=== PATIENT | female | born 1945 | race Caucasian/White ===

== ENCOUNTER 2016-10-13 15:04 | Outpatient (CLI) | payer MEDICARE ==
[~2016-10-13] VITALS: Ht 157.5 cm; Wt 36.0 kg
[~2016-10-13 15:04] MED LIST: ACETAMINOPHEN TAB 650MG DOSE (2X325MG) PO SCH; diphenhydrAMINE 25 MG CAP PO SCH
[2016-10-13 15:45] VITALS: BP 98/65
== END 2016-10-13 21:20 | disposition home or self-care (01) ==
LOC: M OPCLI4PV 15:04 → M INFU 15:04 → M MSPAV 15:07 → M INFU 15:07 → M OPCLI4PV 21:20
PROVIDERS: ATTEND Internal Medicine Medical Oncology
DX: D61.818 Other pancytopenia (principal)
CPT/HCPCS: 36430; 86850; 86900; 86901; 86920; P9016

== ENCOUNTER 2016-11-13 11:15 | Outpatient (CLI) | payer MEDICARE ==
[~2016-11-13 11:15] MED LIST changes: +ACETAMINOPHEN TAB 650MG DOSE (2X325MG) PO ONE; -ACETAMINOPHEN TAB 650MG DOSE (2X325MG) PO SCH; +diphenhydrAMINE 25 MG CAP PO ONE; -diphenhydrAMINE 25 MG CAP PO SCH
== END 2016-11-13 16:15 | disposition home or self-care (01) ==
LOC: M INFU 11:15
PROVIDERS: ATTEND Internal Medicine Medical Oncology
DX: D61.818 Other pancytopenia (principal); Z79.899 Other long term (current) drug therapy; Z88.5 Allergy status to narcotic agent
CPT/HCPCS: 36430; 86850; 86900; 86901; 86920; P9016

== ENCOUNTER 2016-12-07 13:22 | Outpatient (CLI) | payer MEDICARE ==
[~2016-12-07] VITALS: Ht 160 cm; Wt 39.0 kg
[~2016-12-07 13:22] MED LIST changes: -ACETAMINOPHEN TAB 650MG DOSE (2X325MG) PO ONE; +ACETAMINOPHEN TAB 650MG DOSE (2X325MG) PO SCH; -diphenhydrAMINE 25 MG CAP PO ONE; +diphenhydrAMINE 25 MG CAP PO SCH
[2016-12-07 13:30] VITALS: BP 101/58
[2016-12-15] MEDS ORDERED: REVL10CA2 (12:53)
== END 2016-12-07 19:05 | disposition home or self-care (01) ==
LOC: M OPCLI4PV 13:22 → M MSPAV 13:25 → M OPCLI4PV 19:05
PROVIDERS: ATTEND Internal Medicine Medical Oncology
DX: D64.9 Anemia, unspecified (principal)
CPT/HCPCS: 36430; 86850; 86900; 86901; 86920; P9016

== ENCOUNTER → 2016-12-07 | Outpatient (REF) | payer MEDICARE | LOC: M LAB REF 12:51 | PROVIDERS: ATTEND Internal Medicine Medical Oncology | DX: D64.9 Anemia, unspecified (principal) ==

== ENCOUNTER 2016-12-15 12:31 | Emergency (ER) | payer MEDICARE ==
[~2016-12-15] VITALS: Ht 160 cm; Wt 35.4 kg
[2016-12-15] MEDS ORDERED: REVL10CA2 PO (12:53)
[2016-12-15] MEDS ORDERED: ASPI1TAB24 PO (12:55)
[2016-12-15] MEDS ORDERED: NS 500 ML IV ONE ×2 (13:45→16:15)
[2016-12-15 14:03] LABS: MEAN CORPUSCULAR HEMOGLOBIN 31.6 pg (27.0-33.0); MEAN CORPUSCULAR HGB CONC 33.6 g/dl (32.0-36.5); MEAN CORPUSCULAR VOLUME 94.1 fl (80.0-96.0); PLATELET COUNT, AUTOMATED 148 k/mm3 (150-450); RED CELL DISTRIBUTION WIDTH 17.4 % (11.5-14.5); WHITE BLOOD COUNT 5.6 K/mm3 (4.0-10.0)
[2016-12-15 14:05] LABS: ALBUMIN 2.8 GM/DL (3.2-5.2); ALBUMIN/GLOBULIN RATIO 0.68 (1.00-1.93); ALKALINE PHOSPHATASE 74 U/L (45-117); ALT/SGPT 12 U/L (12-78); ANION GAP 10 MEQ/L (8-16); AST/SGOT 9 U/L (15-37); BILIRUBIN,DIRECT 0.4 MG/DL (0.0-0.2); BILIRUBIN,TOTAL 1.2 MG/DL (0.2-1.0); BLOOD UREA NITROGEN 13 MG/DL (7-18); CALCIUM LEVEL 8.5 MG/DL (8.8-10.2); CARBON DIOXIDE LEVEL 29 MEQ/L (21-32); CHLORIDE LEVEL 98 MEQ/L (98-107); CREATININE FOR GFR 0.61 MG/DL (0.55-1.02); GLOMERULAR FILTRATION RATE > 60.0 (>39); GLUCOSE, FASTING 113 MG/DL (83-110); POTASSIUM SERUM 3.1 MEQ/L (3.5-5.1); SODIUM LEVEL 137 MEQ/L (136-145); TOTAL PROTEIN 6.9 GM/DL (6.4-8.2)
[2016-12-15 14:17] LABS: BANDS 3 % (< 11)
[2016-12-15 14:18] LABS: ANISOCYTOSIS 2+; POIKILOCYTOSIS 1+
[2016-12-15 14:19] LABS: TOXIC GRANULATION 1+
--- NOTE | 2016-12-15 15:05 | REP ---
AP VIEW OF THE PELVIS: SINGLE VIEW. HISTORY: Pain after fall. FINDINGS: Bony pelvic ring is intact. Femoral heads are smooth and rounded, and hip joint spaces are preserved. No hip or pelvic fracture is seen. Bowel gas pattern is unremarkable. IMPRESSION: No fracture seen. Signed by Marco Antonio Velarde MD 12/15/2016 03:23 P
[2016-12-15] MEDS ORDERED: ACETAMINOPHEN TAB 650MG DOSE (2X325MG) PO ONE (16:15)
[2016-12-15] MEDS ORDERED: LevoFLOXacin IV 500 MG in APPROPRIATE DILUENT 1 EA IV ONE (16:15)
[2016-12-15 19:01] VITALS: BP 93/51
--- NOTE | 2016-12-16 11:03 | ECGEPIP ---
Stationary ECG Study [facility] - ED Test Date: 2016-12-15 Pat Name: GEORGE ACEVES Department: Room: - Gender: F Licensed Embalmer: SHIRA : 1945 Requested By: BRADEN Henderson Order Number: [id number] Reading MD: Lo Crouch Measurements Intervals [place] Rate: 114 P: 73 HI: 136 QRS: 60 QRSD: 84 T: 76 QT: 310 QTc: 429 Interpretive Statements SINUS TACHYCARDIA NONSPECIFIC ST & T-WAVE ABNORMALITY ABNORMAL RHYTHM ECG NO PRIOR FOR COMPARISON Electronically Signed On 12-16-2016 11:03:36 EST by Lo Crouch
== END 2016-12-15 20:09 | disposition home or self-care (01) ==
LOC: M ED 14:16
DX: J18.9 Pneumonia, unspecified organism (principal)
CPT/HCPCS: 72190; 80048; 80076; 83605; 84443; 85025; 93005; 96374; 99284; J1956

== ENCOUNTER 2016-12-19 22:12 | Inpatient (IN) | payer MEDICARE ==
[~2016-12-19] VITALS: Ht 157.5 cm; Wt 35.7 kg
[~2016-12-19 22:12] MED LIST changes: -ACETAMINOPHEN TAB 650MG DOSE (2X325MG) PO SCH; +ASPI1TAB24 PO; +REVL10CA2 PO; -diphenhydrAMINE 25 MG CAP PO SCH
[2016-12-19] MEDS ORDERED: LEVO500T32 PO (22:34)
[2016-12-19 23:35] LABS: VENOUS O2 SATURATION 90.6 % (60.0-80.0); VENOUS PARTIAL PRESSURE CO2 38.5 mmHg (38.0-50.0); VENOUS PARTIAL PRESSURE O2 63.8 mmHg (30.0-50.0); VENOUS STANDARD HCO3 26.2 MEQ/L; VENOUS TOTAL CO2 27.3 MEQ/L (24.0-28.0)
[2016-12-19 23:47] LABS: DIFF SLIDE NUMBER 189; MEAN CORPUSCULAR HEMOGLOBIN 30.8 pg (27.0-33.0); MEAN CORPUSCULAR HGB CONC 33.4 g/dl (32.0-36.5); MEAN CORPUSCULAR VOLUME 92.3 fl (80.0-96.0); PLATELET COUNT, AUTOMATED 214 k/mm3 (150-450); RED CELL DISTRIBUTION WIDTH 17.5 % (11.5-14.5); WHITE BLOOD COUNT 4.2 K/mm3 (4.0-10.0)
[2016-12-20] VITALS (8 sets, daily range): BP systolic 102–125; BP diastolic 56–64
[2016-12-20 00:08] LABS: BLOOD UREA NITROGEN 11 MG/DL (7-18); GLUCOSE, FASTING 103 MG/DL (83-110)
[2016-12-20 00:15] LABS: BANDS 1 % (< 11)
[2016-12-20 00:17] LABS: ANISOCYTOSIS 2+
--- NOTE | 2016-12-20 00:20 | REPUSA ---
CLINICAL HISTORY: Syncope. TECHNIQUE: Multiple axial brain CT scan sections were obtained from base to vertex without contrast a dministration. COMMENTS: The study shows normal configuration of sella turcica. There are no intra or extra-axial collections. There is no mass effect or midline shift. There is no evidence of hematoma formation. No hydrocephal us is present. No abnormal calcifications are noted. Changes of diffuse cerebellar and cerebral atrophy are noted with symmetrically dilated ventricles an d cortical sulci. There are mild bilateral periventricular hypolucencies compatible with white matter ischemic disease. No significant other abnormalities are seen either in the posterior fossa or supra tentorial compartment. There is mucosal thickening and partial opacification involving left sphenoid as well as bilateral et hmoid air cells and maxillary sinuses consistent with chronic sinusitis. IMPRESSION: 1. Diffuse age-appropriate cerebellar and cerebral atrophy. 2. Bilateral periventricular hypolucencies compatible with chronic white matter ischemic disease. 3. Sinusitis as above. 4. No evidence of acute intracranial pathology. Thank you for your kind referral of this patient.
--- NOTE | 2016-12-20 00:30 | REPUSA ---
CLINICAL HISTORY: Pneumonia. TECHNIQUE: Multiple axial CT images were obtained through chest without IV contrast material. COMMENTS: Multiple areas of consolidation in the RLL and LLL most compatible with multifocal pneumonia. Small r ight pleural effusion is noted. There is no evidence of hilar or mediastinal lymphadenopathy. The heart and great vessels are within normal limits. The visualized portions of the liver are of uniform attenuation without mass or defect. There is no i ntra or extrahepatic biliary ductal dilatation. The spleen is unremarkable. The visualized pancreas i s of normal contour and attenuation characteristics. There is no evidence of adrenal mass. The visual ized portions of the kidneys present no abnormalities. The bony structures are free of lytic or blastic lesions. Multilevel degenerative changes are seen in volving the thoracic spine. Scattered calcifications are seen involving the aorta and visualized alexandra r branches compatible with atherosclerosis. IMPRESSION: Multiple areas of consolidation in the RLL and LLL most compatible with multifocal pneumonia. Small r ight pleural effusion. Consider short term follow up study. Thank you for your kind referral of this patient.
[2016-12-20 00:40] LABS: ANION GAP 9 MEQ/L (8-16); CARBON DIOXIDE LEVEL 27 MEQ/L (21-32); CHLORIDE LEVEL 102 MEQ/L (98-107); SODIUM LEVEL 138 MEQ/L (136-145)
[2016-12-20] MEDS ORDERED: BISACODYL 5 MG TAB PO PRN (02:00)
[2016-12-20] MEDS ORDERED: PERCOCET 5MG/325MG TAB PO PRN (02:00)
[2016-12-20] MEDS ORDERED: ACETAMINOPHEN TAB 650MG DOSE (2X325MG) PO ONE (03:30)
[2016-12-20] MEDS: ACETAMINOPHEN TAB 650MG DOSE (2X325MG) PO PRN ×2 (03:53→20:36)
--- NOTE | 2016-12-20 04:50 | HPE ---
DATE OF ADMISSION: 12/20/2016 PRIMARY CARE PROVIDER: Dr. Moreno. INSURANCE OFFICE MANAGER: Dr. Leon. CHIEF COMPLAINT: Collapse. HISTORY OF PRESENT ILLNESS: The patient is a 71-year-old female with myelodysplastic disorder which she follows with Dr. Leon. She normally gets two units of blood every 3-4 weeks. The last transfusion was 2-1/2 weeks ago. On 12/15, she had presented to her primary care provider's (PCP's) office. While there, she had nasal swab done, which she tells me was positive for influenza and she completed a course of Tamiflu. On the same day, she was also told that she had pneumonia and she was started on levofloxacin and she has completed 4 days of this thus far, although she continued to have dyspnea on exertion, fatigue, and lightheadedness while standing. As per the patient's son who accompanies her in the room and whom she lives with, the patient stood up after using the bathroom this morning and collapsed. It happened one other time today as well in the same orthostatic setting without any other prodromal symptoms. The patient completed 5 days of prednisone as well along with her Tamiflu. At the present time, the patient reports she feels tired, but otherwise has no complaints. She denies shortness of breath at rest, fevers, chills, nausea, vomiting or diarrhea. She tells me that she still has a cough, but it is resolving. PAST MEDICAL HISTORY: Myelodysplastic disorder, transfusion dependent. HOME MEDICATIONS: - levofloxacin 500 mg by mouth daily - aspirin 81 mg daily - Revlimid, she is intermittently on it, she has not been taking it recently ALLERGIES: CODEINE, rash. PAST SURGICAL HISTORY: 1. Tubal ligation. 2. Colonoscopy. SOCIAL HISTORY: The patient is a never smoker. Denies alcohol. Lives with her son, who accompanies her in the emergency room. FAMILY HISTORY: Noncontributory. REVIEW OF SYSTEMS: Negative other than history of present illness (HPI). PHYSICAL EXAMINATION: VITAL SIGNS: Temperature 99.8, pulse 114, blood pressure 100/56, oxygen saturation 98% on room air. GENERAL: She is a pale, cachectic female lying in a stretcher. She appears comfortable, but tired and she is in no distress. HEENT: Conjunctival pallor. Bitemporal wasting. Sunken eyes. She has moist mucous membranes. No elevation of central venous pressure (CVP). CARDIOVASCULAR EXAMINATION: S1, S2, mildly tachycardic, but regular. RESPIRATORY EXAMINATION: Clear. She is kyphotic. ABDOMINAL EXAMINATION: Benign. EXTREMITIES: She appears wasted. LABORATORY STUDIES: WBC 4.2, hemoglobin 7 down from 9.4 four days ago, hematocrit 21, platelet count 214. Chemistry panel: Sodium 138, potassium 4.0, chloride 102, bicarbonate 27, BUN 11, creatinine 0.6. TSH within normal limits. One set of troponin is within normal limits. Blood culture pending. IMAGING: The patient did have a CT scan of the chest that reveals multiple areas of consolidation in the right lower lobe and left lower lobe most compatible with multifocal pneumonia, small right pleural effusion. The patient also had a CT scan of her head that did not reveal any acute intracranial pathology. ASSESSMENT AND PLAN: This is a 71-year-old female with myelodysplastic disorder who has recently completed treatment for influenza and currently completing treatment for community-acquired pneumonia, presenting now with acute on chronic symptomatic anemia. 1. Symptomatic anemia. This is likely the reason for her collapse given her orthostatic symptoms and the setting of her acute drop in her hemoglobin. This is dropping quicker than normal for her. I suspect it is likely related to either influenza or levofloxacin. She has been adequately treated for influenza and completed Tamiflu. At this time, I will discontinue levofloxacin and switch her to azithromycin and cefdinir for three additional days to complete her course. In regards to her anemia, she has been consented, typed and crossed and ordered for a transfusion in the emergency room. I feel this will be the most beneficial for her. Given her chronic anemia, I do not see a utility in checking iron studies. The patient has guaiac in the emergency room (ER), which was negative. 2. Fall. Likely orthostasis secondary to her acute on chronic anemia. Does have pain in her coccyx. Will check an x-ray of her coccyx to ensure no fracture, although I do not think this is likely. 3. Influenza. She has completed Tamiflu. She also completed 5 days of prednisone along with it. Her symptoms do seem to be abating. She has some mild cough. I will provide her with Mucinex. She has myelodysplastic disorder and she may be having bone marrow suppression secondary to possibly influenza or levofloxacin on top of her chronic suppression. 4. Deep venous thrombosis (DVT) prophylaxis. The patient will be on heparin. DISPOSITION: The patient will be admitted to PCU . Will trend her cardiac enzymes. She will be admitted to Dr. Nava's service who will continue following the patient at 7 a.m. [facility]
[2016-12-20] MEDS: ASPIRIN 81 MG ENTERIC TAB PO SCH (08:16)
[2016-12-20] MEDS: guaiFENesin ER 600 MG TAB PO SCH ×2 (08:17→20:36)
[2016-12-20] MEDS: CEFDINIR 300 MG CAP (OMNICEF) PO SCH ×2 (08:18→20:36)
[2016-12-20] MEDS: AZITHROMYCIN 250 MG TAB PO SCH (08:18)
[2016-12-20] MEDS: HEPARIN SOD (PORCINE) 5000 UNITS/ML VIAL SC SCH ×2 (08:18→20:37)
[2016-12-20 08:34] LABS: MEAN CORPUSCULAR HGB CONC 33.4 g/dl (32.0-36.5); MEAN CORPUSCULAR VOLUME 92.6 fl (80.0-96.0); RED CELL DISTRIBUTION WIDTH 16.1 % (11.5-14.5); WHITE BLOOD COUNT 3.8 K/mm3 (4.0-10.0)
[2016-12-20 08:55] LABS: ANION GAP 8 MEQ/L (8-16); BLOOD UREA NITROGEN 10 MG/DL (7-18); CALCIUM LEVEL 8.4 MG/DL (8.8-10.2); CARBON DIOXIDE LEVEL 26 MEQ/L (21-32); CHLORIDE LEVEL 105 MEQ/L (98-107); GLOMERULAR FILTRATION RATE > 60.0 (>39); GLUCOSE, FASTING 123 MG/DL (83-110); POTASSIUM SERUM 3.8 MEQ/L (3.5-5.1); SODIUM LEVEL 139 MEQ/L (136-145)
--- NOTE | 2016-12-20 10:52 | REP ---
REASON: Pain after trauma. COMPARISON: None. The sacrum is near completely obscured by bowel content on both AP views. The lateral view shows no evidence of an acute fracture. IMPRESSION: Negative but limited exam. Signed by Abel Ingram DO 12/20/2016 11:25 A
[2016-12-20 19:10] LABS: MEAN CORPUSCULAR HEMOGLOBIN 31.2 pg (27.0-33.0); MEAN CORPUSCULAR HGB CONC 34.6 g/dl (32.0-36.5); MEAN CORPUSCULAR VOLUME 90.2 fl (80.0-96.0); RED CELL DISTRIBUTION WIDTH 15.9 % (11.5-14.5); WHITE BLOOD COUNT 4.7 K/mm3 (4.0-10.0)
--- NOTE | 2016-12-20 19:47 | ECGEPIP ---
Stationary ECG Study [facility] - ED Test Date: 2016-12-19 Pat Name: GEORGE ACEVES Department: Room: [place] [address] Gender: F Agile Tester: noe : 1945 Requested By: BUSHRA Freedman Order Number: [id number] Reading MD: Arnel Zapata Measurements Intervals [place] Rate: 107 P: 76 VA: 161 QRS: 65 QRSD: 79 T: 79 QT: 309 QTc: 413 Interpretive Statements SINUS TACHYCARDIA ABNORMAL RHYTHM ECG LOW QRS VOLTAGE LIMB LEADS 12/15/16 - RATE DECREASED Electronically Signed On 12-20-2016 19:46:36 EDT by Arnel Zapata
[2016-12-21 03:45] VITALS: BP 112/55
[2016-12-21 05:20] LABS: MEAN CORPUSCULAR HEMOGLOBIN 30.2 pg (27.0-33.0); MEAN CORPUSCULAR HGB CONC 33.5 g/dl (32.0-36.5); MEAN CORPUSCULAR VOLUME 90.1 fl (80.0-96.0); RED CELL DISTRIBUTION WIDTH 15.8 % (11.5-14.5); WHITE BLOOD COUNT 3.6 K/mm3 (4.0-10.0)
[2016-12-21 05:24] LABS: ANION GAP 6 MEQ/L (8-16); BLOOD UREA NITROGEN 11 MG/DL (7-18); CALCIUM LEVEL 7.8 MG/DL (8.8-10.2); CARBON DIOXIDE LEVEL 28 MEQ/L (21-32); CHLORIDE LEVEL 105 MEQ/L (98-107); CREATININE FOR GFR 0.49 MG/DL (0.55-1.02); GLOMERULAR FILTRATION RATE > 60.0 (>39); GLUCOSE, FASTING 89 MG/DL (83-110); POTASSIUM SERUM 3.8 MEQ/L (3.5-5.1); SODIUM LEVEL 139 MEQ/L (136-145)
[2016-12-21 08:00] VITALS: BP 114/56
[2016-12-21] MEDS: CEFDINIR 300 MG CAP (OMNICEF) PO SCH ×2 (08:51→21:58)
[2016-12-21] MEDS: guaiFENesin ER 600 MG TAB PO SCH ×2 (08:51→21:58)
[2016-12-21] MEDS: ASPIRIN 81 MG ENTERIC TAB PO SCH (08:51)
[2016-12-21] MEDS: AZITHROMYCIN 250 MG TAB PO SCH (08:51)
[2016-12-21] MEDS: HEPARIN SOD (PORCINE) 5000 UNITS/ML VIAL SC SCH ×2 (08:56→21:58)
--- NOTE | 2016-12-21 09:01 | IPNPDOC ---
Subjective Date Seen The patient was seen on 12/21/16. Subjective Chief Complaint/HPI The patient is a 71-year-old female admitted with a reason for visit of Symptomatic Anemia. Events since last encounter felling well this morning expect for some persistent nasal congestion , no dizziness or light headedness, no chest pain or shortness of breath , no abdominal pain nausea or vomiting. Objective Physical Examination General Exam: Positive: Alert, No Acute Distress Eye Exam: Positive: Conjunctiva & lids normal, EOMI, PERRLA, Negative: Sclera icteric ENT Exam: Positive: Atraumatic, Mucous membr. moist/pink, Pharynx Normal Neck Exam: Positive: Supple, Negative: JVD, thyromegaly Chest Exam: Positive: Clear to auscultation, Normal air movement Heart Exam: Positive: Normal S1, Normal S2, Rate Normal, Regular Rhythm, Negative: Murmurs, Rubs Telemetry: Positive: No significant arrhythmia Abdomen Exam: Positive: Normal bowel sounds, Soft, Negative: Hepatospenomegaly, Tenderness Extremity Exam: Positive: Normal pulses, Negative: Clubbing, Cyanosis, Edema Skin Exam: Positive: Other skin issue (multiple bruises on the arm , shoulder, hips from falls. ) Assessment /Plan Problems (1) Syncope Status: Acute Problem Text: due to orthostatic hypotension from severe anemia telemetry did not show any cardiac arrhythmia. CT head negative. (2) Bacteremia Status: Acute Problem Text: blood culture 1/2 positive for gram positive cocci in clusters, could be contaminant as patient not febrile no elevation of white coun . however will repeat cultures today and start patient on vancomycin. (3) Symptomatic anemia Status: Acute Problem Text: due to Myelodysplastic syndrome and possibly recent use of levofloxacin and tamiflu may have worsened it. received 2 units of prbc (4) Orthostatic hypotension Status: Acute Problem Text: Syncope due to orthostatic hypotension due to severe anemia resolved. (5) Severe protein-calorie malnutrition Status: Chronic (6) Myelodysplastic disease Status: Chronic (7) Fall Status: Acute Problem Text: fell 3 times in the past week . recently sick from flu and pneumonia was on tamiflu and levofloxacin became very anemic with orthostatic hypotension causing the falls. Plan/VTE VTE Prophylaxis Ordered?: Yes VS, I&O, 24H, Fishbone Vital Signs/I&O Vital Signs Date Time Temp Pulse Resp B/P Pulse Ox O2 Delivery O2 Flow Rate FiO2 12/21/16 04:00 Room Air 12/21/16 03:45 96.8 96 14 112/55 95 I&O- Last 24 Hours up to 6 AM 12/21/16 06:00 Intake Total 780 ml Output Total 575 ml Balance 205 ml Laboratory Data 24H LABS Laboratory Tests 2 12/21/16 04:30: Anion Gap 6L, Blood Urea Nitrogen 11, Creatinine 0.49L, Sodium Level 139, Potassium Level 3.8, Chloride Level 105, Carbon Dioxide Level 28, Calcium Level 7.8L, Glomerular Filtration Rate > 60.0 CBC/BMP Laboratory Tests 12/20/16 18:58 Red Blood Count 3.00 L, Mean Corpuscular Volume 90.2, Mean Corpuscular Hemoglobin 31.2, Mean Corpuscular Hemoglobin Concent 34.6, Red Cell Distribution Width 15.9 H 12/21/16 04:30 Red Blood Count 3.11 L, Mean Corpuscular Volume 90.1, Mean Corpuscular Hemoglobin 30.2, Mean Corpuscular Hemoglobin Concent 33.5, Red Cell Distribution Width 15.8 H, Calcium Level 7.8 L Microbiology Microbiology 12/20/16 Blood Culture - Preliminary, Resulted 12/19/16 Blood Culture - Preliminary, Resulted No growth after 24 hours . All specim... SARAH MITCHELL MD Dec 21, 2016 09:01
--- NOTE | 2016-12-21 10:01 | PHACANCOPD ---
PHARMACY VANCOMYCIN DOSING Pt Demographics Demographics Patient Age:71 , Weight:35.600 , Gender: female Adjusted Body Weight Date: 12/21/16, Adjusted Body Weight: [35.6] Kg Events Past 24 Hours Events Past 24 Hours: NO: Change in CrCl, Dialysis, Diuretic Therapy, Elevation in WBC, Fever, Other, Pending Diagnostics, Pending Procedures Vancomycin Vancomycin indication: BACTERIMIA Vancomycin Target Ranges: 15-20 mcg/ml Vancomycin Load Y/N: Yes Load Dose Date Time Vancomycin Load Dose: 750NG Date: 12/21/16 Time: 11 Vancomycin Dose Date: 12/21/16. Current Vancomycin Dose: [500MG q12H] Intermittent Dosing?: No Labs Labs Item Value Date Time White Blood Count 4.7 K/mm3 12/20/16 1858 White Blood Count 3.6 K/mm3 L 12/21/16 0430 Creatinine 0.60 MG/DL 12/20/16 0821 Creatinine 0.49 MG/DL L 12/21/16 0430 Vital Signs Label Value Date Time Patient Temperature 96.7 degrees F 12/21/16 0800 Temperature Source Tympanic 12/21/16 0800 Patient Temperature 98.1 degrees F 12/20/16 1935 Temperature Source Tympanic 12/20/16 1935 Micro Microbiology 12/21/16 Blood Culture, Received Pending 12/20/16 Blood Culture - Preliminary, Resulted 12/19/16 Blood Culture - Preliminary, Resulted No growth after 24 hours . All specim... Creatinine Clearance Date:12/21/16. Creatinine Clearance: [87.33ML/MIN]. Assessment and Plan Maintaining Current Dose?: Yes Reason for dose change: No Dose Change Pharmacist Note Pharmacist Note Date: 12/21/16. Pharmacist note: PT is a 71 y/o female being treated for bacteremia goal trough 15-20mcg/ml. Pt does not have a history of vancomycin therapy her at [facility]. To achieve goal a loading dose of 750mg was gave at 11. Maintenance will consist of 500mg q12h starting at23:00 with a trough scheduled for 2200 12/22. We will continue to monitor and adjust dose as needed. FREDIS DAWKINS PHARMACY Dec 21, 2016 10:00
[2016-12-21] MEDS ORDERED: VANCOMYCIN HCL 750 MG, VIAL MATE ADAPTER 1 EACH in D5W 250 ML IV ONE (11:00)
[2016-12-21 12:00] VITALS: BP 114/59
[2016-12-21 16:00] VITALS: BP 105/52
[2016-12-21 16:40] VITALS: BP 112/53
[2016-12-21 22:00] VITALS: BP 112/58
[2016-12-21] MEDS: VANCOMYCIN HCL 500 MG in D5W MINI-BAG PLUS 100 ML IV SCH (22:01)
[2016-12-22 06:00] VITALS: BP 119/65
[2016-12-22 07:16] LABS: MEAN CORPUSCULAR HEMOGLOBIN 30.8 pg (27.0-33.0); MEAN CORPUSCULAR HGB CONC 33.8 g/dl (32.0-36.5); MEAN CORPUSCULAR VOLUME 91.1 fl (80.0-96.0); RED CELL DISTRIBUTION WIDTH 15.8 % (11.5-14.5)
[2016-12-22 07:29] LABS: ANION GAP 8 MEQ/L (8-16); BLOOD UREA NITROGEN 9 MG/DL (7-18); CALCIUM LEVEL 8.3 MG/DL (8.8-10.2); CARBON DIOXIDE LEVEL 26 MEQ/L (21-32); CHLORIDE LEVEL 105 MEQ/L (98-107); CREATININE FOR GFR 0.44 MG/DL (0.55-1.02); GLOMERULAR FILTRATION RATE > 60.0 (>39); GLUCOSE, FASTING 79 MG/DL (83-110); POTASSIUM SERUM 3.6 MEQ/L (3.5-5.1); SODIUM LEVEL 139 MEQ/L (136-145)
[2016-12-22] MEDS: HEPARIN SOD (PORCINE) 5000 UNITS/ML VIAL SC SCH ×2 (09:00→21:42)
[2016-12-22] MEDS: guaiFENesin ER 600 MG TAB PO SCH ×2 (10:39→21:42)
[2016-12-22] MEDS: ASPIRIN 81 MG ENTERIC TAB PO SCH (10:39)
[2016-12-22] MEDS: AZITHROMYCIN 250 MG TAB PO SCH (10:39)
[2016-12-22] MEDS: CEFDINIR 300 MG CAP (OMNICEF) PO SCH ×2 (10:39→21:42)
[2016-12-22] MEDS: VANCOMYCIN HCL 500 MG in D5W MINI-BAG PLUS 100 ML IV SCH (10:40)
[2016-12-22 14:00] VITALS: BP 114/56
--- NOTE | 2016-12-22 15:41 | IPN ---
DATE: 12/22/2016 The patient seen and examined. Reported comfortable with mild cough productive of yellow phlegm. Denies any fevers or chills, chest pain, pressure or discomfort. VITAL SIGNS: Temperature 100.2, pulse 103, respiration 18, blood pressure 114/56, pulse oximetry 97% on room air. LABORATORY: WBC 3, hemoglobin and hematocrit 8.9/26.3, platelets 141. Chemistry: Sodium 139, potassium 3.6, chloride 105, bicarbonate 26, BUN 9, creatinine 0.44. Blood culture 102 gram positive cocci in clusters. CT chest shows multiple alveolar consolidation right lower lobe, left lower lobe most compatible with multifocal pneumonia. PHYSICAL EXAMINATION: GENERAL: The patient alert, frail. In no acute distress. PULMONARY: Mild bibasilar rhonchi. CARDIAC: Regular rate and rhythm. Normal S1, S2. ABDOMEN: Soft, nontender, nondistended. EXTREMITIES: No edema bilateral lower extremities. ASSESSMENT AND PLAN: This is a 71-year-old female patient with underlying medical history of myelodysplastic disorder. Follows with Dr. Leon. Requires transfusion every 3 to 4 weeks. Last transfusion was 2-1/2 weeks ago and presented to her primary care's office initially, was recently diagnosed with influenza, placed on Tamiflu presented with symptomatic anemia found to have one out of two gram positive bacteremia. PROBLEM LIST: 1. Syncope. Due to orthostatic hypotension due to severe anemia. The patient was transfused. Telemetry initially was appreciated. CT is negative. The patient was transfused packed red blood cells two units. Continue to follow hemoglobin and hematocrit. 2. Symptomatic anemia due to myelodysplastic syndrome, probably worsened by recent flu. Was given Levaquin and Tamiflu. Transfused 2 units packed red blood cells. Continue to monitor. Transfuse as needed. 3. Bacteremia. One out of two gram positive cocci in clusters. Followup speciation. Followup fevers. Followup repeat cultures. The patient on vancomycin and Omnicef. Adjust as needed. 4. Severe protein calorie malnutrition. Chronic. Supportive care. Encourage oral intake. 5. Myelodysplastic disease. Outpatient followup with oncology. Transfuse as needed. 6. Fall with orthostatic hypotension. Physical therapy. 7. Deep venous thrombosis (DVT) prophylaxis. Heparin subcutaneous. DISPOSITION PLANNING: Pending clinical improvement.
[2016-12-22] MEDS: ACETAMINOPHEN TAB 650MG DOSE (2X325MG) PO PRN (18:29)
[2016-12-22 22:00] VITALS: BP 113/56
[2016-12-22 22:20] VITALS: BP 116/61
[2016-12-23] MEDS ORDERED: VANCOMYCIN HCL 1,000 MG, VIAL MATE ADAPTER 1 EACH in D5W 250 ML IV ONE ×3
[2016-12-23] MEDS ORDERED: VANCOMYCIN HCL 500 MG in D5W MINI-BAG PLUS 100 ML IV SCH (06:00)
[2016-12-23 07:44] LABS: MEAN CORPUSCULAR HEMOGLOBIN 30.5 pg (27.0-33.0); MEAN CORPUSCULAR HGB CONC 33.8 g/dl (32.0-36.5); MEAN CORPUSCULAR VOLUME 90.3 fl (80.0-96.0); RED CELL DISTRIBUTION WIDTH 15.9 % (11.5-14.5); WHITE BLOOD COUNT 3.2 K/mm3 (4.0-10.0)
[2016-12-23 07:59] LABS: ANION GAP 9 MEQ/L (8-16); BLOOD UREA NITROGEN 9 MG/DL (7-18); CALCIUM LEVEL 7.8 MG/DL (8.8-10.2); CARBON DIOXIDE LEVEL 27 MEQ/L (21-32); CHLORIDE LEVEL 104 MEQ/L (98-107); CREATININE FOR GFR 0.46 MG/DL (0.55-1.02); GLOMERULAR FILTRATION RATE > 60.0 (>39); GLUCOSE, FASTING 93 MG/DL (83-110); POTASSIUM SERUM 3.6 MEQ/L (3.5-5.1); SODIUM LEVEL 140 MEQ/L (136-145)
[2016-12-23 08:00] VITALS: BP 111/52
[2016-12-23] MEDS ORDERED: MUCI600T34 PO (08:28)
[2016-12-23] MEDS ORDERED: CEFD1CAP8 PO (08:28)
[2016-12-23] MEDS ORDERED: CEFDINIR 300 MG CAP (OMNICEF) PO SCH (09:00)
[2016-12-23] MEDS ORDERED: POTASSIUM CHLORIDE 10 MEQ SR TABLET PO ONE (09:00)
[2016-12-23] MEDS: HEPARIN SOD (PORCINE) 5000 UNITS/ML VIAL SC SCH (09:07)
[2016-12-23] MEDS: ACETAMINOPHEN TAB 650MG DOSE (2X325MG) PO PRN (09:13)
[2016-12-23] MEDS: ASPIRIN 81 MG ENTERIC TAB PO SCH (11:30)
[2016-12-23] MEDS: guaiFENesin ER 600 MG TAB PO SCH (11:30)
--- NOTE | 2016-12-23 20:03 | DSES ---
DATE OF ADMISSION: 12/20/2016 DATE OF DISCHARGE: 12/23/2016 ONCOLOGIST: Dr. Leon PRIMARY CARE PROVIDER: Dr. Nahid Moreno FINAL DIAGNOSES: Syncope due to orthostatic hypotension due to severe symptomatic anemia, bacteremia, protein calorie malnutrition, myelodysplastic disease, orthostatic hypotension, questionable pneumonia. HISTORY OF PRESENT ILLNESS: This is a 71-year-old female patient with underlying medical history of myelodysplastic disorder requiring intermittent transfusion, follows with Dr. Leon. Normally gets 2 units of packed red blood cells every 3 to 4 weeks. The patient's last transfused about 2-1/2 weeks ago. On December 15, 2016, the patient presented to primary care provider's office, was diagnosed with influenza, completed course of Tamiflu. Subsequently, she was found to have pneumonia and was also on Levaquin. Completed four days of antibiotics. Continued to have worsening dyspnea on exertion, fatigue, lightheadedness while standing, as per patient's family who the patient lives with, the patient stood up after using the bathroom in the morning of admission, subsequently collapsed and has happened twice in a single day. The patient also reported feeling tired. The patient was found to be orthostatic positive with anemia. Hemoglobin down to 7. HOSPITAL COURSE: The patient is admitted to the hospital. Orthostatic vital signs were followed. The patient was transfused 2 units packed red blood cells and later 1 more unit was given as well. CT scan of the chest shows questionable pneumonia, subsequently the patient was started on antibiotics. Cultures were sent. The patient was initially started on vancomycin and Omnicef. Blood culture grew staphylococcus Warneri. Repeat blood culture has been negative. Subsequently, the patient's antibiotic was switched to Omnicef only. Vancomycin was discontinued. The patient given a third unit of packed red blood cells during hospital stay. Potassium was supplemented. Physical therapy evaluation was done. Subsequently, the patient continued tolerating oral. Reported back to baseline, ready for discharge for further care as outpatient. VITAL SIGNS: Temperature 97.2, pulse 99, respiratory rate 18, blood pressure 111/52, pulse oximetry 96% on room air. LABORATORY: WBC 3.2, hemoglobin and hematocrit 8.5/25.1, platelets 116. Chemistry: Sodium 140, potassium 3.6, chloride 104, bicarbonate 27, BUN 9, creatinine 0.46. DISCHARGE MEDICATIONS: - Cefdinir 300 mg by mouth twice a day - Mucinex 600 mg by mouth twice a day - Cefdinir for 7 more days - aspirin 81 mg by mouth daily - Revlimid 10 mg by mouth at bedtime DISCHARGE INSTRUCTIONS: The patient is instructed to followup with primary care provider in 7 days and followup with oncologist, Dr. Leon in 7 to 10 days. Return to the hospital if symptoms worsen. MTDD
== END 2016-12-23 15:15 | disposition home or self-care (01) | DRG 811 ==
LOC: M ED 23:17 → M ED INP 12-20 01:53 → M ICU 12-20 08:31 → M MSPAV 12-21 16:37 → M PED 12-22 22:35
PROVIDERS: ADMIT Internal Medicine; ATTEND Hospitalist
PROC: 30233N1 Transfusion of Nonautologous Red Blood Cells into Peripheral Vein, Percutaneous Approach (ICD-10-PCS; principal; 2016-12-20)
DX: D64.9 Anemia, unspecified (principal); E43 Unspecified severe protein-calorie malnutrition; J18.9 Pneumonia, unspecified organism; Z68.1 Body mass index [BMI] 19.9 or less, adult; R78.81 Bacteremia; D46.9 Myelodysplastic syndrome, unspecified; I95.1 Orthostatic hypotension; Z79.82 Long term (current) use of aspirin; Z79.899 Other long term (current) drug therapy; Z88.5 Allergy status to narcotic agent; Z98.51 Tubal ligation status; Z91.81 History of falling

== ENCOUNTER 2016-12-31 09:59 | Outpatient (CLI) | payer MEDICARE ==
[~2016-12-31] VITALS: Ht 160 cm; Wt 40.1 kg
[~2016-12-31 09:59] MED LIST changes: +ACETAMINOPHEN TAB 650MG DOSE (2X325MG) PO SCH; +CEFD1CAP8 PO; +LEVO500T32 PO; +MUCI600T34 PO; +diphenhydrAMINE 25 MG CAP PO SCH
== END 2016-12-31 16:00 | disposition home or self-care (01) ==
LOC: M INFU 09:59
PROVIDERS: ATTEND Internal Medicine Medical Oncology
DX: D46.9 Myelodysplastic syndrome, unspecified (principal); D61.818 Other pancytopenia; Z88.5 Allergy status to narcotic agent; Z79.82 Long term (current) use of aspirin; Z79.899 Other long term (current) drug therapy
CPT/HCPCS: 36430; 86850; 86900; 86901; 86920; P9016

== ENCOUNTER 2017-01-11 14:46 | Outpatient (CLI) | payer MEDICARE ==
[~2017-01-11] VITALS: Ht 158.8 cm; Wt 36.4 kg
[2017-01-11] VITALS (7 sets, daily range): BP systolic 101–129; BP diastolic 50–67
== END 2017-01-11 23:40 | disposition home or self-care (01) ==
LOC: M OPCLI4PV 14:46 → M MSPAV 14:51 → M OPCLI4PV 23:40
PROVIDERS: ATTEND Internal Medicine Medical Oncology
DX: D61.818 Other pancytopenia (principal)
CPT/HCPCS: 36430; 86850; 86900; 86901; 86920; P9016

== ENCOUNTER → 2017-01-25 | Outpatient (REF) | payer MEDICARE ==
[~2017-01-25] MED LIST changes: -ACETAMINOPHEN TAB 650MG DOSE (2X325MG) PO SCH; -diphenhydrAMINE 25 MG CAP PO SCH
== END ==
LOC: M LAB REF 12:25
PROVIDERS: ATTEND Internal Medicine Medical Oncology
DX: D64.9 Anemia, unspecified (principal)

== ENCOUNTER 2017-01-26 11:43 | Outpatient (CLI) | payer MEDICARE ==
[~2017-01-26] VITALS: Ht 160 cm; Wt 40.1 kg
[~2017-01-26 11:43] MED LIST changes: +ACETAMINOPHEN TAB 650MG DOSE (2X325MG) PO SCH; +diphenhydrAMINE 25 MG CAP PO SCH
== END 2017-01-26 16:20 | disposition home or self-care (01) ==
LOC: M INFU 11:43
PROVIDERS: ATTEND Internal Medicine Medical Oncology
DX: D64.9 Anemia, unspecified (principal)
CPT/HCPCS: 36430; P9016

== ENCOUNTER 2017-02-08 12:05 | Outpatient (CLI) | payer MEDICARE ==
[2017-02-08 12:45] VITALS: BP 114/60
[2017-02-08] MEDS ORDERED: IRON18TA PO (13:52)
[2017-02-08] MEDS ORDERED: VITMTA PO (13:52)
== END 2017-02-08 13:08 | disposition other institution (70) ==
LOC: M OPCLI4PV 12:05 → M MSPAV 12:40 → M OPCLI4PV 13:08
PROVIDERS: ATTEND Internal Medicine Medical Oncology
DX: D64.9 Anemia, unspecified (principal); D46.9 Myelodysplastic syndrome, unspecified; Z53.9 Procedure and treatment not carried out, unspecified reason

== ENCOUNTER 2017-02-08 13:16 | Observation (INO) | payer MEDICARE ==
[~2017-02-08] VITALS: Ht 158.8 cm; Wt 40.8 kg
[~2017-02-08 13:16] MED LIST changes: -ACETAMINOPHEN TAB 650MG DOSE (2X325MG) PO SCH; -diphenhydrAMINE 25 MG CAP PO SCH
[2017-02-08] MEDS ORDERED: NS 1,000 ML IV ONE (13:30)
[2017-02-08] MEDS ORDERED: IRON18TA PO (13:52)
[2017-02-08] MEDS ORDERED: VITMTA PO (13:52)
[2017-02-08 14:10] LABS: MEAN CORPUSCULAR HEMOGLOBIN 32.6 pg (27.0-33.0); MEAN CORPUSCULAR HGB CONC 31.3 g/dl (32.0-36.5); MEAN CORPUSCULAR VOLUME 104.1 fl (80.0-96.0); RED CELL DISTRIBUTION WIDTH 23.7 % (11.5-14.5); WHITE BLOOD COUNT 2.1 K/mm3 (4.0-10.0)
[2017-02-08 14:18] LABS: ANION GAP 6 MEQ/L (8-16); BLOOD UREA NITROGEN 10 MG/DL (7-18); CALCIUM LEVEL 8.2 MG/DL (8.8-10.2); CARBON DIOXIDE LEVEL 27 MEQ/L (21-32); CHLORIDE LEVEL 107 MEQ/L (98-107); CREATININE FOR GFR 0.52 MG/DL (0.55-1.02); GLOMERULAR FILTRATION RATE > 60.0 (>39); GLUCOSE, FASTING 93 MG/DL (83-110); POTASSIUM SERUM 3.4 MEQ/L (3.5-5.1); SODIUM LEVEL 140 MEQ/L (136-145)
[2017-02-08] MEDS ORDERED: ACETAMINOPHEN 325 MG TAB PO PRN (15:30)
[2017-02-08 16:14] LABS: RETIC HEMOGLOBIN CONTENT CHr 39.6 PG (24-36); RETICULOCYTE % ADVIA2120 6.2 % (0.5-1.5); TOTAL IRON BINDING CAPACITY 223 UG/DL (250-450)
--- NOTE | 2017-02-08 16:14 | HPEPDOC ---
General Date of Admission February 08, 2017 at 15:14 Primary Care Physician: FRANKLYN MARTINES MD Attending Physician: ERVIN COLIN MD Chief Complaint The patient is a 71-year-old female admitted with a reason for visit of Anemia, Vasovagal Episode. Source: Patient, Family, RN notes reviewed, Old records Exam Limitations: No limitations Timing/Duration: This morning Associated Symptoms: Diaphoresis, Chills, Weakness History of Present Illness Ms. Walls is a 71-year-old female who presents to [facility]'s emergency Department with weakness and diaphoresis. Patient is accompanied in the emergency department by her son who also provides some of the history. Patient's past medical history significant for myelodysplastic syndrome ( transfusion dependent), anemia, history of sinus headache, history of asymptomatic cerebrovascular accident noted on imaging. Patient states that she was about to receive a blood transfusion at the infusion center when she began feeling weak and sweaty. These feelings occurred while peripheral intravenous access was being obtained. Per patient, it is difficult for the infusion center to obtain peripheral access. Peripheral access was finally obtained in the emergency department. The symptoms occurred when she was reclining in a chair. Per patient report she was informed that she was unresponsive for 3-4 minutes. At this time the patient was transferred to the emergency department for further workup. Patient follows with Dr. Martines for her underlying MDS. She was recently in his office where he informed that she would need to present to the infusion center to receive 3 units of blood. Patient does report that she felt "off" on Wednesday and that she feels quite tired. States that yesterday she was feeling excessively tired as well as lightheaded. She went to lay down and stated that that relieved her lightheadedness. Patient also reports a headache, neck pain, and chills. Patient reports to me that she's previously been informed that her neck pain is secondary to her MDS. Patient's prior transfusion was on 01/27/2017. Patient reports multiple episodes of loss of consciousness, but has previously declined further workup. Patient admits to intermittent episodes of nonbloody diarrhea, dry skin for which she uses lotion without relief, cardiac palpitations that she only notes when she needs to be transfused, unintentional weight loss of 30 pounds over 4 years secondary to 's diagnosis of cancer, persistent leg and arm pain. Patient previously received injections in her arms for her MDS which she attributes to the arm pain. Review of systems otherwise negative besides that what is listed above. Hospitalist service was consulted and patient was subsequently admitted for further medical management. Home Medications Scheduled (Revlimid) 10 Mg Cap, 10 MG PO QHS, (Reported) (Aspirin Adult Low Dose) 81 Mg Tab, 81 MG PO QHS, (Reported) (Iron) 90 Mg Tab, 90 MG PO DAILY, (Reported) Multivitamins *[facility] STOCKED* (Thera M Plus *[facility] STOCKED*) 1 Tab Tab, 1 TAB PO DAILY, (Reported) Allergies Coded Allergies: Codeine (Unverified Allergy, Unknown, RASH, 12/19/16) Past Medical History Medical History 1. Myelodysplastic syndrome, transfusion dependent 2. Anemia 3. History of sinus headache 4. History of asymptomatic cerebrovascular accident noted on imaging Surgical History 1. Colonoscopy 2. 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[employer]) Remote travel to [place] Denies pets in the home Review of Symptoms Constitutional: Reports: Chills, Weakness, Fatigue, Weight Loss (unintentional , 30 pounds over 4 years), Denies: Fever Eyes: Denies: Pain, Vision change ENT: Reports: Head Aches, Denies: Dysphagia, Sore Throat Skin: Reports: Dry, Denies: Rash, Lesions, Jaundice, Bruising Pulmonary: Denies: Dyspnea, Cough, Pleuritic Chest Pain Cardiovascular: Reports: Palpitations (only one blood transfusion needed), Lt Headedness, Denies: Chest Pain, Edema Gastrointestinal: Reports: Diarrhea (nonbloody), Denies: Nausea, Vomiting, Abdominal Pain, Constipation, Melena, Hematochezia Genitourinary: Denies: Dysuria, Frequency, Hematuria Hematologic: Denies: Bruising Musculoskeletal: Reports: Neck Pain, Leg Pain Neurological: Reports: Weakness Physical Examination General Exam: Positive: Alert, Cooperative, No Acute Distress Eye Exam: Positive: PERRLA, Conjunctiva & lids normal, EOMI, Negative: Ptosis ENT Exam: Positive: Atraumatic, Mucous membr. moist/pink, Pharynx Normal, Tongue Midline, Nares Patent, Negative: Pharyngeal Edema Neck Exam: Positive: Supple, Negative: JVD, thyromegaly, Lymphadenopathy Chest Exam: Positive: Clear to auscultation, Normal air movement Heart Exam: Positive: Rate Normal, Regular Rhythm, Normal S1, Normal S2, Negative: Gallops, Murmurs, Rubs Telemetry: Positive: Sinus Abdomen Exam: Positive: Normal bowel sounds, Soft, Negative: Tenderness, Hepatospenomegaly Extremity Exam: Positive: Normal pulses, Negative: Clubbing, Cyanosis, Edema, Tenderness, Swelling Skin Exam: Positive: Other skin issue (dry skin) Neuro Exam: Positive: Normal Speech, Strength at 5/5 X4 ext, Cranial Nerves 3- 12 NL Vital Signs Vital Signs Date Time Temp Pulse Resp B/P (MAP) Pulse Ox O2 Delivery O2 Flow Rate FiO2 02/08/17 14:46 93 100 02/08/17 14:45 97.3 18 95/54 (68) 02/08/17 13:22 Room Air Height (in): 62 Weight (kg): 37.648 BMI (kg): 15.2 Laboratory Data Labs 24H Laboratory Tests 2 02/08/17 13:44: Anion Gap 6L, Glomerular Filtration Rate > 60.0, Blood Urea Nitrogen 10, Creatinine 0.52L, Sodium Level 140, Potassium Level 3.4L, Chloride Level 107, Carbon Dioxide Level 27, Calcium Level 8.2L, Total Creatine Kinase 19L, Creatine Kinase MB 1.0, Creatine Kinase MB Relative Index 5.26H CBC/BMP Laboratory Tests 02/08/17 13:44 Red Blood Count 1.63 L, Mean Corpuscular Volume 104.1 H, Mean Corpuscular Hemoglobin 32.6, Mean Corpuscular Hemoglobin Concent 31.3 L, Red Cell Distribution Width 23.7 H, Calcium Level 8.2 L, Total Creatine Kinase 19 L Assessment/Plan Ms. Walls is a 71-year-old female with past medical history significant for myelodysplastic syndrome (transfusion dependent), anemia, history of sinus headache, history of asymptomatic cerebrovascular accident noted on imaging who presents with weakness and diaphoresis secondary to anemia syncopal event. He has syncope likely secondary to vasovagal response. Other differentials to include are orthostasis and hypotension. Problems (1) Near syncope Status: Acute Problem Text: Differentials include: Vasovagal response (most likely), orthostasis, hypotension Admit to the progressive care unit Obtain orthostatic blood pressures Transfuse 3 units packed red blood cells (2) Symptomatic anemia Status: Acute Problem Text: Hemoglobin 5.3 Type and screen Transfuse 3 units packed red blood cells Obtain H&H 2 hours status-post transfusion Obtain iron studies and reticulocyte count Patient may continue to take home medication of iron 90 mg daily Obtain stool for occult blood (3) Neck pain Status: Acute Problem Text: Likely secondary to underlying MDS Tylenol 325 every 6 hours when necessary for pain (4) Hypokalemia Status: Acute Problem Text: Potassium 3.4 Obtain magnesium level Order 2 units of 10 mEq intravenous potassium chloride Give 1 dose 40 mEq potassium chloride by mouth (5) Myelodysplastic disease Status: Chronic Problem Text: Patient may continue to take home medication (6) Severe protein-calorie malnutrition Status: Chronic Problem Text: BMI is 15.2 Add ensure to diet Maintain regular diet Plan / VTE VTE Prophylaxis Ordered?: Yes (TEDs and sequentials) Plan Plan Near syncope Patient likely experienced a vasovagal episode secondary to symptoms occurring while peripheral access was being obtained. Other differentials to include are orthostasis and hypotension. Will admit patient to the progressive care unit for telemetry monitoring. EKG performed in the emergency department showed normal sinus rhythm. Blood pressure is 100/49. We'll transfuse 3 units of packed red blood cells as a means to relieve any hypotension as well as symptomatic anemia. Also to obtain orthostatic blood pressures after every unit of transfused blood. Anemia Hemoglobin was 5.3. Patient has been typed and screened and 3 units of packed red blood cells have been ordered. Obtain an H&H 2 hours status post transfusion. Patient also complains of intermittent nonbloody diarrhea. Has remote history of colonic hemorrhage without identifiable cause. Obtain stool for occult blood. Patient also reports iron deficiency anemia, likely secondary to myelodysplastic syndrome. Maintain patient on home medication of iron 90 mg daily and will obtain iron studies (iron, total iron-binding capacity, ferritin , transferrin) and reticulocyte count. Hypokalemia Patient's potassium at time of presentation was 3.4. We'll obtain a magnesium level. Have ordered 2 units of intravenous 10 mEq potassium chloride in the meantime as well as a one-time dose 40 mEq of potassium chloride by mouth. Continue to monitor with daily BMP. Myelodysplastic syndrome Patient follows with Dr. Martines. Patient may continue home medication of Revlimid 10 mg by mouth daily at bedtime. Neck pain Patient states that she develops neck pain when her hemoglobin is low. Denies visual or hearing disturbances. Admits to headache. Have ordered Tylenol 325 mg every 6 hours when necessary for pain or discomfort. We'll continue to monitor clinically. Severe protein calorie malnutrition Patient's BMI is 15.2. We'll add ensure to her regular diet order. Disposition Admit: Progressive care unit Anticipated hospitalization: 2 nights Attending: Dr. Stevens DVT prophylaxis: TEDs and sequentials IVF: Initiate Diet: Continue Current (regular) Activity: Advance (bedrest with advancement to out of bed to chair) Diagnostics: Check Labs, Repeat Labs in AM Anticipated Discharge: Home GME ATTESTATION GME ATTESTATION My preceptor for this patient encounter was physically present in the building during the encounter and was fully available. As needed, all aspects of the patient interview, examination, medical decision making process, and medical care plan development were reviewed and approved by the preceptor. Preceptor is aware and concurs with the plan as stated in the body of this note and will attest to such by his/her cosignature. ATTENDING NOTE I, Ervin Colin, have both independently examined this patient as well as reviewed the documentation. I have discussed in detail with the resident the findings and plan of treatment as documented in the residents documentation. I will continue to follow the patient and offer further guidance to the patients care as necessary during this hospital stay. GARETT SCHUMACHER February 08, 2017 16:13 ERVIN COLIN MD March 02, 2017 14:14
[2017-02-08] MEDS ORDERED: POTASSIUM CHLORIDE 10 MEQ SR TABLET PO ONE (16:15)
[2017-02-08 16:31] LABS: FERRITIN 1247 NG/ML (8-252)
[2017-02-08 17:13] LABS: MAGNESIUM LEVEL 1.9 MG/DL (1.8-2.4)
[2017-02-08] MEDS: MULTIVITAMINS/MINERALS THERAP 1 TAB PO SCH (18:45)
[2017-02-08 19:52] VITALS: BP 93/50
[2017-02-08 20:15] VITALS: BP_SYST 100; BP_SYST 106; BP_SYST 113; BP_DIAS 52; BP_DIAS 53; BP_DIAS 55
[2017-02-08] MEDS: KCL 10MEQ IN 100ML SWI (KRUN) 10 MEQ in APPROPRIATE DILUENT 1 EA IV SCH ×4 (20:35→22:25)
[2017-02-08] MEDS ORDERED: REVLIMID PO SCH (21:00)
[2017-02-08] MEDS ORDERED: ASPIRIN 81 MG ENTERIC TAB PO SCH (21:00)
[2017-02-08 22:47] VITALS: BP 105/51
[2017-02-08 23:59] VITALS: BP 121/51
[2017-02-09 04:00] VITALS: BP 107/55
[2017-02-09 05:45] LABS: DIFF SLIDE NUMBER 93; MEAN CORPUSCULAR HEMOGLOBIN 31.4 pg (27.0-33.0); MEAN CORPUSCULAR HGB CONC 34.2 g/dl (32.0-36.5); RED CELL DISTRIBUTION WIDTH 22.4 % (11.5-14.5); WHITE BLOOD COUNT 2.3 K/mm3 (4.0-10.0)
[2017-02-09 05:49] LABS: PLATELET COUNT, AUTOMATED 53 k/mm3 (150-450)
[2017-02-09 05:50] LABS: MEAN CORPUSCULAR VOLUME 91.8 fl (80.0-96.0)
[2017-02-09 05:51] LABS: ANION GAP 6 MEQ/L (8-16); BLOOD UREA NITROGEN 10 MG/DL (7-18); CALCIUM LEVEL 7.7 MG/DL (8.8-10.2); CARBON DIOXIDE LEVEL 24 MEQ/L (21-32); CHLORIDE LEVEL 112 MEQ/L (98-107); CREATININE FOR GFR 0.45 MG/DL (0.55-1.02); GLOMERULAR FILTRATION RATE > 60.0 (>39); GLUCOSE, FASTING 83 MG/DL (83-110); POTASSIUM SERUM 4.6 MEQ/L (3.5-5.1); SODIUM LEVEL 142 MEQ/L (136-145)
[2017-02-09 06:14] LABS: BANDS 1 % (< 11)
[2017-02-09 06:16] LABS: ANISOCYTOSIS 3+
[2017-02-09] MEDS ORDERED: FUROSEMIDE 20 MG/2 ML VIAL (J1940) IV SCH (07:30)
[2017-02-09 08:00] VITALS: BP 111/52
[2017-02-09] MEDS: MULTIVITAMINS/MINERALS THERAP 1 TAB PO SCH (08:08)
--- NOTE | 2017-02-09 08:24 | ECGEPIP ---
Stationary ECG Study [facility] - ED Test Date: 2017-02-08 Pat Name: GEORGE ACEVES Department: Room: - Gender: F Supervisor Enrobing: TRINA : 1945 Requested By: KAUSHIK ELIZONDO Order Number: [id number] Reading MD: Lo Crouch Measurements Intervals [place] Rate: 87 P: 76 [place]: 180 QRS: 60 QRSD: 90 T: 66 QT: 370 QTc: 445 Interpretive Statements SINUS RHYTHM NSTTW ABNORMALITY DECREASED RATE 12/19/16 Electronically Signed On 02-09-2017 8:24:10 EDT by Lo Crouch
--- NOTE | 2017-02-09 18:22 | DSES ---
DATE OF ADMISSION: 02/09/2017 DATE OF DISCHARGE: 02/09/2017 ONCOLOGIST: Dr. Joellen Leon PRIMARY DISCHARGE DIAGNOSES: 1. Symptomatic anemia secondary to myelodysplasia. 2. Sever anemia requiring 4 units of packed red blood cells transfusion. 3. Myelodysplasia. 4. Asymptomatic cerebrovascular accident (CVA) noted on imaging. 5. Pancytopenia secondary to myelodysplasia. DISCHARGE MEDICATIONS: - aspirin 81 mg nightly - iron 90 mg daily - multivitamin one tablet daily - Revlimid 10 mg nightly FOLLOWUP INSTRUCTIONS: Follow up this week with primary care provider and Dr. Joellen Leon regarding myelodysplasia and repeat complete blood count (CBC) to check for requirement for repeat blood transfusion. HOSPITAL COURSE: This is a 71-year-old female who presented to the emergency room, brought in by her son, complaining of generalized weakness, diaphoresis. Patient has a known history of myelodysplasia requiring blood transfusion every two weeks, was found to have a hemoglobin of 5.8. She was admitted for red blood cell transfusion, was given 2 units of blood, with a repeat hemoglobin of 8.6-8.7, hematocrit of 24-25. <<2:01>> weakness. EKG was unremarkable, remains in sinus rhythm. She was admitted under telemetry, which showed no acute changed. Systolic pressure was well-maintained, between 93-121 systolic, with no orthostasis. Hemoccult stool on 02/08/2017 was negative. Patient was given a total of 4 units of red blood cell transfusion. Home safety evaluation was obtained. Patient passed home safety evaluation and safely discharged home with repeat CBC as outpatient, to be ordered by her oncologist, Dr. Leon, who will then decide if she requires further blood transfusions. During the hospital stay, she had an episode of low potassium at 3.4, which was supplemented. She had severe protein calorie malnutrition, with a body mass index (BMI) of 15.2. Nutrition consult was placed. She is to be managed as outpatient with high protein shakes. LABORATORIES ON DISCHARGE: Hemoglobin and hematocrit (H H) after 2 units of blood transfusions still pending. Current CBC is as follows at 5:12 a.m.: White count 2.3, hemoglobin 8.7, hematocrit 25, platelet count 53. Sodium 143, potassium 4.6, chloride 112, bicarbonate 24, BUN 10, creatinine 0.45, glucose 83. Ferritin 1247, iron 194, total iron binding capacity (TIBC) 223. Total CK 19. Hemoccult still negative. TIME SPENT ON DISCHARGE: 30 minutes.
== END 2017-02-09 16:31 | disposition home or self-care (01) ==
LOC: M ED 14:14 → M ED INP 15:14 → M PCU 22:37
PROVIDERS: ADMIT Internal Medicine; ATTEND Internal Medicine
DX: D46.9 Myelodysplastic syndrome, unspecified (principal); D64.9 Anemia, unspecified; Z86.73 Personal history of transient ischemic attack (TIA), and cerebral infarction without residual deficits; E87.6 Hypokalemia; E46 Unspecified protein-calorie malnutrition; R55 Syncope and collapse; R51 Headache; M54.2 Cervicalgia; R19.7 Diarrhea, unspecified; M79.629 Pain in unspecified upper arm; Z79.899 Other long term (current) drug therapy; Z79.82 Long term (current) use of aspirin
CPT/HCPCS: 36415; 36430; 80048; 82270; 82550; 82553; 82728; 83735; 84466; 85014; 85018; 85025; 85027; 85046; 86850; 86900; 86901; 86920; 93005; 96374; 97161; 99285; G0378; G8978; G8979; G8980; J1940; P9016

== ENCOUNTER 2017-03-03 10:38 | Outpatient (CLI) | payer MEDICARE ==
[~2017-03-03 10:38] MED LIST changes: +IRON18TA PO; +VITMTA PO
[2017-03-03] MEDS ORDERED: diphenhydrAMINE 25 MG CAP PO ONE (11:00)
[2017-03-03] MEDS ORDERED: ACETAMINOPHEN TAB 650MG DOSE (2X325MG) PO ONE (11:00)
[2017-03-03 13:01] LABS: PERCENT SATURATION 91.7 % (13.2-37.4)
== END 2017-03-03 16:45 | disposition home or self-care (01) ==
LOC: M INFU 10:38
PROVIDERS: ATTEND Internal Medicine Medical Oncology
DX: D64.9 Anemia, unspecified (principal); D46.9 Myelodysplastic syndrome, unspecified; Z88.5 Allergy status to narcotic agent; Z79.82 Long term (current) use of aspirin; Z79.899 Other long term (current) drug therapy
CPT/HCPCS: 36430; 82728; 83550; 86850; 86900; 86901; 86920; P9016

== ENCOUNTER 2017-03-16 10:42 | Outpatient (CLI) | payer MEDICARE ==
[~2017-03-16] VITALS: Ht 160 cm; Wt 40.1 kg
[2017-03-16] MEDS ORDERED: diphenhydrAMINE 25 MG CAP PO ONE (10:45)
[2017-03-16] MEDS ORDERED: ONDANSETRON 4MG/2ML VIAL (J2405) IV PRN (10:45)
[2017-03-16] MEDS ORDERED: ACETAMINOPHEN TAB 650MG DOSE (2X325MG) PO ONE (10:45)
[2017-03-16] MEDS ORDERED: LR 1,000 ML IV SCH (10:45)
[2017-03-16] MEDS ORDERED: MEPERIDINE INJ 25 MG/ML VIAL (J2175) IV PRN (10:45)
[2017-03-16] MEDS ORDERED: METOCLOPRAMIDE INJ 10MG/2ML VIAL (J2765) IV PRN (10:45)
[2017-03-16] MEDS ORDERED: fentaNYL 100 MCG/2 ML INJECTION (J3010) IV PRN (10:45)
[2017-03-16] MEDS ORDERED: PERCOCET 5MG/325MG TAB PO PRN (10:45)
== END 2017-03-16 16:30 | disposition home or self-care (01) ==
LOC: M INFU 10:42
PROVIDERS: ATTEND Internal Medicine Medical Oncology
DX: D46.9 Myelodysplastic syndrome, unspecified (principal); Z88.5 Allergy status to narcotic agent; Z79.82 Long term (current) use of aspirin; Z79.899 Other long term (current) drug therapy
CPT/HCPCS: 36430; 86850; 86900; 86901; 86920; P9016

== ENCOUNTER 2017-03-30 09:47 | Outpatient (CLI) | payer MEDICARE ==
[~2017-03-30 09:47] MED LIST changes: +ACETAMINOPHEN TAB 650MG DOSE (2X325MG) PO ONE; -ASPI-161 PO; +ASPI1TAB24 PO; +FUROSEMIDE 20 MG/2 ML VIAL (J1940) IV ONE; -JADE1TAB2; -LEVO500T3 PO; +LEVO500T32 PO; +MUCI600T34 PO; -MUCI600T37 PO; -VITA-112 PO; +diphenhydrAMINE 25 MG CAP PO ONE
== END 2017-03-30 17:35 | disposition home or self-care (01) ==
LOC: M INFU 09:47
PROVIDERS: ATTEND Internal Medicine Medical Oncology
DX: D46.9 Myelodysplastic syndrome, unspecified (principal); Z79.899 Other long term (current) drug therapy; Z79.82 Long term (current) use of aspirin; Z88.5 Allergy status to narcotic agent
CPT/HCPCS: 36430; 82607; 83921; 86850; 86900; 86901; 86920; J1940; P9016

== ENCOUNTER → 2017-03-30 | Outpatient (REF) | payer MEDICARE ==
[~2017-03-30] MED LIST changes: +ASPI-161 PO; -ASPI1TAB24 PO; +JADE1TAB2; +LEVO500T3 PO; -LEVO500T32 PO; -MUCI600T34 PO; +MUCI600T37 PO; +VITA-112 PO
== END ==
LOC: M LAB REF 13:21
PROVIDERS: ATTEND Internal Medicine Medical Oncology
DX: D46.9 Myelodysplastic syndrome, unspecified (principal)

== ENCOUNTER 2017-04-09 09:43 | Outpatient (CLI) | payer MEDICARE ==
[~2017-04-09] VITALS: Ht 160 cm; Wt 40.1 kg
[~2017-04-09 09:43] MED LIST changes: -ACETAMINOPHEN TAB 650MG DOSE (2X325MG) PO ONE; +ACETAMINOPHEN TAB 650MG DOSE (2X325MG) PO SCH; +ASPI-161 PO; -ASPI1TAB24 PO; -FUROSEMIDE 20 MG/2 ML VIAL (J1940) IV ONE; +LEVO500T3 PO; -LEVO500T32 PO; -MUCI600T34 PO; +MUCI600T37 PO; -diphenhydrAMINE 25 MG CAP PO ONE; +diphenhydrAMINE 25 MG CAP PO SCH
[2017-04-09] MEDS ORDERED: VITA-112 PO (10:25)
== END 2017-04-09 15:50 | disposition home or self-care (01) ==
LOC: M INFU 09:43
PROVIDERS: ATTEND Internal Medicine Medical Oncology
DX: D64.9 Anemia, unspecified (principal); Z88.5 Allergy status to narcotic agent; Z79.899 Other long term (current) drug therapy
CPT/HCPCS: 36430; 86850; 86900; 86901; 86920; P9016

== ENCOUNTER 2017-04-22 09:08 | Outpatient (CLI) | payer MEDICARE ==
[~2017-04-22] VITALS: Ht 160 cm; Wt 40.0 kg
[~2017-04-22 09:08] MED LIST changes: +VITA-112 PO
[2017-04-22] MEDS ORDERED: FUROSEMIDE 20 MG/2 ML VIAL (J1940) IV SCH (10:00)
== END 2017-04-22 17:00 | disposition home or self-care (01) ==
LOC: M INFU 09:08
PROVIDERS: ATTEND Internal Medicine Medical Oncology
DX: D46.9 Myelodysplastic syndrome, unspecified (principal); Z88.5 Allergy status to narcotic agent; Z79.899 Other long term (current) drug therapy; Z79.82 Long term (current) use of aspirin
CPT/HCPCS: 36430; 86850; 86920; J1940; P9016

== ENCOUNTER 2017-05-06 10:15 | Outpatient (CLI) | payer MEDICARE ==
[~2017-05-06] VITALS: Ht 160 cm; Wt 40.1 kg
== END 2017-05-06 17:15 | disposition home or self-care (01) ==
LOC: M INFU 10:15
PROVIDERS: ATTEND Internal Medicine Medical Oncology
DX: D46.9 Myelodysplastic syndrome, unspecified (principal); Z88.5 Allergy status to narcotic agent; Z79.82 Long term (current) use of aspirin; Z79.899 Other long term (current) drug therapy
CPT/HCPCS: 36430; 86850; 86900; 86901; 86920; P9016

== ENCOUNTER 2017-05-17 10:15 | Outpatient (CLI) | payer MEDICARE ==
[~2017-05-17 10:15] MED LIST changes: +ACETAMINOPHEN TAB 650MG DOSE (2X325MG) PO SCH; -JADE1TAB2; +diphenhydrAMINE 25 MG CAP PO SCH
== END 2017-05-17 16:30 | disposition home or self-care (01) ==
LOC: M INFU 10:15
PROVIDERS: ATTEND Internal Medicine Medical Oncology
DX: D46.9 Myelodysplastic syndrome, unspecified (principal); Z88.5 Allergy status to narcotic agent; Z79.899 Other long term (current) drug therapy
CPT/HCPCS: 36430; 83921; 86850; 86900; 86901; 86920; P9016

== ENCOUNTER → 2017-05-17 | Outpatient (REF) | payer MEDICARE ==
[~2017-05-17] MED LIST changes: -ACETAMINOPHEN TAB 650MG DOSE (2X325MG) PO SCH; +JADE1TAB2; -diphenhydrAMINE 25 MG CAP PO SCH
== END ==
LOC: M LAB REF 14:48
PROVIDERS: ATTEND Internal Medicine Medical Oncology
DX: D46.9 Myelodysplastic syndrome, unspecified (principal)

== ENCOUNTER 2017-05-24 12:56 | Outpatient (CLI) | payer MEDICARE ==
[~2017-05-24] VITALS: Ht 160 cm; Wt 40.1 kg
[~2017-05-24 12:56] MED LIST changes: +ACETAMINOPHEN TAB 650MG DOSE (2X325MG) PO SCH; -JADE1TAB2; +diphenhydrAMINE 25 MG CAP PO SCH
== END 2017-05-24 20:40 | disposition home or self-care (01) ==
LOC: M OPCLI4PR 12:56 → M INFU 12:56 → M PED 17:00 → M OPCLI4PR 20:40
PROVIDERS: ATTEND Internal Medicine Medical Oncology
DX: D46.9 Myelodysplastic syndrome, unspecified (principal); Z88.5 Allergy status to narcotic agent; Z79.82 Long term (current) use of aspirin; Z79.899 Other long term (current) drug therapy
CPT/HCPCS: 36430; 86850; 86900; 86901; 86920; P9016

== ENCOUNTER → 2017-05-24 | Outpatient (REF) | payer MEDICARE ==
[~2017-05-24] MED LIST changes: -ACETAMINOPHEN TAB 650MG DOSE (2X325MG) PO SCH; +JADE1TAB2; -diphenhydrAMINE 25 MG CAP PO SCH
== END ==
LOC: M LAB REF 12:45
PROVIDERS: ATTEND Internal Medicine Medical Oncology
DX: D46.9 Myelodysplastic syndrome, unspecified (principal)

== ENCOUNTER 2017-06-04 09:11 | Outpatient (CLI) | payer MEDICARE ==
[~2017-06-04] VITALS: Ht 158.8 cm; Wt 39.5 kg
[2017-06-04] VITALS (11 sets, daily range): BP systolic 91–155; BP diastolic 47–70
== END 2017-06-04 15:26 | disposition home or self-care (01) ==
LOC: M OPCLI4PR 09:11 → M PED 09:39 → M OPCLI4PR 15:26
PROVIDERS: ATTEND Internal Medicine Medical Oncology
DX: D64.9 Anemia, unspecified (principal); Z92.3 Personal history of irradiation; Z92.21 Personal history of antineoplastic chemotherapy; Z79.899 Other long term (current) drug therapy; Z88.5 Allergy status to narcotic agent
CPT/HCPCS: 36430; 86850; 86900; 86901; 86920; P9016

== ENCOUNTER 2017-06-09 09:53 | Outpatient (CLI) | payer MEDICARE | END 2017-06-09 16:00 | disposition home or self-care (01) | LOC: M INFU 09:53 | PROVIDERS: ATTEND Internal Medicine Medical Oncology | DX: D46.9 Myelodysplastic syndrome, unspecified (principal); D64.9 Anemia, unspecified; Z88.5 Allergy status to narcotic agent; Z79.899 Other long term (current) drug therapy | CPT/HCPCS: 36430; 86850; 86900; 86901; 86920; P9016 ==

== ENCOUNTER → 2017-06-15 | Outpatient (REF) | payer MEDICARE ==
[~2017-06-15] MED LIST changes: -ACETAMINOPHEN TAB 650MG DOSE (2X325MG) PO SCH; +JADE1TAB2; -diphenhydrAMINE 25 MG CAP PO SCH
[2017-06-15 19:18] LABS: PERCENT SATURATION 57.8 % (13.2-45.0)
== END ==
LOC: M LAB REF 14:03
PROVIDERS: ATTEND Internal Medicine Medical Oncology
DX: D46.9 Myelodysplastic syndrome, unspecified (principal); D64.9 Anemia, unspecified

== ENCOUNTER 2017-06-16 06:45 | Outpatient (CLI) | payer MEDICARE ==
[~2017-06-16] VITALS: Ht 160 cm; Wt 40.1 kg
[~2017-06-16 06:45] MED LIST changes: -JADE1TAB2
[2017-06-16] MEDS ORDERED: ACETAMINOPHEN TAB 650MG DOSE (2X325MG) PO ONE (07:00)
[2017-06-16] MEDS ORDERED: diphenhydrAMINE 25 MG CAP PO ONE (07:00)
== END 2017-06-16 12:45 | disposition home or self-care (01) ==
LOC: M INFU 06:45
PROVIDERS: ATTEND Internal Medicine Medical Oncology
DX: D64.9 Anemia, unspecified (principal); Z88.5 Allergy status to narcotic agent; Z79.899 Other long term (current) drug therapy
CPT/HCPCS: 36430; P9016

== ENCOUNTER 2017-06-25 09:29 | Outpatient (CLI) | payer MEDICARE ==
[~2017-06-25] VITALS: Ht 160 cm; Wt 40.1 kg
[~2017-06-25 09:29] MED LIST changes: +ACETAMINOPHEN TAB 650MG DOSE (2X325MG) PO SCH; +diphenhydrAMINE 25 MG CAP PO SCH
== END 2017-06-25 15:20 | disposition home or self-care (01) ==
LOC: M INFU 09:29
PROVIDERS: ATTEND Internal Medicine Medical Oncology
DX: D64.9 Anemia, unspecified (principal); Z88.5 Allergy status to narcotic agent; Z79.899 Other long term (current) drug therapy
CPT/HCPCS: 36430; 86850; 86900; 86901; 86920; P9016

== ENCOUNTER 2017-07-05 07:54 | Emergency (ER) | payer MEDICARE ==
[~2017-07-05] VITALS: Ht 160 cm; Wt 40.5 kg
[~2017-07-05 07:54] MED LIST changes: -ACETAMINOPHEN TAB 650MG DOSE (2X325MG) PO SCH; -diphenhydrAMINE 25 MG CAP PO SCH
[2017-07-05] MEDS ORDERED: JADE1TAB2 (08:12)
[2017-07-05 09:00] LABS: MEAN CORPUSCULAR HEMOGLOBIN 30.7 pg (27.0-33.0); MEAN CORPUSCULAR HGB CONC 33.8 g/dl (32.0-36.5); RED CELL DISTRIBUTION WIDTH 17.1 % (11.5-14.5)
[2017-07-05 09:12] LABS: ANION GAP 8 MEQ/L (8-16); BLOOD UREA NITROGEN 14 MG/DL (7-18); CARBON DIOXIDE LEVEL 27 MEQ/L (21-32); CHLORIDE LEVEL 108 MEQ/L (98-107); CREATININE FOR GFR 0.52 MG/DL (0.55-1.02); GLOMERULAR FILTRATION RATE > 60.0 (>39); GLUCOSE, FASTING 120 MG/DL (83-110); POTASSIUM SERUM 3.7 MEQ/L (3.5-5.1); SODIUM LEVEL 143 MEQ/L (136-145)
[2017-07-05 09:22] LABS: EOS % 1.8 % (0.0-3.0); LYMPH # 0.4 K/mm3 (1.5-4.5); LYMPH % 46.8 % (24.0-44.0); MONO # 0.1 K/mm3 (0.0-0.8); MONO % 7.4 % (0.0-5.0); NEUTROPHILS # 0.3 K/mm3 (1.8-7.7); NEUTROPHILS % 41.3 % (36.0-66.0)
[2017-07-05 09:52] VITALS: BP 101/49
== END 2017-07-05 09:56 | disposition home or self-care (01) ==
LOC: M ED 07:54
DX: D46.9 Myelodysplastic syndrome, unspecified (principal); Z79.899 Other long term (current) drug therapy; Z88.5 Allergy status to narcotic agent; Z86.73 Personal history of transient ischemic attack (TIA), and cerebral infarction without residual deficits
CPT/HCPCS: 36430; 80048; 85027; 86850; 86920; 99283; P9016

== ENCOUNTER 2017-07-05 10:18 | Outpatient (CLI) | payer MEDICARE ==
[~2017-07-05] VITALS: Ht 160 cm; Wt 40.1 kg
[~2017-07-05 10:18] MED LIST changes: +ACETAMINOPHEN TAB 650MG DOSE (2X325MG) PO SCH; +JADE1TAB2; +diphenhydrAMINE 25 MG CAP PO SCH
== END 2017-07-05 14:50 | disposition home or self-care (01) ==
LOC: M INFU 10:18
PROVIDERS: ATTEND Internal Medicine Medical Oncology
DX: D46.9 Myelodysplastic syndrome, unspecified (principal); Z88.5 Allergy status to narcotic agent; Z79.899 Other long term (current) drug therapy

== ENCOUNTER 2017-07-13 10:13 | Outpatient (CLI) | payer MEDICARE ==
[~2017-07-13 10:13] MED LIST changes: +ACETAMINOPHEN TAB 650MG DOSE (2X325MG) PO ONE; -ACETAMINOPHEN TAB 650MG DOSE (2X325MG) PO SCH; -diphenhydrAMINE 25 MG CAP PO SCH
[2017-07-13] MEDS ORDERED: diphenhydrAMINE 25 MG CAP PO ONE (10:15)
== END 2017-07-13 16:45 | disposition home or self-care (01) ==
LOC: M INFU 10:13
PROVIDERS: ATTEND Internal Medicine Medical Oncology
DX: D46.9 Myelodysplastic syndrome, unspecified (principal); R29.6 Repeated falls; Z88.5 Allergy status to narcotic agent; Z79.899 Other long term (current) drug therapy
CPT/HCPCS: 36430; 86850; 86900; 86901; 86920; P9016

== ENCOUNTER → 2017-07-19 | Outpatient (REF) | payer MEDICARE ==
[~2017-07-19] MED LIST changes: -ACETAMINOPHEN TAB 650MG DOSE (2X325MG) PO ONE
== END ==
LOC: M LAB REF 16:03
PROVIDERS: ATTEND Internal Medicine Medical Oncology
DX: D46.9 Myelodysplastic syndrome, unspecified (principal)

== ENCOUNTER 2017-07-20 10:11 | Outpatient (CLI) | payer MEDICARE ==
[~2017-07-20] VITALS: Ht 160 cm; Wt 90.1 kg
[2017-07-20] MEDS ORDERED: diphenhydrAMINE 25 MG CAP PO ONE (10:30)
[2017-07-20] MEDS ORDERED: ACETAMINOPHEN TAB 650MG DOSE (2X325MG) PO ONE (10:30)
== END 2017-07-20 14:45 | disposition home or self-care (01) ==
LOC: M INFU 10:11
PROVIDERS: ATTEND Internal Medicine Medical Oncology
DX: D46.9 Myelodysplastic syndrome, unspecified (principal); Z88.5 Allergy status to narcotic agent; Z79.899 Other long term (current) drug therapy
CPT/HCPCS: 36430; P9016

== ENCOUNTER → 2017-07-26 | Outpatient (REF) | payer MEDICARE | LOC: M LAB REF 17:00 | PROVIDERS: ATTEND Internal Medicine Medical Oncology | DX: D46.9 Myelodysplastic syndrome, unspecified (principal) ==

== ENCOUNTER 2017-07-27 09:50 | Outpatient (CLI) | payer MEDICARE ==
[~2017-07-27] VITALS: Ht 160 cm; Wt 40.1 kg
[~2017-07-27 09:50] MED LIST changes: +ACETAMINOPHEN TAB 650MG DOSE (2X325MG) PO SCH; +diphenhydrAMINE 25 MG CAP PO SCH
== END 2017-07-27 15:00 | disposition home or self-care (01) ==
LOC: M INFU 09:50
PROVIDERS: ATTEND Internal Medicine Medical Oncology
DX: D46.9 Myelodysplastic syndrome, unspecified (principal); Z88.5 Allergy status to narcotic agent; Z79.899 Other long term (current) drug therapy
CPT/HCPCS: 36430; P9016

== ENCOUNTER 2017-08-03 10:31 | Outpatient (CLI) | payer MEDICARE ==
[~2017-08-03] VITALS: Ht 160 cm; Wt 40.1 kg
[~2017-08-03 10:31] MED LIST changes: +ACETAMINOPHEN TAB 650MG DOSE (2X325MG) PO SCH; +diphenhydrAMINE 25 MG CAP PO SCH
== END 2017-08-03 16:15 | disposition home or self-care (01) ==
LOC: M INFU 10:31
PROVIDERS: ATTEND Internal Medicine Medical Oncology
DX: D46.9 Myelodysplastic syndrome, unspecified (principal); D61.818 Other pancytopenia; M54.9 Dorsalgia, unspecified; Z79.899 Other long term (current) drug therapy; Z88.5 Allergy status to narcotic agent
CPT/HCPCS: 36430; 82728; 83550; 86850; 86900; 86901; 86920; P9016

== ENCOUNTER → 2017-08-03 | Outpatient (REF) | payer MEDICARE ==
[~2017-08-03] MED LIST changes: -ACETAMINOPHEN TAB 650MG DOSE (2X325MG) PO SCH; -diphenhydrAMINE 25 MG CAP PO SCH
[2017-08-03 15:19] LABS: PERCENT SATURATION 46.9 % (13.2-45.0)
== END ==
LOC: M LAB REF 14:15
PROVIDERS: ATTEND Internal Medicine Medical Oncology
DX: D46.9 Myelodysplastic syndrome, unspecified (principal)

== ENCOUNTER → 2017-08-09 | Outpatient (REF) | payer MEDICARE ==
[~2017-08-09] MED LIST changes: -ACETAMINOPHEN TAB 650MG DOSE (2X325MG) PO SCH; -diphenhydrAMINE 25 MG CAP PO SCH
== END ==
LOC: M LAB REF 12:23
PROVIDERS: ATTEND Internal Medicine Medical Oncology
DX: D64.9 Anemia, unspecified (principal)

== ENCOUNTER → 2017-08-16 | Outpatient (REF) | payer MEDICARE | LOC: M LAB REF 16:29 | PROVIDERS: ATTEND Internal Medicine Medical Oncology | DX: D46.9 Myelodysplastic syndrome, unspecified (principal) ==

== ENCOUNTER 2017-08-17 09:05 | Outpatient (CLI) | payer MEDICARE ==
[~2017-08-17] VITALS: Ht 160 cm; Wt 40.1 kg
[~2017-08-17 09:05] MED LIST changes: +ACETAMINOPHEN TAB 650MG DOSE (2X325MG) PO SCH; +diphenhydrAMINE 25 MG CAP PO SCH
== END 2017-08-17 14:00 | disposition home or self-care (01) ==
LOC: M INFU 09:05
PROVIDERS: ATTEND Internal Medicine Medical Oncology
DX: D46.9 Myelodysplastic syndrome, unspecified (principal); Z88.5 Allergy status to narcotic agent; Z79.899 Other long term (current) drug therapy
CPT/HCPCS: 36430; P9016

== ENCOUNTER 2017-08-27 10:20 | Outpatient (CLI) | payer MEDICARE ==
[~2017-08-27] VITALS: Ht 160 cm; Wt 40.1 kg
== END 2017-08-27 16:05 | disposition home or self-care (01) ==
LOC: M INFU 10:20
PROVIDERS: ATTEND Internal Medicine Medical Oncology
DX: D64.9 Anemia, unspecified (principal); Z88.5 Allergy status to narcotic agent; Z79.899 Other long term (current) drug therapy
CPT/HCPCS: 36430; 86850; 86900; 86901; 86920; P9016

== ENCOUNTER → 2017-09-06 | Outpatient (REF) | payer MEDICARE ==
[~2017-09-06] MED LIST changes: -ACETAMINOPHEN TAB 650MG DOSE (2X325MG) PO SCH; -diphenhydrAMINE 25 MG CAP PO SCH
== END ==
LOC: M LAB REF 12:37
PROVIDERS: ATTEND Internal Medicine Medical Oncology
DX: D64.9 Anemia, unspecified (principal)

== ENCOUNTER 2017-09-07 08:53 | Outpatient (CLI) | payer MEDICARE ==
[~2017-09-07] VITALS: Ht 160 cm; Wt 40.1 kg
[~2017-09-07 08:53] MED LIST changes: +ACETAMINOPHEN TAB 650MG DOSE (2X325MG) PO SCH; +diphenhydrAMINE 25 MG CAP PO SCH
== END 2017-09-07 13:35 | disposition home or self-care (01) ==
LOC: M INFU 08:53
PROVIDERS: ATTEND Internal Medicine Medical Oncology
DX: D64.9 Anemia, unspecified (principal); D46.9 Myelodysplastic syndrome, unspecified; Z79.899 Other long term (current) drug therapy; Z88.5 Allergy status to narcotic agent
CPT/HCPCS: 36430; P9016

== ENCOUNTER → 2017-11-22 | Outpatient (REF) | payer MEDICARE ==
[2017-11-22 14:53] LABS: IRON (FE) 140 UG/DL (50-170); PERCENT SATURATION 73.7 % (13.2-45.0); TOTAL IRON BINDING CAPACITY 190 UG/DL (250-450)
[2017-11-22 14:54] LABS: FERRITIN 2190 NG/ML (8-252)
== END ==
LOC: M LAB REF 13:51
DX: D50.9 Iron deficiency anemia, unspecified (principal)
CPT/HCPCS: 83550

== ENCOUNTER → 2018-01-10 | Outpatient (REF) | payer MEDICARE, OTHER ==
[2018-01-10 19:30] LABS: APPEARANCE, URINE TURBID (CLEAR); BACTERIA, URINE AUTO 2+ (NEGATIVE); BILIRUBIN, URINE AUTO NEGATIVE (NEGATIVE); BLOOD, URINE BLOOD 2+ (NEGATIVE); CALCIUM OXALATE CRYSTALS SMALL; COLOR, URINE AMBER (YELLOW); GLUCOSE, URINE (UA) AUTO NEGATIVE (NEGATIVE); KETONE, URINE AUTO NEGATIVE (NEGATIVE); LEUKOCYTE ESTERASE, URINE AUTO 3+ (NEGATIVE); MUCUS, URINE SMALL (NEGATIVE); NITRITE, URINE AUTO NEGATIVE (NEGATIVE); PROTEIN, URINE AUTO 1+ mg/dL (NEGATIVE); RBC, URINE AUTO 5 /HPF (0-3); SPECIFIC GRAVITY URINE AUTO 1.018 (1.002-1.035); SQUAMOUS EPITHELIAL CELL UR AU 0 /HPF (0-6); UROBILINOGEN, URINE AUTO 0.2 mg/dL (0.0-2.0); WBC, URINE AUTO TNTC /HPF (0-3)
== END ==
LOC: M LAB REF 17:07
DX: D46.9 Myelodysplastic syndrome, unspecified (principal)
CPT/HCPCS: 81001

== ENCOUNTER → 2018-01-24 | Outpatient (REF) | payer MEDICARE, OTHER ==
[2018-01-25 13:06] LABS: IMMEDIATE SPIN CROSSMATCH 1 2
== END ==
LOC: M LAB REF 17:17
PROVIDERS: Pediatrics
DX: D64.9 Anemia, unspecified (principal); Z88.5 Allergy status to narcotic agent
CPT/HCPCS: 86900

== ENCOUNTER 2018-01-25 12:24 | Outpatient (CLI) | payer MEDICARE ==
[2018-01-25] MEDS: diphenhydrAMINE 25 MG CAP PO (12:53)
[2018-01-25] MEDS: ACETAMINOPHEN TAB 650MG DOSE (2X325MG) PO (12:53)
== END 2018-01-25 18:15 | disposition home or self-care (01) ==
LOC: M INFU 12:24
DX: D64.9 Anemia, unspecified (principal); D46.9 Myelodysplastic syndrome, unspecified; Z88.5 Allergy status to narcotic agent; Z79.899 Other long term (current) drug therapy
CPT/HCPCS: 36430

== ENCOUNTER → 2018-03-15 | Outpatient (REF) | payer MEDICARE ==
[2018-03-16 15:57] LABS: IMMEDIATE SPIN CROSSMATCH 1 2
== END ==
LOC: M LAB REF 14:08
DX: D46.9 Myelodysplastic syndrome, unspecified (principal)
CPT/HCPCS: 86900

== ENCOUNTER 2018-03-16 13:17 | Outpatient (CLI) | payer MEDICARE ==
[~2018-03-16 13:17] MED LIST changes: +ACETAMINOPHEN TAB 650MG DOSE (2X325MG) PO; -ACETAMINOPHEN TAB 650MG DOSE (2X325MG) PO SCH; -ASPI-161 PO; -CEFD1CAP8 PO; -IRON18TA PO; -JADE1TAB2; -LEVO500T3 PO; -MUCI600T37 PO; -REVL10CA2 PO; -VITA-112 PO; -VITMTA PO; +diphenhydrAMINE 25 MG CAP PO; -diphenhydrAMINE 25 MG CAP PO SCH
== END 2018-03-16 18:05 | disposition home or self-care (01) ==
LOC: M INFU 13:17
DX: D46.9 Myelodysplastic syndrome, unspecified (principal); D61.818 Other pancytopenia; Z79.899 Other long term (current) drug therapy; Z88.8 Allergy status to other drugs, medicaments and biological substances
CPT/HCPCS: 36430

== ENCOUNTER 2018-04-01 16:11 | Observation (INO) | payer MEDICARE ==
[2018-04-01 17:25] LABS: HEMATOCRIT 19.1 % (36.0-47.0); MEAN CORPUSCULAR HEMOGLOBIN 34.6 pg (27.0-33.0); MEAN CORPUSCULAR VOLUME 104.9 fl (80.0-96.0); RED BLOOD COUNT 1.82 10^6/uL (4.00-5.40); RED CELL DISTRIBUTION WIDTH 20.5 % (11.5-14.5)
[2018-04-01 17:31] LABS: HEMOGLOBIN 6.3 g/dl (12.0-15.5); PLATELET COUNT, AUTOMATED 40 10^3/uL (150-450); POS COUNT POS FLAG; POSITIVE DIFF POS FLAG
[2018-04-01 17:32] LABS: ADD MANUAL DIFFER YES; DIFF SLIDE NUMBER 273; WHITE BLOOD COUNT 1.1 10^3/uL (4.0-10.0)
[2018-04-01 17:43] LABS: ANION GAP 8 MEQ/L (8-16); BLOOD UREA NITROGEN 13 MG/DL (7-18); CALCIUM LEVEL 8.3 MG/DL (8.8-10.2); CARBON DIOXIDE LEVEL 27 MEQ/L (21-32); CHLORIDE LEVEL 111 MEQ/L (98-107); CPK CREATINE PHOSPHOKINASE 22 U/L (26-192); CREATININE FOR GFR 0.55 MG/DL (0.55-1.30); GLOMERULAR FILTRATION RATE > 60.0 (>39); GLUCOSE, FASTING 96 MG/DL (70-100); POTASSIUM SERUM 3.7 MEQ/L (3.5-5.1); SODIUM LEVEL 146 MEQ/L (136-145); TROPONIN I < 0.02 NG/ML (< 0.10)
[2018-04-01 17:49] LABS: CK-MB VALUE MASS < 1.0 NG/ML (<3.6); MB/CK RELATIVE INDEX 4.54 (< OR =4)
[2018-04-01 18:10] LABS: ATYPICAL LYMPH 3 % (0-5); LYMPHOCYTES 62 % (16-52); MONOCYTES 3 % (0-8); NEUTROPHILS 32 % (35-75)
[2018-04-01 18:11] LABS: ANISOCYTOSIS 3+; PLATELET ESTIMATE MARKED DECREASE (NORMAL)
[2018-04-01] MEDS ORDERED: ONDANSETRON 4MG/2ML VIAL (J2405) IV (20:00)
[2018-04-01] MEDS ORDERED: BISACODYL 5 MG TAB PO (20:00)
[2018-04-01] MEDS ORDERED: ACETAMINOPHEN TAB 650MG DOSE (2X325MG) PO (20:00)
[2018-04-01 21:08] LABS: IMMATURE PLATELET FRACTION % 5.4 % (0.0-9.6)
[2018-04-01 23:27] LABS: IMMEDIATE SPIN CROSSMATCH 1 2
[2018-04-01] MEDS: KCL 20MEQ in NS 1000ML 1,000 ML IV (23:40)
[2018-04-02 06:36] LABS: EOS % 1.1 % (0.0-3.0); HEMOGLOBIN 8.3 g/dl (12.0-15.5); IMMATURE GRANULOCYTE % 1.1 % (0-3.0); LYMPH # 0.5 10^3/uL (1.5-4.5); LYMPH % 49.5 % (24.0-44.0); MEAN CORPUSCULAR HEMOGLOBIN 33.7 pg (27.0-33.0); MEAN CORPUSCULAR HGB CONC 34.6 g/dl (32.0-36.5); MEAN CORPUSCULAR VOLUME 97.6 fl (80.0-96.0); MONO # 0.1 10^3/uL (0.0-0.8); MONO % 5.3 % (0.0-5.0); RED BLOOD COUNT 2.46 10^6/uL (4.00-5.40); RED CELL DISTRIBUTION WIDTH 19.4 % (11.5-14.5)
[2018-04-02 06:57] LABS: ANION GAP 5 MEQ/L (8-16); BLOOD UREA NITROGEN 12 MG/DL (7-18); CALCIUM LEVEL 7.7 MG/DL (8.8-10.2); CARBON DIOXIDE LEVEL 28 MEQ/L (21-32); CHLORIDE LEVEL 114 MEQ/L (98-107); CREATININE FOR GFR 0.52 MG/DL (0.55-1.30); GLOMERULAR FILTRATION RATE > 60.0 (>39); GLUCOSE, FASTING 90 MG/DL (70-100); POTASSIUM SERUM 3.9 MEQ/L (3.5-5.1); SODIUM LEVEL 147 MEQ/L (136-145)
[2018-04-02 07:06] LABS: NEUTROPHILS # 0.4 10^3/uL (1.8-7.7)
[2018-04-02 07:07] LABS: POS COUNT POS FLAG
[2018-04-02 07:28] LABS: PLATELET COUNT, AUTOMATED 35 10^3/uL (150-450); POSITIVE DIFF POS FLAG
[2018-04-02] MEDS: MULTIVITAMINS/MINERALS THERAP 1 TAB PO (08:14)
[2018-04-02 09:10] LABS: IMMEDIATE SPIN CROSSMATCH 1 1
[2018-04-02 14:45] LABS: BASO % 1.1 % (0.0-1.0); HEMATOCRIT 29.3 % (36.0-47.0); HEMOGLOBIN 10.2 g/dl (12.0-15.5); IMMATURE GRANULOCYTE % 1.1 % (0-3.0); LYMPH # 0.5 10^3/uL (1.5-4.5); LYMPH % 47.4 % (24.0-44.0); MEAN CORPUSCULAR HEMOGLOBIN 33.3 pg (27.0-33.0); MEAN CORPUSCULAR HGB CONC 34.8 g/dl (32.0-36.5); MEAN CORPUSCULAR VOLUME 95.8 fl (80.0-96.0); MONO # 0.1 10^3/uL (0.0-0.8); MONO % 5.3 % (0.0-5.0); NEUTROPHILS % 45.1 % (36.0-66.0); RED BLOOD COUNT 3.06 10^6/uL (4.00-5.40); RED CELL DISTRIBUTION WIDTH 19.3 % (11.5-14.5)
[2018-04-02 14:48] LABS: NEUTROPHILS # 0.4 10^3/uL (1.8-7.7); PLATELET COUNT, AUTOMATED 39 10^3/uL (150-450); POS COUNT POS FLAG; POSITIVE DIFF POS FLAG
== END 2018-04-02 15:33 | disposition home or self-care (01) ==
LOC: M ED 16:11 → M ED INP 19:46 → M MSPAV 22:28
DX: D46.9 Myelodysplastic syndrome, unspecified (principal); D64.9 Anemia, unspecified; D75.81 Myelofibrosis; E43 Unspecified severe protein-calorie malnutrition; G45.9 Transient cerebral ischemic attack, unspecified; R06.02 Shortness of breath; Z79.899 Other long term (current) drug therapy; Z12.11 Encounter for screening for malignant neoplasm of colon
CPT/HCPCS: 36430

== ENCOUNTER 2018-04-05 12:09 | Inpatient (IN) | payer MEDICARE ==
[2018-04-05 13:10] LABS: HEMATOCRIT 33.9 % (36.0-47.0); HEMOGLOBIN 11.5 g/dl (12.0-15.5); IMMATURE GRANULOCYTE % 1.3 % (0-3.0); LYMPH % 31.6 % (24.0-44.0); MEAN CORPUSCULAR HEMOGLOBIN 33.3 pg (27.0-33.0); MEAN CORPUSCULAR HGB CONC 33.9 g/dl (32.0-36.5); MEAN CORPUSCULAR VOLUME 98.3 fl (80.0-96.0); MONO % 5.3 % (0.0-5.0); NEUTROPHILS % 61.8 % (36.0-66.0); RED BLOOD COUNT 3.45 10^6/uL (4.00-5.40); RED CELL DISTRIBUTION WIDTH 18.6 % (11.5-14.5)
[2018-04-05 13:14] LABS: LYMPH # 0.2 10^3/uL (1.5-4.5); NEUTROPHILS # 0.5 10^3/uL (1.8-7.7); PLATELET COUNT, AUTOMATED 38 10^3/uL (150-450); POS COUNT POS FLAG; POSITIVE DIFF POS FLAG; WHITE BLOOD COUNT 0.8 10^3/uL (4.0-10.0)
[2018-04-05 13:15] LABS: IMMATURE PLATELET FRACTION % 4.8 % (0.0-9.6)
[2018-04-05] MEDS: ONDANSETRON 4MG/2ML VIAL (J2405) IV (13:21)
[2018-04-05] MEDS: NS 1,000 ML IV ×3 (13:21→20:40)
[2018-04-05 13:23] LABS: INR 0.99; PROTHROMBIN TIME 13.2 SECONDS (12.4-14.5)
[2018-04-05] MEDS: MORPHINE 2 MG/ML 1ML SYRINGE (J2270) IV ×4 (13:23→16:53)
[2018-04-05 13:24] LABS: PARTIAL THROMBOPLASTIN TIME 40.6 SECONDS (26.8-37.9)
[2018-04-05 13:25] LABS: KETONE, URINE AUTO RFX NEGATIVE (NEGATIVE); LEUKOCYTE ESTERASE UR AUTO RFX NEGATIVE (NEGATIVE); MUCUS, URINE RFX SMALL (NEGATIVE); NITRITE, URINE AUTO RFX NEGATIVE (NEGATIVE); RBC, URINE AUTO RFX 2 /HPF (0-3); SPECIFIC GRAVITY UR AUTO RFX 1.015 (1.002-1.035); SQUAM EPITHELIAL CELL UR AURFX 0 /HPF (0-6); WBC, URINE AUTO RFX 1 /HPF (0-3)
[2018-04-05 13:26] LABS: D-DIMER QUANT 1384.1 ng/ml (<500)
[2018-04-05 13:34] LABS: LACTIC ACID SEPSIS PROTOCOL 0.8 MMOL/L (0.4-2.0)
[2018-04-05 13:34] LABS: ALBUMIN 3.9 GM/DL (3.2-5.2); ALBUMIN/GLOBULIN RATIO 1.39 (1.00-1.93); ALKALINE PHOSPHATASE 122 U/L (45-117); ALT/SGPT 208 U/L (12-78); ANION GAP 6 MEQ/L (8-16); AST/SGOT 183 U/L (7-37); BILIRUBIN,DIRECT 0.7 MG/DL (0.0-0.2); BILIRUBIN,TOTAL 2.1 MG/DL (0.2-1.0); BLOOD UREA NITROGEN 14 MG/DL (7-18); CALCIUM LEVEL 8.7 MG/DL (8.8-10.2); CARBON DIOXIDE LEVEL 28 MEQ/L (21-32); CHLORIDE LEVEL 109 MEQ/L (98-107); CK-MB VALUE MASS < 1.0 NG/ML (<3.6); CPK CREATINE PHOSPHOKINASE 17 U/L (26-192); CREATININE FOR GFR 0.62 MG/DL (0.55-1.30); GLOMERULAR FILTRATION RATE > 60.0 (>39); GLUCOSE, FASTING 114 MG/DL (70-100); MB/CK RELATIVE INDEX 5.88 (< OR =4); SODIUM LEVEL 143 MEQ/L (136-145); TOTAL PROTEIN 6.7 GM/DL (6.4-8.2); TROPONIN I < 0.02 NG/ML (< 0.10)
[2018-04-05 14:08] LABS: AMYLASE 3900 U/L (25-115); LIPASE 32335 U/L (73-393)
[2018-04-05] MEDS ORDERED: ISOVUE-370 76% 100ML VIAL (Q9967) As Ordered (14:29)
[2018-04-05] MEDS: PIPERACILLIN/TAZOBACTAM SOD 3.375 GM in D5W MINI-BAG PLUS 50 ML IV (15:58)
[2018-04-05] MEDS ORDERED: NS 1,000 ML IV (16:52)
[2018-04-05] MEDS ORDERED: ONDANSETRON 4MG/2ML VIAL (J2405) IV (17:00)
[2018-04-05] MEDS: PANTOPRAZOLE 40MG INJ (PROTONIX) (C9113) IV (20:40)
[2018-04-06] MEDS: PIPERACILLIN/TAZOBACTAM SOD 3.375 GM in D5W MINI-BAG PLUS 50 ML IV ×4 (00:17→23:53)
[2018-04-06] MEDS: MORPHINE 4 MG/ML 1ML VIAL/SYRINGE (J2270) IV ×2 (00:17→20:00)
[2018-04-06 06:41] LABS: BASO % 1.5 % (0.0-1.0); HEMATOCRIT 27.1 % (36.0-47.0); IMMATURE GRANULOCYTE % 1.5 % (0-3.0); LYMPH # 0.4 10^3/uL (1.5-4.5); LYMPH % 55.9 % (24.0-44.0); MEAN CORPUSCULAR HEMOGLOBIN 33.1 pg (27.0-33.0); MEAN CORPUSCULAR HGB CONC 33.2 g/dl (32.0-36.5); MEAN CORPUSCULAR VOLUME 99.6 fl (80.0-96.0); MONO % 2.9 % (0.0-5.0); NEUTROPHILS % 38.2 % (36.0-66.0); RED BLOOD COUNT 2.72 10^6/uL (4.00-5.40); RED CELL DISTRIBUTION WIDTH 18.5 % (11.5-14.5)
[2018-04-06 06:45] LABS: NEUTROPHILS # 0.3 10^3/uL (1.8-7.7); PLATELET COUNT, AUTOMATED 31 10^3/uL (150-450); POS COUNT POS FLAG; POSITIVE DIFF POS FLAG; WHITE BLOOD COUNT 0.7 10^3/uL (4.0-10.0)
[2018-04-06 07:12] LABS: ALBUMIN 2.8 GM/DL (3.2-5.2); ALBUMIN/GLOBULIN RATIO 1.22 (1.00-1.93); ALKALINE PHOSPHATASE 89 U/L (45-117); ALT/SGPT 121 U/L (12-78); ANION GAP 6 MEQ/L (8-16); AST/SGOT 61 U/L (7-37); BLOOD UREA NITROGEN 10 MG/DL (7-18); CALCIUM LEVEL 7.7 MG/DL (8.8-10.2); CARBON DIOXIDE LEVEL 26 MEQ/L (21-32); CHLORIDE LEVEL 114 MEQ/L (98-107); CREATININE FOR GFR 0.54 MG/DL (0.55-1.30); GLOMERULAR FILTRATION RATE > 60.0 (>39); GLUCOSE, FASTING 87 MG/DL (70-100); LIPASE 2551 U/L (73-393); POTASSIUM SERUM 3.8 MEQ/L (3.5-5.1); SODIUM LEVEL 146 MEQ/L (136-145); TOTAL PROTEIN 5.1 GM/DL (6.4-8.2)
[2018-04-06] MEDS: NS 1,000 ML IV ×3 (09:18→22:52)
[2018-04-06] MEDS: PANTOPRAZOLE 40MG INJ (PROTONIX) (C9113) IV (16:29)
[2018-04-07 06:49] LABS: HEMATOCRIT 23.6 % (36.0-47.0); HEMOGLOBIN 7.9 g/dl (12.0-15.5); MEAN CORPUSCULAR HEMOGLOBIN 33.5 pg (27.0-33.0); MEAN CORPUSCULAR HGB CONC 33.5 g/dl (32.0-36.5); RED BLOOD COUNT 2.36 10^6/uL (4.00-5.40); RED CELL DISTRIBUTION WIDTH 18.4 % (11.5-14.5)
[2018-04-07 06:56] LABS: PLATELET COUNT, AUTOMATED 28 10^3/uL (150-450); POS COUNT POS FLAG; POSITIVE DIFF POS FLAG; POSITIVE MORPH POS FLAG; WHITE BLOOD COUNT 0.6 10^3/uL (4.0-10.0)
[2018-04-07 06:57] LABS: IMMATURE PLATELET FRACTION % 2.8 % (0.0-9.6)
[2018-04-07 07:06] LABS: ALBUMIN 2.6 GM/DL (3.2-5.2); ALBUMIN/GLOBULIN RATIO 1.18 (1.00-1.93); ALKALINE PHOSPHATASE 77 U/L (45-117); ALT/SGPT 71 U/L (12-78); ANION GAP 6 MEQ/L (8-16); AST/SGOT 22 U/L (7-37); BLOOD UREA NITROGEN 8 MG/DL (7-18); CALCIUM LEVEL 7.8 MG/DL (8.8-10.2); CARBON DIOXIDE LEVEL 24 MEQ/L (21-32); CHLORIDE LEVEL 116 MEQ/L (98-107); CREATININE FOR GFR 0.45 MG/DL (0.55-1.30); GLOMERULAR FILTRATION RATE > 60.0 (>39); GLUCOSE, FASTING 75 MG/DL (70-100); POTASSIUM SERUM 3.5 MEQ/L (3.5-5.1); SODIUM LEVEL 146 MEQ/L (136-145); TOTAL PROTEIN 4.8 GM/DL (6.4-8.2)
[2018-04-07] MEDS: NS 1,000 ML IV ×2 (08:32→23:52)
[2018-04-07] MEDS: PIPERACILLIN/TAZOBACTAM SOD 3.375 GM in D5W MINI-BAG PLUS 50 ML IV ×3 (08:32→23:52)
[2018-04-07 11:25] LABS: IMMEDIATE SPIN CROSSMATCH 1 2
[2018-04-07] MEDS: PANTOPRAZOLE 40MG INJ (PROTONIX) (C9113) IV (17:27)
[2018-04-08] MEDS: NS 1,000 ML IV (04:52)
[2018-04-08 06:21] LABS: HEMATOCRIT 30.1 % (36.0-47.0); HEMOGLOBIN 10.3 g/dl (12.0-15.5); MEAN CORPUSCULAR HEMOGLOBIN 32.6 pg (27.0-33.0); MEAN CORPUSCULAR HGB CONC 34.2 g/dl (32.0-36.5); MEAN CORPUSCULAR VOLUME 95.3 fl (80.0-96.0); RED BLOOD COUNT 3.16 10^6/uL (4.00-5.40)
[2018-04-08 06:28] LABS: POS COUNT POS FLAG; WHITE BLOOD COUNT 0.6 10^3/uL (4.0-10.0)
[2018-04-08 06:30] LABS: PLATELET COUNT, AUTOMATED 23 10^3/uL (150-450)
[2018-04-08 06:49] LABS: ALBUMIN 2.7 GM/DL (3.2-5.2); ALBUMIN/GLOBULIN RATIO 1.17 (1.00-1.93); ALKALINE PHOSPHATASE 79 U/L (45-117); ALT/SGPT 54 U/L (12-78); ANION GAP 7 MEQ/L (8-16); AST/SGOT 12 U/L (7-37); BILIRUBIN,TOTAL 1.3 MG/DL (0.2-1.0); BLOOD UREA NITROGEN 7 MG/DL (7-18); CALCIUM LEVEL 7.8 MG/DL (8.8-10.2); CARBON DIOXIDE LEVEL 26 MEQ/L (21-32); CHLORIDE LEVEL 115 MEQ/L (98-107); CREATININE FOR GFR 0.43 MG/DL (0.55-1.30); GLOMERULAR FILTRATION RATE > 60.0 (>39); GLUCOSE, FASTING 83 MG/DL (70-100); POTASSIUM SERUM 3.4 MEQ/L (3.5-5.1); SODIUM LEVEL 148 MEQ/L (136-145)
[2018-04-08 07:22] LABS: MAGNESIUM LEVEL 1.9 MG/DL (1.8-2.4)
[2018-04-08] MEDS: FILGRASTIM 300 MCG/0.5 ML SYRINGE (J1442 PER 1MCG) SC (08:28)
[2018-04-08] MEDS: POTASSIUM CHLORIDE 10 MEQ SR TABLET PO (08:28)
== END 2018-04-08 14:05 | disposition home or self-care (01) | DRG 444 ==
LOC: M ED 12:09 → M ED INP 16:52 → M MS5PR 20:30
PROC: 30233N1 Transfusion of Nonautologous Red Blood Cells into Peripheral Vein, Percutaneous Approach (ICD-10-PCS; principal; 2018-04-07)
DX: K80.20 Calculus of gallbladder without cholecystitis without obstruction (principal); K85.90 Acute pancreatitis without necrosis or infection, unspecified; D61.810 Antineoplastic chemotherapy induced pancytopenia; D46.9 Myelodysplastic syndrome, unspecified; D69.6 Thrombocytopenia, unspecified; Z86.73 Personal history of transient ischemic attack (TIA), and cerebral infarction without residual deficits; Z88.5 Allergy status to narcotic agent

== ENCOUNTER → 2018-04-19 | Outpatient (REF) | payer MEDICARE ==
[2018-04-19 15:40] LABS: ALBUMIN 3.8 GM/DL (3.2-5.2); ALBUMIN/GLOBULIN RATIO 1.52 (1.00-1.93); ALKALINE PHOSPHATASE 94 U/L (45-117); ALT/SGPT 19 U/L (12-78); AMYLASE 70 U/L (25-115); AST/SGOT 15 U/L (7-37); BILIRUBIN,DIRECT 0.2 MG/DL (0.0-0.2); BILIRUBIN,TOTAL 0.7 MG/DL (0.2-1.0); LIPASE 172 U/L (73-393); TOTAL PROTEIN 6.3 GM/DL (6.4-8.2)
== END ==
LOC: M LAB REF 15:05
DX: K85.90 Acute pancreatitis without necrosis or infection, unspecified (principal)
CPT/HCPCS: 82150

== ENCOUNTER 2018-05-23 10:49 | Outpatient (CLI) | payer MEDICARE ==
[2018-05-24] MEDS: diphenhydrAMINE 25 MG CAP PO (13:00)
[2018-05-24] MEDS: ACETAMINOPHEN TAB 650MG DOSE (2X325MG) PO (13:00)
== END 2018-05-24 17:45 | disposition home or self-care (01) ==
LOC: M INFU 10:49
DX: D64.9 Anemia, unspecified (principal); Z88.5 Allergy status to narcotic agent; Z79.899 Other long term (current) drug therapy
CPT/HCPCS: 36430

== ENCOUNTER → 2018-05-23 | Outpatient (REF) | payer MEDICARE ==
[2018-05-24 15:21] LABS: IMMEDIATE SPIN CROSSMATCH 1 2
== END ==
LOC: M LAB REF 11:13
DX: D64.9 Anemia, unspecified (principal)
CPT/HCPCS: 86900

== ENCOUNTER 2018-06-12 01:06 | Emergency (ER) | payer MEDICARE ==
[2018-06-12 01:49] LABS: BASO % 0.4 % (0.0-1.0); HEMOGLOBIN 8.7 g/dl (12.0-15.5); IMMATURE GRANULOCYTE % 2.2 % (0-3.0); LYMPH # 0.3 10^3/uL (1.5-4.5); LYMPH % 11.4 % (24.0-44.0); MEAN CORPUSCULAR HGB CONC 33.5 g/dl (32.0-36.5); MEAN CORPUSCULAR VOLUME 107.4 fl (80.0-96.0); MONO # 0.2 10^3/uL (0.0-0.8); MONO % 8.1 % (0.0-5.0); NEUTROPHILS # 2.1 10^3/uL (1.8-7.7); NEUTROPHILS % 77.9 % (36.0-66.0); RED BLOOD COUNT 2.42 10^6/uL (4.00-5.40); RED CELL DISTRIBUTION WIDTH 18.6 % (11.5-14.5); WHITE BLOOD COUNT 2.7 10^3/uL (4.0-10.0)
[2018-06-12] MEDS: ONDANSETRON 4MG/2ML VIAL (J2405) IV ×2 (02:00→05:25)
[2018-06-12] MEDS: MORPHINE 4 MG/ML 1ML VIAL/SYRINGE (J2270) IV ×2 (02:08→05:35)
[2018-06-12 02:14] LABS: ALBUMIN 3.5 GM/DL (3.2-5.2); ALBUMIN/GLOBULIN RATIO 1.09 (1.00-1.93); ALKALINE PHOSPHATASE 152 U/L (45-117); ALT/SGPT 294 U/L (12-78); ANION GAP 6 MEQ/L (8-16); AST/SGOT 289 U/L (7-37); BILIRUBIN,DIRECT 4.3 MG/DL (0.0-0.2); BILIRUBIN,TOTAL 5.5 MG/DL (0.2-1.0); BLOOD UREA NITROGEN 13 MG/DL (7-18); CALCIUM LEVEL 8.7 MG/DL (8.8-10.2); CARBON DIOXIDE LEVEL 27 MEQ/L (21-32); CHLORIDE LEVEL 108 MEQ/L (98-107); CPK CREATINE PHOSPHOKINASE 20 U/L (26-192); CREATININE FOR GFR 0.63 MG/DL (0.55-1.30); GLOMERULAR FILTRATION RATE > 60.0 (>39); GLUCOSE, FASTING 128 MG/DL (70-100); LIPASE 4780 U/L (73-393); POTASSIUM SERUM 3.6 MEQ/L (3.5-5.1); SODIUM LEVEL 141 MEQ/L (136-145); TOTAL PROTEIN 6.7 GM/DL (6.4-8.2); TROPONIN I < 0.02 NG/ML (< 0.10)
[2018-06-12 02:17] LABS: PLATELET COUNT, AUTOMATED 56 10^3/uL (150-450)
[2018-06-12 02:18] LABS: CK-MB VALUE MASS < 1.0 NG/ML (<3.6); IMMATURE PLATELET FRACTION % 5.1 % (0.0-9.6)
[2018-06-12] MEDS: PIPERACILLIN/TAZOBACTAM SOD 3.375 GM in D5W MINI-BAG PLUS 50 ML IV (04:15)
[2018-06-12] MEDS: NS 1,000 ML IV (04:15)
== END 2018-06-12 06:33 | disposition short-term general hospital (02) ==
LOC: M ED 01:06
DX: K80.20 Calculus of gallbladder without cholecystitis without obstruction (principal); K85.90 Acute pancreatitis without necrosis or infection, unspecified
CPT/HCPCS: J2270

== ENCOUNTER 2018-08-02 11:57 | Observation (INO) | payer MEDICARE ==
[2018-08-02] MEDS: MORPHINE 2 MG/ML 1ML SYRINGE (J2270) IV ×4 (13:02→17:01)
[2018-08-02] MEDS: ONDANSETRON 4MG/2ML VIAL (J2405) IV ×2 (13:02→17:01)
[2018-08-02 13:04] LABS: HEMATOCRIT 20.3 % (36.0-47.0); MEAN CORPUSCULAR HEMOGLOBIN 37.1 pg (27.0-33.0); MEAN CORPUSCULAR HGB CONC 32.5 g/dl (32.0-36.5); RED BLOOD COUNT 1.78 10^6/uL (4.00-5.40); RED CELL DISTRIBUTION WIDTH 18.7 % (11.5-14.5); WHITE BLOOD COUNT 2.4 10^3/uL (4.0-10.0)
[2018-08-02 13:13] LABS: HEMOGLOBIN 6.6 g/dl (12.0-15.5); PLATELET COUNT, AUTOMATED 78 10^3/uL (150-450); POS COUNT POS FLAG; POSITIVE MORPH POS FLAG
[2018-08-02 13:14] LABS: ADD MANUAL DIFFER YES; DIFF SLIDE NUMBER 270; IMMATURE PLATELET FRACTION % 6.8 % (0.0-9.6); INR 1.08; PROTHROMBIN TIME 14.1 SECONDS (12.1-14.4)
[2018-08-02] MEDS: NS 500 ML IV (13:33)
[2018-08-02 13:43] LABS: HYPOCHROMASIA 2+; LYMPHOCYTES 20 % (16-52); MONOCYTES 1 % (0-8); NEUTROPHILS 79 % (35-75); PLATELET ESTIMATE DECREASED (NORMAL)
[2018-08-02 13:44] LABS: ANISOCYTOSIS 2+
[2018-08-02 14:22] LABS: LACTIC ACID SEPSIS PROTOCOL 1.3 MMOL/L (0.4-2.0)
[2018-08-02 14:25] LABS: ALT/SGPT 17 U/L (12-78); ANION GAP 5 MEQ/L (8-16); AST/SGOT 13 U/L (7-37); BLOOD UREA NITROGEN 15 MG/DL (7-18); CALCIUM LEVEL 8.9 MG/DL (8.8-10.2); CARBON DIOXIDE LEVEL 28 MEQ/L (21-32); CHLORIDE LEVEL 111 MEQ/L (98-107); CPK CREATINE PHOSPHOKINASE 19 U/L (26-192); CREATININE FOR GFR 0.74 MG/DL (0.55-1.30); GLOMERULAR FILTRATION RATE > 60.0 (>39); GLUCOSE, FASTING 133 MG/DL (70-100); POTASSIUM SERUM 3.9 MEQ/L (3.5-5.1); SODIUM LEVEL 144 MEQ/L (136-145)
[2018-08-02 14:26] LABS: ALBUMIN 3.7 GM/DL (3.2-5.2); ALBUMIN/GLOBULIN RATIO 1.48 (1.00-1.93); ALKALINE PHOSPHATASE 79 U/L (45-117); BILIRUBIN,DIRECT 0.2 MG/DL (0.0-0.2); BILIRUBIN,TOTAL 0.7 MG/DL (0.2-1.0); CK-MB VALUE MASS < 1.0 NG/ML (<3.6); LIPASE 80 U/L (73-393); TOTAL PROTEIN 6.2 GM/DL (6.4-8.2); TROPONIN I < 0.02 NG/ML (< 0.10)
[2018-08-02 14:39] LABS: KETONE, URINE AUTO RFX NEGATIVE (NEGATIVE); LEUKOCYTE ESTERASE UR AUTO RFX NEGATIVE (NEGATIVE); NITRITE, URINE AUTO RFX NEGATIVE (NEGATIVE); RBC, URINE AUTO RFX 0 /HPF (0-3); SPECIFIC GRAVITY UR AUTO RFX 1.014 (1.002-1.035); WBC, URINE AUTO RFX 0 /HPF (0-3)
[2018-08-02 14:40] LABS: AMORPHOUS SEDIMENT RFX SMALL (NEGATIVE); MUCUS, URINE RFX SMALL (NEGATIVE); SQUAM EPITHELIAL CELL UR AURFX 0 /HPF (0-6)
[2018-08-02] MEDS ORDERED: ACETAMINOPHEN TAB 650MG DOSE (2X325MG) PO (17:00)
[2018-08-02] MEDS ORDERED: ONDANSETRON 4MG/2ML VIAL (J2405) IV (17:00)
[2018-08-02] MEDS: MORPHINE 4 MG/ML 1ML VIAL/SYRINGE (J2270) IV (18:22)
[2018-08-02 19:44] LABS: IMMEDIATE SPIN CROSSMATCH 1 1
[2018-08-02] MEDS: NORCO, ANEXSIA 5/325MG TABLET (HYDROcodone/ACETAMINOPHEN) PO (20:11)
[2018-08-03] MEDS: MULTIVITAMINS/MINERALS THERAP 1 TAB PO (07:30)
[2018-08-03] MEDS: TAMSULOSIN 0.4 MG CAP PO (07:30)
[2018-08-03] MEDS: NORCO, ANEXSIA 5/325MG TABLET (HYDROcodone/ACETAMINOPHEN) PO (07:31)
[2018-08-03 07:41] LABS: HEMATOCRIT 26.4 % (36.0-47.0); HEMOGLOBIN 8.6 g/dl (12.0-15.5); MEAN CORPUSCULAR HGB CONC 32.6 g/dl (32.0-36.5); MEAN CORPUSCULAR VOLUME 101.1 fl (80.0-96.0); RED BLOOD COUNT 2.61 10^6/uL (4.00-5.40); WHITE BLOOD COUNT 3.5 10^3/uL (4.0-10.0)
[2018-08-03 07:44] LABS: PLATELET COUNT, AUTOMATED 86 10^3/uL (150-450); POSITIVE MORPH POS FLAG
[2018-08-03 08:04] LABS: ANION GAP 6 MEQ/L (8-16); BLOOD UREA NITROGEN 12 MG/DL (7-18); CALCIUM LEVEL 8.3 MG/DL (8.8-10.2); CARBON DIOXIDE LEVEL 26 MEQ/L (21-32); CHLORIDE LEVEL 109 MEQ/L (98-107); CREATININE FOR GFR 1.18 MG/DL (0.55-1.30); GLOMERULAR FILTRATION RATE 47.7 (>39); GLUCOSE, FASTING 87 MG/DL (70-100); POTASSIUM SERUM 3.6 MEQ/L (3.5-5.1); SODIUM LEVEL 141 MEQ/L (136-145)
== END 2018-08-03 11:20 | disposition home or self-care (01) ==
LOC: M ED 11:57 → M ED INP 18:13
DX: N20.0 Calculus of kidney (principal); D64.9 Anemia, unspecified; D46.9 Myelodysplastic syndrome, unspecified; I51.7 Cardiomegaly; Z79.899 Other long term (current) drug therapy
CPT/HCPCS: J2270

== ENCOUNTER 2018-08-24 13:00 | Outpatient (CLI) | payer MEDICARE ==
[2018-08-24] MEDS: ACETAMINOPHEN 325 MG TAB PO (13:47)
== END 2018-08-24 17:30 | disposition home or self-care (01) ==
LOC: M INFU 13:00
DX: D46.9 Myelodysplastic syndrome, unspecified (principal); D61.810 Antineoplastic chemotherapy induced pancytopenia; D75.81 Myelofibrosis; Z79.899 Other long term (current) drug therapy; Z88.5 Allergy status to narcotic agent
CPT/HCPCS: 36430

== ENCOUNTER 2018-09-07 11:15 | Outpatient (CLI) | payer MEDICARE ==
[2018-09-07] MEDS: diphenhydrAMINE 25 MG CAP PO (11:45)
[2018-09-07] MEDS: ACETAMINOPHEN TAB 650MG DOSE (2X325MG) PO (15:05)
== END 2018-09-07 16:05 | disposition home or self-care (01) ==
LOC: M INFU 11:15
DX: D46.9 Myelodysplastic syndrome, unspecified (principal); D64.9 Anemia, unspecified
CPT/HCPCS: 36430

== ENCOUNTER 2018-09-23 09:42 | Outpatient (CLI) | payer MEDICARE ==
[~2018-09-23] VITALS: Ht 157.5 cm; Wt 42.2 kg
[~2018-09-23 09:42] MED LIST changes: -ACETAMINOPHEN TAB 650MG DOSE (2X325MG) PO; +ASPI-161 PO; +AZIT-12 PO; +B-COTAB10 PO; +CEFD1CAP8 PO; +HYDR-3713 PO; +IRON18TA PO; +JADE1TAB2; +JADE1TAB3 PO; +LEVO500T3 PO; +MUCI600T37 PO; +REVL10CA2 PO; +TRAM-533 PO; +VIDA100I IV; +VITA-112 PO; +VITMTA PO; +[UNRECOGNIZED DRUG - CODE] PO; -diphenhydrAMINE 25 MG CAP PO
[2018-09-23 10:00] VITALS: BP 157/68
[2018-09-23] MEDS ORDERED: diphenhydrAMINE 25 MG CAP PO ONE (10:00)
[2018-09-23] MEDS ORDERED: ACETAMINOPHEN TAB 650MG DOSE (2X325MG) PO ONE (10:00)
[2018-09-23 12:17] VITALS: BP 112/56
[2018-09-23 12:43] VITALS: BP 112/54
== END 2018-09-23 12:45 | disposition home or self-care (01) ==
LOC: M INFU 09:42
PROVIDERS: ATTEND Internal Medicine Hematology & Oncology
DX: D46.9 Myelodysplastic syndrome, unspecified (principal)
CPT/HCPCS: 36430; P9016

== ENCOUNTER 2018-10-13 14:47 | Observation (INO) | payer MEDICARE ==
[~2018-10-13] VITALS: Ht 160 cm; Wt 45.5 kg
[2018-10-13] MEDS ORDERED: APAP500T10 PO (16:57)
[2018-10-13] MEDS ORDERED: ACETAMINOPHEN 500 MG TAB PO PRN (19:45)
--- NOTE | 2018-10-13 22:05 | HPE ---
DATE OF ADMISSION: 10/13/2018 CHIEF COMPLAINT: Fatigue. HISTORY OF PRESENT ILLNESS: This is a 72-year-old female with history of myelodysplastic syndrome with pancytopenia who is transfusion dependent since 2014, history of pancreatitis, history of cholecystectomy who presents with chief complaint of fatigue and found to be anemic with a hemoglobin of 4.6 in her outpatient clinic. Patient reports she received her last transfusion about three weeks ago where she received one unit prior to going out of town. She had a routine blood work today which showed a hemoglobin of 4.6 and she was told to come to the emergency room for transfusion. She does report that she has not been feeling herself for the last 3 to 4 days and felt fatigued, unusually short of breath. She assumed she was due for another transfusion. Her laboratory results confirmed that she was anemic and needed a transfusion and is here for observation for 3 units of red cells. Patient was seen in the emergency room and 3 units of red cells were ordered and patient will be admitted for overnight observation for the transfusions. REVIEW OF SYSTEMS: Negative in 14 out of 14 systems, except as noted above. PAST MEDICAL HISTORY: As noted above in HPI. PAST SURGICAL HISTORY: Cholecystectomy in March 2018. Patient has a history of tubal ligation many years ago. HOME MEDICATIONS: - B complex one tablet daily - Jadenu Sprinkles 180 mg by mouth at bedtime - multivitamin one tablet daily ALLERGIES: Patient is allergic to CODEINE. FAMILY HISTORY: Patient has a sister who had a history of breast cancer and a brother with history of bladder cancer. SOCIAL HISTORY: Patient is . She has two sons and one is local. No smoking, alcohol or drugs. PHYSICAL EXAMINATION: On exam, patient's vitals on admission: Temperature 98.6, blood pressure 120/56, heart rate of 104, respirations 16. Saturating 100% on room air. GENERAL: She is a frail elderly thin female, but her coloring is slightly pale. HEENT: Oropharynx clear. NECK: Supple. CARDIOVASCULAR: Regular rate and rhythm. No murmurs, rubs or gallops. LUNGS: Clear to auscultation bilaterally. No wheezes, rales or rhonchi. ABDOMEN: Soft, nontender, nondistended. Positive bowel sounds. EXTREMITIES: No clubbing, cyanosis or edema. SKIN: Intact. PSYCHIATRIC: Mood stable. NEUROLOGICAL: Patient is alert and oriented times three. Follows simple commands. No focal neurological deficits. LABORATORY RESULTS: Patient has a hemoglobin of 4.6, platelets of 42. White count of 2.2. Chemistry is unremarkable with a creatinine of 0.8. ASSESSMENT AND PLAN: This is a 72-year-old female with past medical history of myelodysplastic syndrome who is transfusion dependent who is admitted with anemia for observation after a blood transfusion. PROBLEMS: 1. Acute on chronic anemia. Patient does have chronic anemia from her myelodysplastic syndrome, which is now worse. She will need three units of blood and this was ordered by the emergency room. She will receive these blood transfusions overnight. She should have a repeat CBC checked tomorrow prior to discharge. 2. Pancytopenia. Patient does have chronic pancytopenia from her myelodysplastic syndrome (MDS) and other than her hemoglobin which was unusually low, the rest of her cell count is within her range. She is leukopenic as well as thrombocytopenic. 3. Continue home medications without change. 4. Deep venous thrombosis (DVT) prophylaxis. Encourage ambulation. Given patient is thrombocytopenic will not give medication for pharmacotherapy of DVT prophylaxis. 5. Patient is DO NOT RESUSCITATE (DNR), DO NOT INTUBATE (DNI).
[2018-10-13 22:30] VITALS: BP 142/93
[2018-10-14 00:20] LABS: HEMATOCRIT 19.1 % (36.0-47.0)
[2018-10-14 00:41] LABS: HEMOGLOBIN 6.4 g/dl (12.0-15.5)
[2018-10-14] MEDS ORDERED: FUROSEMIDE 20 MG/2 ML VIAL (J1940) IV STA (00:51)
[2018-10-14 02:45] VITALS: BP 106/64
[2018-10-14 06:00] VITALS: BP 112/73
[2018-10-14 06:15] LABS: HEMATOCRIT 24.8 % (36.0-47.0); HEMOGLOBIN 8.6 g/dl (12.0-15.5); MEAN CORPUSCULAR HEMOGLOBIN 29.7 pg (27.0-33.0); MEAN CORPUSCULAR HGB CONC 34.7 g/dl (32.0-36.5); MEAN CORPUSCULAR VOLUME 85.5 fl (80.0-96.0); WHITE BLOOD COUNT 2.1 10^3/uL (4.0-10.0)
[2018-10-14 06:16] LABS: PLATELET COUNT, AUTOMATED 34 10^3/uL (150-450)
[2018-10-14 06:37] LABS: BLOOD UREA NITROGEN 15 MG/DL (7-18); CALCIUM LEVEL 8.4 MG/DL (8.8-10.2); CARBON DIOXIDE LEVEL 28 MEQ/L (21-32); CHLORIDE LEVEL 109 MEQ/L (98-107); CREATININE FOR GFR 0.65 MG/DL (0.55-1.30); GLOMERULAR FILTRATION RATE > 60.0 (>39); GLUCOSE, FASTING 84 MG/DL (70-100); POTASSIUM SERUM 3.8 MEQ/L (3.5-5.1); SODIUM LEVEL 143 MEQ/L (136-145)
--- NOTE | 2018-10-14 07:54 | REP ---
Oral chest x-ray: Single view. History: Evaluate for fluid overload. Comparison study: April 05, 2018. Findings: The lungs are hyperinflated and clear. Pleural angles are sharp. Heart size is normal. Pulmonary vasculature is not increased. The thoracic aorta is slightly tortuous as before. There are surgical clips in the upper abdomen on the right. No significant bony abnormality is seen. Impression: Hyperinflation. Otherwise no acute disease. There is no radiographic evidence to suggest volume overload or CHF. Electronically Signed by Marco Antonio Velarde MD 10/14/2018 07:45 A
[2018-10-14] MEDS ORDERED: MULTIVITAMINS/MINERALS THERAP 1 TAB PO SCH (09:00)
--- NOTE | 2018-10-14 09:20 | ECGEPIP ---
Stationary ECG Study [facility] - ED Test Date: 2018-10-13 Pat Name: GEORGE ACEVES Department: Room: - Gender: F Entertainer Or Variety Artist: carlos : 1945 Requested By: Joseph Avilez Order Number: [id number] Reading MD: Lo Crouch Measurements Intervals [place] Rate: 101 P: 74 [place]: 177 QRS: 37 QRSD: 85 T: 61 QT: 310 QTc: 402 Interpretive Statements SINUS TACHYCARDIA LOW QRS VOLTAGE IN EXTREMITY LEADS NONSPECIFIC ST & T-WAVE ABNORMALITY ABNORMAL RHYTHM ECG INCREASED RATE 08/02/18 Electronically Signed On 10-14-2018 9:19:44 EST by Lo Crouch
[2018-10-14 14:15] VITALS: BP 99/59
[2018-10-14 15:49] LABS: HEMATOCRIT 24.4 % (36.0-47.0); HEMOGLOBIN 8.5 g/dl (12.0-15.5); MEAN CORPUSCULAR HEMOGLOBIN 29.9 pg (27.0-33.0); MEAN CORPUSCULAR HGB CONC 34.8 g/dl (32.0-36.5); MEAN CORPUSCULAR VOLUME 85.9 fl (80.0-96.0); RED BLOOD COUNT 2.84 10^6/uL (4.00-5.40); WHITE BLOOD COUNT 2.7 10^3/uL (4.0-10.0)
[2018-10-14 16:00] LABS: PLATELET COUNT, AUTOMATED 42 10^3/uL (150-450)
[2018-10-14 16:38] LABS: ATYPICAL LYMPH 3 % (0-5); BASOPHILS 1 % (0-4); LYMPHOCYTES 27 % (16-52); METAMYELOCYTES 1 % (0-0); MONOCYTES 5 % (0-8); NEUTROPHILS 54 % (35-75); NUCLEATED RED BLOOD CELL 1 % (0-0); PLATELET ESTIMATE MARKED DECREASE (NORMAL)
[2018-10-14 16:39] LABS: TOXIC VACUOLATION 1+
--- NOTE | 2018-10-14 17:41 | DS.PDOC ---
Discharge Summary General Date of Admission Oct 13, 2018 at 19:35 Date of Discharge 10/14/2018 Discharge Summary PROCEDURES PERFORMED DURING STAY: [None]. ADMITTING DIAGNOSES / DISCHARGE DIAGNOSES: Symptomatic anemia on chronic anemia Thrombocytopenia Leukopenia Pancytopenia Myelodysplastic syndrome; transfusion dependent History of renal nephrolithiasis DVT prophylaxis COMPLICATIONS/CHIEF COMPLAINT: Shortness of breath / fatigue / palpitations HISTORY OF PRESENT ILLNESS / HOSPITAL COURSE: Patient is a 72-year-old female with a PMHx of MDS with pancytopenia (transfusion dependent since 2014), Hx of Renal stones who presented to the ER after she was found to have a hemoglobin of 4.6. Patient has described symptoms of shortness of breath, fatigue and palpitations. She's received several transfusions in the past at the infusion center. Patient was admitted to hospitalist service for further evaluation and treatment. During hospital course patient had received 3 units of PRBC in 1 unit of Platelet product. After receiving transfusions, patient's hemoglobin improved from 4.6 to 8.5 and platelet count improved from 34 to 42. Patient reported that her symptoms have resolved. Has been able to ambulate without expressing any shortness of breath, fatigue or palpitations. Asians advised to follow-up with her primary care provider as well as Dr. Lagunas within the next 7 days. She's been advised to remain compliant with treatment plan and medications and return to the emergency room if she experiences any problems. DISCHARGE MEDICATIONS: Please see below. ALLERGIES: Please see below. PHYSICAL EXAMINATION ON DISCHARGE: Vitals (See below) General: Lying in bed, no acute distress, comfortable, AAOx3 HEENT: NC, AT CVS: RRR, +S1S2 Lungs: Fair air entry b/l, -w/r/r Abdomen: Soft, ND, NT Extremities: - Edema, - Calf tenderness LABORATORY DATA: Please see below. ACTIVITY: [As tolerated]. DISCHARGE PLAN: Follow-up with primary care provider and Dr. Lagunas within the next 7 days Remain compliant with treatment plan and medications Return to the ER if you experience any problems DISPOSITION: Home DISCHARGE CONDITION: [Stable]. TIME SPENT ON DISCHARGE: Greater than [35] minutes. Vital Signs/I&Os Vital Signs Date Time Temp Pulse Resp B/P (MAP) Pulse Ox O2 Delivery O2 Flow Rate FiO2 10/14/18 14:15 98.4 84 16 99/59 (72) 99 10/14/18 06:00 Room Air I&O- Last 24 Hours up to 6 AM 10/14/18 05:59 Intake Total 930 ml Output Total 1450 ml Balance -520 ml Laboratory Data Labs 24H Laboratory Tests 2 10/14/18 05:38: Nucleated Red Blood Cells % (auto) 0.0, Immature Platelet Fraction 6.7, Anion Gap 6L, Glomerular Filtration Rate > 60.0, Blood Urea Nitrogen 15, Creatinine 0.65, Sodium Level 143, Potassium Level 3.8, Chloride Level 109H, Carbon Dioxide Level 28, Calcium Level 8.4L 10/14/18 15:26: Nucleated Red Blood Cells % (auto) 0.0, Immature Granulocyte % (Auto) , Neutrophils 54, Band Neutrophils 9, Lymphocytes (Manual) 27, Monocytes (Manual) 5, Basophils (Manual) 1, Metamyelocytes 1H, Nucleated Red Blood Cells 1H, Atypical Lymphocytes 3, Toxic Vacuolation 1+, Platelet Estimate MARKED DECREASE, Macrocytosis 1+ CBC/BMP Laboratory Tests 10/14/18 00:14 10/14/18 05:38 Red Blood Count 2.90 L, Mean Corpuscular Volume 85.5, Mean Corpuscular Hemoglobin 29.7, Mean Corpuscular Hemoglobin Concent 34.7, Red Cell Distribution Width 17.4 H, Calcium Level 8.4 L 10/14/18 15:26 Red Blood Count 2.84 L, Mean Corpuscular Volume 85.9, Mean Corpuscular Hemogl obin 29.9, Mean Corpuscular Hemoglobin Concent 34.8, Red Cell Distribution Width 17.9 H Discharge Medications Scheduled (B-Complex) 1 Tab Tab, 1 TAB PO DAILY, (Reported) Deferasirox (Jadenu Sprinkle) 180 Mg Gra, 180 MG PO QHS, (Reported) MIXES WITH PUDDING Multivitamins *[facility] STOCKED* (Thera M Plus *[facility] STOCKED*) 1 Tab Tab, 2 TAB PO DAILY, (Reported) Scheduled PRN Acetaminophen (APAP Extra Strength) 500 Mg Tab, 500 MG PO Q4H PRN for PAIN, ( Reported) Allergies Coded Allergies: Codeine (Unverified Allergy, Unknown, RASH, 12/19/16) AMY NAVA MD Oct 14, 2018 17:41
[2018-10-25] MEDS ORDERED: [UNRECOGNIZED DRUG - CODE] PO (11:58)
== END 2018-10-14 17:28 | disposition home or self-care (01) ==
LOC: M ED 14:47 → M ED INP 19:35 → M MS5PR 22:20
PROVIDERS: ADMIT Internal Medicine; ATTEND Internal Medicine
DX: D69.6 Thrombocytopenia, unspecified (principal); D72.819 Decreased white blood cell count, unspecified; D61.818 Other pancytopenia; D46.9 Myelodysplastic syndrome, unspecified; Z79.899 Other long term (current) drug therapy; R06.02 Shortness of breath
CPT/HCPCS: 36415; 36430; 71045; 80048; 85014; 85018; 85025; 85027; 85049; 85055; 93005; 96374; 99285; G0378; J1940; P9016; P9034

== ENCOUNTER 2018-10-25 12:26 | Outpatient (CLI) | payer MEDICARE ==
[~2018-10-25] VITALS: Ht 160 cm; Wt 40.9 kg
[~2018-10-25 12:26] MED LIST changes: +ACETAMINOPHEN TAB 650MG DOSE (2X325MG) PO SCH; +APAP500T10 PO; +diphenhydrAMINE 25 MG CAP PO SCH
[2018-10-25 12:35] VITALS: BP 131/65
[2018-10-25 15:00] VITALS: BP 93/52
[2018-10-25 16:00] VITALS: BP 90/48
[2018-10-25 16:35] VITALS: BP 100/54
== END 2018-10-25 17:00 | disposition home or self-care (01) ==
LOC: M INFU 12:26
PROVIDERS: ATTEND Internal Medicine Hematology & Oncology
DX: D46.9 Myelodysplastic syndrome, unspecified (principal); Z88.5 Allergy status to narcotic agent
CPT/HCPCS: 36415; 36430; 80053; 85027; 86850; 86900; 86901; 86920; G0463; P9016

== ENCOUNTER 2018-11-08 12:30 | Outpatient (CLI) | payer MEDICARE ==
[~2018-11-08] VITALS: Ht 157.5 cm; Wt 42.0 kg
[2018-11-08 12:30] VITALS: BP 121/58
[2018-11-08 14:20] VITALS: BP 111/48
[2018-11-08 15:20] VITALS: BP 100/56
[2018-11-08 16:15] VITALS: BP 103/51
[2018-11-08 17:15] VITALS: BP 119/55
[2018-11-08 17:45] VITALS: BP 120/67
== END 2018-11-08 18:10 | disposition home or self-care (01) ==
LOC: M INFU 12:30
PROVIDERS: ATTEND Internal Medicine Hematology & Oncology
DX: D46.9 Myelodysplastic syndrome, unspecified (principal); D64.9 Anemia, unspecified; Z88.5 Allergy status to narcotic agent
CPT/HCPCS: 36415; 36430; 80053; 85027; 86850; 86900; 86901; 86920; P9016

== ENCOUNTER 2018-11-23 15:59 | Observation (INO) | payer MEDICARE ==
[~2018-11-23] VITALS: Ht 160 cm; Wt 41.8 kg
[2018-11-23] MEDS: MULTIVITAMINS/MINERALS THERAP 1 TAB PO SCH (09:00)
[~2018-11-23 15:59] MED LIST changes: -ACETAMINOPHEN TAB 650MG DOSE (2X325MG) PO SCH; -diphenhydrAMINE 25 MG CAP PO SCH
[2018-11-23 17:10] LABS: BASO % 0.5 % (0.0-1.0); HEMATOCRIT 17.5 % (36.0-47.0); LYMPH # 0.6 10^3/uL (1.5-4.5); LYMPH % 27.8 % (24.0-44.0); MEAN CORPUSCULAR HEMOGLOBIN 29.5 pg (27.0-33.0); MEAN CORPUSCULAR HGB CONC 33.7 g/dl (32.0-36.5); MEAN CORPUSCULAR VOLUME 87.5 fl (80.0-96.0); MONO # 0.2 10^3/uL (0.0-0.8); MONO % 7.1 % (0.0-5.0); NEUTROPHILS # 1.3 10^3/uL (1.8-7.7); NEUTROPHILS % 60.8 % (36.0-66.0); WHITE BLOOD COUNT 2.1 10^3/uL (4.0-10.0)
[2018-11-23 17:30] LABS: HEMOGLOBIN 5.9 g/dl (12.0-15.5); PLATELET COUNT, AUTOMATED 24 10^3/uL (150-450)
[2018-11-23 17:33] LABS: BLOOD UREA NITROGEN 17 MG/DL (7-18); CALCIUM LEVEL 8.7 MG/DL (8.8-10.2); CARBON DIOXIDE LEVEL 28 MEQ/L (21-32); CHLORIDE LEVEL 109 MEQ/L (98-107); CREATININE FOR GFR 0.66 MG/DL (0.55-1.30); GLOMERULAR FILTRATION RATE > 60.0 (>39); GLUCOSE, FASTING 108 MG/DL (70-100); SODIUM LEVEL 142 MEQ/L (136-145)
[2018-11-23] MEDS ORDERED: [UNRECOGNIZED DRUG - CODE] PO (19:09)
[2018-11-23] MEDS ORDERED: ACETAMINOPHEN 500 MG TAB PO PRN (19:30)
--- NOTE | 2018-11-23 20:36 | HPE ---
DATE OF ADMISSION: 11/23/2018 This is a 73-year-old female with past medical history of myelodysplastic syndrome requiring transfusion every 2 weeks since 2014 who presents to the emergency room with chief complaint of generalized weakness and neck stiffness. Apparently this has been going on for about two days. She normally gets transfused every [address] Lagunas her oncologist made it 3 weeks so she was due for transfusion next week, but she came in because she felt like she needed a blood transfusion. In the ER she had a CBC done which showed a hemoglobin of 5.9 and 2 units of packed red blood cells (PRBC) have been ordered, type and crossed and will be ready to be transfused to the patient in the ED. She denies any chest pain or shortness of breath. No palpitations. Other than her symptoms she is in her normal state of health. She will be admitted for further management. PAST MEDICAL HISTORY: Myelodysplastic syndrome, transfusion dependent since 2014. PAST SURGICAL HISTORY: Cholecystectomy. ALLERGIES: CODEINE. FAMILY HISTORY: Noncontributory. SOCIAL HISTORY: Patient denies tobacco, alcohol or illicit drugs. MEDICATIONS SHE TAKES AT HOME: Are as follows: - Tylenol 500 mg orally every 4 hours as needed - B complex vitamin 1 tablet orally daily - deferasirox 100 mg granules 540 mg orally at bedtime - multivitamin 2 tablets orally daily REVIEW OF SYSTEMS: Negative all 10 major systems except what is mentioned in HPI. VITALS: Blood pressure is 121/76, heart rate 76 and regular. Respiratory 14, temperature 99, oxygen saturation 96% on room air. Head: Atraumatic. Normocephalic. Neck: Supple. No jugular venous distention (JVD). Lungs: Clear to auscultation. S1, S2 audible. No murmurs appreciated. Abdomen: Soft, positive bowel sounds. No pedal edema. Skin: Intact. Neurological examination: Patient awake and alert times three. LABS: WBC is 2.1, hemoglobin is 5.9. Hematocrit is 17.5, platelets are 24,000. Sodium 142, potassium 4.0, chloride 109, CO2 28, BUN 17, creatinine 0.66. IMPRESSION: 1. Acute anemia. 2. Myelodysplastic syndrome. PLAN: Patient to be admitted on observation status. She will receive 2 units of packed red blood cells. Will get a post transfusion CBC. If she returns to her baseline, will discharge her home tomorrow morning. Otherwise, I am going to continue her preadmission medications and will continue her care on the med-surg floor.
[2018-11-24 06:37] LABS: BASO % 0.9 % (0.0-1.0); HEMATOCRIT 23.6 % (36.0-47.0); HEMOGLOBIN 8.1 g/dl (12.0-15.5); LYMPH # 0.7 10^3/uL (1.5-4.5); LYMPH % 33.2 % (24.0-44.0); MEAN CORPUSCULAR HEMOGLOBIN 28.6 pg (27.0-33.0); MEAN CORPUSCULAR HGB CONC 34.3 g/dl (32.0-36.5); MEAN CORPUSCULAR VOLUME 83.4 fl (80.0-96.0); MONO # 0.1 10^3/uL (0.0-0.8); MONO % 6.6 % (0.0-5.0); NEUTROPHILS # 1.2 10^3/uL (1.8-7.7); NEUTROPHILS % 56.5 % (36.0-66.0); RED BLOOD COUNT 2.83 10^6/uL (4.00-5.40); WHITE BLOOD COUNT 2.1 10^3/uL (4.0-10.0)
[2018-11-24 06:38] LABS: PLATELET COUNT, AUTOMATED 20 10^3/uL (150-450)
[2018-11-24 06:55] LABS: BLOOD UREA NITROGEN 17 MG/DL (7-18); CARBON DIOXIDE LEVEL 26 MEQ/L (21-32); CHLORIDE LEVEL 112 MEQ/L (98-107); CREATININE FOR GFR 0.55 MG/DL (0.55-1.30); GLOMERULAR FILTRATION RATE > 60.0 (>39); GLUCOSE, FASTING 88 MG/DL (70-100); SODIUM LEVEL 144 MEQ/L (136-145)
[2018-11-24 08:00] VITALS: BP 131/65
[2018-11-24] MEDS: MULTIVITAMINS/MINERALS THERAP 1 TAB PO SCH ×2 (09:00→09:18)
[2018-11-24 11:33] VITALS: BP 120/59
--- NOTE | 2018-11-24 22:30 | IPNPDOC ---
Text Note Date of Service The patient was seen on 11/24/18. NOTE SUBJECTIVE: No complaints this morning, weakness and neck pain has resolved a fter blood transfusion. PHYSICAL EXAM: VITALS: As below HEENT:Head: Atraumatic. Normocephalic. Neck: Supple. No jugular venous distention (JVD). Lungs: Clear to auscultation. S1, S2 audible. No murmurs appreciated. Abdomen: Soft, positive bowel sounds. No pedal edema. Skin: Intact. Neurological examination: Patient awake and alert times three. Labs and Radiology: reviewed ASSESSMENT and PLAN: This is a 73-year-old female with past medical history of progressive myelodysplastic syndrome unable to tolerate epogen requiring transfusion every 2 weeks since 2014 who presents to the emergency room with chief complaint of generalized weakness and neck stiffness. Apparently this has been going on for about two days. She normally gets transfused every [address] Lagunas her oncologist made it 3 weeks so she was due for transfusion next week, but she came in because she felt like she needed a blood transfusion. In the ER she had a CBC done which showed a hemoglobin of 5.9 and 2 units of packed red blood cells (PRBC)were tansfused. Symptomatic anemia s/p 2 units of PRBC. 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 Disposition: Discharge home. VS,Lili, I+O VS, Lili, I+O Laboratory Tests 11/24/18 06:17 Red Blood Count 2.83 L, Mean Corpuscular Volume 83.4, Mean Corpuscular Hemoglobin 28.6, Mean Corpuscular Hemoglobin Concent 34.3, Red Cell Distribution Width 15.2 H, Neutrophils (%) (Auto) 56.5, Lymphocytes (%) (Auto) 33.2, Monocytes (%) (Auto) 6.6 H, Eosinophils (%) (Auto) 0.0, Basophils (%) (Auto) 0.9, Neutrophils # (Auto) 1.2 L, Lymphocytes # (Auto) 0.7 L, Monocytes # (Auto) 0.1, Eosinophils # (Auto) 0.0, Basophils # (Auto) 0.0, Calcium Level 8.0 L Vital Signs Date Time Temp Pulse Resp B/P (MAP) Pulse Ox O2 Delivery O2 Flow Rate FiO2 11/24/18 11:33 97.6 84 17 120/59 (79) 100 Room Air SARAH MITCHELL MD Nov 24, 2018 22:30
--- NOTE | 2018-11-25 00:40 | ECGEPIP ---
Stationary ECG Study [facility] - ED Test Date: 2018-11-23 Pat Name: GEORGE ACEVES Department: Room: - Gender: F Manager Center: [facility] : 1945 Requested By: Lo Crouch Order Number: [id number] Reading MD: Joseph Fowler Measurements Intervals [place] Rate: 89 P: 73 MN: 190 QRS: 18 QRSD: 90 T: 62 QT: 336 QTc: 409 Interpretive Statements SINUS RHYTHM NSTTW ABNORMALITIES SIMILAR TO 10/13/18 Electronically Signed On 11-25-2018 0:40:01 EST by Joseph Fowler
== END 2018-11-24 12:35 | disposition home or self-care (01) ==
LOC: M ED 15:59 → M ED INP 19:29
PROVIDERS: ADMIT Internal Medicine; ATTEND Internal Medicine Nephrology
DX: D61.818 Other pancytopenia (principal); D46.9 Myelodysplastic syndrome, unspecified; E43 Unspecified severe protein-calorie malnutrition; Z79.899 Other long term (current) drug therapy
CPT/HCPCS: 36415; 36430; 80048; 85025; 85049; 85055; 86850; 86900; 86901; 86920; 93005; 99285; G0378; P9016

== ENCOUNTER → 2018-12-06 | Outpatient (CLI) | payer MEDICARE ==
--- NOTE | 2018-12-06 11:27 | REP ---
Clinical: Right rib pain. Technique: Frontal view of the chest with four views of the right hemithorax. Findings: The frontal view of the chest is without consolidation/contusion, pleural effusion, or pneumothorax. Mediastinum and cardiac silhouette are normal. Four views of the right hemithorax demonstrates lateral eighth and ninth rib fractures. No further obvious acute injury or pathology appreciated. Impression: 1. Subtle lateral eighth and ninth rib fractures identified. Electronically Signed by Skyler Abbasi MD 12/06/2018 11:19 A
== END ==
LOC: M LAB 10:41
PROVIDERS: ATTEND Internal Medicine Hematology & Oncology
DX: S22.41XA Multiple fractures of ribs, right side, initial encounter for closed fracture (principal); Y93.9 Activity, unspecified; Y99.9 Unspecified external cause status; Y92.9 Unspecified place or not applicable; X58.XXXA Exposure to other specified factors, initial encounter

== ENCOUNTER → 2018-12-07 | Outpatient (CLI) | payer MEDICARE ==
[~2018-12-07] VITALS: Ht 157.5 cm; Wt 40.2 kg
[2018-12-07] VITALS (7 sets, daily range): BP systolic 108–131; BP diastolic 51–84
[~2018-12-07] MED LIST changes: +ACETAMINOPHEN TAB 650MG DOSE (2X325MG) PO SCH; +diphenhydrAMINE 25 MG CAP PO SCH
== END ==
LOC: M INFU 11:02
PROVIDERS: ATTEND Internal Medicine Hematology & Oncology
DX: D64.9 Anemia, unspecified (principal); D46.9 Myelodysplastic syndrome, unspecified; Z88.5 Allergy status to narcotic agent
CPT/HCPCS: 36430; P9016

== ENCOUNTER 2018-12-19 11:48 | Outpatient (CLI) | payer MEDICARE ==
[~2018-12-19] VITALS: Ht 157.5 cm; Wt 40.0 kg
[2018-12-19] VITALS (9 sets, daily range): BP systolic 95–121; BP diastolic 50–77
== END 2018-12-19 17:45 | disposition home or self-care (01) ==
LOC: M INFU 11:48
PROVIDERS: ATTEND Internal Medicine Hematology & Oncology
DX: D46.9 Myelodysplastic syndrome, unspecified (principal); D64.9 Anemia, unspecified; Z88.5 Allergy status to narcotic agent
CPT/HCPCS: 36430; P9016

== ENCOUNTER 2019-01-03 11:57 | Outpatient (CLI) | payer MEDICARE ==
[2019-01-03] VITALS (8 sets, daily range): BP systolic 106–127; BP diastolic 49–60
[2019-01-10] MEDS ORDERED: [UNRECOGNIZED DRUG - CODE] PO (11:48)
== END 2019-01-03 17:45 | disposition home or self-care (01) ==
LOC: M INFU 11:57
PROVIDERS: ATTEND Internal Medicine Hematology & Oncology
DX: D46.9 Myelodysplastic syndrome, unspecified (principal); D64.9 Anemia, unspecified
CPT/HCPCS: 36430; P9016

== ENCOUNTER 2019-01-19 10:43 | Inpatient (IN) | payer MEDICARE ==
[~2019-01-19] VITALS: Ht 160 cm; Wt 40.0 kg
[~2019-01-19 10:43] MED LIST changes: -ACETAMINOPHEN TAB 650MG DOSE (2X325MG) PO SCH; -diphenhydrAMINE 25 MG CAP PO SCH
[2019-01-19] MEDS ORDERED: NORC1TAB7 PO (11:21)
--- NOTE | 2019-01-19 11:39 | REP ---
Portable chest, 11:20 a.m., to upright AP views: Comparison is 10/14/2018. There is hyperinflation, unchanged. The lung turner are clear. The cardiac size is normal. The aaron, mediastinum, and skeletal structures are unremarkable. Impression: Hyperinflation, otherwise negative portable chest. Electronically Signed by Lisandro Dobson MD 01/19/2019 11:30 A
[2019-01-19 11:55] LABS: CK-MB VALUE MASS < 1.0 NG/ML (<3.6); CPK CREATINE PHOSPHOKINASE 17 U/L (26-192); MB/CK RELATIVE INDEX 5.88 (< OR =4); TROPONIN I < 0.02 NG/ML (< 0.10)
--- NOTE | 2019-01-19 13:36 | HPEPDOC ---
General Date of Admission Jan 19, 2019 at 13:18 Chief Complaint The patient is a 73-year-old female who presented to the ER after she had collapsed in oncologys office History of Present Illness Patient is a 73-year-old female with a PMHx of MDS, Pancytopenia, Transfusion dependent, Hx of Pancreatitis and Nephrolithiasis who presented to the ER from oncologys office after she had syncopized. Patient had noted that she had blood work completed earlier today that revealed that she had a hemoglobin of 5.1. Patient has been receiving regularly scheduled blood transfusions every 2 weeks with 2 units of packed red blood cells. . She is indicated that she had received her last transfusion possibly 2 weeks ago on Wednesday. For follow-up appointment for transfusion was adjusted to today. Upon discussion with oncology, patient was given some bad news and she had syncopized. Patient has reported that she had lost consciousness and doesnt remember events in question. Patient was with her son who indicated that she fell back in her chair. Patient has not experienced any head trauma. Patient was reported to have nausea and vomiting upon awakening. He describes the vomitus as green without any evidence of blood. At home, patient has noted she experiences shortness of breath and palpitations whenever she exerts herself. She denies any chest pain. . She does experience some lightheadedness and dizziness. Patient denies any abdominal pain. Does report some loose stools. Denies constipation or discomfort with urination. Patient has denied any change in the color or caliber of her stool. Denies any bright red blood in her stool or in her urine. Patient has noted that her appetite has been fairly poor and has indicated a weight loss of approximately 4 pounds over 1 month. Home Medications Scheduled Deferasirox (Jadenu Sprinkle) 180 Mg Gra, 540 MG PO QHS MIX WITH PUDDING Multivitamins (Thera M Plus Tablet) 1 Tab Tab, 2 TAB PO DAILY, (Reported) Vitamin B Complex/Folic Acid (B-Complex Tablet) 1 Tab Tab, 1 TAB PO DAILY, (Reported) Scheduled PRN Acetaminophen (Acetaminophen) 500 Mg Tab, 500 MG PO Q4H PRN for PAIN, (Reported) Hydrocodone/Acetaminophen ([place] 5-325 Tablet) 1 Each Tablet, 1 TABS PO Q4H PRN for PAIN, (Reported) Allergies Coded Allergies: codeine (Verified Allergy, Intermediate, RASH, 01/04/19) Past Medical History Medical History Myelodysplastic syndrome Anemia; transfusion dependent Thrombocytopenia Leukopenia History of pancreatitis; s/p Cholecystectomy; however, could have been the result of chemotherapy History of nephrolithiasis Surgical History Cholecystectomy performed 06/28/2018 Tubal ligation performed approximately 37 years ago Family History - Mother with history of blindness secondary to macular degeneration - Father with history of suicide - Sister with history of cirrhosis and brother with history of bladder cancer Social History - Denies the use of alcohol, tobacco or illicit drugs - Denies recent travel or sick contacts - Lives alone - Occupation; 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 Review of Systems Other systems 10 point review systems complete, all negative otherwise stated in HPI Vital Signs - Vitals: BP 118/62, HR 102, RR 16, Sat 100%RA, Temp 97.1F - General: Lying in bed, No acute distress, Speaking in full sentences, AAOx3 - HEENT: NC, AT, PERRLA, EOMI, + Conjunctival pallor, bilateral tympanic membranes and canal appear clear without any evidence of infection - CVS: Tachycardic, +S1S2 - Lungs: Fair air entry bilaterally, Clear to auscultation, No wheezing / rales / rhonchi - Abdomen: Soft, Non-distended, Non-tender - Extremities: No lower extremity edema, No calf tenderness - Neuro: No focal motor or sensory deficit - Skin: No visible rashes Laboratory Data Labs 24H Laboratory Tests 2 01/19/19 11:14: Total Creatine Kinase 17L, Creatine Kinase MB < 1.0, Creatine Kinase MB Relative Index 5.88H, Troponin I < 0.02 Plan / VTE VTE Prophylaxis Ordered?: Yes Plan Plan Syncope - possibly 2/2 symptomatic anemia, possibly 2/2 vasovagal episode, poss ibly 2/2 orthostatic hypotension - Patient was sitting in chair oncologys office and had syncopized after receiving some use - Troponin x 1 negative - EKG noted - Will continue with telemetry monitoring Symptomatic anemia - likely acute on chronic anemia - likely 2/2 MDS - Patient has a long history of myelodysplastic syndrome and has required frequent transfusions every 2 weeks - Patients hemoglobin on admission was 5.1; baseline hemoglobin appears to be around 8 - Will transfuse patient 3 units of PRBC - Repeat CBC post-transfusion MDS - Patient was diagnosed approximately 3.5 years ago - Patient did receive chemotherapy in the past but had stopped April 2018 - Follows with Dr. Lagunas Pancytopenia likely 2/2 MDS - Will continue to follow CBC Recent history of rib fractures - Patient is indicated that she sustained rib fractures after she fell off her bed when she went to go swat a spider - Patient reports that her pain is non-existent at this time Vertigo possibly 2/2 BPPV - Will order occupational therapy / vestibular therapy DVT prophylaxis - Will start SCDs/AMY Templeton MD Jan 19, 2019 13:35
[2019-01-19 14:00] VITALS: BP 122/73
[2019-01-19] MEDS ORDERED: ACETAMINOPHEN 500 MG TAB PO PRN (14:30)
[2019-01-19] MEDS ORDERED: NORCO, ANEXSIA 5/325MG TABLET (HYDROcodone/ACETAMINOPHEN) PO PRN (14:30)
[2019-01-19 15:00] VITALS: BP 122/73
--- NOTE | 2019-01-19 15:55 | ECGEPIP ---
Stationary ECG Study [facility] - ED Test Date: 2019-01-19 Pat Name: GEORGE ACEVES Department: Room: - Gender: F [employer] Strategist: : 1945 Requested By: Joseph Avilez Order Number: [id number] Reading MD: Maynor Ahmadi Measurements Intervals [place] Rate: 96 P: 70 WA: 167 QRS: 43 QRSD: 90 T: 72 QT: 336 QTc: 427 Interpretive Statements SINUS RHYTHM Nonspecific ST-T wave abnormalities Similar to tracing done 11-23-18 Electronically Signed On 01-19-2019 15:55:26 EDT by Maynor Ahmadi
[2019-01-19] MEDS ORDERED: ENTER DRUG NAME HERE (PATIENT'S OWN MED) XX SCH (21:00)
[2019-01-19] MEDS ORDERED: DEFERASIROX 180 MG PO SCH (21:00)
[2019-01-19] MEDS ORDERED: DEFERASIROX PO SCH (21:00)
[2019-01-19 22:00] VITALS: BP 105/56
[2019-01-20 06:00] VITALS: BP 107/51
[2019-01-20 07:48] LABS: HEMOGLOBIN 8.6 g/dl (12.0-15.5); MEAN CORPUSCULAR HEMOGLOBIN 28.9 pg (27.0-33.0); MEAN CORPUSCULAR HGB CONC 34.4 g/dl (32.0-36.5); MEAN CORPUSCULAR VOLUME 83.9 fl (80.0-96.0); RED BLOOD COUNT 2.98 10^6/uL (4.00-5.40)
[2019-01-20 08:01] LABS: BLOOD UREA NITROGEN 18 MG/DL (7-18); CALCIUM LEVEL 8.4 MG/DL (8.8-10.2); CARBON DIOXIDE LEVEL 25 MEQ/L (21-32); CHLORIDE LEVEL 114 MEQ/L (98-107); CREATININE FOR GFR 0.51 MG/DL (0.55-1.30); GLOMERULAR FILTRATION RATE > 60.0 (>39); GLUCOSE, FASTING 90 MG/DL (70-100); MAGNESIUM LEVEL 1.9 MG/DL (1.8-2.4); POTASSIUM SERUM 4.1 MEQ/L (3.5-5.1); SODIUM LEVEL 143 MEQ/L (136-145)
[2019-01-20 08:25] LABS: PLATELET COUNT, AUTOMATED 17 10^3/uL (150-450); WHITE BLOOD COUNT 1.9 10^3/uL (4.0-10.0)
[2019-01-20 08:44] LABS: ANISOCYTOSIS 1+; ATYPICAL LYMPH 3 % (0-5); HYPOCHROMASIA 1+; LYMPHOCYTES 39 % (16-52); METAMYELOCYTES 1 % (0-0); MICROCYTOSIS 1+; MONOCYTES 3 % (0-8); MYELOCYTES 2 % (0-0); NEUTROPHILS 49 % (35-75); PLATELET ESTIMATE MARKED DECREASE (NORMAL)
[2019-01-20] MEDS ORDERED: NEPHRO-VIT TAB (NEPHROCAPS) PO SCH (09:00)
[2019-01-20] MEDS ORDERED: MULTIVITAMINS/MINERALS THERAP 1 TAB PO SCH (09:00)
--- NOTE | 2019-01-20 15:01 | DS.PDOC ---
Discharge Summary General Date of Admission Jan 19, 2019 at 13:18 Date of Discharge 01/20/2019 Discharge Summary PROCEDURES PERFORMED DURING STAY: [None]. ADMITTING DIAGNOSES / DISCHARGE DIAGNOSES: Syncope - likely 2/2 symptomatic anemia, possibly 2/2 vasovagal episode, possibly 2/2 orthostatic hypotension Symptomatic anemia - likely acute on chronic anemia - likely 2/2 MDS MDS Pancytopenia likely 2/2 MDS Recent history of rib fractures s/p Vertigo possibly 2/2 BPPV DVT prophylaxis COMPLICATIONS/CHIEF COMPLAINT: Syncope HISTORY OF PRESENT ILLNESS: Patient is a 73-year-old female with a PMHx of MDS, Pancytopenia, Transfusion dependent, Hx of Pancreatitis and Nephrolithiasis who presented to the ER from oncologys office after she had syncopized. Patient had noted that she had blood work completed earlier today that revealed that she had a hemoglobin of 5.1. Patient has been receiving regularly scheduled blood transfusions every 2 weeks with 2 units of packed red blood cells. . She is indicated that she had received her last transfusion possibly 2 weeks ago on Wednesday. For follow-up appointment for transfusion was adjusted to today. Upon discussion with oncology, patient was given some bad news and she had syncopized. Patient has reported that she had lost consciousness and doesnt remember events in question. Patient was with her son who indicated that she fell back in her chair. Patient has not experienced any head trauma. Patient was reported to have nausea and vomiting upon awakening. He describes the vomitus as green without any evidence of blood. HOSPITAL COURSE: Syncope - likely 2/2 symptomatic anemia, possibly 2/2 vasovagal episode, possibly 2/2 orthostatic hypotension - Patient was sitting in chair oncologys office and had syncopized after re ceiving some use - Troponin x 1 negative - EKG noted - Will continue with telemetry monitoring Symptomatic anemia - likely acute on chronic anemia - likely 2/2 MDS - Patient has a long history of myelodysplastic syndrome and has required frequent transfusions every 2 weeks - Patients hemoglobin on admission was 5.1; baseline hemoglobin appears to be around 8 - s/p 3 units of PRBC - Hemoglobin has improved appropriately - We'll have outpatient follow-up with Dr. Lagunas MDS - Patient was diagnosed approximately 3.5 years ago - Patient did receive chemotherapy in the past but had stopped April 2018 - Follows with Dr. Lagunas Pancytopenia likely 2/2 MDS - Platelet count and white blood cell count have remained stable Recent history of rib fractures - Patient is indicated that she sustained rib fractures after she fell off her bed when she went to go swat a spider - Patient reports that her pain is non-existent at this time s/p Vertigo possibly 2/2 BPPV - Cleared OT DVT prophylaxis - c/w SCDs/TEDs DISCHARGE MEDICATIONS: Please see below. ALLERGIES: Please see below. PHYSICAL EXAMINATION ON DISCHARGE: Vitals (See below) General: Lying in bed, no acute distress, comfortable, AAOx3 HEENT: NC, AT CVS: RRR, +S1S2 Lungs: Fair air entry b/l, -w/r/r Abdomen: Soft, ND, NT Extremities: - Edema, - Calf tenderness LABORATORY DATA: Please see below. ACTIVITY: [As tolerated]. DISCHARGE PLAN: Follow-up with Dr. Obed Moreno and Dr. Lagunas within 7 days Remain compliant with treatment plan and medications Return to the ER if you experience any problems DISPOSITION: Home, Self-Care. DISCHARGE CONDITION: [Stable]. TIME SPENT ON DISCHARGE: Greater than [35] minutes. Vital Signs/I&Os Vital Signs Date Time Temp Pulse Resp B/P (MAP) Pulse Ox O2 Delivery O2 Flow Rate FiO2 01/20/19 06:00 96.9 80 17 107/51 (69) 100 01/19/19 10:51 Room Air I&O- Last 24 Hours up to 6 AM 01/20/19 05:59 Intake Total 930 ml Balance 930 ml Laboratory Data Labs 24H Laboratory Tests 2 01/20/19 07:30: Immature Granulocyte % (Auto) , Nucleated Red Blood Cells % (auto) 0.0, Neutrophils 49, Band Neutrophils 3, Lymphocytes (Manual) 39, Monocytes (Manual) 3, Metamyelocytes 1H, Myelocytes 2H, Atypical Lymphocytes 3, Platelet Estimate MARKED DECREASE, Immature Platelet Fraction 4.2, Hypochromasia 1+, Anisocytosis 1+, Microcytosis 1+, Anion Gap 4L, Glomerular Filtration Rate > 60.0, Blood Urea Nitrogen 18, Creatinine 0.51L, Sodium Level 143, Potassium Level 4.1, Chloride Level 114H, Carbon Dioxide Level 25, Calcium Level 8.4L, Magnesium Level 1.9 CBC/BMP Laboratory Tests 01/20/19 07:30 Red Blood Count 2.98 L, Mean Corpuscular Volume 83.9, Mean Corpuscular Hemoglobin 28.9, Mean Corpuscular Hemoglobin Concent 34.4, Red Cell Distribution Width 13.9, Calcium Level 8.4 L Discharge Medications Scheduled Deferasirox (Jadenu Sprinkle) 180 Mg Gra, 540 MG PO QHS MIX WITH PUDDING Multivitamins (Thera M Plus Tablet) 1 Tab Tab, 2 TAB PO DAILY, (Reported) Vitamin B Complex/Folic Acid (B-Complex Tablet) 1 Tab Tab, 1 TAB PO DAILY, (Reported) Scheduled PRN Acetaminophen (Acetaminophen) 500 Mg Tab, 500 MG PO Q4H PRN for PAIN, (Reported) Hydrocodone/Acetaminophen ([place] 5-325 Tablet) 1 Each Tablet, 1 TABS PO Q4H PRN for PAIN, (Reported) Allergies Coded Allergies: codeine (Verified Allergy, Intermediate, RASH, 01/04/19) AMY NAVA MD Jan 20, 2019 15:01
== END 2019-01-20 12:22 | disposition home or self-care (01) | DRG 812 ==
LOC: M ED 10:43 → M ED INP 13:18 → M MSPAV 14:42
PROVIDERS: ADMIT Internal Medicine; ATTEND Internal Medicine
PROC: 30233N1 Transfusion of Nonautologous Red Blood Cells into Peripheral Vein, Percutaneous Approach (ICD-10-PCS; principal; 2019-01-19)
DX: D46.9 Myelodysplastic syndrome, unspecified (principal); D61.818 Other pancytopenia; I95.1 Orthostatic hypotension; Z79.899 Other long term (current) drug therapy; Z88.5 Allergy status to narcotic agent

== ENCOUNTER 2019-02-23 09:29 | Outpatient (CLI) | payer MEDICARE ==
[~2019-02-23] VITALS: Ht 156.8 cm; Wt 41.7 kg
[~2019-02-23 09:29] MED LIST changes: +ACETAMINOPHEN TAB 650MG DOSE (2X325MG) PO SCH; +NORC1TAB7 PO; +diphenhydrAMINE 25 MG CAP PO SCH
[2019-02-23 09:43] VITALS: BP 116/58
[2019-02-23 15:42] VITALS: BP 112/64
== END 2019-02-23 15:00 | disposition home or self-care (01) ==
LOC: M INFU 09:29
PROVIDERS: ATTEND Nurse Practitioner Family
DX: D46.9 Myelodysplastic syndrome, unspecified (principal); D64.9 Anemia, unspecified; Z88.5 Allergy status to narcotic agent
CPT/HCPCS: 36415; 36430; 80053; 82728; 83550; 85027; 86850; 86900; 86901; 86920; P9016

== ENCOUNTER 2019-03-09 09:25 | Outpatient (CLI) | payer MEDICARE ==
[~2019-03-09] VITALS: Ht 157.5 cm; Wt 42.3 kg
[2019-03-09 09:53] VITALS: BP 139/59
[2019-03-09 15:00] VITALS: BP 111/61
[2019-03-14] MEDS ORDERED: [UNRECOGNIZED DRUG - CODE] PO ×2 (10:06→11:42)
== END 2019-03-09 15:00 | disposition home or self-care (01) ==
LOC: M INFU 09:25
PROVIDERS: ATTEND Internal Medicine Hematology & Oncology
DX: D46.9 Myelodysplastic syndrome, unspecified (principal)

== ENCOUNTER 2019-03-21 11:41 | Outpatient (CLI) | payer MEDICARE ==
[~2019-03-21] VITALS: Ht 156.8 cm; Wt 42.2 kg
[2019-03-21 12:25] VITALS: BP 105/51
== END 2019-03-21 17:45 | disposition home or self-care (01) ==
LOC: M INFU 11:41
PROVIDERS: ATTEND Internal Medicine Hematology & Oncology
DX: D64.9 Anemia, unspecified (principal)

== ENCOUNTER 2019-04-05 09:04 | Outpatient (CLI) | payer MEDICARE ==
[~2019-04-05] VITALS: Ht 156.8 cm; Wt 42.8 kg
[~2019-04-05 09:04] MED LIST changes: -ACETAMINOPHEN TAB 650MG DOSE (2X325MG) PO SCH; -diphenhydrAMINE 25 MG CAP PO SCH
[2019-04-05 11:30] VITALS: BP 123/58
[2019-04-18] MEDS ORDERED: [UNRECOGNIZED DRUG - CODE] PO (08:52)
== END 2019-04-05 15:10 | disposition home or self-care (01) ==
LOC: M INFU 09:04
PROVIDERS: ATTEND Internal Medicine Hematology & Oncology
DX: D64.9 Anemia, unspecified (principal); D46.9 Myelodysplastic syndrome, unspecified; Z88.5 Allergy status to narcotic agent
CPT/HCPCS: 36415; 36430; 82728; 83550; 85027; 86850; 86900; 86901; 86920; G0463; P9016

== ENCOUNTER 2019-04-06 11:53 | Outpatient (CLI) | payer MEDICARE ==
[2019-04-06 12:00] VITALS: BP 132/62
[2019-04-18] MEDS ORDERED: [UNRECOGNIZED DRUG - CODE] PO (08:52)
[2019-06-14] MEDS ORDERED: JADE1TAB3 PO (08:28)
[2019-08-24] MEDS ORDERED: [UNRECOGNIZED DRUG - CODE] PO (14:13)
[2019-09-04] MEDS ORDERED: [UNRECOGNIZED DRUG - CODE] PO (15:02)
== END 2019-04-06 14:15 | disposition home or self-care (01) ==
LOC: M INFU 11:53
PROVIDERS: ATTEND Internal Medicine Hematology & Oncology
DX: D64.9 Anemia, unspecified (principal)
CPT/HCPCS: 36430; P9016

== ENCOUNTER 2019-04-18 09:06 | Outpatient (CLI) | payer MEDICARE ==
[~2019-04-18] VITALS: Ht 156.8 cm; Wt 42.5 kg
[~2019-04-18 09:06] MED LIST changes: +ACETAMINOPHEN TAB 650MG DOSE (2X325MG) PO SCH; +diphenhydrAMINE 25 MG CAP PO SCH
[2019-04-18 10:00] VITALS: BP 114/53
== END 2019-04-18 13:55 | disposition home or self-care (01) ==
LOC: M INFU 09:06
PROVIDERS: ATTEND Internal Medicine Hematology & Oncology
DX: D46.9 Myelodysplastic syndrome, unspecified (principal); E83.118 Other hemochromatosis
CPT/HCPCS: 36415; 36430; 82728; 83550; 85027; 86850; 86900; 86901; 86920; G0463; P9016

== ENCOUNTER 2019-05-01 10:21 | Outpatient (CLI) | payer MEDICARE ==
[~2019-05-01] VITALS: Ht 157.5 cm; Wt 42.4 kg
[2019-05-01 11:09] VITALS: BP 99/53
[2019-05-01 17:32] VITALS: BP 111/66
== END 2019-05-01 17:30 | disposition home or self-care (01) ==
LOC: M INFU 10:21
PROVIDERS: ATTEND Internal Medicine Hematology & Oncology
DX: D64.9 Anemia, unspecified (principal); Z88.5 Allergy status to narcotic agent

== ENCOUNTER 2019-05-16 09:16 | Outpatient (CLI) | payer MEDICARE ==
[~2019-05-16] VITALS: Ht 156.8 cm; Wt 42.5 kg
[2019-05-16] VITALS (10 sets, daily range): BP systolic 93–124; BP diastolic 45–59
[~2019-05-16 09:16] MED LIST changes: -diphenhydrAMINE 25 MG CAP PO SCH
[2019-05-16] MEDS ORDERED: FUROSEMIDE 20 MG/2 ML VIAL (J1940) IV ONE (09:30)
== END 2019-05-16 15:10 ==
LOC: M INFU 09:16
PROVIDERS: ATTEND Internal Medicine Hematology & Oncology
DX: D64.9 Anemia, unspecified (principal)
CPT/HCPCS: 36415; 36430; 80053; 82728; 83550; 85027; 86850; 86900; 86901; 86920; 96374; G0463; J1940; P9016

== ENCOUNTER 2019-05-17 10:14 | Outpatient (CLI) | payer MEDICARE ==
[~2019-05-17] VITALS: Ht 157.5 cm; Wt 42.6 kg
[~2019-05-17 10:14] MED LIST changes: -ACETAMINOPHEN TAB 650MG DOSE (2X325MG) PO SCH
[2019-05-17 10:46] VITALS: BP 114/66
[2019-05-17 11:20] VITALS: BP 115/53
[2019-05-17 12:05] VITALS: BP 94/53
[2019-05-17 12:40] VITALS: BP 110/53
[2019-05-17 13:10] VITALS: BP_SYST 103; BP_SYST 108; BP_DIAS 51; BP_DIAS 68
== END 2019-05-17 13:10 | disposition home or self-care (01) ==
LOC: M INFU 10:14
PROVIDERS: ATTEND Internal Medicine Hematology & Oncology
DX: D64.9 Anemia, unspecified (principal)
CPT/HCPCS: 36430; P9016

== ENCOUNTER → 2019-05-19 | Outpatient (CLI) | payer MEDICARE ==
[~2019-05-19] MED LIST changes: +LIDO2.5C15 TOP; +PANT40TA3 PO; +[UNRECOGNIZED DRUG - CODE] PO
[2019-05-19 18:08] LABS: BLOOD UREA NITROGEN 17 MG/DL (7-18); CREATININE FOR GFR 0.63 MG/DL (0.55-1.30); GLOMERULAR FILTRATION RATE > 60.0 (>39)
== END ==
LOC: M SMT 13:00
PROVIDERS: ATTEND Ophthalmology
DX: H49.20 Sixth [abducent] nerve palsy, unspecified eye (principal)

== ENCOUNTER → 2019-05-26 | Outpatient (CLI) | payer MEDICARE ==
[~2019-05-26] MED LIST changes: -LIDO2.5C15 TOP; -PANT40TA3 PO; -[UNRECOGNIZED DRUG - CODE] PO
--- NOTE | 2019-05-29 10:47 | REPVR ---
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 Contrast material: PROHANCE;Contrast volume: 8 ml;Contrast route: IV; COMPARISON: CT Head without contrast 12/19/2016 11:09 PM FINDINGS: Brain: No evidence of acute cortical infarct. No evidence of restricted diffusion. No abnormal magnetic susceptibility signal changes. No intracranial hemorrhage. Minimal nonspecific Flair/T2 hyperintensities within the cerebral white matter statistically most likely on the basis of chronic small vessel ischemic change. No basal ganglion, thalami, midbrain, brainstem or cerebellar mass. No Chiari malformation. No CP angle mass. No suspicious enhancing masses. Postcontrast images somewhat limited by artifact. Ventricles: The ventricular system is midline and appropriate in size for the degree of sulcal dilatation. No hydrocephalus. Bones/joints: Unremarkable. Soft tissues: Normal. Sinuses: The demonstrated paranasal sinuses are free of air-fluid level or suspicious mass. Mastoid air cells: Normal as visualized. No mastoid effusion. Orbits: The optic chiasm is normal. No pituitary region mass. No suspicious orbital mass. Vasculature: The left vertebral artery not well-demonstrated. The right vertebral artery is dominant. Flow is seen within the internal carotid arteries. IMPRESSION: No evidence of acute ischemia, hemorrhage or mass effect. No suspicious enhancement. Generalized atrophic changes. Minimal nonspecific Flair/T2 hyperintensities within the cerebral white matter statistically most likely on the basis of chronic small vessel ischemic change. Please see the MR orbits/face for further assessment. Electronically signed by: Skyler Burns On 05/29/2019 10:47:06 AM
--- NOTE | 2019-05-29 10:56 | REPVR ---
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 Contrast material: PROHANCE;Contrast volume: 8 ml;Contrast route: IV; COMPARISON: No relevant prior studies available. FINDINGS: Orbits: Normal. Sinuses: Minimal mucosal changes left frontal-left anterior ethmoid region. No air-fluid levels. Deviation of the bony nasal septum toward the left more posteriorly at the level of the middle turbinate. Soft tissues: The demonstrated paranasal sinuses are free of air-fluid level or suspicious mass. Minimal mucosal changes. Sella: The optic chiasm is normal. No pituitary region mass. IMPRESSION: Minimal mucosal changes left frontal-left anterior ethmoid region. No air-fluid levels. No orbital mass. No suspicious enhancement. Electronically signed by: Skyler Burns On 05/29/2019 10:55:51 AM
== END ==
LOC: M PLARAD 14:09
PROVIDERS: ATTEND Ophthalmology
DX: H49.20 Sixth [abducent] nerve palsy, unspecified eye (principal)

== ENCOUNTER 2019-05-30 09:48 | Outpatient (CLI) | payer MEDICARE ==
[2019-05-30] VITALS (10 sets, daily range): BP systolic 99–125; BP diastolic 50–70
[~2019-05-30] VITALS: Ht 154.9 cm; Wt 42.5 kg
[2019-05-30] MEDS ORDERED: diphenhydrAMINE 25 MG CAP PO ONE (11:00)
[2019-05-30] MEDS ORDERED: ACETAMINOPHEN TAB 650MG DOSE (2X325MG) PO ONE (11:00)
== END 2019-05-30 14:52 | disposition home or self-care (01) ==
LOC: M INFU 09:48
PROVIDERS: ATTEND Internal Medicine Hematology & Oncology
DX: D46.9 Myelodysplastic syndrome, unspecified (principal)
CPT/HCPCS: 36415; 36430; 82728; 83550; 85027; 86850; 86900; 86901; 86920; G0463; P9016

== ENCOUNTER 2019-05-31 07:38 | Outpatient (CLI) | payer MEDICARE ==
[~2019-05-31] VITALS: Ht 156.8 cm; Wt 42.5 kg
[~2019-05-31 07:38] MED LIST changes: +ACETAMINOPHEN TAB 650MG DOSE (2X325MG) PO SCH; +diphenhydrAMINE 25 MG CAP PO SCH
[2019-05-31 08:01] VITALS: BP 126/56
[2019-05-31 08:25] VITALS: BP 104/50
[2019-05-31 09:25] VITALS: BP 115/72
[2019-05-31 09:47] VITALS: BP 112/70
[2019-05-31 10:10] VITALS: BP 113/56
== END 2019-05-31 10:10 | disposition home or self-care (01) ==
LOC: M INFU 07:38
PROVIDERS: ATTEND Internal Medicine Hematology & Oncology
DX: D64.9 Anemia, unspecified (principal); D46.9 Myelodysplastic syndrome, unspecified
CPT/HCPCS: 36430; P9016

== ENCOUNTER 2019-06-14 08:41 | Outpatient (CLI) | payer MEDICARE ==
[2019-06-14] VITALS (9 sets, daily range): BP systolic 90–122; BP diastolic 45–82
[~2019-06-14] VITALS: Ht 156.8 cm; Wt 43.0 kg
== END 2019-06-14 15:30 | disposition home or self-care (01) ==
LOC: M INFU 08:41
PROVIDERS: ATTEND Internal Medicine Hematology & Oncology
DX: D64.9 Anemia, unspecified (principal); D46.9 Myelodysplastic syndrome, unspecified; E83.111 Hemochromatosis due to repeated red blood cell transfusions
CPT/HCPCS: 36415; 36430; 80053; 85027; 86850; 86900; 86901; 86920; G0463; P9016

== ENCOUNTER 2019-06-26 11:32 | Inpatient (IN) | payer MEDICARE ==
[~2019-06-26] VITALS: Ht 160 cm; Wt 42.6 kg
[~2019-06-26 11:32] MED LIST changes: -ACETAMINOPHEN TAB 650MG DOSE (2X325MG) PO SCH; -diphenhydrAMINE 25 MG CAP PO SCH
[2019-06-26 12:30] LABS: HEMATOCRIT 16.6 % (36.0-47.0); MEAN CORPUSCULAR HEMOGLOBIN 29.7 pg (27.0-33.0); MEAN CORPUSCULAR HGB CONC 34.3 g/dl (32.0-36.5); MEAN CORPUSCULAR VOLUME 86.5 fl (80.0-96.0); RED BLOOD COUNT 1.92 10^6/uL (4.00-5.40)
[2019-06-26 12:32] LABS: HEMOGLOBIN 5.7 g/dl (12.0-15.5); PLATELET COUNT, AUTOMATED 20 10^3/uL (150-450)
[2019-06-26 12:55] LABS: ALBUMIN 3.7 GM/DL (3.2-5.2); ALT/SGPT 91 U/L (12-78); BILIRUBIN,DIRECT 0.2 MG/DL (0.0-0.2); BILIRUBIN,TOTAL 0.8 MG/DL (0.2-1.0); BLOOD UREA NITROGEN 15 MG/DL (7-18); CALCIUM LEVEL 8.6 MG/DL (8.8-10.2); CARBON DIOXIDE LEVEL 27 MEQ/L (21-32); CHLORIDE LEVEL 110 MEQ/L (98-107); CK-MB VALUE MASS < 1.0 NG/ML (<3.6); CPK CREATINE PHOSPHOKINASE 24 U/L (26-192); CREATININE FOR GFR 0.65 MG/DL (0.55-1.30); GLOMERULAR FILTRATION RATE > 60.0 (>39); GLUCOSE, FASTING 93 MG/DL (70-100); MB/CK RELATIVE INDEX 4.17 (< OR =4); POTASSIUM SERUM 3.8 MEQ/L (3.5-5.1); SODIUM LEVEL 140 MEQ/L (136-145); TOTAL PROTEIN 6.1 GM/DL (6.4-8.2); TROPONIN I < 0.02 NG/ML (< 0.10)
[2019-06-26 12:58] LABS: ATYPICAL LYMPH 1 % (0-5); LYMPHOCYTES 21 % (16-44); METAMYELOCYTES 1 % (0-0); MONOCYTES 3 % (0-5); MYELOCYTES 3 % (0-0); NEUTROPHILS 69 % (28-66)
--- NOTE | 2019-06-26 12:58 | REP ---
Portable chest, 12:21 p.m., single AP view with the patient upright: Comparison is 01/19/2019. Lung turner are hyperinflated, as previously. The lung turner otherwise clear and unchanged. The cardiac size is normal. The aaron, mediastinum, skeletal structures are unremarkable. Next line impression: Hyperinflation. No acute cardiopulmonary findings. Electronically Signed by Lisandro Dobson MD 06/26/2019 12:48 P
[2019-06-26 13:00] LABS: PLATELET ESTIMATE MARKED DECREASE (NORMAL); POIKILOCYTOSIS 1+
[2019-06-26] MEDS ORDERED: [UNRECOGNIZED DRUG - CODE] PO ×2 (13:33)
[2019-06-26] MEDS ORDERED: MAALOX 30 ML SUSP *UDC PO PRN (15:15)
[2019-06-26] MEDS ORDERED: ACETAMINOPHEN 500 MG TAB PO PRN (15:15)
[2019-06-26] MEDS ORDERED: MOM 30ML SUSPENSION UDC PO PRN (15:15)
--- NOTE | 2019-06-26 15:34 | HPEPDOC ---
General Date of Admission 06/26/19 Date of Service: Jun 26, 2019 Chief Complaint The patient is a 73-year-old female admitted with a reason for visit of Abnormal Labs. Source: Patient Exam Limitations: No limitations Severity: Severe History of Present Illness This is a 73-year-old female with past medical history of progressive myelodysplastic syndrome unable to tolerate epogen requiring transfusion every 2 weeks since 2015 who presents to the emergency room with chief complaint of generalized weakness and neck pain, fatigue, light headedness worse over the past 2 days. She was due for her scheduled transfusion on 06/28/19 but she felt she was too weak to wait for another 2 days[address] availbale in the infusion unit for today so she was advised to come to the ER by oncology to get transfusion.In the ER she had a CBC done which showed a hemoglobin of 5.7 and platelet of 20. She was admitted for symptomatic anemia. Home Medications Scheduled Deferasirox (Jadenu Sprinkle) 180 Mg Gran.pack, 360 MG PO DAILY, (Reported) MIXED INTO PUDDING OR APPLESAUCE. REPLACES ONCOLOGY SCRIPT. Deferasirox (Jadenu Sprinkle) 180 Mg Gran.pack, 540 MG PO QHS, (Reported) MIXED WITH PUDDING OR APPLESAUCE. REPLACES ONCOLOGY SCRIPT Multivitamins (Thera M Plus Tablet) 1 Tab Tab, 2 TAB PO DAILY, (Reported) Scheduled PRN Acetaminophen (Acetaminophen) 500 Mg Tab, 500 MG PO Q4H PRN for PAIN, (Reported) Allergies Coded Allergies: codeine (Verified Allergy, Intermediate, RASH, 01/04/19) Past Medical History Medical History high grade Myelodysplastic syndrome, transfusion dependent. Secondary hemosiderosis Pancytopenia Protein calorie malnutrition tubal ligation, history of CVA, cholecystectomy Family History maternal uncle with leukaemia first cousin with leukaemia. Social History * Smoker: Denies Alcohol: Denies Drugs: denies A-FIB/CHADSVASC A-FIB History Current/History of A-Fib/PAF?: No Review of Systems Constitutional: Reports: Weakness, Fatigue; Denies: Chills, Fever, Night Sweats Eyes: Denies: Pain, Vision change ENT: Denies: Head Aches, Ear Pain, Dysphagia Skin: Denies: Rash, Lesions, Breakdown Pulmonary: Reports: Dyspnea Cardiovascular: Reports: Palpitations, Lt Headedness Gastrointestinal: Denies: Nausea, Vomiting, Abdominal Pain, Diarrhea Genitourinary: Denies: Dysuria, Frequency, Incontinence, Retention Hematologic: Denies: Bruising, Bleeding Excessively Musculoskeletal: Reports: Neck Pain Psych: Reports: Mood Normal; Denies: Depression, Memory Issues Physical Examination General Exam: Positive: Alert, Cooperative, No Acute Distress Eye Exam: Positive: PERRLA, Conjunctiva & lids normal, EOMI; Negative: Sclera icteric ENT Exam: Positive: Atraumatic, Pharynx Normal Neck Exam: Positive: Supple; Negative: JVD, thyromegaly Chest Exam: Positive: Clear to auscultation, Normal air movement Heart Exam: Positive: Rate Normal, Regular Rhythm, Normal S1, Normal S2, Murmurs (systolic); Negative: Rubs Abdomen Exam: Positive: Normal bowel sounds, Soft; Negative: Tenderness, Hepatospenomegaly Extremity Exam: Positive: Normal pulses; Negative: Clubbing, Cyanosis, Edema Skin Exam: Positive: Nl turgor and temperature; Negative: Breakdown, Lesion Vital Signs Vital Signs Date Time Temp Pulse Resp B/P (MAP) Pulse Ox O2 Delivery O2 Flow Rate FiO2 06/26/19 14:00 96 116/58 (77) 100 Room Air 06/26/19 11:33 98.8 17 Laboratory Data Labs 24H Laboratory Tests 2 06/26/19 12:15: Immature Granulocyte % (Auto) , Nucleated Red Blood Cells % (auto) 0.0, Neutrophils 69H, Band Neutrophils 2, Lymphocytes (Manual) 21, Monocytes (Manual) 3, Metamyelocytes 1H, Myelocytes 3H, Atypical Lymphocytes 1, Platelet Estimate MARKED DECREASE, Immature Platelet Fraction 5.8, Poikilocytosis 1+, Anion Gap 3L, Glomerular Filtration Rate > 60.0, Calcium Level 8.6L, Aspartate Amino Transf (AST/SGOT) 33, Alanine Aminotransferase (ALT/SGPT) 91H, Alkaline Phosphatase 88, Total Bilirubin 0.8, Direct Bilirubin 0.2, Total Creatine Kinase 24L, Creatine Kinase MB < 1.0, Creatine Kinase MB Relative Index 4.17H, Troponin I < 0.02, Total Protein 6.1L, Albumin 3.7, Albumin/Globulin Ratio 1.54 06/26/19 12:44: Bedside Glucose (Misc Panel) 92 CBC/BMP Laboratory Tests 06/26/19 12:15 Red Blood Count 1.92 L, Mean Corpuscular Volume 86.5, Mean Corpuscular Hemoglobin 29.7, Mean Corpuscular Hemoglobin Concent 34.3, Red Cell Distribution Width 14.0 Assessment/Plan This is a 73-year-old female with past medical history of progressive myelodysplastic syndrome unable to tolerate epogen requiring transfusion every 2 weeks since 2014 who presents to the emergency room with chief complaint of generalized weakness and neck pain, fatigue, light headedness worse over the past 2 days. She was due for her scheduled transfusion on 06/28/19 but she felt she was too weak to wait for another 2 days. There was no place availbale in the infusion unit for today so she was advised to come to the ER by oncology to get transfusion.In the ER she had a CBC done which showed a hemoglobin of 5.7 and platelet of 20. She was admitted for symptomatic anemia. Symptomatic anemia FOr PRBC transfusion total of 3 lasix 20 mg to be given between second and third unit. Progressive MDS with pancytopenia did not tolerate epogen transfusion dependent Secondary Hemosiderosis [facility]. Severe protein calorie malnutrition with BMI of 16.7 Plan / VTE VTE Prophylaxis Ordered?: Yes SARAH MITCHELL MD Jun 26, 2019 14:32
[2019-06-26] MEDS ORDERED: FUROSEMIDE 20 MG/2 ML VIAL (J1940) IV ONE (16:00)
[2019-06-26 16:42] VITALS: BP 113/57
[2019-06-26] MEDS ORDERED: ENTER DRUG NAME HERE (PATIENT'S OWN MED) PO SCH (17:00)
[2019-06-26] MEDS: MULTIVITAMINS/MINERALS THERAP 1 TAB PO SCH (18:01)
[2019-06-26] MEDS: DEFERASIROX 180 MG PO SCH (20:17)
[2019-06-27] VITALS (7 sets, daily range): BP systolic 105–132; BP diastolic 60–74
--- NOTE | 2019-06-27 04:46 | ECGEPIP ---
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
[2019-06-27 06:47] LABS: HEMATOCRIT 29.5 % (36.0-47.0); HEMOGLOBIN 10.5 g/dl (12.0-15.5); MEAN CORPUSCULAR HGB CONC 35.6 g/dl (32.0-36.5); RED BLOOD COUNT 3.39 10^6/uL (4.00-5.40); WHITE BLOOD COUNT 2.8 10^3/uL (4.0-10.0)
[2019-06-27 06:49] LABS: PLATELET COUNT, AUTOMATED 17 10^3/uL (150-450)
[2019-06-27 07:05] LABS: BLOOD UREA NITROGEN 18 MG/DL (7-18); CALCIUM LEVEL 8.6 MG/DL (8.8-10.2); CARBON DIOXIDE LEVEL 26 MEQ/L (21-32); CHLORIDE LEVEL 112 MEQ/L (98-107); CREATININE FOR GFR 0.69 MG/DL (0.55-1.30); GLOMERULAR FILTRATION RATE > 60.0 (>39); GLUCOSE, FASTING 84 MG/DL (70-100); POTASSIUM SERUM 3.7 MEQ/L (3.5-5.1); SODIUM LEVEL 143 MEQ/L (136-145)
[2019-06-27] MEDS: MULTIVITAMINS/MINERALS THERAP 1 TAB PO SCH (09:18)
[2019-06-27] MEDS: DEFERASIROX 180 MG PO SCH ×2 (09:19→20:13)
--- NOTE | 2019-06-27 21:18 | IPNPDOC ---
Date Seen The patient was seen on 06/27/19. Progress Note SUBJECTIVE: Patient reports feeling much better today. However, had an episode of severe cough yesterday after eating for about 2 hours. Stated that this has been ongoing for a year and usually solid food just stuck in lower esophagus and regurgitates back up. Hb improved to 10.5 from 5.7, Platelet slightly drop to 17 from 20. No evidence of bleed. OBJECTIVE PHYSICAL EXAMINATION: VITAL SIGNS: Please see below. General: No acute distress, Alert Eyes: Normal sclera, EOMI, GERALD HENT: Atraumatic, neck supple, moist mucous membranes Cardiovascular: Normal rate, normal rhythm. Pulmonary: Clear to auscultation b/l, no wheezing GI: Soft, nontender, nondistended Skin: Warm and dry Neuro: CN grossly intact. No focal deficits. Strengths equal b/l. Psych: oriented x 3 LABORATORY DATA, IMAGING STUDIES, MICROBIOLOGY: Please see below. DVT prophylaxis ordered?: SCD ASSESSMENT AND PLAN: 1. Symptomatic anemia 2/2 MDS - Follows with Dr. Lagunas as outpatient with transfusions as outpatient normally. - s/p 3 pRBC with Hb now 10.5 with improvement of symptoms. - Monitor daily CBC. 2. Thrombocytopenia - 2/2 MDS. No evidence of bleed. - Platelet 17 today, will give 2 units single donor platelets to try to bring to around 50 for possible EGD tomorrow. 3. Dysphagia - Ongoing for more than one year, usually with solid foods. - GI consulted. Possible EGD tomorrow with bloodwork satisfactory. DISPOSITION: Home once stable. VS, I&O, 24H, Fishbone Vital Signs/I&O Vital Signs Date Time Temp Pulse Resp B/P (MAP) Pulse Ox O2 Delivery O2 Flow Rate FiO2 06/27/19 17:46 97.9 98 18 116/61 (79) 98 06/26/19 16:00 Room Air I&O- Last 24 Hours up to 6 AM 06/27/19 05:59 Intake Total 420 ml Output Total 0 ml Balance 420 ml Laboratory Data 24H LABS Laboratory Tests 2 06/27/19 06:04: Nucleated Red Blood Cells % (auto) 0.0, Anion Gap 5L, Glomerular Filtration Rate > 60.0, Blood Urea Nitrogen 18, Creatinine 0.69, Sodium Level 143, Potassium Level 3.7, Chloride Level 112H, Carbon Dioxide Level 26, Calcium Level 8.6L CBC/BMP Laboratory Tests 06/27/19 06:04 Red Blood Count 3.39 L, Mean Corpuscular Volume 87.0, Mean Corpuscular Hemoglobin 31.0, Mean Corpuscular Hemoglobin Concent 35.6, Red Cell Distribution Width 14.3, Calcium Level 8.6 L JOAQUINA HANNON MD Jun 27, 2019 21:18
[2019-06-28 06:00] VITALS: BP 111/53
[2019-06-28 08:13] LABS: HEMATOCRIT 28.7 % (36.0-47.0); MEAN CORPUSCULAR HEMOGLOBIN 30.4 pg (27.0-33.0); MEAN CORPUSCULAR HGB CONC 34.8 g/dl (32.0-36.5); MEAN CORPUSCULAR VOLUME 87.2 fl (80.0-96.0); RED BLOOD COUNT 3.29 10^6/uL (4.00-5.40); WHITE BLOOD COUNT 2.8 10^3/uL (4.0-10.0)
[2019-06-28 08:14] LABS: BLOOD UREA NITROGEN 16 MG/DL (7-18); CALCIUM LEVEL 8.6 MG/DL (8.8-10.2); CARBON DIOXIDE LEVEL 25 MEQ/L (21-32); CHLORIDE LEVEL 113 MEQ/L (98-107); CREATININE FOR GFR 0.61 MG/DL (0.55-1.30); GLOMERULAR FILTRATION RATE > 60.0 (>39); GLUCOSE, FASTING 84 MG/DL (70-100); POTASSIUM SERUM 3.9 MEQ/L (3.5-5.1); SODIUM LEVEL 143 MEQ/L (136-145)
[2019-06-28 08:16] LABS: PLATELET COUNT, AUTOMATED 33 10^3/uL (150-450)
[2019-06-28] MEDS: MULTIVITAMINS/MINERALS THERAP 1 TAB PO SCH (09:55)
[2019-06-28] MEDS: DEFERASIROX 180 MG PO SCH ×2 (09:55→20:17)
[2019-06-28 14:00] VITALS: BP 109/59
[2019-06-28] MEDS ORDERED: fentaNYL 100 MCG/2 ML INJECTION (J3010) As Ordered ONE (16:01)
[2019-06-28] MEDS ORDERED: LIDOCAINE 2% INJ 100 MG/5 ML SDV (FOR ANES.) As Ordered ONE (16:02)
[2019-06-28] MEDS ORDERED: PROPOFOL 200 MG/20 ML VIAL As Ordered ONE (16:02)
--- NOTE | 2019-06-28 16:19 | ROOR ---
Patient Name: Minoo Walls Procedure Date: 06/28/2019 3:52 PM Date of : 1945 Age: 73 Room: [facility] Gender: Female Note Status: Finalized Procedure: Upper GI endoscopy + Balloon Dilatation + Hemoclips Indications: Dysphagia Providers: Andrew Patel MD Referring MD: Nahid Moreno MD Requesting Provider: Medicines: Monitored Anesthesia Care Complications: No immediate complications. Procedure: Pre-Anesthesia Assessment: - The heart rate, respiratory rate, oxygen saturations, blood pressure, adequacy of pulmonary ventilation, and response to care were monitored throughout the procedure. The Endoscope was introduced through the mouth, and advanced to the second part of duodenum. The upper GI endoscopy was accomplished without difficulty. The patient tolerated the procedure well. Findings: The Z-line was regular and was found 40 cm from the incisors. A severe Schatzki ring was found at the gastroesophageal junction. A TTS dilator was passed through the scope. Dilation with a 10-11-12 mm balloon and a 12-13.5-15 mm balloon dilator was performed to 15 mm. The dilation site was examined and showed complete resolution of luminal narrowing. To prevent bleeding post-maneuver, two hemostatic clips were successfully placed. There was no bleeding at the end of the procedure. The exam was otherwise without abnormality. Impression: - Z-line regular, 40 cm from the incisors. - Severe Schatzki ring. Dilated. Clips were placed. - The examination was otherwise normal. - No specimens collected. - The examination was otherwise normal. Recommendation: - Patient has a contact number available for emergencies. The signs and symptoms of potential delayed complications were discussed with the patient. Return to normal activities tomorrow. Written discharge instructions were provided to the patient. - Full liquid diet. - Advance diet as tolerated. - Continue present medications. - [facility]. - The findings and recommendations were discussed with the patient's family. Andrew Patel MD Andrew Patel MD 06/28/2019 4:18:55 PM Electronically signed by Andrew Patel MD Number of Addenda: 0 Note Initiated On: 06/28/2019 3:52 PM Estimated Blood Loss: Estimated blood loss: none.
--- NOTE | 2019-06-28 19:04 | IPNPDOC ---
Date Seen The patient was seen on 06/28/19. Progress Note SUBJECTIVE: Patient denies any complaints today, reported feeling well. Went for EGD today showing severe Schatzki ring s/p dilation and clips placement. Hb 10 today. Platelets 33, getting 2 units Platelets. OBJECTIVE PHYSICAL EXAMINATION: VITAL SIGNS: Please see below. General: No acute distress, Alert Eyes: Normal sclera, EOMI, GERALD HENT: Atraumatic, neck supple, moist mucous membranes Cardiovascular: Normal rate, normal rhythm. Pulmonary: Clear to auscultation b/l, no wheezing GI: Soft, nontender, nondistended Skin: Warm and dry Neuro: CN grossly intact. No focal deficits. Strengths equal b/l. Psych: oriented x 3 LABORATORY DATA, IMAGING STUDIES, MICROBIOLOGY: Please see below. DVT prophylaxis ordered?: SCD ASSESSMENT AND PLAN: 1. Symptomatic anemia 2/2 MDS - Follows with Dr. Lagunas as outpatient with transfusions as outpatient normally. - s/p 3 pRBC with Hb now 10.5 with improvement of symptoms. - Monitor daily CBC. 2. Thrombocytopenia - 2/2 MDS. No evidence of bleed. - s/p 4 units Platelets to prep for EGD. c/w monitor. 3. Dysphagia - s/p EGD with evidence of severe Schatzski's ring s/p dilation and clip placement. - Advance diet as tolerated. Clear liquid diet. DISPOSITION: Likely home tomorrow. VS, I&O, 24H, Fishbone Vital Signs/I&O Vital Signs Date Time Temp Pulse Resp B/P (MAP) Pulse Ox O2 Delivery O2 Flow Rate FiO2 06/28/19 16:31 98.1 92 16 116/56 (76) 99 06/26/19 16:00 Room Air I&O- Last 24 Hours up to 6 AM 06/28/19 06:00 Intake Total 1950 ml Output Total 950 ml Balance 1000 ml Laboratory Data 24H LABS Laboratory Tests 2 06/28/19 06:27: Nucleated Red Blood Cells % (auto) 0.0, Immature Platelet Fraction 4.2, Anion Gap 5L, Glomerular Filtration Rate > 60.0, Blood Urea Nitrogen 16, Creatinine 0.61, Sodium Level 143, Potassium Level 3.9, Chloride Level 113H, Carbon Dioxide Level 25, Calcium Level 8.6L CBC/BMP Laboratory Tests 06/28/19 06:27 Red Blood Count 3.29 L, Mean Corpuscular Volume 87.2, Mean Corpuscular Hemoglobin 30.4, Mean Corpuscular Hemoglobin Concent 34.8, Red Cell Distribution Width 14.4, Calcium Level 8.6 L JOAQUINA HANNON MD Jun 28, 2019 19:04
[2019-06-28 22:00] VITALS: BP 117/57
[2019-06-29 06:00] VITALS: BP 114/55
[2019-06-29 06:41] LABS: HEMOGLOBIN 9.3 g/dl (12.0-15.5); MEAN CORPUSCULAR HEMOGLOBIN 30.1 pg (27.0-33.0); MEAN CORPUSCULAR HGB CONC 34.4 g/dl (32.0-36.5); MEAN CORPUSCULAR VOLUME 87.4 fl (80.0-96.0); RED BLOOD COUNT 3.09 10^6/uL (4.00-5.40); WHITE BLOOD COUNT 2.5 10^3/uL (4.0-10.0)
[2019-06-29 06:42] LABS: PLATELET COUNT, AUTOMATED 47 10^3/uL (150-450)
[2019-06-29 07:06] LABS: BLOOD UREA NITROGEN 16 MG/DL (7-18); CALCIUM LEVEL 8.6 MG/DL (8.8-10.2); CARBON DIOXIDE LEVEL 25 MEQ/L (21-32); CHLORIDE LEVEL 111 MEQ/L (98-107); CREATININE FOR GFR 0.62 MG/DL (0.55-1.30); GLOMERULAR FILTRATION RATE > 60.0 (>39); GLUCOSE, FASTING 88 MG/DL (70-100); POTASSIUM SERUM 3.7 MEQ/L (3.5-5.1); SODIUM LEVEL 143 MEQ/L (136-145)
[2019-06-29] MEDS: DEFERASIROX 180 MG PO SCH (08:17)
[2019-06-29] MEDS: MULTIVITAMINS/MINERALS THERAP 1 TAB PO SCH (08:17)
[2019-06-29] MEDS ORDERED: PANTOPRAZOLE 40MG TAB (PROTONIX) PO SCH (09:00)
--- NOTE | 2019-06-29 11:21 | CR ---
DATE OF CONSULTATION: 06/28/2019 33-year white female being seen by GI for evaluation of dysphagia. The patient has past history of progressive myelodysplastic syndrome. The patient is receiving approximately 2 units of packed cells every 2 weeks since 2014. The patient presented with the fatigue, lightheadedness and generalized weakness a few days prior to admission. The patient was admitted with a hemoglobin of 5.7, platelets were 20,000. MEDICATIONS: Include: Jadenu Sprinkle 180 mg in a pack 540 mg by mouth at bedtime and 360 mg by mouth every morning, multivitamins, Tylenol as needed. ALLERGIES: CODEINE. PAST MEDICAL HISTORY: 1. High-grade myelodysplastic syndrome. Transfusion dependent. 2. Pancytopenia. 3. Protein calorie malnutrition. 4. History of CVA. 5. Cholecystectomy. FAMILY HISTORY: Is positive for the patient's maternal uncle with leukemia. SOCIAL HISTORY: Cigarettes none. Alcohol none. Drugs none. REVIEW OF SYSTEMS: Noncontributory. PHYSICAL EXAMINATION: A well-developed thin white female in no obvious acute distress. Appears stated age. Chest was clear to auscultation. Cardiovascular exam showed a regular rhythm. No murmurs or gallops. Normal physiological split S1-S2. Abdomen soft, nontender. No masses, guarding, rebound, or hepatosplenomegaly. Bowel sounds positive. LABORATORY STUDIES ON ADMISSION: Shows a white count of 3000, H H was 5.7 and 16.6, platelets of 20,000. Chemistry on admission showed normal renal function and normal liver functions. Albumin was 3.7. Imaging studies including a chest x-ray on 06/26/2019 showed some hyperinflation but no acute cardiopulmonary markings, analysis dysphagia of unknown etiology. PLAN: Will be set the patient up for an upper endoscopy with probable balloon dilatation. The patient will receive platelets prior to the endoscopy and dilatation in an attempt to maintain a platelet count of over 25,000 and hopefully up to at least 50,000. The risks of the procedure of bleeding complications of course have been discussed with the patient.
[2019-06-29] MEDS ORDERED: PANT40TA3 PO (12:12)
--- NOTE | 2019-06-29 15:32 | DS.PDOC ---
Discharge Summary General Date of Admission Jun 26, 2019 at 21:08 Date of Discharge 06/29/19 Discharge Summary PROCEDURES PERFORMED DURING STAY: EGD- Findings: The Z-line was regular and was found 40 cm from the incisors. A severe Schatzki ring was found at the gastroesophageal junction. A TTS dilator was passed through the scope. Dilation with a 10-11-12 mm balloon and a 12-13.5-15 mm balloon dilator was performed to 15 mm. The dilation site was examined and showed complete resolution of luminal narrowing. To prevent bleeding post-maneuver, two hemostatic clips were successfully placed. There was no bleeding at the end of the procedure. The exam was otherwise without abnormality. Impression: - Z-line regular, 40 cm from the incisors. - Severe Schatzki ring. Dilated. Clips were placed. - The examination was otherwise normal. - No specimens collected. - The examination was otherwise normal. ADMITTING DIAGNOSES: 1. Anemia 2. MDS 3. Secondary Hemosiderosis 4. Severe Protein calorie malnutrition BMI 16.6 DISCHARGE DIAGNOSES: 1. Anemia 2. MDS 3. Secondary Hemosiderosis 4. Severe Protein calorie malnutrition BMI 16.6- 2/2 MDS and Dysphagia 2/2 esophageal stricture/schatzski's ring. COMPLICATIONS/CHIEF COMPLAINT: Mds Symptomatic Anemia. HISTORY OF PRESENT ILLNESS: "This is a 73-year-old female with past medical history of progressive myelodysplastic syndrome unable to tolerate epogen requiring transfusion every 2 weeks since 2014 who presents to the emergency room with chief complaint of generalized weakness and neck pain, fatigue, light headedness worse over the past 2 days. She was due for her scheduled transfusion on 06/28/19 but she felt she was too weak to wait for another 2 days. There was no place availbale in the infusion unit for today so she was advised to come to the ER by oncology to get transfusion.In the ER she had a CBC done which showed a hemoglobin of 5.7 and platelet of 20. She was admitted for symptomatic anemia." HOSPITAL COURSE: Patient was transfused with improvement in Hb and symptoms. During course of admission, she reported severe vomiting and regurgitation of food, stated that she has been having these symptoms for the past year, limiting her oral intake. She was evaluated by GI and underwent EGD noted to have Schatzki's rings s/p dilatation and clip placement. She reported "100%" better without any complaints. For discharge to f/u PMD and Oncology as outpatient. DISCHARGE MEDICATIONS: Please see below. ALLERGIES: Please see below. PHYSICAL EXAMINATION ON DISCHARGE: VITAL SIGNS: Please see below. General: No acute distress, Alert Eyes: Normal sclera, EOMI, GERALD HENT: Atraumatic, neck supple, moist mucous membranes Cardiovascular: Normal rate, normal rhythm. Pulmonary: Clear to auscultation b/l, no wheezing GI: Soft, nontender, nondistended Skin: Warm and dry Neuro: CN grossly intact. No focal deficits. Strengths equal b/l. Psych: oriented x 3 LABORATORY DATA: Please see below. ACTIVITY: [As tolerated]. DIET: Soft diet DISCHARGE PLAN: f/u PMD and Oncology within 1 week Continue soft diet for now DISPOSITION: 01 Home, Self-Care. DISCHARGE INSTRUCTIONS: f/u PMD and Oncology within 1 week Continue soft diet for now ITEMS TO FOLLOWUP ON ON OUTPATIENT: None DISCHARGE CONDITION: [Stable]. TIME SPENT ON DISCHARGE: 32 minutes. Vital Signs/I&Os Vital Signs Date Time Temp Pulse Resp B/P (MAP) Pulse Ox O2 Delivery O2 Flow Rate FiO2 06/29/19 06:00 98.0 91 20 114/55 (74) 98 06/26/19 16:00 Room Air I&O- Last 24 Hours up to 6 AM 06/29/19 06:00 Intake Total 636 ml Output Total 900 ml Balance -264 ml Laboratory Data Labs 24H Laboratory Tests 2 06/29/19 05:53: Nucleated Red Blood Cells % (auto) 0.0, Anion Gap 7L, Glomerular Filtration Rate > 60.0, Blood Urea Nitrogen 16, Creatinine 0.62, Sodium Level 143, Potassium [place] 3.7, Chloride Level 111H, Carbon Dioxide Level 25, Calcium Level 8.6L CBC/BMP Laboratory Tests 06/29/19 05:53 Red Blood Count 3.09 L, Mean Corpuscular Volume 87.4, Mean Corpuscular Hemoglobin 30.1, Mean Corpuscular Hemoglobin Concent 34.4, Red Cell Distribution Width 14.3, Calcium Level 8.6 L Discharge Medications Scheduled Deferasirox (Jadenu Sprinkle) 180 Mg Gran.pack, 360 MG PO DAILY, (Reported) MIXED INTO PUDDING OR APPLESAUCE. REPLACES ONCOLOGY SCRIPT. Deferasirox (Jadenu Sprinkle) 180 Mg Gran.pack, 540 MG PO QHS, (Reported) MIXED WITH PUDDING OR APPLESAUCE. REPLACES ONCOLOGY SCRIPT Multivitamins (Thera M Plus Tablet) 1 Tab Tab, 2 TAB PO DAILY, (Reported) Pantoprazole Sodium (Pantoprazole Sodium) 40 Mg Tablet.dr, 40 MG PO DAILY Scheduled PRN Acetaminophen (Acetaminophen) 500 Mg Tab, 500 MG PO Q4H PRN for PAIN, (Reported) Allergies Coded Allergies: codeine (Verified Allergy, Intermediate, RASH, 01/04/19) JOAQUINA HANNON MD Jun 29, 2019 15:32
== END 2019-06-29 14:20 | disposition home or self-care (01) | DRG 811 ==
LOC: M ED 11:32 → M ED INP 11:33 → M MSPAV 16:33 → OBSVTOIN 21:08
PROVIDERS: ADMIT Internal Medicine Nephrology; ATTEND Student in an Organized Health Care Education/Training Program
PROC: 30233N1 Transfusion of Nonautologous Red Blood Cells into Peripheral Vein, Percutaneous Approach (ICD-10-PCS; 2019-06-26)
PROC: 30233R1 Transfusion of Nonautologous Platelets into Peripheral Vein, Percutaneous Approach (ICD-10-PCS; 2019-06-27)
PROC: 0D748DZ Dilation of Esophagogastric Junction with Intraluminal Device, Via Natural or Artificial Opening Endoscopic (ICD-10-PCS; 2019-06-28)
PROC: 0W3P8ZZ Control Bleeding in Gastrointestinal Tract, Via Natural or Artificial Opening Endoscopic (ICD-10-PCS; principal; 2019-06-28 16:30)
DX: D46.Z Other myelodysplastic syndromes (principal); E43 Unspecified severe protein-calorie malnutrition; D61.818 Other pancytopenia; Z68.1 Body mass index [BMI] 19.9 or less, adult; K22.2 Esophageal obstruction; E83.19 Other disorders of iron metabolism; R13.10 Dysphagia, unspecified; Z79.899 Other long term (current) drug therapy; Z88.5 Allergy status to narcotic agent; Z86.73 Personal history of transient ischemic attack (TIA), and cerebral infarction without residual deficits; Z90.49 Acquired absence of other specified parts of digestive tract

== ENCOUNTER 2019-07-11 09:20 | Outpatient (CLI) | payer MEDICARE ==
[2019-07-11] VITALS (8 sets, daily range): BP systolic 99–125; BP diastolic 48–70
[~2019-07-11] VITALS: Ht 156.8 cm; Wt 43.0 kg
[~2019-07-11 09:20] MED LIST changes: +ACETAMINOPHEN TAB 650MG DOSE (2X325MG) PO SCH; +PANT40TA3 PO; +diphenhydrAMINE 25 MG CAP PO SCH
== END 2019-07-11 13:40 | disposition home or self-care (01) ==
LOC: M INFU 09:20
PROVIDERS: ATTEND Internal Medicine Hematology & Oncology
DX: D46.9 Myelodysplastic syndrome, unspecified (principal); D64.89 Other specified anemias
CPT/HCPCS: 36415; 36430; 85027; 86850; 86900; 86901; 86920; P9016

== ENCOUNTER 2019-07-12 07:39 | Outpatient (CLI) | payer MEDICARE ==
[~2019-07-12] VITALS: Ht 154.9 cm; Wt 42.0 kg
[~2019-07-12 07:39] MED LIST changes: -ACETAMINOPHEN TAB 650MG DOSE (2X325MG) PO SCH; -diphenhydrAMINE 25 MG CAP PO SCH
[2019-07-12 07:40] VITALS: BP 104/57
[2019-07-12 07:55] VITALS: BP 104/57
[2019-07-12 08:14] VITALS: BP 110/66
[2019-07-12] MEDS ORDERED: diphenhydrAMINE 25 MG CAP PO ONE (08:30)
[2019-07-12] MEDS ORDERED: ACETAMINOPHEN TAB 650MG DOSE (2X325MG) PO ONE (08:30)
[2019-07-12 09:00] VITALS: BP 90/62
[2019-07-12 09:53] VITALS: BP 105/58
[2019-07-12 10:30] VITALS: BP 121/64
== END 2019-07-12 10:30 ==
LOC: M INFU 07:39
PROVIDERS: ATTEND Internal Medicine Hematology & Oncology
DX: D64.9 Anemia, unspecified (principal); Z88.5 Allergy status to narcotic agent
CPT/HCPCS: 36430; 86920; P9016

== ENCOUNTER 2019-07-26 11:19 | Outpatient (CLI) | payer MEDICARE ==
[2019-07-26] VITALS (9 sets, daily range): BP systolic 104–124; BP diastolic 55–68
[~2019-07-26] VITALS: Ht 156.8 cm; Wt 42.8 kg
[~2019-07-26 11:19] MED LIST changes: +ACETAMINOPHEN TAB 650MG DOSE (2X325MG) PO SCH; +diphenhydrAMINE 25 MG CAP PO SCH
== END 2019-07-26 16:00 | disposition home or self-care (01) ==
LOC: M INFU 11:19
PROVIDERS: ATTEND Internal Medicine Hematology & Oncology
DX: D64.9 Anemia, unspecified (principal); D46.9 Myelodysplastic syndrome, unspecified; Z88.5 Allergy status to narcotic agent
CPT/HCPCS: 36415; 36430; 82728; 83550; 85027; 86850; 86900; 86901; 86920; P9016

== ENCOUNTER 2019-07-27 10:02 | Outpatient (CLI) | payer MEDICARE ==
[~2019-07-27] VITALS: Ht 154.9 cm; Wt 42.8 kg
[2019-07-27 10:20] VITALS: BP 124/61
[2019-07-27 10:35] VITALS: BP 108/55
[2019-07-27 11:20] VITALS: BP 107/59
[2019-07-27 12:10] VITALS: BP 112/56
== END 2019-07-27 12:30 | disposition home or self-care (01) ==
LOC: M INFU 10:02
PROVIDERS: ATTEND Internal Medicine Hematology & Oncology
DX: D64.9 Anemia, unspecified (principal)
CPT/HCPCS: 36430; P9016

== ENCOUNTER 2019-08-14 11:08 | Observation (INO) | payer MEDICARE ==
[2019-08-14] VITALS (13 sets, daily range): BP systolic 96–129; BP diastolic 50–84
[~2019-08-14] VITALS: Ht 157.5 cm; Wt 41.0 kg
[~2019-08-14 11:08] MED LIST changes: -ACETAMINOPHEN TAB 650MG DOSE (2X325MG) PO SCH; -diphenhydrAMINE 25 MG CAP PO SCH
[2019-08-14 13:11] LABS: MEAN CORPUSCULAR HEMOGLOBIN 29.1 pg (27.0-33.0); MEAN CORPUSCULAR HGB CONC 33.1 g/dl (32.0-36.5); MEAN CORPUSCULAR VOLUME 87.8 fl (80.0-96.0); RED BLOOD COUNT 1.48 10^6/uL (4.00-5.40)
[2019-08-14 13:19] LABS: BLOOD UREA NITROGEN 14 MG/DL (7-18); CALCIUM LEVEL 8.7 MG/DL (8.8-10.2); CARBON DIOXIDE LEVEL 29 MEQ/L (21-32); CHLORIDE LEVEL 108 MEQ/L (98-107); CREATININE FOR GFR 0.62 MG/DL (0.55-1.30); GLOMERULAR FILTRATION RATE > 60.0 (>39); GLUCOSE, FASTING 97 MG/DL (70-100); POTASSIUM SERUM 4.4 MEQ/L (3.5-5.1); SODIUM LEVEL 142 MEQ/L (136-145)
[2019-08-14 13:44] LABS: HEMOGLOBIN 4.3 g/dl (12.0-15.5)
[2019-08-14 13:45] LABS: PLATELET COUNT, AUTOMATED 16 10^3/uL (150-450)
[2019-08-14] MEDS ORDERED: NS 1,000 ML IV SCH (13:57)
[2019-08-14] MEDS ORDERED: ACETAMINOPHEN TAB 650MG DOSE (2X325MG) PO PRN (14:15)
--- NOTE | 2019-08-14 14:20 | HPEPDOC ---
General Date of Admission 08/14/19 Date of Service: Aug 14, 2019 Chief Complaint The patient is a 73-year-old female admitted with a reason for visit of Low Hemoglobin. History of Present Illness 73 years old white female with past medical history of progressive myelodysplastic syndrome had missed her appointment for blood work at the cancer center, but she has been feeling tired, fatigue, aches and pains in her head, neck and back and as per patient, she knows when her hemoglobin is low, so she decided come to ER that she might require hemoglobin transfusion. Patient denies any complaints of bleeding, ecchymosis, fever, nausea, vomiting, abdominal pain, etc. Home Medications Scheduled Deferasirox (Jadenu Sprinkle) 180 Mg Gran.pack, 360 MG PO DAILY, (Reported) MIXED INTO PUDDING OR APPLESAUCE. REPLACES ONCOLOGY SCRIPT. Deferasirox (Jadenu Sprinkle) 180 Mg Gran.pack, 540 MG PO QHS, (Reported) MIXED WITH PUDDING OR APPLESAUCE. REPLACES ONCOLOGY SCRIPT Multivitamins (Thera M Plus Tablet) 1 Tab Tab, 2 TAB PO DAILY, (Reported) Pantoprazole Sodium (Pantoprazole Sodium) 40 Mg Tablet.dr, 40 MG PO DAILY Scheduled PRN Acetaminophen (Acetaminophen) 500 Mg Tab, 500 MG PO Q4H PRN for PAIN, (Reported) Allergies Coded Allergies: codeine (Verified Allergy, Intermediate, RASH, 01/04/19) Past Medical History Medical History Progressive myelodysplastic syndrome. #2, history of CVA and #3. Status post Cholecystectomy. #4 schatzki rings status post dilate patient. #5. Secondary hemosiderosis. #6. Pancytopenia. #7, protein calorie malnutrition Surgical History Status post cholecystectomy and tubal ligation Family History Significant Family History: Other (maternal uncle with leukemia and first cousin with leukemia) Social History * Smoker: Denies Alcohol: Denies Drugs: denies A-FIB/CHADSVASC A-FIB History Current/History of A-Fib/PAF?: No Review of Systems Constitutional: Denies: Chills, Fever, Malaise, Night Sweats, Weakness, Fatigue, Weight Loss, Lethargy, Other Eyes: Denies: Pain, Vision change, Conjunctivae inflammation, Eyelid inflammation, Redness, Other ENT: Denies: Head Aches, Ear Pain, Dysphagia, Sinus Congestion, Post Nasal Drip, Sore Throat, Epistaxis, Other Symptoms Skin: Denies: Rash, Lesions, Jaundice, Bruising, Itching, Dry, Breakdown, Nail Changes, Other Pulmonary: Denies: Dyspnea, Cough, Pleuritic Chest Pain, Other Symptoms Cardiovascular: Denies: Chest Pain, Palpitations, Orthopnea, Paroxysmal Noc. Dyspnea, Edema, Lt Headedness, Other Symptoms Gastrointestinal: Denies: Nausea, Vomiting, Abdominal Pain, Diarrhea, Constipation, Melena, Hematochezia, Other Symptoms Genitourinary: Denies: Dysuria, Frequency, Incontinence, Hematuria, Retention, Other Symptoms Hematologic: Denies: Bruising, Bleeding Excessively, Petecchia, Purpura, Enlarged Lymph Nodes, Other Hematologic Endocrine: Denies: Polydipsia, Polyphagia, Polyuria, Heat Intolerance, Cold Intolerance, Other Endocrine Sx Musculoskeletal: Denies: Neck Pain, Back Pain, Shoulder Pain, Arm Pain, Hand Pain, Leg Pain, Foot Pain, Joint Pain, Muscle Pain, Spasms, Other Symptoms Neurological: Denies: Weakness, Numbness, Incoordination, Change in speech, Confusion, Seizures, Other Symptoms Psych: Denies: Mood Normal, Anxiety, Depression, Memory Issues, Thoughts of Self Harm, Anger, Thoughts of Harming Other, Other Psych Physical Examination General Exam: Positive: Alert, Cooperative Eye Exam: Positive: PERRLA, Conjunctiva & lids normal ENT Exam: Positive: Atraumatic Neck Exam: Positive: Supple Chest Exam: Positive: Clear to auscultation, Normal air movement Heart Exam: Positive: Normal S1, Normal S2 Abdomen Exam: Positive: Normal bowel sounds, Soft Extremity Exam: Positive: Normal pulses Skin Exam: Positive: Nl turgor and temperature Neuro Exam: Positive: Normal Gait, Strength at 5/5 X4 ext, Sensation Intact Psych Exam: Positive: Mental status NL, Oriented x 3 Vital Signs Vital Signs Date Time Temp Pulse Resp B/P (MAP) Pulse Ox O2 Delivery O2 Flow Rate FiO2 08/14/19 13:54 08/14/19 11:08 97.2 125 18 100 Room Air Laboratory Data Labs 24H Laboratory Tests 2 08/14/19 12:45: Nucleated Red Blood Cells % (auto) 0.0, Immature Platelet Fraction 7.1, Anion Gap 5L, Glomerular Filtration Rate > 60.0, Calcium Level 8.7L CBC/BMP Laboratory Tests 08/14/19 12:45 Problems (1) Myelodysplastic syndrome, unspecified Status: Acute Problem Text: This is 73 years old white female with past medical history of progressive myelodysplastic syndrome. She has been unable to tolerate since 2014 who is frequently presented in ED and the chief complaint of neck pain, fatigue, body aches and has received blood transfusions in the past. Patient again presents with similar symptoms with a very low hemoglobin . 4.12/21, platelets of 16,000 Admit patient to med PCU IV fluids as per orders Transfuse 2 units of PRBC Transfuse 1 unit of platelets Repeat CBC at 7 PM She might require multiple transfusions overnight We'll continue monitoring CBC and transfuse as needed Patient has no evidence of leading, bruises or ecchymosis (2) Symptomatic anemia Status: Acute Problem Text: Transfuse 2 units of PRBC now Repeat CBC after transfusions Will continue checking CBC and transfusing ~hemoglobin is more than 7 A.m.labwork. 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 Further follow-up with Hemoccult clinic as an outpatient (5) Severe protein-calorie malnutrition Status: Chronic Problem Text: Severe protein calorie malnutrition with BMI of 17 Dietary counseling was done Will recommend dietary supplements as well Plan / VTE VTE Prophylaxis Ordered?: Yes RAMO WYATT MD Aug 14, 2019 14:20
[2019-08-14] MEDS: PANTOPRAZOLE 40MG TAB (PROTONIX) PO SCH (17:37)
[2019-08-14] MEDS ORDERED: DEFERASIROX 180 MG PO SCH (21:00)
[2019-08-14 21:27] LABS: MEAN CORPUSCULAR HEMOGLOBIN 30.9 pg (27.0-33.0); MEAN CORPUSCULAR HGB CONC 34.7 g/dl (32.0-36.5); MEAN CORPUSCULAR VOLUME 89.2 fl (80.0-96.0); RED BLOOD COUNT 2.23 10^6/uL (4.00-5.40); WHITE BLOOD COUNT 2.8 10^3/uL (4.0-10.0)
[2019-08-14 21:30] LABS: HEMATOCRIT 19.9 % (36.0-47.0); HEMOGLOBIN 6.9 g/dl (12.0-15.5); PLATELET COUNT, AUTOMATED 23 10^3/uL (150-450)
[2019-08-15] VITALS: BP 102/49
[2019-08-15 00:04] VITALS: BP 102/49
[2019-08-15 00:50] VITALS: BP_SYST 56
[2019-08-15 01:56] VITALS: BP 94/50
[2019-08-15 03:11] LABS: HEMATOCRIT 23.3 % (36.0-47.0); HEMOGLOBIN 7.9 g/dl (12.0-15.5); MEAN CORPUSCULAR HEMOGLOBIN 29.9 pg (27.0-33.0); MEAN CORPUSCULAR HGB CONC 33.9 g/dl (32.0-36.5); MEAN CORPUSCULAR VOLUME 88.3 fl (80.0-96.0); RED BLOOD COUNT 2.64 10^6/uL (4.00-5.40)
[2019-08-15 03:19] LABS: PLATELET COUNT, AUTOMATED 38 10^3/uL (150-450)
[2019-08-15 03:28] LABS: BLOOD UREA NITROGEN 14 MG/DL (7-18); CALCIUM LEVEL 8.2 MG/DL (8.8-10.2); CARBON DIOXIDE LEVEL 26 MEQ/L (21-32); CHLORIDE LEVEL 112 MEQ/L (98-107); CREATININE FOR GFR 0.59 MG/DL (0.55-1.30); GLOMERULAR FILTRATION RATE > 60.0 (>39); GLUCOSE, FASTING 91 MG/DL (70-100); POTASSIUM SERUM 3.8 MEQ/L (3.5-5.1); SODIUM LEVEL 145 MEQ/L (136-145)
[2019-08-15 04:00] VITALS: BP 116/60
[2019-08-15 08:00] VITALS: BP 121/58
[2019-08-15] MEDS: PANTOPRAZOLE 40MG TAB (PROTONIX) PO SCH (08:22)
[2019-08-15] MEDS ORDERED: DEFERASIROX 180 MG PO SCH (09:00)
--- NOTE | 2019-08-15 11:40 | DS.PDOC ---
Discharge Summary General Date of Admission Aug 14, 2019 at 11:09 Date of Discharge 08/15/19 Discharge Summary PROCEDURES PERFORMED DURING STAY: None. ADMITTING DIAGNOSES: 1. Myelodysplastic syndrome, symptomatic anemia, thrombocytopenia. DISCHARGE DIAGNOSES: 1. Myelodysplastic syndrome, symptomatic anemia, thrombocytopenia. COMPLICATIONS/CHIEF COMPLAINT: Anemia. HISTORY OF PRESENT ILLNESS: 73 years old white female with past medical history of progressive myelodysplastic syndrome had missed her appointment for blood work at the cancer center, but she has been feeling tired, fatigue, aches and pains in her head, neck and back and as per patient, she knows when her hemoglobin is low, so she decided come to ER that she might require hemoglobin transfusion. Patient denies any complaints of bleeding, ecchymosis, fever, nausea, vomiting, abdominal pain, etc.. HOSPITAL COURSE: Patient was admitted with the diagnosis of symptomatic anemia, thrombocytopenia. She does have a history of myelodysplastic syndrome. Patient did not follow-up with hematoma clinic where she gets blood work done regularly and she started feeling symptoms of tiredness, fatigue, aches and pain all over the body and she came to ER. In the ED, patient was found to have a hemoglobin of 4.3 and hematocrit of 13 and platelets of 16,000. Patient received multiple transfusions of PRBC and platelets and this morning she is asymptomatic. Her hemoglobin is 7.9, hematocrit 23.7 with platelets of 38,000. Patient will be discharged home and she will follow with Dr. Patel in hematoma clinic at [facility] for further care.. DISCHARGE MEDICATIONS: Please see below. ALLERGIES: Please see below. PHYSICAL EXAMINATION ON DISCHARGE: VITAL SIGNS: Please see below. GENERAL: Within normal limits HEENT: PERRLA. Extraocular muscles intact NECK: Supple CARDIOVASCULAR EXAMINATION: [S1, S2, regular RESPIRATORY EXAMINATION: Clear to A&P ABDOMINAL EXAMINATION: , Soft, nontender, bowel sounds present EXTREMITIES: No clubbing, cyanosis, edema SKIN: Within normal limits NEUROLOGICAL EXAMINATION: . No focal motor sensory deficit PSYCHIATRIC EXAMINATION: Within normal limits LABORATORY DATA: Please see below. IMAGING: None PROGNOSIS: good ACTIVITY: As tolerated. DIET: As tolerated DISCHARGE PLAN: Follow with Dr. Patel as an outpatient DISPOSITION: 01 Home, Self-Care. DISCHARGE INSTRUCTIONS: 1. As per discharge instructions. ITEMS TO FOLLOWUP ON ON OUTPATIENT: 1. Routine blood work with hematoma clinic in one week. DISCHARGE CONDITION: Stable. TIME SPENT ON DISCHARGE: 35 minutes. Vital Signs/I&Os Vital Signs Date Time Temp Pulse Resp B/P (MAP) Pulse Ox O2 Delivery O2 Flow Rate FiO2 08/15/19 08:00 97.8 85 16 121/58 (79) 99 Room Air 08/14/19 22:48 98 I&O- Last 24 Hours up to 6 AM 08/15/19 05:59 Intake Total 2405 ml Output Total 800 ml Balance 1605 ml Laboratory Data Labs 24H Laboratory Tests 2 08/14/19 12:45: Nucleated Red Blood Cells % (auto) 0.0, Immature Platelet Fraction 7.1, Anion Gap 5L, Glomerular Filtration Rate > 60.0, Calcium Level 8.7L 08/14/19 21:17: Nucleated Red Blood Cells % (auto) 0.0 08/15/19 03:02: Nucleated Red Blood Cells % (auto) 0.0, Anion Gap 7L, Glomerular Filtration Rate > 60.0, Calcium Level 8.2L CBC/BMP Laboratory Tests 08/14/19 12:45 08/14/19 21:17 08/15/19 03:02 Discharge Medications Scheduled Deferasirox (Jadenu Sprinkle) 180 Mg Gran.pack, 360 MG PO DAILY, (Reported) MIXED INTO PUDDING OR APPLESAUCE. REPLACES ONCOLOGY SCRIPT. Deferasirox (Jadenu Sprinkle) 180 Mg Gran.pack, 540 MG PO QHS, (Reported) MIXED WITH PUDDING OR APPLESAUCE. REPLACES ONCOLOGY SCRIPT Multivitamins (Thera M Plus Tablet) 1 Tab Tab, 2 TAB PO DAILY, (Reported) Scheduled PRN Acetaminophen (Acetaminophen) 500 Mg Tab, 500 MG PO Q4H PRN for PAIN, (Reported) Allergies Coded Allergies: codeine (Verified Allergy, Intermediate, RASH, 01/04/19) RAMO WYATT MD Aug 15, 2019 11:40
== END 2019-08-15 11:16 | disposition home or self-care (01) ==
LOC: M ED 11:08 → M ED INP 11:09 → M PCU 16:45
PROVIDERS: ADMIT Internal Medicine; ATTEND Internal Medicine
DX: D64.9 Anemia, unspecified (principal); D69.6 Thrombocytopenia, unspecified; Z86.73 Personal history of transient ischemic attack (TIA), and cerebral infarction without residual deficits; E43 Unspecified severe protein-calorie malnutrition; Z68.1 Body mass index [BMI] 19.9 or less, adult; Z90.49 Acquired absence of other specified parts of digestive tract; E83.19 Other disorders of iron metabolism; Z79.899 Other long term (current) drug therapy; Z88.5 Allergy status to narcotic agent; Z80.6 Family history of leukemia
CPT/HCPCS: 36415; 36430; 80048; 85027; 85049; 85055; 86850; 86900; 86901; 86920; 99285; G0378; P9016; P9034

== ENCOUNTER 2019-08-23 12:23 | Outpatient (CLI) | payer MEDICARE ==
[~2019-08-23] VITALS: Ht 154.9 cm; Wt 42.1 kg
[2019-08-23] VITALS (7 sets, daily range): BP systolic 90–135; BP diastolic 53–73
[2019-08-23] MEDS ORDERED: diphenhydrAMINE 25 MG CAP PO ONE (13:00)
[2019-08-23] MEDS ORDERED: ACETAMINOPHEN 325 MG TAB PO ONE (13:00)
[2019-08-24] MEDS ORDERED: [UNRECOGNIZED DRUG - CODE] PO (14:13)
== END 2019-08-23 17:00 | disposition home or self-care (01) ==
LOC: M INFU 12:23
PROVIDERS: ATTEND Internal Medicine Hematology & Oncology
DX: D46.9 Myelodysplastic syndrome, unspecified (principal); Z88.5 Allergy status to narcotic agent
CPT/HCPCS: 36415; 36430; 85027; 85049; 85055; 86850; 86900; 86901; 86920; G0463; P9016

== ENCOUNTER 2019-09-05 10:09 | Outpatient (CLI) | payer MEDICARE ==
[~2019-09-05] VITALS: Ht 157.5 cm; Wt 40.0 kg
[2019-09-05] VITALS (7 sets, daily range): BP systolic 103–131; BP diastolic 49–68
[~2019-09-05 10:09] MED LIST changes: +[UNRECOGNIZED DRUG - CODE] PO
[2019-09-05] MEDS ORDERED: FUROSEMIDE 20 MG/2 ML VIAL (J1940) IV ONE (12:00)
== END 2019-09-05 14:45 | disposition home or self-care (01) ==
LOC: M INFU 10:09
PROVIDERS: ATTEND Internal Medicine Hematology
DX: D46.9 Myelodysplastic syndrome, unspecified (principal); D64.9 Anemia, unspecified; Z88.5 Allergy status to narcotic agent
CPT/HCPCS: 36430; 96374; J1940; P9016

== ENCOUNTER 2019-09-06 10:39 | Outpatient (CLI) | payer MEDICARE ==
[~2019-09-06] VITALS: Ht 157.5 cm; Wt 40.0 kg
[2019-09-06 10:45] VITALS: BP 118/58
[2019-09-06] MEDS ORDERED: FUROSEMIDE 20 MG/2 ML VIAL (J1940) IV ONE (11:00)
[2019-09-06 11:10] VITALS: BP 118/58
[2019-09-06 11:30] VITALS: BP 95/53
[2019-09-06 12:30] VITALS: BP 105/58
[2019-09-06 13:00] VITALS: BP 126/58
[2019-09-06 13:30] VITALS: BP 101/52
== END 2019-09-06 13:30 | disposition home or self-care (01) ==
LOC: M INFU 10:39
PROVIDERS: ATTEND Internal Medicine Hematology
DX: D46.9 Myelodysplastic syndrome, unspecified (principal); D64.9 Anemia, unspecified; Z88.5 Allergy status to narcotic agent
CPT/HCPCS: 36430; 96374; P9016

== ENCOUNTER 2019-09-21 10:28 | Outpatient (CLI) | payer MEDICARE ==
[~2019-09-21] VITALS: Ht 154.9 cm; Wt 41.7 kg
[2019-09-21] VITALS (10 sets, daily range): BP systolic 16–132; BP diastolic 47–83
[~2019-09-21 10:28] MED LIST changes: +ACETAMINOPHEN TAB 650MG DOSE (2X325MG) PO SCH; +diphenhydrAMINE 25 MG CAP PO SCH
== END 2019-09-21 16:00 | disposition home or self-care (01) ==
LOC: M INFU 10:28
PROVIDERS: ATTEND Internal Medicine Hematology
DX: D46.9 Myelodysplastic syndrome, unspecified (principal); E83.111 Hemochromatosis due to repeated red blood cell transfusions; E83.19 Other disorders of iron metabolism; Z88.5 Allergy status to narcotic agent; Z79.899 Other long term (current) drug therapy
CPT/HCPCS: 36415; 36430; 85027; 85049; 85055; 86850; 86900; 86901; 86920; G0463; P9016

== ENCOUNTER 2019-09-22 11:22 | Outpatient (CLI) | payer MEDICARE ==
[~2019-09-22] VITALS: Ht 154.9 cm; Wt 41.7 kg
[~2019-09-22 11:22] MED LIST changes: -ACETAMINOPHEN TAB 650MG DOSE (2X325MG) PO SCH; -diphenhydrAMINE 25 MG CAP PO SCH
[2019-09-22 11:45] VITALS: BP 110/58
[2019-09-22 12:09] VITALS: BP 120/60
[2019-09-22 12:28] VITALS: BP 108/54
[2019-09-22 13:30] VITALS: BP 98/52
[2019-09-22 14:05] VITALS: BP 111/68
[2019-09-22 14:25] VITALS: BP 112/56
== END 2019-09-22 14:25 | disposition home or self-care (01) ==
LOC: M INFU 11:22
PROVIDERS: ATTEND Internal Medicine Hematology
DX: D46.9 Myelodysplastic syndrome, unspecified (principal); Z88.5 Allergy status to narcotic agent
CPT/HCPCS: 36430; P9016

== ENCOUNTER 2019-10-02 09:23 | Outpatient (CLI) | payer MEDICARE ==
[~2019-10-02] VITALS: Ht 157.5 cm; Wt 40.9 kg
[2019-10-02] VITALS (7 sets, daily range): BP systolic 105–131; BP diastolic 51–66
[2019-10-02] MEDS ORDERED: ACETAMINOPHEN 325 MG TAB PO ONE (10:00)
[2019-10-02] MEDS ORDERED: diphenhydrAMINE 25 MG CAP PO ONE (10:00)
[2019-10-30] MEDS ORDERED: TRAM37.53 PO (09:08)
== END 2019-10-02 13:30 | disposition home or self-care (01) ==
LOC: M INFU 09:23
PROVIDERS: ATTEND Internal Medicine Hematology
DX: D64.9 Anemia, unspecified (principal); Z88.5 Allergy status to narcotic agent
CPT/HCPCS: 36415; 36430; 85027; 85049; 85055; 86850; 86900; 86901; 86920; G0463; P9016

== ENCOUNTER 2019-10-09 10:24 | Outpatient (CLI) | payer MEDICARE ==
[~2019-10-09] VITALS: Ht 157.5 cm; Wt 40.9 kg
[2019-10-09 10:25] VITALS: BP 129/58
[2019-10-09] MEDS ORDERED: diphenhydrAMINE 25 MG CAP PO ONE (11:00)
[2019-10-09] MEDS ORDERED: ACETAMINOPHEN 325 MG TAB PO ONE (11:00)
[2019-10-09 11:24] VITALS: BP 129/58
[2019-10-09 11:40] VITALS: BP 120/58
[2019-10-09 12:40] VITALS: BP 127/57
[2019-10-09 13:05] VITALS: BP 111/56
[2019-10-09 13:30] VITALS: BP 111/56
== END 2019-10-09 13:30 | disposition home or self-care (01) ==
LOC: M INFU 10:24
PROVIDERS: ATTEND Internal Medicine Hematology
DX: D46.9 Myelodysplastic syndrome, unspecified (principal)
CPT/HCPCS: 36415; 36430; 85027; 85049; 85055; 86850; 86920; 88300; G0463; P9016

== ENCOUNTER → 2019-10-12 | Outpatient (CLI) | payer MEDICARE ==
[2019-10-12] VITALS (8 sets, daily range): BP systolic 106–125; BP diastolic 53–75
[~2019-10-12] MED LIST changes: +LIDO2.5C15 TOP; +LIDOCAINE 1% MDV 20ML VIAL As Ordered ONE; +MIDAZOLAM INJ 2 MG/2 ML VIAL (J2250) As Ordered ONE; +ceFAZolin 1GM INJ (J0690 PER 500MG) As Ordered ONE; +diphenhydrAMINE INJ 50MG/ML VIAL (J1200) As Ordered ONE; +fentaNYL 100 MCG/2 ML INJECTION (J3010) As Ordered ONE
--- NOTE | 2019-10-12 13:50 | IRHP ---
[facility] IR Pre-Procedure H & P General Date of Service: Oct 12, 2019 Procedure: Same Day Surgery Interval History and Physical I have seen the patient and reviewed last H & P performed within 30 days. There is no significant interval change. Will needs platelets prior to port placement. History of Present Illness Chief Complaint The patient is a 73-year-old female admitted with a reason for visit of Myelodysplastic Syndrome. PRE-PROCEDURE DIAGNOSIS: MDS HEART: normal rate. LUNGS: normal breathing at rest. ASA Classification ASA Classification: II-Mild systemic disease Mallampati Score: II NPO: Yes Problems with prior sedation: No Obstructive Sleep Apnea: No Plan moderate sedation Allergies Coded Allergies: codeine (Verified Allergy, Intermediate, RASH, 01/04/19) Home Medications Scheduled Deferasirox (Jadenu Sprinkle), 360 MG PO BID Multivitamins (Thera M Plus Tablet), 2 TAB PO DAILY, (Reported) Scheduled PRN Acetaminophen (Acetaminophen), 500 MG PO Q4H PRN for PAIN, (Reported) VS, I&O, 24H, Fishbone Vital Signs/I&O Vital Signs Date Time Temp Pulse Resp B/P (MAP) Pulse Ox O2 Delivery O2 Flow Rate FiO2 10/12/19 12:33 98.5 107 18 98 Room Air TERRELL BEE MD Oct 12, 2019 13:50
--- NOTE | 2019-10-12 15:41 | POST-OPPD ---
Postoperative Procedure Note Date Of Procedure: Oct 12, 2019 Time Of Procedure: 15:40 PREOPERATIVE DIAGNOSIS: MDS POSTOPERATIVE DIAGNOSIS: MDS FINDINGS: patent right IJ PROCEDURE: right side port SURGEON: fay ANESTHESIA: mod sed ESTIMATED BLOOD LOSS: < 5 ml COMPLICATIONS: none POSTOPERATIVE CONDITION: stable TERRELL BEE MD Oct 12, 2019 15:41
--- NOTE | 2019-10-13 10:00 | REP ---
IR Ultrasound and fluoroscopy-guided port placement. IR Ultrasound of the neck. IR Moderate sedation. Clinical information: Myelodysplastic syndrome. Physician: Dr. Ruiz. Procedure: The patient was advised of the benefits, risks, and alternatives of the procedure and informed consent was obtained. A bag of Platelets was transfused before and during the procedure. A time-out was performed with verification of the patient's name, MRN, site of procedure and type of procedure to be performed. The patient was positioned in the supine position on the angiographic table. The site was prepped and draped in the usual sterile fashion. Moderate sedation was performed by the physician including the presence of an independent trained observer who assisted and monitored the patient's level of consciousness and physiologic status. Following the administration of fentanyl and Versed, the physician spent 45 minutes of continuous face to face time with the patient. Ultrasound of the neck reveals a patent and compressible right internal jugular vein. A flagman radiograph reveals no gross abnormality. The neck and anterior chest wall were anesthetized with lidocaine. The right internal jugular vein was accessed using a microintroducer needle under ultrasound guidance, via a lateral approach. An 018 wire was advanced into the superior vena cava, the needle was removed and a microsheath was placed. An Amplatz wire was then passed into the inferior vena cava. An incision at the internal jugular vein access site and anterior chest wall were made using a scalpel. An incision was made at the anterior chest wall. A small pocket was created using a combination of blunt and sharp dissection. A tunneling device was then used to pass the catheter from the pocket to the neck puncture site. An 8-[place] Angio dynamics low profile Smart power port was then positioned in the pocket. The catheter was then measured and cut. The introducer sheath was exchanged for a peel-away sheath. The catheter was passed through the peel-away sheath into the internal jugular vein and the peel-away sheath was removed. The port tip was positioned at the cavoatrial junction. The port was then accessed with a Flor needle. The port flushes and aspirates well. The puncture site in the neck was closed. The chest wall incision was then closed with 2-0 Vicryl and 4-0 Monocryl. Glue and Steri-Strips were applied. A sterile dressing was then applied. The patient tolerated the procedure well and was returned to the PRU in stable condition. Estimated blood loss: <5 ml. Complications: None. Conclusion: 1. Successful placement of an 8-[place] Angio dynamics low profile Smart power port via the right internal jugular vein. The port is ready for immediate use. 2. Patient to follow up in IR clinic in 2 weeks. Thank you for this referral. Electronically Signed by Abeba Ruiz MD 10/13/2019 09:59 A
== END ==
LOC: M IRPRO 12:28
PROVIDERS: ATTEND Internal Medicine Hematology
DX: D46.9 Myelodysplastic syndrome, unspecified (principal); Z88.5 Allergy status to narcotic agent
CPT/HCPCS: 36430; 36561; 99152; 99153; C1769; C1788; C1894; J0690; J2250; J3010; P9034; P9036

== ENCOUNTER 2019-10-16 11:20 | Outpatient (CLI) | payer MEDICARE ==
[~2019-10-16] VITALS: Ht 157.5 cm; Wt 40.9 kg
[2019-10-16] VITALS (8 sets, daily range): BP systolic 97–126; BP diastolic 50–59
[~2019-10-16 11:20] MED LIST changes: -LIDO2.5C15 TOP; -LIDOCAINE 1% MDV 20ML VIAL As Ordered ONE; -MIDAZOLAM INJ 2 MG/2 ML VIAL (J2250) As Ordered ONE; -ceFAZolin 1GM INJ (J0690 PER 500MG) As Ordered ONE; -diphenhydrAMINE INJ 50MG/ML VIAL (J1200) As Ordered ONE; -fentaNYL 100 MCG/2 ML INJECTION (J3010) As Ordered ONE
[2019-10-16] MEDS ORDERED: LIDO2.5C15 TOP (11:26)
[2019-10-16] MEDS ORDERED: SODIUM CHLORIDE 0.9% INJ 10 ML SYR IV PRN (14:45)
[2019-10-17] MEDS ORDERED: SODIUM CHLORIDE 0.9% INJ 10 ML SYR IV SCH (09:00)
== END 2019-10-16 16:40 | disposition home or self-care (01) ==
LOC: M INFU 11:20
PROVIDERS: ATTEND Internal Medicine Hematology
DX: D46.9 Myelodysplastic syndrome, unspecified (principal); D64.9 Anemia, unspecified; Z88.5 Allergy status to narcotic agent
CPT/HCPCS: 36430; 36591; 80053; 85027; 85046; 85049; 85055; 86850; 86900; 86901; 86920; G0463; P9016

== ENCOUNTER 2019-10-28 17:35 | Emergency (ER) | payer MEDICARE ==
[~2019-10-28] VITALS: Ht 157.5 cm; Wt 43.9 kg
[~2019-10-28 17:35] MED LIST changes: +LIDO2.5C15 TOP
[2019-10-28] MEDS ORDERED: ACETAMINOPHEN 500 MG TAB PO ONE (18:45)
[2019-10-28] MEDS ORDERED: MAPA500C PO (19:31)
[2019-10-28 19:37] VITALS: BP 102/51
--- NOTE | 2019-10-29 07:55 | REP ---
LEFT FOREARM: TWO VIEWS. HISTORY: Pain after a fall. FINDINGS: There is diffuse osteopenia. AP and lateral views demonstrate an impacted fracture of the distal radius and distal ulna. No proximal forearm fracture is seen. IMPRESSION: Impacted fractures of the distal radial and ulnar metaphyses. Osteoporosis. Electronically Signed by Marco Antonio Velarde MD 10/29/2019 08:56 A
--- NOTE | 2019-10-29 07:58 | REP ---
LEFT HAND SERIES: FOUR VIEWS. HISTORY: Pain after a fall. FINDINGS: The radiographs are mislabeled as right. They are actually left hand radiographs. They show an impacted fracture of the distal radius with associated soft-tissue swelling. The distal ulna appears intact on these views. IMPRESSION: Impacted distal radial metaphyseal fracture. Osteoporosis. No other fracture seen. Electronically Signed by Marco Antonio Velarde MD 10/29/2019 08:56 A
[2019-10-30] MEDS ORDERED: TRAM37.53 PO (09:08)
== END 2019-10-28 19:43 | disposition home or self-care (01) ==
LOC: M ED 17:35
DX: S52.502A Unspecified fracture of the lower end of left radius, initial encounter for closed fracture (principal); S59.002A Unspecified physeal fracture of lower end of ulna, left arm, initial encounter for closed fracture; M80.032A Age-related osteoporosis with current pathological fracture, left forearm, initial encounter for fracture; M85.832 Other specified disorders of bone density and structure, left forearm; W01.10XA Fall on same level from slipping, tripping and stumbling with subsequent striking against unspecified object, initial encounter; Y92.099 Unspecified place in other non-institutional residence as the place of occurrence of the external cause; Y93.9 Activity, unspecified; Y99.9 Unspecified external cause status; Z79.899 Other long term (current) drug therapy; Z88.5 Allergy status to narcotic agent

== ENCOUNTER 2019-10-30 09:56 | Outpatient (CLI) | payer MEDICARE ==
[~2019-10-30] VITALS: Ht 154.9 cm; Wt 42.4 kg
[2019-10-30] VITALS (9 sets, daily range): BP systolic 95–119; BP diastolic 51–58
[~2019-10-30 09:56] MED LIST changes: +MAPA500C PO; +TRAM37.53 PO
[2019-10-30] MEDS ORDERED: HYDR-3713 PO (11:39)
[2019-10-30] MEDS ORDERED: SODIUM CHLORIDE 0.9% INJ 10 ML SYR IV ONE (16:00)
[2019-11-15] MEDS ORDERED: HYDR2TAB2 PO (09:30)
== END 2019-10-30 15:50 | disposition home or self-care (01) ==
LOC: M INFU 09:56
PROVIDERS: ATTEND Internal Medicine Hematology
DX: D46.9 Myelodysplastic syndrome, unspecified (principal); Z88.5 Allergy status to narcotic agent
CPT/HCPCS: 36430; 36591; 80053; 85027; 85046; 85049; 85055; 86850; 86900; 86901; 86920; G0463; J1642; P9016

== ENCOUNTER 2019-10-31 09:49 | Outpatient (CLI) | payer MEDICARE ==
[~2019-10-31] VITALS: Ht 157.5 cm; Wt 42.4 kg
[2019-10-31 10:18] VITALS: BP 143/66
[2019-10-31 10:43] VITALS: BP 143/66
[2019-10-31 11:00] VITALS: BP 111/59
[2019-10-31] MEDS ORDERED: SODIUM CHLORIDE 0.9% INJ 10 ML SYR IV PRN (11:00)
[2019-10-31 12:20] VITALS: BP 113/56
[2019-10-31 12:47] VITALS: BP 113/56
[2019-11-01] MEDS ORDERED: SODIUM CHLORIDE 0.9% INJ 10 ML SYR IV SCH (09:00)
== END 2019-10-31 12:30 | disposition home or self-care (01) ==
LOC: M INFU 09:49
PROVIDERS: ATTEND Internal Medicine Hematology
DX: D46.9 Myelodysplastic syndrome, unspecified (principal); Z88.5 Allergy status to narcotic agent
CPT/HCPCS: 36430; P9016

== ENCOUNTER → 2019-10-31 | Outpatient (POV) | payer MEDICARE ==
[~2019-10-31] VITALS: Ht 157.5 cm; Wt 41.8 kg
[2019-10-31 09:50] VITALS: BP 127/72
--- NOTE | 2019-11-01 08:12 | IRPN ---
[facility] IR Progress Note IR Progress Note DATE: Oct 31, 2019 FOLLOW-UP: Couple of weeks since port placement. No pain. No fevers or chills. ON EXAMINATION: Port site appears almost healed. There is still dissolvable Vicryl suture at the port site. No redness, tenderness, fluctuance or discharge. IMPRESSION: Healing well status post port placement. Advised to not irritate the site or pick at the suture. The suture will dissolve. No further follow-up scheduled unless initiated by patient or infusion. Thank you for this referral Allergies Coded Allergies: codeine (Verified Allergy, Intermediate, RASH, 01/04/19) VS,Fishbone, I+O VS, Fishbone, I+O Vital Signs Date Time Temp Pulse Resp B/P (MAP) Pulse Ox O2 Delivery O2 Flow Rate FiO2 10/31/19 09:50 97.7 98 18 127/72 (90) 96 Room Air TERRELL BEE MD Nov 01, 2019 08:12
== END ==
LOC: M IRPOV 09:42
PROVIDERS: ATTEND Radiology Diagnostic Radiology
DX: Z45.2 Encounter for adjustment and management of vascular access device (principal)

== ENCOUNTER 2019-11-08 11:28 | Outpatient (CLI) | payer MEDICARE ==
[2019-11-08] VITALS (7 sets, daily range): BP systolic 105–126; BP diastolic 52–63
[~2019-11-08] VITALS: Ht 160 cm; Wt 42.7 kg
[~2019-11-08 11:28] MED LIST changes: +SODIUM CHLORIDE 0.9% INJ 10 ML SYR IV SCH
[2019-11-08] MEDS ORDERED: ACETAMINOPHEN 325 MG TAB PO ONE (12:15)
[2019-11-08] MEDS ORDERED: diphenhydrAMINE 25 MG CAP PO ONE (12:15)
== END 2019-11-08 16:45 | disposition home or self-care (01) ==
LOC: M INFU 11:28
PROVIDERS: ATTEND Internal Medicine Hematology
DX: D46.9 Myelodysplastic syndrome, unspecified (principal); Z88.5 Allergy status to narcotic agent
CPT/HCPCS: 36430; 36591; 85027; 85049; 85055; 86850; 86900; 86901; 86920; G0463; J1642; P9016

== ENCOUNTER 2019-11-21 10:23 | Outpatient (CLI) | payer MEDICARE ==
[2019-11-21] VITALS (7 sets, daily range): BP systolic 103–141; BP diastolic 51–68
[~2019-11-21] VITALS: Ht 156.8 cm; Wt 41.6 kg
[~2019-11-21 10:23] MED LIST changes: +HYDR2TAB2 PO
[2019-11-21] MEDS ORDERED: ACETAMINOPHEN 325 MG TAB PO ONE (12:00)
[2019-11-21] MEDS ORDERED: diphenhydrAMINE 25 MG CAP PO ONE (12:00)
[2019-11-21] MEDS ORDERED: SODIUM CHLORIDE 0.9% INJ 10 ML SYR IV PRN (13:45)
== END 2019-11-21 15:00 | disposition home or self-care (01) ==
LOC: M INFU 10:23
PROVIDERS: ATTEND Internal Medicine Hematology
DX: D46.9 Myelodysplastic syndrome, unspecified (principal); Z88.5 Allergy status to narcotic agent
CPT/HCPCS: 36430; 36591; 80053; 85027; 85049; 85055; 86850; 86900; 86901; 86920; G0463; J1642; P9016

== ENCOUNTER 2019-11-30 10:40 | Outpatient (CLI) | payer MEDICARE ==
[2019-11-30] VITALS (8 sets, daily range): BP systolic 102–131; BP diastolic 51–70
[~2019-11-30] VITALS: Ht 152.4 cm; Wt 41.6 kg
[~2019-11-30 10:40] MED LIST changes: -SODIUM CHLORIDE 0.9% INJ 10 ML SYR IV SCH
[2019-11-30] MEDS ORDERED: ACETAMINOPHEN 325 MG TAB PO SCH (11:00)
[2019-11-30] MEDS ORDERED: diphenhydrAMINE 25 MG CAP PO SCH (11:00)
[2019-11-30] MEDS ORDERED: SODIUM CHLORIDE 0.9% INJ 10 ML SYR IV PRN (14:15)
[2019-12-01] MEDS ORDERED: SODIUM CHLORIDE 0.9% INJ 10 ML SYR IV SCH (09:00)
== END 2019-11-30 16:35 | disposition home or self-care (01) ==
LOC: M INFU 10:40
PROVIDERS: ATTEND Internal Medicine Hematology
DX: D46.9 Myelodysplastic syndrome, unspecified (principal); D61.818 Other pancytopenia; Z88.5 Allergy status to narcotic agent
CPT/HCPCS: 36430; 36591; 85027; 85049; 85055; 86850; 86900; 86901; 86920; G0463; J1642; P9016

== ENCOUNTER 2019-12-07 11:20 | Outpatient (CLI) | payer MEDICARE ==
[~2019-12-07] VITALS: Ht 157.5 cm; Wt 41.6 kg
[2019-12-07 11:30] VITALS: BP 119/70
[2019-12-07 13:10] VITALS: BP 110/55
[2019-12-07 14:09] VITALS: BP 107/53
[2019-12-07 15:00] VITALS: BP 103/55
[2019-12-07 16:00] VITALS: BP 118/57
[2019-12-07 16:26] VITALS: BP 112/68
[2019-12-07] MEDS ORDERED: SODIUM CHLORIDE 0.9% INJ 10 ML SYR IV PRN (16:30)
[2019-12-08] MEDS ORDERED: SODIUM CHLORIDE 0.9% INJ 10 ML SYR IV SCH (09:00)
== END 2019-12-07 16:30 | disposition home or self-care (01) ==
LOC: M INFU 11:20
PROVIDERS: ATTEND Internal Medicine Hematology
DX: D46.9 Myelodysplastic syndrome, unspecified (principal); Z88.5 Allergy status to narcotic agent
CPT/HCPCS: 36430; 36591; 80053; 85027; 85049; 85055; 86850; 86900; 86901; 86920; G0463; J1642; P9016

== ENCOUNTER 2019-12-21 10:53 | Outpatient (CLI) | payer MEDICARE ==
[2019-12-21] VITALS (8 sets, daily range): BP systolic 95–129; BP diastolic 53–59
[~2019-12-21] VITALS: Ht 156.8 cm; Wt 42.1 kg
[2019-12-21] MEDS ORDERED: diphenhydrAMINE 25 MG CAP PO ONE (12:00)
[2019-12-21] MEDS ORDERED: ACETAMINOPHEN 325 MG TAB PO ONE (12:00)
[2019-12-21] MEDS ORDERED: SODIUM CHLORIDE 0.9% INJ 10 ML SYR IV PRN (12:15)
[2019-12-22] MEDS ORDERED: SODIUM CHLORIDE 0.9% INJ 10 ML SYR IV SCH (09:00)
== END 2019-12-21 16:30 | disposition home or self-care (01) ==
LOC: M INFU 10:53
PROVIDERS: ATTEND Internal Medicine Hematology
DX: D46.9 Myelodysplastic syndrome, unspecified (principal); Z88.5 Allergy status to narcotic agent
CPT/HCPCS: 36430; 36591; 85027; 85049; 85055; 86850; 86900; 86901; 86920; J1642; P9016

== ENCOUNTER 2019-12-28 10:49 | Outpatient (CLI) | payer MEDICARE ==
[~2019-12-28] VITALS: Ht 154.9 cm; Wt 42.1 kg
[2019-12-28] VITALS (8 sets, daily range): BP systolic 93–133; BP diastolic 44–57
[2019-12-28] MEDS ORDERED: SODIUM CHLORIDE 0.9% INJ 10 ML SYR IV PRN (15:45)
[2019-12-29] MEDS ORDERED: SODIUM CHLORIDE 0.9% INJ 10 ML SYR IV SCH (09:00)
== END 2019-12-28 15:55 | disposition home or self-care (01) ==
LOC: M INFU 10:49
PROVIDERS: ATTEND Internal Medicine Hematology
DX: D46.9 Myelodysplastic syndrome, unspecified (principal); Z88.5 Allergy status to narcotic agent
CPT/HCPCS: 36430; 80053; 85027; 85049; 85055; 86850; 86900; 86901; 86920; J1642; P9016

== ENCOUNTER 2020-01-04 09:55 | Outpatient (CLI) | payer MEDICARE ==
[~2020-01-04] VITALS: Ht 154.9 cm; Wt 42.1 kg
[2020-01-04] MEDS ORDERED: ACETAMINOPHEN TAB 650MG DOSE (2X325MG) PO ONE (11:00)
[2020-01-04] MEDS ORDERED: diphenhydrAMINE 25 MG CAP PO ONE (11:00)
[2020-01-04 11:14] VITALS: BP 120/56
[2020-01-04 11:30] VITALS: BP 121/54
[2020-01-04 12:30] VITALS: BP 102/51
[2020-01-04 13:12] VITALS: BP 96/50
[2020-01-04] MEDS ORDERED: SODIUM CHLORIDE 0.9% INJ 10 ML SYR IV PRN (14:00)
[2020-01-04] MEDS ORDERED: SODIUM CHLORIDE 0.9% INJ 10 ML SYR IV ONE (14:00)
== END 2020-01-04 13:15 | disposition home or self-care (01) ==
LOC: M INFU 09:55
PROVIDERS: ATTEND Internal Medicine Hematology
DX: D46.9 Myelodysplastic syndrome, unspecified (principal); Z88.5 Allergy status to narcotic agent
CPT/HCPCS: 36430; 36591; 85027; 85049; 85055; 86850; 86900; 86901; 86920; J1642; P9016

== ENCOUNTER 2020-01-25 13:37 | Outpatient (CLI) | payer MEDICARE ==
[2020-01-25] VITALS (7 sets, daily range): BP systolic 93–124; BP diastolic 47–70
[~2020-01-25] VITALS: Ht 157.5 cm; Wt 41.8 kg
[2020-01-25] MEDS ORDERED: ACETAMINOPHEN TAB 650MG DOSE (2X325MG) PO ONE (14:15)
[2020-01-25] MEDS ORDERED: diphenhydrAMINE 25MG CAP PO ONE (14:15)
[2020-01-25] MEDS ORDERED: SODIUM CHLORIDE 0.9% INJ 10 ML SYR IV ONE (18:00)
[2020-01-25] MEDS ORDERED: SODIUM CHLORIDE 0.9% INJ 10 ML SYR IV PRN (18:00)
== END 2020-01-25 18:00 | disposition home or self-care (01) ==
LOC: M INFU 13:37
PROVIDERS: ATTEND Internal Medicine Medical Oncology
DX: D61.818 Other pancytopenia (principal); D46.9 Myelodysplastic syndrome, unspecified; Z88.5 Allergy status to narcotic agent
CPT/HCPCS: 36430; 36591; 85027; 85049; 85055; 86850; 86900; 86901; 86920; J1642; P9016

== ENCOUNTER 2020-02-29 10:54 | Outpatient (CLI) | payer MEDICARE ==
[2020-02-29] VITALS (10 sets, daily range): BP systolic 99–119; BP diastolic 51–58
[~2020-02-29] VITALS: Ht 157.5 cm; Wt 43.7 kg
[~2020-02-29 10:54] MED LIST changes: +ACETAMINOPHEN TAB 650MG DOSE (2X325MG) PO SCH; +diphenhydrAMINE 25MG CAP PO SCH
[2020-02-29] MEDS ORDERED: SODIUM CHLORIDE 0.9% INJ 10 ML SYR IV PRN (11:30)
[2020-02-29] MEDS: SODIUM CHLORIDE 0.9% INJ 10 ML SYR IV SCH ×2 (15:01→15:03)
[2020-03-28] MEDS ORDERED: OMEP-218 PO (09:09)
== END 2020-02-29 15:20 | disposition home or self-care (01) ==
LOC: M INFU 10:54
PROVIDERS: ATTEND Internal Medicine Medical Oncology
DX: D46.9 Myelodysplastic syndrome, unspecified (principal); E83.111 Hemochromatosis due to repeated red blood cell transfusions; E83.19 Other disorders of iron metabolism; R53.1 Weakness; D75.81 Myelofibrosis; D61.810 Antineoplastic chemotherapy induced pancytopenia; Z79.899 Other long term (current) drug therapy; R00.0 Tachycardia, unspecified; J84.03 Idiopathic pulmonary hemosiderosis; M79.10 Myalgia, unspecified site
CPT/HCPCS: 36430; 36591; 85027; 85049; 85055; 86850; 86900; 86901; 86920; G0463; J1642; P9016

== ENCOUNTER 2020-03-07 10:16 | Outpatient (CLI) | payer MEDICARE ==
[~2020-03-07] VITALS: Ht 160 cm; Wt 42.3 kg
[~2020-03-07 10:16] MED LIST changes: +SODIUM CHLORIDE 0.9% INJ 10 ML SYR IV SCH
[2020-03-07 10:30] VITALS: BP 122/58
[2020-03-07 12:10] VITALS: BP 112/56
[2020-03-07 14:00] VITALS: BP 108/57
[2020-03-07 14:15] VITALS: BP 110/54
[2020-03-07 15:15] VITALS: BP 119/56
[2020-03-07] MEDS ORDERED: SODIUM CHLORIDE 0.9% INJ 10 ML SYR IV PRN (15:45)
[2020-03-07 15:55] VITALS: BP 115/66
== END 2020-03-07 15:50 | disposition home or self-care (01) ==
LOC: M INFU 10:16
PROVIDERS: ATTEND Internal Medicine Medical Oncology
DX: D46.9 Myelodysplastic syndrome, unspecified (principal); Z88.5 Allergy status to narcotic agent
CPT/HCPCS: 36430; 36591; 85027; 85049; 85055; 86850; 86900; 86901; 86920; J1642; P9016

== ENCOUNTER 2020-03-14 10:15 | Outpatient (CLI) | payer MEDICARE ==
[~2020-03-14] VITALS: Ht 157.5 cm; Wt 43.7 kg
[~2020-03-14 10:15] MED LIST changes: -SODIUM CHLORIDE 0.9% INJ 10 ML SYR IV SCH
[2020-03-14] MEDS ORDERED: SODIUM CHLORIDE 0.9% INJ 10 ML SYR IV PRN (10:30)
[2020-03-14 10:59] VITALS: BP 139/64
[2020-03-14 11:15] VITALS: BP 132/68
[2020-03-14 12:30] VITALS: BP 124/71
[2020-03-14 12:51] VITALS: BP 124/71
[2020-03-15] MEDS ORDERED: SODIUM CHLORIDE 0.9% INJ 10 ML SYR IV SCH (09:00)
== END 2020-03-14 12:50 | disposition home or self-care (01) ==
LOC: M INFU 10:15
PROVIDERS: ATTEND Internal Medicine Medical Oncology
DX: D46.9 Myelodysplastic syndrome, unspecified (principal); Z88.5 Allergy status to narcotic agent
CPT/HCPCS: 36430; 36591; 85027; 85049; 85055; 86850; 86900; 86901; 86920; J1642; P9016

== ENCOUNTER 2020-03-21 10:11 | Outpatient (CLI) | payer MEDICARE ==
[~2020-03-21] VITALS: Ht 157.5 cm; Wt 43.7 kg
[2020-03-21] MEDS ORDERED: SODIUM CHLORIDE 0.9% INJ 10 ML SYR IV PRN (10:45)
[2020-03-21 11:35] VITALS: BP 110/60
[2020-03-21 11:50] VITALS: BP 118/53
[2020-03-21 12:50] VITALS: BP 109/55
[2020-03-21 14:00] VITALS: BP 124/56
[2020-03-21 14:18] LABS: INR 1.13; PROTHROMBIN TIME 14.2 SECONDS (11.8-14.0)
[2020-03-21 14:20] LABS: PARTIAL THROMBOPLASTIN TIME 100.3 SECONDS (25.0-38.4)
[2020-03-22] MEDS ORDERED: SODIUM CHLORIDE 0.9% INJ 10 ML SYR IV SCH (09:00)
== END 2020-03-21 14:00 | disposition home or self-care (01) ==
LOC: M INFU 10:11
PROVIDERS: ATTEND Internal Medicine Medical Oncology
DX: D46.9 Myelodysplastic syndrome, unspecified (principal); Z88.5 Allergy status to narcotic agent
CPT/HCPCS: 36430; 36591; 36592; 85027; 85049; 85055; 85610; 85730; 86850; 86900; 86901; 86920; J1642; P9016

== ENCOUNTER 2020-03-28 10:17 | Outpatient (CLI) | payer MEDICARE ==
[~2020-03-28] VITALS: Ht 160 cm; Wt 41.8 kg
[2020-03-28] VITALS (8 sets, daily range): BP systolic 99–123; BP diastolic 49–68
[~2020-03-28 10:17] MED LIST changes: -ACETAMINOPHEN TAB 650MG DOSE (2X325MG) PO SCH; +OMEP-218 PO; -diphenhydrAMINE 25MG CAP PO SCH
[2020-03-28] MEDS ORDERED: SODIUM CHLORIDE 0.9% INJ 10 ML SYR IV PRN (16:00)
[2020-03-29] MEDS ORDERED: SODIUM CHLORIDE 0.9% INJ 10 ML SYR IV SCH (09:00)
== END 2020-03-28 16:15 | disposition home or self-care (01) ==
LOC: M INFU 10:17
PROVIDERS: ATTEND Internal Medicine Medical Oncology
DX: D46.9 Myelodysplastic syndrome, unspecified (principal); Z79.899 Other long term (current) drug therapy; Z88.5 Allergy status to narcotic agent
CPT/HCPCS: 36415; 36430; 80053; 85025; 85049; 85055; 85610; 85730; 86850; 86900; 86901; 86920; G0463; J1642; P9016

== ENCOUNTER 2020-04-04 11:24 | Outpatient (CLI) | payer MEDICARE ==
[2020-04-04] VITALS (7 sets, daily range): BP systolic 92–119; BP diastolic 49–69
[~2020-04-04] VITALS: Ht 160 cm; Wt 41.8 kg
[~2020-04-04 11:24] MED LIST changes: +ACETAMINOPHEN TAB 650MG DOSE (2X325MG) PO SCH; +SODIUM CHLORIDE 0.9% INJ 10 ML SYR IV SCH; +diphenhydrAMINE 25MG CAP PO SCH
[2020-04-04] MEDS ORDERED: SODIUM CHLORIDE 0.9% INJ 10 ML SYR IV PRN (13:00)
== END 2020-04-04 16:00 | disposition home or self-care (01) ==
LOC: M INFU 11:24
PROVIDERS: ATTEND Internal Medicine Medical Oncology
DX: D46.9 Myelodysplastic syndrome, unspecified (principal); Z88.5 Allergy status to narcotic agent
CPT/HCPCS: 36430; 36591; 85025; 85049; 85055; 86850; 86900; 86901; 86920; J1642; P9016

== ENCOUNTER 2020-04-11 11:56 | Outpatient (CLI) | payer MEDICARE ==
[~2020-04-11] VITALS: Ht 160 cm; Wt 41.8 kg
[2020-04-11] VITALS (9 sets, daily range): BP systolic 99–136; BP diastolic 50–97
[~2020-04-11 11:56] MED LIST changes: -ACETAMINOPHEN TAB 650MG DOSE (2X325MG) PO SCH; +PANT40TA29 PO; -PANT40TA3 PO; +SODIUM CHLORIDE 0.9% INJ 10 ML SYR IV PRN; -diphenhydrAMINE 25MG CAP PO SCH
[2020-05-02] MEDS ORDERED: PRED10TA2 PO (09:06)
[2020-06-07] MEDS ORDERED: PRED10TA2 PO (08:57)
== END 2020-04-11 16:25 | disposition home or self-care (01) ==
LOC: M INFU 11:56
PROVIDERS: ATTEND Internal Medicine Medical Oncology
DX: D46.9 Myelodysplastic syndrome, unspecified (principal); Z88.5 Allergy status to narcotic agent
CPT/HCPCS: 36430; 36591; 80053; 82728; 83550; 85025; 85049; 85055; 86850; 86900; 86901; 86920; G0463; P9016

== ENCOUNTER 2020-04-18 09:26 | Outpatient (CLI) | payer MEDICARE ==
[~2020-04-18] VITALS: Ht 157.5 cm; Wt 42.3 kg
[~2020-04-18 09:26] MED LIST changes: +ACETAMINOPHEN TAB 650MG DOSE (2X325MG) PO SCH; -SODIUM CHLORIDE 0.9% INJ 10 ML SYR IV PRN; -SODIUM CHLORIDE 0.9% INJ 10 ML SYR IV SCH; +diphenhydrAMINE 25MG CAP PO SCH
[2020-04-18 11:23] VITALS: BP 104/52
[2020-04-18 11:40] VITALS: BP 91/46
[2020-04-18 12:40] VITALS: BP 111/68
[2020-04-18 13:16] VITALS: BP 111/46
[2020-04-18 13:40] VITALS: BP 114/51
[2020-04-18 15:09] VITALS: BP 129/55
[2020-04-18] MEDS ORDERED: SODIUM CHLORIDE 0.9% INJ 10 ML SYR IV PRN (15:15)
[2020-04-19] MEDS ORDERED: SODIUM CHLORIDE 0.9% INJ 10 ML SYR IV SCH (09:00)
[2020-05-02] MEDS ORDERED: PRED10TA2 PO (09:06)
[2020-06-07] MEDS ORDERED: PRED10TA2 PO (08:57)
== END 2020-04-18 15:10 | disposition home or self-care (01) ==
LOC: M INFU 09:26
PROVIDERS: ATTEND Internal Medicine Medical Oncology
DX: D46.9 Myelodysplastic syndrome, unspecified (principal)
CPT/HCPCS: 36430; 36591; 80053; 85025; 85049; 85055; 86850; 86900; 86901; 86920; G0463; J1642; P9016; P9036

== ENCOUNTER 2020-04-19 12:35 | Outpatient (CLI) | payer MEDICARE ==
[~2020-04-19] VITALS: Ht 157.5 cm; Wt 42.3 kg
[2020-04-19] MEDS ORDERED: SODIUM CHLORIDE 0.9% INJ 10 ML SYR IV PRN (13:15)
[2020-04-19 13:46] VITALS: BP 120/50
[2020-04-19 14:00] VITALS: BP 99/51
[2020-04-19 15:00] VITALS: BP 124/57
[2020-04-19 15:20] VITALS: BP 124/57
[2020-04-20] MEDS ORDERED: SODIUM CHLORIDE 0.9% INJ 10 ML SYR IV SCH (09:00)
[2020-05-02] MEDS ORDERED: PRED10TA2 PO (09:06)
[2020-06-07] MEDS ORDERED: PRED10TA2 PO (08:57)
== END 2020-04-19 15:20 | disposition home or self-care (01) ==
LOC: M INFU 12:35
PROVIDERS: ATTEND Internal Medicine Medical Oncology
DX: D46.9 Myelodysplastic syndrome, unspecified (principal)
CPT/HCPCS: 36430; J1642; P9016

== ENCOUNTER 2020-04-25 10:22 | Outpatient (CLI) | payer MEDICARE ==
[~2020-04-25] VITALS: Ht 157.5 cm; Wt 42.3 kg
[~2020-04-25 10:22] MED LIST changes: -ACETAMINOPHEN TAB 650MG DOSE (2X325MG) PO SCH; -diphenhydrAMINE 25MG CAP PO SCH
[2020-04-25 12:03] VITALS: BP 129/57
[2020-04-25 12:15] VITALS: BP 109/55
[2020-04-25 13:30] VITALS: BP 111/54
[2020-04-25 14:05] VITALS: BP 100/52
[2020-04-25 15:25] VITALS: BP 121/58
[2020-04-25] MEDS ORDERED: SODIUM CHLORIDE 0.9% INJ 10 ML SYR IV PRN (15:30)
[2020-04-25 15:40] VITALS: BP 121/58
[2020-04-26] MEDS ORDERED: SODIUM CHLORIDE 0.9% INJ 10 ML SYR IV SCH (09:00)
[2020-04-26] MEDS ORDERED: LUSP25VI SQ (10:55)
[2020-05-02] MEDS ORDERED: PRED10TA2 PO (09:06)
[2020-06-07] MEDS ORDERED: PRED10TA2 PO (08:57)
== END 2020-04-25 15:40 | disposition home or self-care (01) ==
LOC: M INFU 10:22
PROVIDERS: ATTEND Internal Medicine Medical Oncology
DX: D46.9 Myelodysplastic syndrome, unspecified (principal); E83.111 Hemochromatosis due to repeated red blood cell transfusions; E83.19 Other disorders of iron metabolism; Z79.899 Other long term (current) drug therapy
CPT/HCPCS: 36430; 36591; 85025; 85049; 85055; 86850; 86900; 86901; 86920; 96372; J0896; J1642; P9016

== ENCOUNTER 2020-04-26 10:38 | Outpatient (CLI) | payer MEDICARE ==
[~2020-04-26] VITALS: Ht 157.5 cm; Wt 42.0 kg
[~2020-04-26 10:38] MED LIST changes: +ACETAMINOPHEN TAB 650MG DOSE (2X325MG) PO SCH; +diphenhydrAMINE 25MG CAP PO SCH
[2020-04-26] MEDS ORDERED: LUSP25VI SQ (10:55)
[2020-04-26 11:00] VITALS: BP 124/69
[2020-04-26 14:40] VITALS: BP 130/63
[2020-04-26 15:00] VITALS: BP 129/60
[2020-04-26 16:00] VITALS: BP 124/59
[2020-04-26] MEDS ORDERED: SODIUM CHLORIDE 0.9% INJ 10 ML SYR IV PRN (16:15)
[2020-04-26 16:20] VITALS: BP 122/64
[2020-04-27] MEDS ORDERED: SODIUM CHLORIDE 0.9% INJ 10 ML SYR IV SCH (09:00)
[2020-05-02] MEDS ORDERED: PRED10TA2 PO (09:06)
[2020-06-07] MEDS ORDERED: PRED10TA2 PO (08:57)
== END 2020-04-26 16:20 | disposition home or self-care (01) ==
LOC: M INFU 10:38
PROVIDERS: ATTEND Internal Medicine Medical Oncology
DX: D46.9 Myelodysplastic syndrome, unspecified (principal)
CPT/HCPCS: 36430; J1642; P9034

== ENCOUNTER → 2020-05-02 | Outpatient (CLI) | payer MEDICARE ==
[~2020-05-02] MED LIST changes: +LUSP25VI SQ; +PRED10TA2 PO; +PROM50TA28 PO; +SODIUM CHLORIDE 0.9% INJ 10 ML SYR IV PRN; +SODIUM CHLORIDE 0.9% INJ 10 ML SYR IV SCH
[2020-05-02 09:30] VITALS: BP 134/58
[2020-05-02 10:17] VITALS: BP 115/56
[2020-05-02 11:15] VITALS: BP 118/56
== END ==
LOC: M INFU 09:20
PROVIDERS: ATTEND Internal Medicine Medical Oncology
DX: D46.9 Myelodysplastic syndrome, unspecified (principal)
CPT/HCPCS: 36430; 36591; 80053; 85025; 85049; 85055; 86850; 86900; 86901; 86920; G0463; J1642; P9034

== ENCOUNTER 2020-05-14 10:40 | Outpatient (CLI) | payer MEDICARE ==
[~2020-05-14 10:40] MED LIST changes: -ACETAMINOPHEN TAB 650MG DOSE (2X325MG) PO SCH; -PROM50TA28 PO; -SODIUM CHLORIDE 0.9% INJ 10 ML SYR IV PRN; -SODIUM CHLORIDE 0.9% INJ 10 ML SYR IV SCH; -diphenhydrAMINE 25MG CAP PO SCH
[2020-06-07] MEDS ORDERED: PRED10TA2 PO (08:57)
== END 2020-05-14 14:40 | disposition home or self-care (01) ==
LOC: M INFU 10:40
PROVIDERS: ATTEND Internal Medicine Medical Oncology
DX: D46.9 Myelodysplastic syndrome, unspecified (principal)
CPT/HCPCS: 36430; J1642; P9016

== ENCOUNTER 2020-05-23 11:15 | Outpatient (CLI) | payer MEDICARE ==
[2020-06-07] MEDS ORDERED: PRED10TA2 PO (08:57)
== END 2020-05-23 17:00 | disposition home or self-care (01) ==
LOC: M INFU 11:15
PROVIDERS: ATTEND Internal Medicine Hematology & Oncology
DX: D64.9 Anemia, unspecified (principal)
CPT/HCPCS: 36430; J1642; P9016

== ENCOUNTER 2020-05-30 10:48 | Outpatient (CLI) | payer MEDICARE ==
[~2020-05-30] VITALS: Ht 157.5 cm; Wt 42.3 kg
[~2020-05-30 10:48] MED LIST changes: +ACETAMINOPHEN TAB 650MG DOSE (2X325MG) PO SCH; +diphenhydrAMINE 25MG CAP PO SCH
[2020-05-30 10:58] VITALS: BP 139/71
[2020-05-30 12:45] VITALS: BP 108/65
[2020-05-30 13:45] VITALS: BP 101/59
[2020-05-30 14:13] VITALS: BP 112/62
[2020-05-30 14:15] VITALS: BP 112/62
[2020-06-07] MEDS ORDERED: PRED10TA2 PO (08:57)
== END 2020-05-30 14:15 | disposition home or self-care (01) ==
LOC: M INFU 10:48
PROVIDERS: ATTEND Internal Medicine Hematology & Oncology
DX: D46.9 Myelodysplastic syndrome, unspecified (principal)
CPT/HCPCS: 36430; 36591; 85025; 85049; 85055; 86850; 86900; 86901; 86920; 96372; J0896; J1642; P9016

== ENCOUNTER 2020-06-07 09:42 | Outpatient (CLI) | payer MEDICARE ==
[~2020-06-07] VITALS: Ht 160 cm; Wt 42.3 kg
[2020-06-07] VITALS (7 sets, daily range): BP systolic 93–114; BP diastolic 46–59
[~2020-06-07 09:42] MED LIST changes: -ACETAMINOPHEN TAB 650MG DOSE (2X325MG) PO SCH; +SODIUM CHLORIDE 0.9% INJ 10 ML SYR IV SCH; -diphenhydrAMINE 25MG CAP PO SCH
[2020-06-07] MEDS ORDERED: diphenhydrAMINE 25MG CAP PO ONE (14:15)
[2020-06-07] MEDS ORDERED: ACETAMINOPHEN 325 MG TAB PO ONE (14:15)
== END 2020-06-07 14:30 | disposition home or self-care (01) ==
LOC: M INFU 09:42
PROVIDERS: ATTEND Internal Medicine Hematology & Oncology
DX: D46.9 Myelodysplastic syndrome, unspecified (principal)
CPT/HCPCS: 36430; 85025; 85049; 85055; 86850; 86900; 86901; 86920; 96372; J0896; J1642; P9016

== ENCOUNTER 2020-06-13 11:07 | Outpatient (CLI) | payer MEDICARE ==
[~2020-06-13] VITALS: Ht 160 cm; Wt 42.0 kg
[~2020-06-13 11:07] MED LIST changes: -SODIUM CHLORIDE 0.9% INJ 10 ML SYR IV SCH
[2020-06-13 11:13] VITALS: BP 144/69
[2020-06-13 11:51] VITALS: BP 130/59
[2020-06-13 12:45] VITALS: BP 127/60
[2020-06-13 12:50] VITALS: BP 137/64
[2020-06-13 13:15] VITALS: BP 137/64
== END 2020-06-13 13:15 | disposition home or self-care (01) ==
LOC: M INFU 11:07
PROVIDERS: ATTEND Internal Medicine Hematology & Oncology
DX: D46.9 Myelodysplastic syndrome, unspecified (principal)
CPT/HCPCS: 36430; 36591; 85025; 85049; 85055; 86850; 86900; 86901; 86920; J1642; P9016

== ENCOUNTER 2020-06-20 09:19 | Outpatient (CLI) | payer MEDICARE ==
[~2020-06-20] VITALS: Ht 160 cm; Wt 42.0 kg
[2020-06-20] VITALS (8 sets, daily range): BP systolic 115–151; BP diastolic 55–67
[2020-06-20] MEDS ORDERED: ACETAMINOPHEN TAB 650MG DOSE (2X325MG) PO ONE (09:45)
[2020-06-20] MEDS ORDERED: SODIUM CHLORIDE 0.9% INJ 10 ML SYR IV PRN (09:45)
[2020-06-20] MEDS ORDERED: diphenhydrAMINE 25MG CAP PO ONE (09:45)
[2020-06-20] MEDS: SODIUM CHLORIDE 0.9% INJ 10 ML SYR IV SCH ×2 (09:58→13:37)
== END 2020-06-20 13:45 | disposition home or self-care (01) ==
LOC: M INFU 09:19
PROVIDERS: ATTEND Internal Medicine Hematology & Oncology
DX: D46.9 Myelodysplastic syndrome, unspecified (principal); Z88.6 Allergy status to analgesic agent
CPT/HCPCS: 36430; 36591; 85025; 85049; 85055; 86850; 86900; 86901; 86920; P9016

== ENCOUNTER 2020-07-04 09:45 | Outpatient (CLI) | payer MEDICARE ==
[~2020-07-04] VITALS: Ht 157.5 cm; Wt 43.5 kg
[~2020-07-04 09:45] MED LIST changes: +ACETAMINOPHEN TAB 650MG DOSE (2X325MG) PO SCH; +diphenhydrAMINE 25MG CAP PO SCH
[2020-07-04 10:00] VITALS: BP 160/67
[2020-07-04 11:25] VITALS: BP 107/57
[2020-07-04 12:30] VITALS: BP 108/55
[2020-07-04 13:42] VITALS: BP 131/62
[2020-07-04 14:45] VITALS: BP 136/88
[2020-07-04 15:15] VITALS: BP 146/92
[2020-07-04] MEDS ORDERED: SODIUM CHLORIDE 0.9% INJ 10 ML SYR IV PRN (16:15)
[2020-07-05] MEDS ORDERED: SODIUM CHLORIDE 0.9% INJ 10 ML SYR IV SCH (09:00)
== END 2020-07-04 15:25 | disposition home or self-care (01) ==
LOC: M INFU 09:45
PROVIDERS: ATTEND Internal Medicine Hematology & Oncology
DX: D46.9 Myelodysplastic syndrome, unspecified (principal); Z88.6 Allergy status to analgesic agent
CPT/HCPCS: 36430; 36591; 85025; 85049; 85055; 86850; 86900; 86901; 86920; J1642; P9016

== ENCOUNTER 2020-07-05 09:40 | Outpatient (CLI) | payer MEDICARE ==
[~2020-07-05] VITALS: Ht 157.5 cm; Wt 45.3 kg
[2020-07-05 09:56] VITALS: BP 126/61
[2020-07-05] MEDS ORDERED: SODIUM CHLORIDE 0.9% INJ 10 ML SYR IV PRN (10:00)
[2020-07-05 10:27] VITALS: BP 125/57
[2020-07-05 11:27] VITALS: BP 137/67
[2020-07-05 11:53] VITALS: BP 145/69
[2020-07-05 12:47] LABS: HEMATOCRIT 26.7 % (36.0-47.0); MEAN CORPUSCULAR HEMOGLOBIN 30.5 pg (27.0-33.0); MEAN CORPUSCULAR HGB CONC 34.8 g/dl (32.0-36.5); MEAN CORPUSCULAR VOLUME 87.5 fl (80.0-96.0); RED BLOOD COUNT 3.05 10^6/uL (4.00-5.40); WHITE BLOOD COUNT 6.7 10^3/uL (4.0-10.0)
[2020-07-05 12:49] LABS: PLATELET COUNT, AUTOMATED 10 10^3/uL (150-450)
[2020-07-05 12:50] LABS: HEMOGLOBIN 9.3 g/dl (12.0-15.5)
[2020-07-06] MEDS ORDERED: SODIUM CHLORIDE 0.9% INJ 10 ML SYR IV SCH (09:00)
== END 2020-07-05 12:25 | disposition home or self-care (01) ==
LOC: M INFU 09:40
PROVIDERS: ATTEND Internal Medicine Hematology & Oncology
DX: D46.9 Myelodysplastic syndrome, unspecified (principal); Z88.6 Allergy status to analgesic agent
CPT/HCPCS: 36430; 85027; 85049; 85055; J1642; P9016

== ENCOUNTER 2020-07-11 10:47 | Outpatient (CLI) | payer MEDICARE ==
[~2020-07-11] VITALS: Ht 157.5 cm; Wt 45.3 kg
[~2020-07-11 10:47] MED LIST changes: -ACETAMINOPHEN TAB 650MG DOSE (2X325MG) PO SCH; -diphenhydrAMINE 25MG CAP PO SCH
[2020-07-11 11:33] VITALS: BP 138/68
[2020-07-11 11:58] VITALS: BP 138/68
[2020-07-11 12:15] VITALS: BP 106/58
[2020-07-11 13:38] VITALS: BP 113/55
[2020-07-11 13:45] VITALS: BP 113/55
[2020-07-11] MEDS ORDERED: SODIUM CHLORIDE 0.9% INJ 10 ML SYR IV PRN (13:45)
[2020-07-12] MEDS ORDERED: SODIUM CHLORIDE 0.9% INJ 10 ML SYR IV SCH (09:00)
== END 2020-07-11 13:45 | disposition home or self-care (01) ==
LOC: M INFU 10:47
PROVIDERS: ATTEND Internal Medicine Hematology & Oncology
DX: D46.9 Myelodysplastic syndrome, unspecified (principal)
CPT/HCPCS: 36415; 36430; 85025; 85049; 85055; 86850; 86900; 86901; 86920; J1642; P9016

== ENCOUNTER 2020-07-19 11:49 | Outpatient (CLI) | payer MEDICARE ==
[~2020-07-19] VITALS: Ht 160 cm; Wt 42.7 kg
[~2020-07-19 11:49] MED LIST changes: +ACETAMINOPHEN TAB 650MG DOSE (2X325MG) PO SCH; +diphenhydrAMINE 25MG CAP PO SCH
[2020-07-19 12:00] VITALS: BP 124/74
[2020-07-19] MEDS ORDERED: SODIUM CHLORIDE 0.9% INJ 10 ML SYR IV PRN (12:30)
[2020-07-19 13:36] VITALS: BP 111/70
[2020-07-19 13:55] VITALS: BP 110/80
[2020-07-19 15:10] VITALS: BP 117/65
[2020-07-19 15:40] VITALS: BP 118/55
[2020-07-19 17:10] VITALS: BP 126/60
[2020-07-20] MEDS ORDERED: SODIUM CHLORIDE 0.9% INJ 10 ML SYR IV SCH (09:00)
== END 2020-07-19 17:10 | disposition home or self-care (01) ==
LOC: M INFU 11:49
PROVIDERS: ATTEND Internal Medicine Hematology & Oncology
DX: D46.9 Myelodysplastic syndrome, unspecified (principal); Z79.899 Other long term (current) drug therapy
CPT/HCPCS: 36430; 80053; 82728; 83550; 84439; 84443; 85025; 85049; 85055; 86850; 86900; 86901; 86920; 96372; G0463; J0896; J1642; P9016

== ENCOUNTER 2020-07-25 10:09 | Outpatient (CLI) | payer MEDICARE ==
[~2020-07-25] VITALS: Ht 157.5 cm; Wt 43.0 kg
[~2020-07-25 10:09] MED LIST changes: -ACETAMINOPHEN TAB 650MG DOSE (2X325MG) PO SCH; -diphenhydrAMINE 25MG CAP PO SCH
[2020-07-25 10:15] VITALS: BP 134/73
[2020-07-25] MEDS ORDERED: SODIUM CHLORIDE 0.9% INJ 10 ML SYR IV PRN (11:00)
[2020-07-25 11:19] VITALS: BP 134/73
[2020-07-25 11:35] VITALS: BP 122/59
[2020-07-25 12:30] VITALS: BP 118/56
[2020-07-25 13:00] VITALS: BP 118/56
[2020-07-25 13:13] VITALS: BP 118/56
[2020-07-26] MEDS ORDERED: SODIUM CHLORIDE 0.9% INJ 10 ML SYR IV SCH (09:00)
== END 2020-07-25 13:15 | disposition home or self-care (01) ==
LOC: M INFU 10:09
PROVIDERS: ATTEND Internal Medicine Hematology & Oncology
DX: D46.9 Myelodysplastic syndrome, unspecified (principal)
CPT/HCPCS: 36430; 36591; 85025; 85049; 85055; 86850; 86900; 86901; 86920; J1642; P9016

== ENCOUNTER 2020-08-01 10:34 | Outpatient (CLI) | payer MEDICARE ==
[~2020-08-01] VITALS: Ht 160 cm; Wt 42.7 kg
[2020-08-01] VITALS (7 sets, daily range): BP systolic 112–136; BP diastolic 56–71
[~2020-08-01 10:34] MED LIST changes: +ACETAMINOPHEN TAB 650MG DOSE (2X325MG) PO SCH; +diphenhydrAMINE 25MG CAP PO SCH
[2020-08-01] MEDS ORDERED: SODIUM CHLORIDE 0.9% INJ 10 ML SYR IV PRN (11:15)
[2020-08-02] MEDS ORDERED: SODIUM CHLORIDE 0.9% INJ 10 ML SYR IV SCH (09:00)
[2020-08-08] MEDS ORDERED: diphenhydrAMINE 25MG CAP PO SCH (07:00)
[2020-08-08] MEDS ORDERED: ACETAMINOPHEN TAB 650MG DOSE (2X325MG) PO SCH (07:01)
[2020-08-08] MEDS ORDERED: PROM50TA28 PO (08:53)
[2020-08-08] MEDS ORDERED: SODIUM CHLORIDE 0.9% INJ 10 ML SYR IV PRN (10:15)
[2020-08-09] MEDS ORDERED: SODIUM CHLORIDE 0.9% INJ 10 ML SYR IV SCH (09:00)
== END 2020-08-08 14:25 | disposition home or self-care (01) ==
LOC: M INFU 10:34
PROVIDERS: ATTEND Internal Medicine Hematology & Oncology
DX: D46.9 Myelodysplastic syndrome, unspecified (principal)
CPT/HCPCS: 36430; 36591; 85025; 85049; 85055; 86850; 86900; 86901; 86920; J1642; P9016

== ENCOUNTER → 2020-08-08 | Outpatient (CLI) | payer MEDICARE ==
[2020-08-08] VITALS (8 sets, daily range): BP systolic 111–132; BP diastolic 56–84
[~2020-08-08] VITALS: Ht 157.5 cm; Wt 43.3 kg
[~2020-08-08] MED LIST changes: +PROM50TA28 PO; +SODIUM CHLORIDE 0.9% INJ 10 ML SYR IV PRN; +SODIUM CHLORIDE 0.9% INJ 10 ML SYR IV SCH
== END ==
LOC: M INFU 10:13
PROVIDERS: ATTEND Internal Medicine Hematology & Oncology
DX: D46.9 Myelodysplastic syndrome, unspecified (principal); Z79.899 Other long term (current) drug therapy
CPT/HCPCS: 36415; 36430; 36591; 80053; 82728; 83550; 84439; 84443; 85025; 85046; 85049; 85055; 86850; 86900; 86901; 86920; 96372; J0896; J1642; P9016

== ENCOUNTER 2020-08-20 08:12 | Outpatient (CLI) | payer MEDICARE ==
[~2020-08-20] VITALS: Ht 157.5 cm; Wt 44.0 kg
[~2020-08-20 08:12] MED LIST changes: -SODIUM CHLORIDE 0.9% INJ 10 ML SYR IV PRN; -SODIUM CHLORIDE 0.9% INJ 10 ML SYR IV SCH
[2020-08-20 08:15] VITALS: BP 122/62
[2020-08-20] MEDS ORDERED: SODIUM CHLORIDE 0.9% INJ 10 ML SYR IV SCH (09:00)
[2020-08-20 12:00] VITALS: BP 122/60
[2020-08-20 12:30] VITALS: BP 127/60
== END 2020-08-20 12:30 | disposition home or self-care (01) ==
LOC: M INFU 08:12
PROVIDERS: ATTEND Internal Medicine Hematology & Oncology
DX: D46.9 Myelodysplastic syndrome, unspecified (principal); Z88.6 Allergy status to analgesic agent; Z79.899 Other long term (current) drug therapy
CPT/HCPCS: 36430; J1642; P9016

== ENCOUNTER 2020-08-29 09:58 | Outpatient (CLI) | payer MEDICARE ==
[~2020-08-29] VITALS: Ht 157.5 cm; Wt 44.1 kg
[~2020-08-29 09:58] MED LIST changes: -ACETAMINOPHEN TAB 650MG DOSE (2X325MG) PO SCH; -diphenhydrAMINE 25MG CAP PO SCH
[2020-08-29 11:18] VITALS: BP 155/65
[2020-08-29 11:34] VITALS: BP 116/54
[2020-08-29 12:38] VITALS: BP 107/53
[2020-08-29 13:02] VITALS: BP 104/57
[2020-08-29 14:20] VITALS: BP 121/63
[2020-08-29 14:30] VITALS: BP 121/63
[2020-08-29] MEDS ORDERED: SODIUM CHLORIDE 0.9% INJ 10 ML SYR IV PRN (14:30)
[2020-08-29] MEDS ORDERED: SODIUM CHLORIDE 0.9% INJ 10 ML SYR IV SCH (18:00)
== END 2020-08-29 14:30 | disposition home or self-care (01) ==
LOC: M INFU 09:58
PROVIDERS: ATTEND Internal Medicine Hematology & Oncology
DX: D46.9 Myelodysplastic syndrome, unspecified (principal); Z88.6 Allergy status to analgesic agent
CPT/HCPCS: 36430; 36591; 85025; 85049; 85055; 86850; 86900; 86901; 86920; 96372; J0896; J1642; P9016

== ENCOUNTER 2020-09-04 10:39 | Outpatient (CLI) | payer MEDICARE ==
[~2020-09-04] VITALS: Ht 157.5 cm; Wt 44.0 kg
[2020-09-04 10:40] VITALS: BP 125/70
[2020-09-04] MEDS ORDERED: SODIUM CHLORIDE 0.9% INJ 10 ML SYR IV PRN (11:45)
[2020-09-04 13:20] VITALS: BP 105/56
[2020-09-04 14:40] VITALS: BP 138/61
[2020-09-04 15:00] VITALS: BP 138/61
[2020-09-05] MEDS ORDERED: SODIUM CHLORIDE 0.9% INJ 10 ML SYR IV SCH (09:00)
== END 2020-09-04 15:00 | disposition home or self-care (01) ==
LOC: M INFU 10:39
PROVIDERS: ATTEND Internal Medicine Hematology & Oncology
DX: D46.9 Myelodysplastic syndrome, unspecified (principal); Z88.6 Allergy status to analgesic agent
CPT/HCPCS: 36430; 36591; 85025; 85049; 85055; 86850; 86900; 86901; 86920; J1642; P9016

== ENCOUNTER 2020-09-12 09:30 | Outpatient (CLI) | payer MEDICARE ==
[2020-09-12] VITALS (7 sets, daily range): BP systolic 104–128; BP diastolic 52–79
[~2020-09-12] VITALS: Ht 157.5 cm; Wt 44.0 kg
[2020-09-12] MEDS ORDERED: SODIUM CHLORIDE 0.9% INJ 10 ML SYR IV PRN (10:30)
[2020-09-12] MEDS ORDERED: [UNRECOGNIZED DRUG - CODE] PO (11:59)
[2020-09-13] MEDS ORDERED: SODIUM CHLORIDE 0.9% INJ 10 ML SYR IV SCH (09:00)
== END 2020-09-12 15:30 | disposition home or self-care (01) ==
LOC: M INFU 09:30
PROVIDERS: ATTEND Internal Medicine Hematology & Oncology
DX: D46.9 Myelodysplastic syndrome, unspecified (principal); Z88.6 Allergy status to analgesic agent
CPT/HCPCS: 36430; 36591; 85025; 85049; 85055; 86850; 86900; 86901; 86920; J1642; P9016

== ENCOUNTER 2020-09-19 10:10 | Outpatient (CLI) | payer MEDICARE ==
[~2020-09-19] VITALS: Ht 160 cm; Wt 42.3 kg
[~2020-09-19 10:10] MED LIST changes: +PRED20TA PO
[2020-09-19 11:02] VITALS: BP 108/55
[2020-09-19 11:20] VITALS: BP 111/51
[2020-09-19 12:20] VITALS: BP 118/68
[2020-09-19 13:00] VITALS: BP 124/65
[2020-09-19] MEDS ORDERED: SODIUM CHLORIDE 0.9% INJ 10 ML SYR IV PRN (13:00)
[2020-09-20] MEDS ORDERED: SODIUM CHLORIDE 0.9% INJ 10 ML SYR IV SCH (09:00)
== END 2020-09-19 13:00 | disposition home or self-care (01) ==
LOC: M INFU 10:10
PROVIDERS: ATTEND Internal Medicine Hematology & Oncology
DX: D46.9 Myelodysplastic syndrome, unspecified (principal); Z79.899 Other long term (current) drug therapy
CPT/HCPCS: 36430; 36591; 85025; 85049; 85055; 86850; 86900; 86901; 86920; 96372; G0463; J0896; J1642; P9016

== ENCOUNTER 2020-09-26 10:13 | Outpatient (CLI) | payer MEDICARE ==
[2020-09-26] VITALS (8 sets, daily range): BP systolic 109–141; BP diastolic 55–78
[~2020-09-26] VITALS: Ht 160 cm; Wt 42.0 kg
[2020-09-26] MEDS ORDERED: ACETAMINOPHEN TAB 650MG DOSE (2X325MG) PO ONE (10:45)
[2020-09-26] MEDS ORDERED: SODIUM CHLORIDE 0.9% INJ 10 ML SYR IV PRN (10:45)
[2020-09-26] MEDS ORDERED: diphenhydrAMINE 25MG CAP PO ONE (10:45)
[2020-09-27] MEDS ORDERED: SODIUM CHLORIDE 0.9% INJ 10 ML SYR IV SCH (09:00)
== END 2020-09-26 15:00 | disposition home or self-care (01) ==
LOC: M INFU 10:13
PROVIDERS: ATTEND Internal Medicine Hematology & Oncology
DX: D46.9 Myelodysplastic syndrome, unspecified (principal); Z88.6 Allergy status to analgesic agent
CPT/HCPCS: 36430; 36591; 85025; 85049; 85055; 86850; 86900; 86901; 86920; J1642; P9016

== ENCOUNTER 2020-10-02 09:57 | Outpatient (CLI) | payer MEDICARE ==
[~2020-10-02] VITALS: Ht 160 cm; Wt 43.1 kg
[2020-10-02 10:05] VITALS: BP 151/67
[2020-10-02] MEDS ORDERED: SODIUM CHLORIDE 0.9% INJ 10 ML SYR IV PRN (13:15)
[2020-10-02 13:30] VITALS: BP 116/55
[2020-10-03] MEDS ORDERED: SODIUM CHLORIDE 0.9% INJ 10 ML SYR IV SCH (09:00)
== END 2020-10-02 13:30 | disposition home or self-care (01) ==
LOC: M INFU 09:57
PROVIDERS: ATTEND Internal Medicine Hematology & Oncology
DX: D46.9 Myelodysplastic syndrome, unspecified (principal); Z88.6 Allergy status to analgesic agent
CPT/HCPCS: 36430; 36591; 80053; 85025; 85049; 85055; 86850; 86900; 86901; 86920; J1642; P9016

== ENCOUNTER 2020-10-09 11:31 | Outpatient (CLI) | payer MEDICARE ==
[~2020-10-09] VITALS: Ht 160 cm; Wt 43.1 kg
[2020-10-09] VITALS (9 sets, daily range): BP systolic 102–127; BP diastolic 51–71
[~2020-10-09 11:31] MED LIST changes: +ACETAMINOPHEN TAB 650MG DOSE (2X325MG) PO SCH; +diphenhydrAMINE 25MG CAP PO SCH
[2020-10-09] MEDS ORDERED: SODIUM CHLORIDE 0.9% INJ 10 ML SYR IV PRN (12:30)
[2020-10-10] MEDS ORDERED: SODIUM CHLORIDE 0.9% INJ 10 ML SYR IV SCH (09:00)
== END 2020-10-09 15:30 | disposition home or self-care (01) ==
LOC: M INFU 11:31
PROVIDERS: ATTEND Internal Medicine Hematology & Oncology
DX: D46.9 Myelodysplastic syndrome, unspecified (principal); Z88.6 Allergy status to analgesic agent
CPT/HCPCS: 36430; 36591; 85025; 85049; 85055; 86850; 86920; 96372; J0896; J1642; P9016

== ENCOUNTER 2020-10-17 11:06 | Outpatient (CLI) | payer MEDICARE ==
[~2020-10-17] VITALS: Ht 160 cm; Wt 42.5 kg
[~2020-10-17 11:06] MED LIST changes: -ACETAMINOPHEN TAB 650MG DOSE (2X325MG) PO SCH; -diphenhydrAMINE 25MG CAP PO SCH
[2020-10-17 11:35] VITALS: BP 149/84
[2020-10-17] MEDS ORDERED: SODIUM CHLORIDE 0.9% INJ 10 ML SYR IV PRN (11:45)
[2020-10-17 11:49] VITALS: BP 149/84
[2020-10-17 12:05] VITALS: BP 121/62
[2020-10-17 13:34] VITALS: BP 118/73
[2020-10-18] MEDS ORDERED: SODIUM CHLORIDE 0.9% INJ 10 ML SYR IV SCH (09:00)
== END 2020-10-17 13:50 | disposition home or self-care (01) ==
LOC: M INFU 11:06
PROVIDERS: ATTEND Internal Medicine Hematology & Oncology
DX: D46.9 Myelodysplastic syndrome, unspecified (principal); E83.111 Hemochromatosis due to repeated red blood cell transfusions; E83.19 Other disorders of iron metabolism; Z79.899 Other long term (current) drug therapy; Z88.6 Allergy status to analgesic agent; D61.810 Antineoplastic chemotherapy induced pancytopenia
CPT/HCPCS: 36430; 36591; 85025; 85049; 85055; 86850; 86900; 86901; 86920; G0463; J1642; P9016

== ENCOUNTER 2020-10-24 10:26 | Outpatient (CLI) | payer MEDICARE ==
[~2020-10-24] VITALS: Ht 160 cm; Wt 42.5 kg
[~2020-10-24 10:26] MED LIST changes: +ACETAMINOPHEN TAB 650MG DOSE (2X325MG) PO SCH; +diphenhydrAMINE 25MG CAP PO SCH
[2020-10-24] MEDS ORDERED: SODIUM CHLORIDE 0.9% INJ 10 ML SYR IV PRN (11:00)
[2020-10-24 11:15] VITALS: BP 125/59
[2020-10-24 11:55] VITALS: BP 125/59
[2020-10-24 12:10] VITALS: BP 104/53
[2020-10-24 13:38] VITALS: BP 127/59
[2020-10-25] MEDS ORDERED: SODIUM CHLORIDE 0.9% INJ 10 ML SYR IV SCH (09:00)
== END 2020-10-24 15:40 | disposition home or self-care (01) ==
LOC: M INFU 10:26
PROVIDERS: ATTEND Internal Medicine Hematology & Oncology
DX: D46.9 Myelodysplastic syndrome, unspecified (principal); Z88.6 Allergy status to analgesic agent
CPT/HCPCS: 36430; 36591; 85025; 85049; 85055; 86850; 86900; 86901; 86920; J1642; P9016

== ENCOUNTER 2020-11-07 09:40 | Outpatient (CLI) | payer MEDICARE ==
[2020-11-07] VITALS (8 sets, daily range): BP systolic 88–133; BP diastolic 52–76
[~2020-11-07] VITALS: Ht 160 cm; Wt 42.5 kg
[~2020-11-07 09:40] MED LIST changes: -ACETAMINOPHEN TAB 650MG DOSE (2X325MG) PO SCH; -diphenhydrAMINE 25MG CAP PO SCH
[2020-11-07] MEDS ORDERED: SODIUM CHLORIDE 0.9% INJ 10 ML SYR IV PRN (10:15)
[2020-11-08] MEDS ORDERED: SODIUM CHLORIDE 0.9% INJ 10 ML SYR IV SCH (09:00)
== END 2020-11-07 15:45 | disposition home or self-care (01) ==
LOC: M INFU 09:40
PROVIDERS: ATTEND Internal Medicine Hematology & Oncology
DX: D46.9 Myelodysplastic syndrome, unspecified (principal); Z88.6 Allergy status to analgesic agent
CPT/HCPCS: 36430; 36591; 85025; 85049; 85055; 86850; 86900; 86901; 86920; J1642; P9016

== ENCOUNTER 2020-11-14 10:58 | Outpatient (CLI) | payer MEDICARE ==
[2020-11-14] VITALS (9 sets, daily range): BP systolic 102–145; BP diastolic 57–83
[~2020-11-14] VITALS: Ht 160 cm; Wt 42.5 kg
[2020-11-14] MEDS ORDERED: SODIUM CHLORIDE 0.9% INJ 10 ML SYR IV PRN (11:30)
[2020-11-14] MEDS ORDERED: diphenhydrAMINE 25MG CAP PO ONE (11:30)
[2020-11-14] MEDS ORDERED: ACETAMINOPHEN TAB 650MG DOSE (2X325MG) PO ONE (11:30)
[2020-11-15] MEDS ORDERED: SODIUM CHLORIDE 0.9% INJ 10 ML SYR IV SCH (09:00)
== END 2020-11-14 16:00 | disposition home or self-care (01) ==
LOC: M INFU 10:58
PROVIDERS: ATTEND Internal Medicine Hematology & Oncology
DX: D46.9 Myelodysplastic syndrome, unspecified (principal); Z88.6 Allergy status to analgesic agent
CPT/HCPCS: 36430; 36591; 85025; 85049; 85055; 86850; 86900; 86901; 86920; J1642; P9016

== ENCOUNTER 2020-11-28 10:39 | Outpatient (CLI) | payer MEDICARE ==
[~2020-11-28] VITALS: Ht 160 cm; Wt 42.5 kg
[2020-11-28] VITALS (9 sets, daily range): BP systolic 106–133; BP diastolic 56–76
[~2020-11-28 10:39] MED LIST changes: +SODIUM CHLORIDE 0.9% INJ 10 ML SYR IV PRN; +SODIUM CHLORIDE 0.9% INJ 10 ML SYR IV SCH
== END 2020-11-28 14:45 | disposition home or self-care (01) ==
LOC: M INFU 10:39
PROVIDERS: ATTEND Internal Medicine Hematology & Oncology
DX: D46.9 Myelodysplastic syndrome, unspecified (principal); Z88.6 Allergy status to analgesic agent
CPT/HCPCS: 36430; 36591; 85025; 85049; 85055; 86850; 86900; 86901; 86920; J1642; P9016

== ENCOUNTER 2020-12-12 10:00 | Outpatient (CLI) | payer MEDICARE ==
[2020-12-12] VITALS (8 sets, daily range): BP systolic 107–115; BP diastolic 58–70
[~2020-12-12] VITALS: Ht 160 cm; Wt 44.1 kg
[~2020-12-12 10:00] MED LIST changes: -SODIUM CHLORIDE 0.9% INJ 10 ML SYR IV PRN; -SODIUM CHLORIDE 0.9% INJ 10 ML SYR IV SCH
[2020-12-12] MEDS ORDERED: ACETAMINOPHEN TAB 650MG DOSE (2X325MG) PO ONE (10:30)
[2020-12-12] MEDS ORDERED: diphenhydrAMINE 25MG CAP PO ONE (10:30)
[2020-12-12] MEDS ORDERED: SODIUM CHLORIDE 0.9% INJ 10 ML SYR IV PRN (14:30)
[2020-12-13] MEDS ORDERED: SODIUM CHLORIDE 0.9% INJ 10 ML SYR IV SCH (09:00)
== END 2020-12-12 14:45 | disposition home or self-care (01) ==
LOC: M INFU 10:00
PROVIDERS: ATTEND Internal Medicine Hematology & Oncology
DX: D46.9 Myelodysplastic syndrome, unspecified (principal)
CPT/HCPCS: 36430; 36591; 85025; 85049; 85055; 86850; 86900; 86901; 86920; 96372; J0896; J1642; P9016

== ENCOUNTER 2020-12-19 10:37 | Outpatient (CLI) | payer MEDICARE ==
[~2020-12-19] VITALS: Ht 160 cm; Wt 44.0 kg
[2020-12-19] MEDS ORDERED: diphenhydrAMINE 25MG CAP PO ONE (11:20)
[2020-12-19] MEDS ORDERED: ACETAMINOPHEN TAB 650MG DOSE (2X325MG) PO ONE (11:20)
[2020-12-19] MEDS ORDERED: SODIUM CHLORIDE 0.9% INJ 10 ML SYR IV PRN (11:20)
[2020-12-19 12:35] VITALS: BP 124/66
[2020-12-19 12:50] VITALS: BP 132/76
[2020-12-19 14:04] VITALS: BP 120/58
[2020-12-19 14:06] VITALS: BP 120/58
[2020-12-19 15:29] VITALS: BP 135/71
[2020-12-19 15:45] VITALS: BP 135/71
[2020-12-20] MEDS ORDERED: SODIUM CHLORIDE 0.9% INJ 10 ML SYR IV SCH (09:00)
== END 2020-12-19 15:45 | disposition home or self-care (01) ==
LOC: M INFU 10:37
PROVIDERS: ATTEND Internal Medicine Hematology & Oncology
DX: D46.9 Myelodysplastic syndrome, unspecified (principal); Z88.6 Allergy status to analgesic agent
CPT/HCPCS: 36430; 36591; 85025; 85049; 85055; 86850; 86900; 86901; 86920; J1642; P9016

== ENCOUNTER → 2021-01-02 | Outpatient (CLI) | payer MEDICARE ==
[~2021-01-02] VITALS: Ht 160 cm; Wt 44.0 kg
[~2021-01-02] MED LIST changes: +ACETAMINOPHEN TAB 650MG DOSE (2X325MG) PO SCH; +FUROSEMIDE 20MG/2ML VIAL (J1940) IV ONE; +SODIUM CHLORIDE 0.9% INJ 10 ML SYR IV PRN; +SODIUM CHLORIDE 0.9% INJ 10 ML SYR IV SCH; +diphenhydrAMINE 25MG CAP PO SCH
[2021-01-02 11:35] VITALS: BP 122/56
[2021-01-02 11:50] VITALS: BP 110/52
[2021-01-02 13:10] VITALS: BP 118/66
[2021-01-02 13:47] VITALS: BP 128/68
[2021-01-02 14:38] VITALS: BP 137/73
[2021-01-02 15:02] VITALS: BP 127/69
== END ==
LOC: M INFU 10:27
PROVIDERS: ATTEND Internal Medicine Hematology & Oncology
DX: D46.9 Myelodysplastic syndrome, unspecified (principal); E83.111 Hemochromatosis due to repeated red blood cell transfusions; E83.19 Other disorders of iron metabolism; Z88.6 Allergy status to analgesic agent; Z79.899 Other long term (current) drug therapy
CPT/HCPCS: 36430; 36591; 80053; 85025; 85049; 85055; 86850; 86900; 86901; 86920; G0463; J1642; P9016

== ENCOUNTER 2021-01-09 11:19 | Outpatient (CLI) | payer MEDICARE ==
[~2021-01-09] VITALS: Ht 160 cm; Wt 44.0 kg
[~2021-01-09 11:19] MED LIST changes: -FUROSEMIDE 20MG/2ML VIAL (J1940) IV ONE; -SODIUM CHLORIDE 0.9% INJ 10 ML SYR IV PRN; -SODIUM CHLORIDE 0.9% INJ 10 ML SYR IV SCH
[2021-01-09] MEDS ORDERED: SODIUM CHLORIDE 0.9% INJ 10 ML SYR IV PRN (11:30)
[2021-01-09 11:36] VITALS: BP 152/68
[2021-01-09 11:45] VITALS: BP 136/68
[2021-01-09 12:05] VITALS: BP 129/58
[2021-01-09 13:34] VITALS: BP 132/68
[2021-01-10] MEDS ORDERED: SODIUM CHLORIDE 0.9% INJ 10 ML SYR IV SCH (09:00)
== END 2021-01-09 13:50 | disposition home or self-care (01) ==
LOC: M INFU 11:19
PROVIDERS: ATTEND Internal Medicine Hematology & Oncology
DX: D46.9 Myelodysplastic syndrome, unspecified (principal); E83.111 Hemochromatosis due to repeated red blood cell transfusions; E83.19 Other disorders of iron metabolism; Z88.6 Allergy status to analgesic agent; Z79.899 Other long term (current) drug therapy
CPT/HCPCS: 36430; 36591; 85025; 85049; 85055; 86850; 86900; 86901; 86920; 96372; 96523; G0463; J0896; J1642; P9016

== ENCOUNTER 2021-01-16 10:41 | Outpatient (CLI) | payer MEDICARE ==
[~2021-01-16 10:41] MED LIST changes: +SODIUM CHLORIDE 0.9% INJ 10 ML SYR IV SCH
[2021-01-16 11:22] VITALS: BP 124/71
[2021-01-16] MEDS ORDERED: SODIUM CHLORIDE 0.9% INJ 10 ML SYR IV PRN (11:30)
[2021-01-16 11:35] VITALS: BP 129/59
[2021-01-16 12:48] VITALS: BP 114/55
== END 2021-01-16 13:13 | disposition home or self-care (01) ==
LOC: M INFU 10:41
PROVIDERS: ATTEND Internal Medicine Hematology & Oncology
DX: D46.9 Myelodysplastic syndrome, unspecified (principal); E83.111 Hemochromatosis due to repeated red blood cell transfusions; E83.19 Other disorders of iron metabolism; Z79.899 Other long term (current) drug therapy; Z88.6 Allergy status to analgesic agent
CPT/HCPCS: 36430; 36591; 85025; 85049; 85055; 86850; 86900; 86901; 86920; 96523; G0463; J1642; P9016

== ENCOUNTER 2021-01-23 09:43 | Outpatient (CLI) | payer MEDICARE ==
[~2021-01-23] VITALS: Ht 160 cm; Wt 44.0 kg
[~2021-01-23 09:43] MED LIST changes: -ACETAMINOPHEN TAB 650MG DOSE (2X325MG) PO SCH; +COVI30VI IM; -SODIUM CHLORIDE 0.9% INJ 10 ML SYR IV SCH
[2021-01-23 10:39] VITALS: BP 136/63
[2021-01-23] MEDS ORDERED: SODIUM CHLORIDE 0.9% INJ 10 ML SYR IV PRN (11:35)
[2021-01-23] MEDS ORDERED: ACETAMINOPHEN TAB 650MG DOSE (2X325MG) PO ONE (11:40)
[2021-01-23 11:47] VITALS: BP 136/63
[2021-01-23 12:02] VITALS: BP 128/67
[2021-01-23 13:10] VITALS: BP 109/60
[2021-01-23 13:20] VITALS: BP 109/60
[2021-01-23] MEDS ORDERED: LIDO2.5C15 TOP ×2 (15:14→16:00)
[2021-01-24] MEDS ORDERED: SODIUM CHLORIDE 0.9% INJ 10 ML SYR IV SCH (09:00)
== END 2021-01-23 13:30 | disposition home or self-care (01) ==
LOC: M INFU 09:43
PROVIDERS: ATTEND Internal Medicine Hematology & Oncology
DX: D46.9 Myelodysplastic syndrome, unspecified (principal); E83.111 Hemochromatosis due to repeated red blood cell transfusions; E83.19 Other disorders of iron metabolism; Z79.899 Other long term (current) drug therapy; Z88.6 Allergy status to analgesic agent
CPT/HCPCS: 36430; 36591; 80053; 82728; 85025; 85049; 85055; 86850; 86900; 86901; 86920; 96523; G0463; J1642; P9016

== ENCOUNTER 2021-02-06 10:51 | Outpatient (CLI) | payer MEDICARE ==
[~2021-02-06] VITALS: Ht 160 cm; Wt 43.5 kg
[~2021-02-06 10:51] MED LIST changes: -diphenhydrAMINE 25MG CAP PO SCH
[2021-02-06 10:55] VITALS: BP 110/64
[2021-02-06] MEDS ORDERED: diphenhydrAMINE 25MG CAP PO ONE (11:20)
[2021-02-06] MEDS ORDERED: SODIUM CHLORIDE 0.9% INJ 10 ML SYR IV PRN (11:20)
[2021-02-06] MEDS ORDERED: ACETAMINOPHEN TAB 650MG DOSE (2X325MG) PO ONE (11:20)
[2021-02-06 11:47] VITALS: BP 110/64
[2021-02-06] MEDS ORDERED: FUROSEMIDE 20MG/2ML VIAL (J1940) IV ONE (12:00)
[2021-02-06 12:05] VITALS: BP 116/58
[2021-02-06 13:10] VITALS: BP 119/61
[2021-02-06 13:27] VITALS: BP 119/61
[2021-02-06 15:00] VITALS: BP 127/71
[2021-02-07] MEDS ORDERED: SODIUM CHLORIDE 0.9% INJ 10 ML SYR IV SCH (09:00)
== END 2021-02-06 15:10 | disposition home or self-care (01) ==
LOC: M INFU 10:51
PROVIDERS: ATTEND Internal Medicine Hematology & Oncology
DX: D46.9 Myelodysplastic syndrome, unspecified (principal); E83.111 Hemochromatosis due to repeated red blood cell transfusions; E83.19 Other disorders of iron metabolism; Z79.899 Other long term (current) drug therapy; Z88.6 Allergy status to analgesic agent
CPT/HCPCS: 36430; 36591; 85025; 85049; 85055; 86850; 86900; 86901; 86920; 96523; G0463; J1642; P9016

== ENCOUNTER 2021-02-20 09:52 | Outpatient (CLI) | payer MEDICARE ==
[~2021-02-20] VITALS: Ht 160 cm; Wt 43.5 kg
[~2021-02-20 09:52] MED LIST changes: +LIDO1CRE42 TOP; -LIDO2.5C15 TOP
[2021-02-20 10:42] VITALS: BP 121/61
[2021-02-20] MEDS ORDERED: SODIUM CHLORIDE 0.9% INJ 10 ML SYR IV PRN (10:45)
[2021-02-20 11:05] VITALS: BP 121/61
[2021-02-20 12:33] VITALS: BP 107/52
[2021-02-20 12:35] VITALS: BP 107/52
[2021-02-20 14:22] VITALS: BP 125/64
[2021-02-21] MEDS ORDERED: SODIUM CHLORIDE 0.9% INJ 10 ML SYR IV SCH (09:00)
== END 2021-02-20 14:20 | disposition home or self-care (01) ==
LOC: M INFU 09:52
PROVIDERS: ATTEND Internal Medicine Hematology & Oncology
DX: D46.9 Myelodysplastic syndrome, unspecified (principal); E83.111 Hemochromatosis due to repeated red blood cell transfusions; E83.19 Other disorders of iron metabolism; Z79.899 Other long term (current) drug therapy; Z88.6 Allergy status to analgesic agent
CPT/HCPCS: 36430; 36591; 85025; 85049; 85055; 86850; 86900; 86901; 86920; 96372; 96523; G0463; J0896; J1642; P9016

== ENCOUNTER 2021-02-27 09:54 | Outpatient (CLI) | payer MEDICARE ==
[2021-02-27] VITALS (8 sets, daily range): BP systolic 107–121; BP diastolic 53–73
[~2021-02-27] VITALS: Ht 160 cm; Wt 43.5 kg
[~2021-02-27 09:54] MED LIST changes: +SODIUM CHLORIDE 0.9% INJ 10 ML SYR IV PRN; +SODIUM CHLORIDE 0.9% INJ 10 ML SYR IV SCH
== END 2021-02-27 14:30 | disposition home or self-care (01) ==
LOC: M INFU 09:54
PROVIDERS: ATTEND Internal Medicine Hematology & Oncology
DX: D46.9 Myelodysplastic syndrome, unspecified (principal); E83.111 Hemochromatosis due to repeated red blood cell transfusions
CPT/HCPCS: 36430; 36591; 85025; 85049; 85055; 86850; 86900; 86901; 86920; 96523; G0463; J1642; P9016

== ENCOUNTER 2021-03-13 10:11 | Outpatient (CLI) | payer MEDICARE ==
[~2021-03-13] VITALS: Ht 160 cm; Wt 43.5 kg
[~2021-03-13 10:11] MED LIST changes: -SODIUM CHLORIDE 0.9% INJ 10 ML SYR IV PRN
[2021-03-13] MEDS ORDERED: diphenhydrAMINE 25MG CAP PO ONE (10:55)
[2021-03-13] MEDS ORDERED: ACETAMINOPHEN TAB 650MG DOSE (2X325MG) PO ONE (10:55)
[2021-03-13] MEDS ORDERED: SODIUM CHLORIDE 0.9% INJ 10 ML SYR IV PRN (12:30)
[2021-03-13 12:43] VITALS: BP 111/52
[2021-03-13 13:13] VITALS: BP 122/68
[2021-03-13 13:30] VITALS: BP 118/68
[2021-03-13 14:40] VITALS: BP 128/63
[2021-03-13 15:00] VITALS: BP 128/63
== END 2021-03-13 15:00 | disposition home or self-care (01) ==
LOC: M INFU 10:11
PROVIDERS: ATTEND Internal Medicine Hematology & Oncology
DX: M06.09 Rheumatoid arthritis without rheumatoid factor, multiple sites (principal); D89.89 Other specified disorders involving the immune mechanism, not elsewhere classified
CPT/HCPCS: 36430; 36591; 85025; 85049; 85055; 86850; 86900; 86901; 86920; 96523; G0463; J1642; P9016

== ENCOUNTER 2021-03-20 11:25 | Outpatient (CLI) | payer MEDICARE ==
[2021-03-20] VITALS (9 sets, daily range): BP systolic 107–116; BP diastolic 53–67
[~2021-03-20] VITALS: Ht 160 cm; Wt 43.5 kg
[~2021-03-20 11:25] MED LIST changes: -SODIUM CHLORIDE 0.9% INJ 10 ML SYR IV SCH
[2021-03-20] MEDS ORDERED: HYDROCORTISONE 100 MG/2 ML VIAL (J1720 PER 1) IV ONE (12:25)
[2021-03-20] MEDS ORDERED: SODIUM CHLORIDE 0.9% INJ 10 ML SYR IV PRN (12:25)
[2021-03-21] MEDS ORDERED: SODIUM CHLORIDE 0.9% INJ 10 ML SYR IV SCH (09:00)
== END 2021-03-20 16:00 | disposition home or self-care (01) ==
LOC: M INFU 11:25
PROVIDERS: ATTEND Internal Medicine Medical Oncology
DX: D46.9 Myelodysplastic syndrome, unspecified (principal)
CPT/HCPCS: 36430; 36591; 85025; 85049; 85055; 86850; 86900; 86901; 86920; 96523; G0463; J1642; P9016

== ENCOUNTER 2021-03-27 09:45 | Outpatient (CLI) | payer MEDICARE ==
[~2021-03-27] VITALS: Ht 160 cm; Wt 43.0 kg
[~2021-03-27 09:45] MED LIST changes: +SODIUM CHLORIDE 0.9% INJ 10 ML SYR IV SCH
[2021-03-27] MEDS ORDERED: SODIUM CHLORIDE 0.9% INJ 10 ML SYR IV PRN (11:00)
[2021-03-27 12:00] VITALS: BP 108/53
[2021-03-27 12:45] VITALS: BP 110/56
[2021-03-27 13:45] VITALS: BP 100/62
== END 2021-03-27 13:45 | disposition home or self-care (01) ==
LOC: M INFU 09:45
PROVIDERS: ATTEND Internal Medicine Hematology & Oncology
DX: D46.9 Myelodysplastic syndrome, unspecified (principal); E83.111 Hemochromatosis due to repeated red blood cell transfusions; E83.19 Other disorders of iron metabolism; Z88.6 Allergy status to analgesic agent
CPT/HCPCS: 36430; 36591; 85025; 85049; 85055; 86850; 86900; 86901; 86920; G0463; J1642; P9016

== ENCOUNTER 2021-04-03 09:56 | Outpatient (CLI) | payer MEDICARE ==
[~2021-04-03] VITALS: Ht 160 cm; Wt 41.8 kg
[2021-04-03] MEDS ORDERED: diphenhydrAMINE 25MG CAP PO ONE (10:35)
[2021-04-03] MEDS ORDERED: ACETAMINOPHEN TAB 650MG DOSE (2X325MG) PO ONE (10:35)
[2021-04-03] MEDS ORDERED: SODIUM CHLORIDE 0.9% INJ 10 ML SYR IV PRN (11:00)
[2021-04-03 11:20] VITALS: BP 156/65
[2021-04-03 11:45] VITALS: BP 111/58
[2021-04-03 12:45] VITALS: BP 92/59
[2021-04-03 13:00] VITALS: BP 92/50
== END 2021-04-03 13:00 | disposition home or self-care (01) ==
LOC: M INFU 09:56
PROVIDERS: ATTEND Internal Medicine Medical Oncology
DX: D46.9 Myelodysplastic syndrome, unspecified (principal)
CPT/HCPCS: 36430; 36591; 85025; 85049; 85055; 86850; 86900; 86901; 86920; 96523; G0463; J1642; P9016

== ENCOUNTER 2021-04-10 10:43 | Outpatient (CLI) | payer MEDICARE ==
[2021-04-10] VITALS (8 sets, daily range): BP systolic 101–137; BP diastolic 51–67
[~2021-04-10] VITALS: Ht 160 cm; Wt 41.8 kg
[~2021-04-10 10:43] MED LIST changes: +SODIUM CHLORIDE 0.9% INJ 10 ML SYR IV PRN; -SODIUM CHLORIDE 0.9% INJ 10 ML SYR IV SCH
[2021-04-10] MEDS: SODIUM CHLORIDE 0.9% INJ 10 ML SYR IV SCH ×2 (12:06→12:08)
== END 2021-04-10 15:50 | disposition home or self-care (01) ==
LOC: M INFU 10:43
PROVIDERS: ATTEND Internal Medicine Medical Oncology
DX: D46.9 Myelodysplastic syndrome, unspecified (principal); Z88.6 Allergy status to analgesic agent
CPT/HCPCS: 36430; 36591; 85025; 85049; 85055; 86850; 86900; 86901; 86920; 96523; G0463; J1642; P9016

== ENCOUNTER 2021-04-24 10:51 | Outpatient (CLI) | payer MEDICARE ==
[~2021-04-24] VITALS: Ht 160 cm; Wt 41.8 kg
[~2021-04-24 10:51] MED LIST changes: +ACETAMINOPHEN TAB 650MG DOSE (2X325MG) PO SCH; -SODIUM CHLORIDE 0.9% INJ 10 ML SYR IV PRN; +diphenhydrAMINE 25MG CAP PO SCH
[2021-04-24 11:00] VITALS: BP 135/60
[2021-04-24] MEDS ORDERED: SODIUM CHLORIDE 0.9% INJ 10 ML SYR IV PRN (11:15)
[2021-04-24 12:40] VITALS: BP 111/53
[2021-04-24 14:00] VITALS: BP 117/55
[2021-04-24 14:07] VITALS: BP 117/55
[2021-04-25] MEDS ORDERED: SODIUM CHLORIDE 0.9% INJ 10 ML SYR IV SCH (09:00)
== END 2021-04-24 14:10 | disposition home or self-care (01) ==
LOC: M INFU 10:51
PROVIDERS: ATTEND Internal Medicine Medical Oncology
DX: D46.9 Myelodysplastic syndrome, unspecified (principal)
CPT/HCPCS: 36430; 36591; 85025; 85049; 85055; 86850; 86900; 86901; 86920; J1642; P9016

== ENCOUNTER → 2021-04-25 | Outpatient (CLI) | payer MEDICARE ==
[~2021-04-25] MED LIST changes: -ACETAMINOPHEN TAB 650MG DOSE (2X325MG) PO SCH; -diphenhydrAMINE 25MG CAP PO SCH
--- NOTE | 2021-04-25 16:06 | REP ---
INDICATION: SPLENOMAGALY. COMPARISON: Comparison left upper quadrant sonography is from September 17, 2015.. Comparison is made with CT study of the abdomen from August 02, 2018. TECHNIQUE: Left upper quadrant ultrasound. FINDINGS: Scanning through the left upper quadrant again demonstrates splenic enlargement. Its dimensions are similar to the prior study 14.2 x 6.1 x 14.5 cm today. Renal cortical echogenicity pattern is normal. The left kidney measures 10.9 x 4.4 x 5.0 cm. There is no evidence hydronephrosis. There is an echogenic nodule the left kidney measuring 0.9 cm in greatest diameter in the upper pole region. This may be consistent with lipoma or angiomyolipoma. No focal splenic lesion is seen. The previously noted hypoechoic lesions seen in the spleen in 2015 are not seen today. The previous study did show a hyperechoic nodule in the upper pole of the left kidney and this is unchanged from 2015. IMPRESSION: Mild to moderate splenic enlargement essentially unchanged from prior study. No focal splenic lesion. Stable hyperechoic nodule upper pole left kidney unchanged from 2015. No evidence of ascites or hydronephrosis. <Electronically signed by Kamari Velarde > 04/25/21 [id number]
== END ==
LOC: M RAD 14:00
PROVIDERS: ATTEND Internal Medicine Hematology & Oncology
DX: R16.1 Splenomegaly, not elsewhere classified (principal); N28.89 Other specified disorders of kidney and ureter

== ENCOUNTER 2021-05-01 12:03 | Outpatient (CLI) | payer MEDICARE ==
[~2021-05-01] VITALS: Ht 160 cm; Wt 42.0 kg
[2021-05-01] VITALS (7 sets, daily range): BP systolic 106–130; BP diastolic 53–67
[~2021-05-01 12:03] MED LIST changes: +ACETAMINOPHEN TAB 650MG DOSE (2X325MG) PO SCH; +diphenhydrAMINE 25MG CAP PO SCH
[2021-05-01] MEDS ORDERED: SODIUM CHLORIDE 0.9% INJ 10 ML SYR IV PRN (14:00)
[2021-05-02] MEDS ORDERED: SODIUM CHLORIDE 0.9% INJ 10 ML SYR IV SCH (09:00)
== END 2021-05-01 15:45 | disposition home or self-care (01) ==
LOC: M INFU 12:03
PROVIDERS: ATTEND Internal Medicine Hematology & Oncology
DX: D46.9 Myelodysplastic syndrome, unspecified (principal); E83.111 Hemochromatosis due to repeated red blood cell transfusions; D64.9 Anemia, unspecified; Z88.6 Allergy status to analgesic agent
CPT/HCPCS: 36430; 36591; 85025; 85049; 85055; 86850; 86900; 86901; 86920; 96523; J1642; P9016

== ENCOUNTER 2021-05-08 11:45 | Outpatient (CLI) | payer MEDICARE ==
[~2021-05-08] VITALS: Ht 160 cm; Wt 42.0 kg
[~2021-05-08 11:45] MED LIST changes: -ACETAMINOPHEN TAB 650MG DOSE (2X325MG) PO SCH; -diphenhydrAMINE 25MG CAP PO SCH
[2021-05-08] MEDS ORDERED: diphenhydrAMINE 25MG CAP PO ONE (12:10)
[2021-05-08] MEDS ORDERED: ACETAMINOPHEN TAB 650MG DOSE (2X325MG) PO ONE (12:10)
[2021-05-08 12:18] VITALS: BP 122/60
[2021-05-08 13:19] VITALS: BP 122/60
[2021-05-08 13:34] VITALS: BP 93/50
[2021-05-08 14:40] VITALS: BP 107/52
[2021-05-08 14:44] VITALS: BP 107/52
[2021-05-08] MEDS ORDERED: SODIUM CHLORIDE 0.9% INJ 10 ML SYR IV PRN (14:45)
[2021-05-08] MEDS ORDERED: SODIUM CHLORIDE 0.9% INJ 10 ML SYR IV SCH (14:45)
[2021-05-08 14:50] VITALS: BP 107/52
== END 2021-05-08 15:15 | disposition home or self-care (01) ==
LOC: M INFU 11:45
PROVIDERS: ATTEND Internal Medicine Hematology & Oncology
DX: D46.9 Myelodysplastic syndrome, unspecified (principal); Z88.6 Allergy status to analgesic agent
CPT/HCPCS: 36415; 36430; 80053; 82728; 83550; 85025; 85049; 85055; 86850; 86900; 86901; 86920; 88300; 96523; J1642; P9016

== ENCOUNTER 2021-05-15 10:25 | Outpatient (CLI) | payer MEDICARE ==
[2021-05-15] VITALS (7 sets, daily range): BP systolic 103–132; BP diastolic 52–61
[~2021-05-15] VITALS: Ht 160 cm; Wt 42.0 kg
[~2021-05-15 10:25] MED LIST changes: +SODIUM CHLORIDE 0.9% INJ 10 ML SYR IV PRN; +SODIUM CHLORIDE 0.9% INJ 10 ML SYR IV SCH
== END 2021-05-15 15:35 | disposition home or self-care (01) ==
LOC: M INFU 10:25
PROVIDERS: ATTEND Internal Medicine Hematology & Oncology
DX: D46.9 Myelodysplastic syndrome, unspecified (principal); E83.111 Hemochromatosis due to repeated red blood cell transfusions; E83.19 Other disorders of iron metabolism; Z79.899 Other long term (current) drug therapy; Z88.6 Allergy status to analgesic agent
CPT/HCPCS: 36430; 36591; 85025; 85049; 85055; 86850; 86900; 86901; 86920; 96523; G0463; J1642; P9016

== ENCOUNTER 2021-05-22 10:53 | Outpatient (CLI) | payer MEDICARE ==
[~2021-05-22] VITALS: Ht 160 cm; Wt 42.0 kg
[2021-05-22 11:28] VITALS: BP 122/59
[2021-05-22 11:59] VITALS: BP 122/59
[2021-05-22 12:15] VITALS: BP 103/54
[2021-05-22 13:27] VITALS: BP 128/64
[2021-05-22 13:39] VITALS: BP 128/64
== END 2021-05-22 13:45 | disposition home or self-care (01) ==
LOC: M INFU 10:53
PROVIDERS: ATTEND Internal Medicine Hematology & Oncology
DX: D46.9 Myelodysplastic syndrome, unspecified (principal); E83.111 Hemochromatosis due to repeated red blood cell transfusions; E83.19 Other disorders of iron metabolism; Z79.899 Other long term (current) drug therapy; Z88.6 Allergy status to analgesic agent
CPT/HCPCS: 36430; 36591; 85025; 85049; 85055; 86850; 86900; 86901; 86920; 96523; G0463; J1642; P9016

== ENCOUNTER 2021-05-29 10:40 | Outpatient (CLI) | payer MEDICARE ==
[~2021-05-29] VITALS: Ht 160 cm; Wt 42.0 kg
[2021-05-29] VITALS (7 sets, daily range): BP systolic 99–137; BP diastolic 51–78
[~2021-05-29 10:40] MED LIST changes: -CEFD1CAP8 PO; +CEFD300C41 PO; -LEVO500T3 PO; +LEVO500T4 PO; +OMEP-173 PO; -OMEP-218 PO; -SODIUM CHLORIDE 0.9% INJ 10 ML SYR IV PRN; -SODIUM CHLORIDE 0.9% INJ 10 ML SYR IV SCH
[2021-05-29] MEDS ORDERED: SODIUM CHLORIDE 0.9% INJ 10 ML SYR IV PRN (11:00)
[2021-05-30] MEDS ORDERED: SODIUM CHLORIDE 0.9% INJ 10 ML SYR IV SCH (09:00)
[2021-06-03] MEDS ORDERED: [UNRECOGNIZED DRUG - CODE] PO (11:07)
[2021-06-12] MEDS ORDERED: [UNRECOGNIZED DRUG - CODE] PO ×2 (09:34→09:54)
[2021-06-26] MEDS ORDERED: [UNRECOGNIZED DRUG - CODE] PO ×2 (10:31→11:44)
[2021-08-28] MEDS ORDERED: OMEP-173 (10:40)
[2021-09-08] MEDS ORDERED: LIDO1CRE42 TOP (14:27)
[2021-09-09] MEDS ORDERED: LIDO1CRE42 TOP (16:11)
[2021-09-11] MEDS ORDERED: PROM50TA28 PO (11:13)
[2021-10-13] MEDS ORDERED: LIDO1CRE42 TOP (10:46)
[2021-10-13] MEDS ORDERED: PROM50TA28 PO (10:46)
[2021-11-27] MEDS ORDERED: CIPR500T39 (10:50)
== END 2021-05-29 15:30 | disposition home or self-care (01) ==
LOC: M INFU 10:40
PROVIDERS: ATTEND Internal Medicine Hematology & Oncology
DX: D46.9 Myelodysplastic syndrome, unspecified (principal); E83.111 Hemochromatosis due to repeated red blood cell transfusions; E83.19 Other disorders of iron metabolism; Z88.6 Allergy status to analgesic agent; Z79.899 Other long term (current) drug therapy
CPT/HCPCS: 36430; 36591; 80053; 85025; 85049; 85055; 86850; 86900; 86901; 86920; 96523; G0463; J1642; P9016

== ENCOUNTER 2021-06-05 14:31 | Emergency (ER) | payer MEDICARE ==
[~2021-06-05] VITALS: Ht 157.5 cm; Wt 40.0 kg
[~2021-06-05 14:31] MED LIST changes: +CEFD1CAP8 PO; -CEFD300C41 PO; +LEVO500T3 PO; -LEVO500T4 PO; -OMEP-173 PO; +OMEP-218 PO
[2021-06-05 14:45] VITALS: BP 124/62
--- NOTE | 2021-06-05 15:08 | REP ---
INDICATION: trauma COMPARISON: 12/19/2016 TECHNIQUE: Axial noncontrast images from the skull base to the thoracic inlet with coronal reformations. This CT examination was performed using the following dose reduction techniques: Automated exposure control, adjustment of mA and/or kv according to the patient's size, and use of iterative reconstruction technique. FINDINGS: Atrophy with periventricular leukomalacia and microvascular ischemic changes are appreciated. The ventricles and sulci are symmetric. Mcintosh-white differentiation is maintained. There is no evidence for acute intracranial hemorrhage, mass/mass effect, pathology or infarction. No extra-axial fluid collection. Calvarium is intact. Paranasal sinuses and mastoid air cells are clear. IMPRESSION: Atrophy and microvascular ischemic changes. No acute intracranial hemorrhage, infarction, or mass/mass effect. <Electronically signed by Skyler Abbasi > 06/05/21 [id number]
--- NOTE | 2021-06-05 15:12 | REP ---
INDICATION: trauma. COMPARISON: Comparison left hand radiographs are from October 28, 2019. TECHNIQUE: Four views of the left wrist are provided. FINDINGS: Four views of the left wrist demonstrate marked diffuse osteoporosis. There is old posttraumatic deformity of the distal radius. The prior study from October 28, 2019 showed distal radial fracture. In addition however, there is acute appearing cortical step-off of the distal radial metaphysis on the lateral and oblique images suggesting an acute fracture superimposed on old posttraumatic deformity. The distal ulna appears intact. There is some osteoarthritic spurring at the distal radioulnar articulation and at the 1st carpometacarpal articulation. No carpal fracture is seen. IMPRESSION: There is evidence of old AND ACUTE distal radial metaphyseal fracture. Marked diffuse osteoporosis and mild osteoarthritic changes. <Electronically signed by Kamari Velarde > 06/05/21 [id number]
== END 2021-06-05 16:37 | disposition home or self-care (01) ==
LOC: M ED 14:31 → EDBD 14:31 → M ED 16:37
DX: S52.502A Unspecified fracture of the lower end of left radius, initial encounter for closed fracture (principal); W19.XXXA Unspecified fall, initial encounter; Y92.59 Other trade areas as the place of occurrence of the external cause; Y93.01 Activity, walking, marching and hiking; Y99.9 Unspecified external cause status; J44.9 Chronic obstructive pulmonary disease, unspecified; Z86.718 Personal history of other venous thrombosis and embolism; D46.9 Myelodysplastic syndrome, unspecified; Z87.81 Personal history of (healed) traumatic fracture; M85.842 Other specified disorders of bone density and structure, left hand; M19.032 Primary osteoarthritis, left wrist; Z79.899 Other long term (current) drug therapy; Z88.5 Allergy status to narcotic agent

== ENCOUNTER 2021-06-12 10:09 | Outpatient (CLI) | payer MEDICARE ==
[~2021-06-12] VITALS: Ht 157.5 cm; Wt 40.0 kg
[2021-06-12] VITALS (8 sets, daily range): BP systolic 98–136; BP diastolic 46–74
[~2021-06-12 10:09] MED LIST changes: +SODIUM CHLORIDE 0.9% INJ 10 ML SYR IV PRN; +SODIUM CHLORIDE 0.9% INJ 10 ML SYR IV SCH
[2021-06-12] MEDS ORDERED: diphenhydrAMINE 25MG CAP PO ONE (11:00)
[2021-06-12] MEDS ORDERED: ACETAMINOPHEN TAB 650MG DOSE (2X325MG) PO ONE (11:00)
== END 2021-06-12 15:00 | disposition home or self-care (01) ==
LOC: M INFU 10:09
PROVIDERS: ATTEND Internal Medicine Hematology & Oncology
DX: D46.9 Myelodysplastic syndrome, unspecified (principal); Z88.6 Allergy status to analgesic agent
CPT/HCPCS: 36430; 36591; 80053; 85025; 85049; 85055; 86850; 86900; 86901; 86920; J1642; P9016

== ENCOUNTER → 2021-06-12 | Outpatient (CLI) | payer MEDICARE ==
--- NOTE | 2021-06-12 16:37 | REP ---
INDICATION: PAIN- WONT BE READY UNTIL AFTER 3 DUE TO INFU COMPARISON: 06/11/2005. TECHNIQUE: Five views bilateral knees. FINDINGS: There is no evidence of acute fracture, dislocation, or intrinsic bone disease.There is mild bilateral chondrocalcinosis. There is mild medial joint space narrowing symmetrically bilaterally. There are small suprapatellar effusions bilaterally. IMPRESSION: No fracture or dislocation. There appears to be mild chondrocalcinosis bilaterally and very mild medial joint space narrowing. Small bilateral suprapatellar effusions. <Electronically signed by Lisandro Mcintosh > 06/12/21 [id number]
== END ==
LOC: M RAD 10:41
PROVIDERS: ATTEND Internal Medicine Hematology & Oncology
DX: M25.569 Pain in unspecified knee (principal); M25.461 Effusion, right knee; M25.462 Effusion, left knee

== ENCOUNTER → 2021-06-18 | Outpatient (CLI) | payer MEDICARE ==
[~2021-06-18] MED LIST changes: -SODIUM CHLORIDE 0.9% INJ 10 ML SYR IV PRN; -SODIUM CHLORIDE 0.9% INJ 10 ML SYR IV SCH
--- NOTE | 2021-06-18 13:12 | REP ---
INDICATION: LT WRIST FX FOLLOW-UP. COMPARISON: 06/05/2021. TECHNIQUE: Three views left wrist. FINDINGS: The fracture of the distal left radius is unchanged in position and alignment. This is superimposed on an old posttraumatic deformity at that location. An overlying cast obscures underlying osseous detail. IMPRESSION: Left distal radial fracture unchanged in position and alignment. <Electronically signed by Lisandro Mcintosh > 06/18/21 [id number]
--- NOTE | 2021-06-18 13:14 | REP ---
INDICATION: LT WRIST FX. COMPARISON: 06/18/2021. TECHNIQUE: Four views left wrist. FINDINGS: Old fracture deformity of left radius again noted with a superimposed acute fracture at that location. Alignment and position is unchanged. There is an overlying cast which obscures underlying osseous detail. IMPRESSION: Stable fracture distal radius. Overlying cast obscures underlying osseous detail. <Electronically signed by Lisandro Mcintosh > 06/18/21 [id number]
== END ==
LOC: M SOG 11:29
PROVIDERS: ATTEND Orthopaedic Surgery
DX: S52.592D Other fractures of lower end of left radius, subsequent encounter for closed fracture with routine healing (principal); X58.XXXA Exposure to other specified factors, initial encounter; Y92.9 Unspecified place or not applicable; Y93.9 Activity, unspecified; Y99.9 Unspecified external cause status

== ENCOUNTER 2021-06-19 11:22 | Outpatient (CLI) | payer MEDICARE ==
[~2021-06-19] VITALS: Ht 160 cm; Wt 39.1 kg
[~2021-06-19 11:22] MED LIST changes: +ACETAMINOPHEN TAB 650MG DOSE (2X325MG) PO SCH; +SODIUM CHLORIDE 0.9% INJ 10 ML SYR IV PRN; +SODIUM CHLORIDE 0.9% INJ 10 ML SYR IV SCH; +diphenhydrAMINE 25MG CAP PO SCH
[2021-06-19 11:44] VITALS: BP 131/66
[2021-06-19 12:40] VITALS: BP 131/66
[2021-06-19 13:00] VITALS: BP 134/58
[2021-06-19 14:00] VITALS: BP 122/55
[2021-06-19 15:00] VITALS: BP 123/57
[2021-06-19 16:10] VITALS: BP 126/58
== END 2021-06-19 16:10 | disposition home or self-care (01) ==
LOC: M INFU 11:22
PROVIDERS: ATTEND Internal Medicine Hematology & Oncology
DX: D46.9 Myelodysplastic syndrome, unspecified (principal)
CPT/HCPCS: 36430; 36591; 85025; 85049; 85055; 86850; 86900; 86901; 86920; 96523; J1642; P9016

== ENCOUNTER → 2021-06-25 | Outpatient (CLI) | payer MEDICARE ==
[~2021-06-25] MED LIST changes: -ACETAMINOPHEN TAB 650MG DOSE (2X325MG) PO SCH; -SODIUM CHLORIDE 0.9% INJ 10 ML SYR IV PRN; -SODIUM CHLORIDE 0.9% INJ 10 ML SYR IV SCH; -diphenhydrAMINE 25MG CAP PO SCH
--- NOTE | 2021-06-25 11:26 | REP ---
INDICATION: LT WRIST PAIN. COMPARISON: 06/18/2021. TECHNIQUE: Three views left wrist. FINDINGS: Distal radial fracture is unchanged in position and alignment. There is an overlying cast which obscures underlying osseous detail. IMPRESSION: Stable exam. <Electronically signed by Lisandro Mcintosh > 06/25/21 [id number]
== END ==
LOC: M SOG 11:00
PROVIDERS: ATTEND Orthopaedic Surgery
DX: M25.532 Pain in left wrist (principal); S52.502D Unspecified fracture of the lower end of left radius, subsequent encounter for closed fracture with routine healing; X58.XXXD Exposure to other specified factors, subsequent encounter; Y92.9 Unspecified place or not applicable; Y99.9 Unspecified external cause status; Y93.9 Activity, unspecified

== ENCOUNTER 2021-06-26 12:33 | Outpatient (CLI) | payer MEDICARE ==
[~2021-06-26] VITALS: Ht 160 cm; Wt 39.1 kg
[2021-06-26 12:20] VITALS: BP 112/57
[~2021-06-26 12:33] MED LIST changes: +SODIUM CHLORIDE 0.9% INJ 10 ML SYR IV SCH
[2021-06-26 13:15] VITALS: BP 112/78
[2021-06-26] MEDS ORDERED: diphenhydrAMINE 25 MG PO PO ONE (13:20)
[2021-06-26] MEDS ORDERED: ACETAMINOPHEN TAB 650MG DOSE (2X325MG) PO ONE (13:25)
[2021-06-26 13:50] VITALS: BP 108/51
[2021-06-26] MEDS ORDERED: SODIUM CHLORIDE 0.9% INJ 10 ML SYR IV PRN (13:50)
[2021-06-26 15:00] VITALS: BP 121/58
[2021-06-26 15:14] VITALS: BP 111/54
== END 2021-06-26 16:50 | disposition home or self-care (01) ==
LOC: M INFU 12:33
PROVIDERS: ATTEND Internal Medicine Hematology & Oncology
DX: D46.9 Myelodysplastic syndrome, unspecified (principal); Z88.6 Allergy status to analgesic agent
CPT/HCPCS: 36430; 36591; 80053; 85025; 85049; 85055; 86850; 86900; 86901; 86920; 96523; G0463; J1642; P9016

== ENCOUNTER → 2021-07-03 | Outpatient (CLI) | payer MEDICARE ==
[~2021-07-03] MED LIST changes: +ACETAMINOPHEN TAB 650MG DOSE (2X325MG) PO ONE; +SODIUM CHLORIDE 0.9% INJ 10 ML SYR IV PRN; +diphenhydrAMINE 12.5MG/5ML ELIXIR UDC PO ONE
== END ==
LOC: M INFU 06-26 12:09
PROVIDERS: ATTEND Internal Medicine Hematology & Oncology
DX: D46.9 Myelodysplastic syndrome, unspecified (principal); Z88.6 Allergy status to analgesic agent; E83.111 Hemochromatosis due to repeated red blood cell transfusions; E83.19 Other disorders of iron metabolism
CPT/HCPCS: 36591; 80053; 85025; 85049; 85055; G0463; J1642

== ENCOUNTER 2021-07-04 14:03 | Outpatient (CLI) | payer MEDICARE ==
[~2021-07-04] VITALS: Ht 160 cm; Wt 39.1 kg
[~2021-07-04 14:03] MED LIST changes: -ACETAMINOPHEN TAB 650MG DOSE (2X325MG) PO ONE; -SODIUM CHLORIDE 0.9% INJ 10 ML SYR IV PRN; -SODIUM CHLORIDE 0.9% INJ 10 ML SYR IV SCH; -diphenhydrAMINE 12.5MG/5ML ELIXIR UDC PO ONE
[2021-07-04 14:19] VITALS: BP 121/58
[2021-07-04 14:23] VITALS: BP 121/58
[2021-07-04] MEDS ORDERED: SODIUM CHLORIDE 0.9% INJ 10 ML SYR IV PRN (14:30)
[2021-07-04 15:00] VITALS: BP 118/57
[2021-07-04] MEDS ORDERED: ACETAMINOPHEN TAB 650MG DOSE (2X325MG) PO ONE (15:30)
[2021-07-04] MEDS ORDERED: diphenhydrAMINE 12.5MG/5ML ELIXIR UDC PO ONE (15:30)
[2021-07-04 15:58] VITALS: BP 111/55
[2021-07-04 16:06] VITALS: BP 111/55
[2021-07-05] MEDS ORDERED: SODIUM CHLORIDE 0.9% INJ 10 ML SYR IV SCH (09:00)
== END 2021-07-04 16:10 | disposition home or self-care (01) ==
LOC: M INFU 14:03
PROVIDERS: ATTEND Internal Medicine Hematology & Oncology
DX: D46.9 Myelodysplastic syndrome, unspecified (principal); Z88.6 Allergy status to analgesic agent
CPT/HCPCS: 36430; 96523; J1642; P9034

== ENCOUNTER 2021-07-10 10:13 | Outpatient (CLI) | payer MEDICARE ==
[~2021-07-10] VITALS: Ht 160 cm; Wt 38.4 kg
[2021-07-10] VITALS (7 sets, daily range): BP systolic 95–119; BP diastolic 50–71
[2021-07-10] MEDS ORDERED: ACETAMINOPHEN TAB 650MG DOSE (2X325MG) PO ONE (10:55)
[2021-07-10] MEDS ORDERED: diphenhydrAMINE 25MG CAP PO ONE (10:55)
[2021-07-10] MEDS ORDERED: SODIUM CHLORIDE 0.9% INJ 10 ML SYR IV PRN (11:30)
[2021-07-11] MEDS ORDERED: SODIUM CHLORIDE 0.9% INJ 10 ML SYR IV SCH (09:00)
== END 2021-07-10 15:20 | disposition home or self-care (01) ==
LOC: M INFU 10:13
PROVIDERS: ATTEND Internal Medicine Hematology & Oncology
DX: D46.9 Myelodysplastic syndrome, unspecified (principal); Z88.8 Allergy status to other drugs, medicaments and biological substances
CPT/HCPCS: 36430; 36591; 80053; 85025; 85049; 85055; 86850; 86900; 86901; 86920; 96523; G0463; J1642; P9016

== ENCOUNTER → 2021-07-16 | Outpatient (CLI) | payer MEDICARE ==
--- NOTE | 2021-07-16 12:35 | REP ---
INDICATION: LT WRIST FX. COMPARISON: 06/05/2021 TECHNIQUE: AP, lateral, oblique views of the left wrist FINDINGS: Stable appearance to the comminuted fracture involving the distal radius. Generalized osteopenia and degenerative changes are appreciated throughout the visualized osseous structures. IMPRESSION: Stable comminuted fracture of the distal radius. <Electronically signed by Skyler Abbasi > 07/16/21 0717
== END ==
LOC: M SOG 11:02
PROVIDERS: ATTEND Orthopaedic Surgery
DX: S52.592D Other fractures of lower end of left radius, subsequent encounter for closed fracture with routine healing (principal); X58.XXXD Exposure to other specified factors, subsequent encounter; Y92.9 Unspecified place or not applicable; Y93.9 Activity, unspecified; Y99.9 Unspecified external cause status

== ENCOUNTER 2021-07-24 11:11 | Outpatient (CLI) | payer MEDICARE ==
[2021-07-24] VITALS (8 sets, daily range): BP systolic 101–138; BP diastolic 52–64
[2021-07-24] MEDS ORDERED: ACETAMINOPHEN TAB 650MG DOSE (2X325MG) PO ONE (11:30)
[2021-07-24] MEDS ORDERED: diphenhydrAMINE 25MG CAP PO ONE (11:30)
[2021-07-24] MEDS ORDERED: SODIUM CHLORIDE 0.9% INJ 10 ML SYR IV PRN (12:25)
[2021-07-25] MEDS ORDERED: SODIUM CHLORIDE 0.9% INJ 10 ML SYR IV SCH (09:00)
== END 2021-07-24 15:45 | disposition home or self-care (01) ==
LOC: M INFU 11:11
PROVIDERS: ATTEND Internal Medicine Hematology & Oncology
DX: D46.9 Myelodysplastic syndrome, unspecified (principal); Z88.8 Allergy status to other drugs, medicaments and biological substances
CPT/HCPCS: 36430; 36591; 80053; 85025; 85049; 85055; 86850; 86900; 86901; 86920; 96523; G0463; J1642; P9016

== ENCOUNTER 2021-08-07 10:36 | Outpatient (CLI) | payer MEDICARE ==
[~2021-08-07] VITALS: Ht 160 cm; Wt 38.4 kg
[~2021-08-07 10:36] MED LIST changes: +ACETAMINOPHEN TAB 650MG DOSE (2X325MG) PO SCH; +SODIUM CHLORIDE 0.9% INJ 10 ML SYR IV PRN; +SODIUM CHLORIDE 0.9% INJ 10 ML SYR IV SCH; +diphenhydrAMINE 25MG CAP PO SCH
[2021-08-07 10:56] VITALS: BP 109/56
[2021-08-07 11:20] VITALS: BP 111/54
[2021-08-07 13:04] VITALS: BP 101/54
[2021-08-07 13:30] VITALS: BP 114/53
[2021-08-07 15:00] VITALS: BP 131/59
== END 2021-08-07 15:05 | disposition home or self-care (01) ==
LOC: M INFU 10:36
PROVIDERS: ATTEND Internal Medicine Medical Oncology
DX: D46.9 Myelodysplastic syndrome, unspecified (principal)
CPT/HCPCS: 36430; 36591; 80053; 85025; 85049; 85055; 86850; 86900; 86901; 86920; 96523; G0463; J1642; P9016; P9034

== ENCOUNTER 2021-08-08 10:04 | Outpatient (CLI) | payer MEDICARE ==
[~2021-08-08] VITALS: Ht 160 cm; Wt 38.4 kg
[~2021-08-08 10:04] MED LIST changes: -ACETAMINOPHEN TAB 650MG DOSE (2X325MG) PO SCH; -SODIUM CHLORIDE 0.9% INJ 10 ML SYR IV PRN; -diphenhydrAMINE 25MG CAP PO SCH
[2021-08-08] MEDS ORDERED: SODIUM CHLORIDE 0.9% INJ 10 ML SYR IV PRN (10:30)
[2021-08-08] MEDS ORDERED: diphenhydrAMINE 25MG CAP PO ONE (10:30)
[2021-08-08] MEDS ORDERED: ACETAMINOPHEN TAB 650MG DOSE (2X325MG) PO ONE (10:30)
[2021-08-08 10:32] VITALS: BP 119/56
[2021-08-08 12:37] VITALS: BP 108/51
== END 2021-08-08 14:15 | disposition home or self-care (01) ==
LOC: M INFU 10:04
PROVIDERS: ATTEND Internal Medicine Medical Oncology
DX: D46.9 Myelodysplastic syndrome, unspecified (principal)
CPT/HCPCS: 36430; 96523; J1642; P9016

== ENCOUNTER 2021-08-15 11:10 | Outpatient (CLI) | payer MEDICARE ==
[~2021-08-15] VITALS: Ht 160 cm; Wt 38.1 kg
[~2021-08-15 11:10] MED LIST changes: +ACETAMINOPHEN TAB 650MG DOSE (2X325MG) PO SCH; -SODIUM CHLORIDE 0.9% INJ 10 ML SYR IV SCH; +diphenhydrAMINE 25MG CAP PO SCH
[2021-08-15 11:40] VITALS: BP 125/58
[2021-08-15 11:56] VITALS: BP 129/57
[2021-08-15] MEDS ORDERED: SODIUM CHLORIDE 0.9% INJ 10 ML SYR IV PRN (12:20)
[2021-08-15 12:36] VITALS: BP 107/53
[2021-08-15 13:55] VITALS: BP 105/57
[2021-08-16] MEDS ORDERED: SODIUM CHLORIDE 0.9% INJ 10 ML SYR IV SCH (09:00)
== END 2021-08-15 13:55 | disposition home or self-care (01) ==
LOC: M INFU 11:10
PROVIDERS: ATTEND Internal Medicine Hematology & Oncology
DX: D46.9 Myelodysplastic syndrome, unspecified (principal); D69.6 Thrombocytopenia, unspecified
CPT/HCPCS: 36430; 96523; J1642; P9034

== ENCOUNTER 2021-08-18 12:15 | Inpatient (IN) | payer MEDICARE ==
[~2021-08-18] VITALS: Ht 157.5 cm; Wt 28.7 kg
[2021-08-18] VITALS (9 sets, daily range): BP systolic 100–112; BP diastolic 58–63
[~2021-08-18 12:15] MED LIST changes: -ACETAMINOPHEN TAB 650MG DOSE (2X325MG) PO SCH; +LIDOCAINE 1% MDV 20ML VIAL As Ordered ONE; -diphenhydrAMINE 25MG CAP PO SCH
[2021-08-18 12:53] LABS: MEAN CORPUSCULAR HEMOGLOBIN 29.6 pg (27.0-33.0); MEAN CORPUSCULAR HGB CONC 34.1 g/dl (32.0-36.5); MEAN CORPUSCULAR VOLUME 86.7 fl (80.0-96.0); RED BLOOD COUNT 2.03 10^6/uL (4.00-5.40); WHITE BLOOD COUNT 4.1 10^3/uL (4.0-10.0)
[2021-08-18 12:55] LABS: HEMATOCRIT 17.6 % (36.0-47.0); PLATELET COUNT, AUTOMATED 6 10^3/uL (150-450)
[2021-08-18 13:27] LABS: LYMPHOCYTES 16 % (16-44); NEUTROPHILS 78 % (28-66)
[2021-08-18 13:28] LABS: PLATELET ESTIMATE MARKED DECREASE (NORMAL)
--- NOTE | 2021-08-18 14:34 | HPEPDOC ---
[facility] Medical History & Physical Date of Admission Aug 18, 2021 Date of Service: Aug 18, 2021 Attending Physician: Sandra Goode MD History and Physical CHIEF COMPLAINT: Low blood levels HISTORY OF PRESENT ILLNESS: Patient is a 75-year-old female with past medical history of advanced myelodysplastic syndrome (transfuse dependent) presented to interventional radiology today for bone marrow biopsy. Repeat labs done prior to her bone marrow biopsy today showed platelets at 6, hemoglobin is 6. The patient is transfusion dependent and is frequently low in this range for both platelets and hemoglobin. Dr. Mcintosh, radiologist, suggested a goal hemoglobin greater than 8 and platelets greater than 10 prior to doing bone marrow biopsy. Case was discussed with on-call medical oncology who suggested admission for transfusion and bone marrow biopsy in the hospital. When evaluating the patient in interventional radiology, she had no acute complaints. She has baseline shortness of breath and occasional lightheadedness likely secondary to her low blood levels. She also has chronic diarrhea which s he said has not changed in frequency. She denied chest pain, nausea, vomiting, fevers, chills, abdominal pain, recent illnesses. The patient was admitted under medicine service for pancytopenia, advanced mellitus dysplastic syndrome requiring blood and platelet transfusion. REVIEW OF SYSTEMS: CONSTITUTIONAL: Denies unexplained weight gain or weight loss, loss of appetite, fever, night sweats EYES: Denies eye drainage, eye pain, visual changes, dry/irritated eye EARS, NOSE, MOUTH, THROAT: Denies difficulty hearing, ringing in ears, mouth sores, loose teeth, sore throat, facial numbness or pain NECK: Denies swollen glands CARDIOVASCULAR: Denies irregular heartbeat, racing heart, chest pains, swelling of feet or legs, pain in legs with walking RESPIRATORY: Denies night sweats, wheezing, sputum production, oxygen at home, coughing up blood, cough lasting > 1 month GASTROINTESTINAL: Denies abdominal pain, constipation, bloody stool,heartburn, nausea, vomiting GENITOURINARY: Denies painful urination, bloody urine, frequent urination, urgency, leaking urine, impotence MUSCULOSKELETAL: Denies joint pain, muscle pain, leg swell ing INTEGUMENTARY: Denies rash, itching, new skin lesion, change in existing skin lesion, hair loss or increase, breast changes. NEUROLOGICAL: Denies headaches, dizziness, difficulty walking, numbness or tingling PSYCHIATRIC: Denies depression, anxiety, recurrent bad thoughts, mood swings, hallucinations PMH: Transfusion dependent for advanced MDS sinusitis head trauma thrombophlebitis arm diverticulosis hiatal hernia pancreatitis Iron overload cataracts syncope emphysema kidney stone Past Surgical History: cholecytectomy D&C ORIF of left wrist Family History: Mother had hypertension and diabetes Social History: She is and moved out of her house in [place]. She is now living with her son David and his daughter in [place]. Non-smoker Nondrinker ALLERGIES: Please see below. HOME MEDICATIONS: Please see below. PHYSICAL EXAMINATION: VS: Please see below CONSTITUTIONAL: No acute distress, resting comfortably, AAO x 3 EYES: PERRLA, EOM intact HENT, MOUTH: Normocephalic, atraumatic, moist mucous membranes, NECK: SUPPLE, no JVD, no lymphadenopathy, no carotid bruit CV: port in right upper chest, regular rate and rhythm, S1S2 normal, no murmurs/rubs/gallops RESPIRATORY: Clear to auscultation bilaterally, no rales/rhonchi/wheezes GI: thin abd, BS positive in 4 quadrants, soft, nontender, nondistended, no rebound or guarding, no organomegaly : Deferred MUSCULOSKELETAL: splint on left wrist hand with deformation of hand seen. No cyanosis, clubbing, swelling, joint deformity, extremity edema INTEGUMENTARY: thin extremities, Intact, no rashes, no lesions, no erythema NEUROLOGIC: Cranial Nerves II-XII are intact, no focal deficits PSYCHIATRIC: Mood and affect are normal LABORATORY DATA: Please see below IMAGING: None ASSESSMENT: 75-year-old female with past medical history of advanced my elodysplastic syndrome (transfuse dependent) admitted under medicine service for pancytopenia, advanced MDS requiring blood and platelet transfusion. PLAN: Advanced myelodysplastic syndrome, transfusion dependent -In need of BM biopsy but Hgb and PLTs not at goal -Hgb 6, PLTs 6 -No s/s of bleeding -Discussed case with med/onc who suggests admission to get levels up to goal (Hgb > 8, PLTs > [address] Mcintosh) then to have bone marrow biopsy done inpatient. -type and screen, post transfusion CBC -Plan to transfuse 2 PRBC and 2 PLT today -consent obtained Hx of iron overload from frequent transfusions -tx per med/onc DVT px: -SCD/teds DISPOSITION: Admitted as inpatient status. Med/onc consulted and discussed plan with Brigitte Ornelas NP. DNR/DNI. Vital Signs Vital Signs Date Time Temp Pulse Resp B/P (MAP) Pulse Ox O2 Delivery O2 Flow Rate FiO2 08/18/21 12:25 98.6 106 18 100 Room Air Laboratory Data Labs 24H Laboratory Tests 2 08/18/21 12:36: Immature Granulocyte % (Auto) , Neutrophils (%) (Auto) , Nucleated Red Blood Cells % (auto) 0.0, Neutrophils 78H, Band Neutrophils 6, Lymphocytes (Manual) 16, Platelet Estimate MARKED DECREASE, Immature Platelet Fraction 9.3 CBC/BMP Laboratory Tests 08/18/21 12:36 Home Medications Scheduled Deferasirox (Jadenu Sprinkle) 360 Mg Gran.pack, 360 MG PO BID for iron overload sprinkle one packet on yogurt and consume twice daily Eltrombopag Olamine (Promacta) 50 Mg Tablet, 50 MG PO DAILY Lidocaine/Prilocaine (Lidocaine-Prilocaine Cream) 2.5%/2.5% Cream..g., 1 DOSE TOP ASDIRECTED Apply dime size to port area 1 hour before appointment. Do not rub in, cover with saran wrap to protect clothing. Prednisone (Prednisone) 10 Mg Tablet, 10 MG PO DAILY Miscellaneous Medications Covid-19 Vacc, Mrna([employer])/Pf ([employer] Covid19 Vacc (Unapprov)) 30 Mcg/0.3 Ml Vial, 30 MCG IM Allergies Coded Allergies: codeine (Verified Allergy, Intermediate, RASH, 01/04/19) A-FIB/CHADSVASC A-FIB History Current/History of A-Fib/PAF?: No Current PO Anticoag Therapy: No Age/Risk Factor Scoring CHADSVASC: CHADSVASC Response (Comments) Value Age Risk Factor Age >/= 75 years old 2 Gender Risk Factor Female 1 Hx of CHF No 0 Hx of HTN No 0 Hx of Stroke/TIA/or VTE No 0 Hx of Diabetes No 0 Hx of Vascular Disease No 0 Total 3 Treatment Treatment ordered: Other Other anticoagulant ordered: none Sandra Goode MD Aug 18, 2021 14:34
[2021-08-18 15:13] LABS: ALBUMIN 3.1 GM/DL (3.2-5.2); ALT/SGPT 33 U/L (12-78); BILIRUBIN,TOTAL 0.7 MG/DL (0.2-1.0); BLOOD UREA NITROGEN 18 MG/DL (7-18); CALCIUM LEVEL 8.7 MG/DL (8.8-10.2); CARBON DIOXIDE LEVEL 27 MEQ/L (21-32); CHLORIDE LEVEL 109 MEQ/L (98-107); CREATININE FOR GFR 0.53 MG/DL (0.55-1.30); GLOMERULAR FILTRATION RATE > 60.0 (>39); GLUCOSE, FASTING 96 MG/DL (70-100); POTASSIUM SERUM 3.5 MEQ/L (3.5-5.1); SODIUM LEVEL 140 MEQ/L (136-145); TOTAL PROTEIN 5.5 GM/DL (6.4-8.2)
--- OUTSIDE RECORDS SUMMARY | 2021-08-18 16:04 | CCD | Continuity of Care Document ---
Author Author Minoo MAX DO Organization Unknown Address [address] [place] [address], [facility] [place] [address] Phone [phone] Care Team Providers Care Administrative Accountant Name Role Phone Nahid Moreno M.D. AUTM [phone] AUTM Unavailable Problems Description No Information Available Social History Type Date Description Comments Sex Unknown ETOH Use Denies alcohol use Recreational Drug Use Denies Drug Use Tobacco Use Start: Unknown Denies Smoking Smoking Status Reviewed: 06/25/21 Denies Smoking Allergies and adverse reactions Active Allergies Criticality Reaction | Severity Comments Date Codeine Unable to assess criticality Urticaria 05/02/2018 Inactive Allergies NKDA Unable to assess criticality 12/18/2011 Medications Active Medications SIG Qnty Indications Ordering Provide r Date Omeprazole 20mg Capsules DR take one capsule by mouth twice a day for reflux/difficult swallowing 60caps Maynor Alcaraz MD 03/20/2020 Jadenu Sprinkle 180mg Packet every day Unknown Multivitamins Capsules every day Unknown Prednisone 1mg Tablets Unknown Immunizations Description No Information Available Vital Signs Date Vital Result Comment 07/16/2021 10:40am Body Temperature 98.3 F 06/25/2021 10:56am Body Temperature 98.8 F Results Description No Information Available Procedures Date Code Description Status 06/18/2021 13601 FX Distal Radius Closed Treatmen t W/Manipulation Completed 06/09/2021 29792 Office/Outpatient New Low MDM 30 -44 Minutes Completed 06/09/2021 53115 FX Distal Radius Closed Treatmen t W/O Manipulation Completed Medical Devices Description No Information Available Encounters Type Date Location Provider Dx Diagnosis Office Visit 06/25/2021 11:00a [facility] Norma Max DO S52.592D Oth fx of lower end left rad, subs for c los fx w routn heal Assessments Date Code Description Provider 07/16/2021 S52.532P Colles' fracture of left radius, subsequent encounter for closed fracture with malunion Fred Max, 06/25/2021 S52.592D Other fractures of l ower end of left radius, subsequent encounter for closed fracture with routine healing Fred Max DO 06/18/2021 S52.592A Other fractures of l ower end of left radius, initial encounter for closed fracture Fred Max DO 06/18/2021 D46.9 Myelodysplastic syndrome, unspec ified Fred Max DO 06/09/2021 S52.592A Other fractures of l ower end of left radius, initial encounter for closed fracture Fred Max DO Plan of Treatment 07/16/2021 - Fred Max DO* S52.532P Colles' fracture of left radius, subsequent encounter for closed fracture with malunion* Comments:* Patient may use wrist brace Gradually wean off wrist brace over the next 2 to 4 weeks.May follow-up if she develops any painful symptoms or instability of the wrist or any further concerns. Functional Status Description No Information Available Mental Status Description No Information Available Referrals Description No Information Available"
--- OUTSIDE RECORDS SUMMARY | 2021-08-18 16:04 | CCD | Continuity of Care Document ---
Author Author Minoo MAX DO Organization Unknown Address [address] [place] [address], [facility] [place] [address] Phone [phone] Care Team Providers Care Shell Sorter Name Role Phone Nahid Moreno M.D. AUTM [phone] AUTM Unavailable Problems Description No Information Available [...] Available Procedures Date Code Description Status 06/18/2021 48069 FX Distal Radius Closed Treatmen t W/Manipulation Completed 06/09/2021 77545 Office/Outpatient New Low MDM 30 -44 Minutes Completed 06/09/2021 23327 FX Distal Radius Closed Treatmen t W/O Manipulation Completed Medical Devices Description No Information Available Encounters Type Date Location Provider Dx Diagnosis Office Visit 07/16/2021 11:00a [facility] Justo Pack, Maur ice, DO S52.592P Oth fx of lower end left radius, subs fo r clos fx w malunion D46.9 Myelodysplastic syndrome, un specified Office Visit 06/25/2021 11:00a [facility] Justo NancyNorma, DO S52.592D Oth fx of lower end left rad, subs for c los fx w routn heal Office Visit 06/09/2021 10:30a [facility] Justo NancyNorma, DO S52.592A Oth fractures of lower end of left radiu s, init for clos fx Assessments Date Code Description Provider 07/16/2021 S52.592P Other fractures of l ower end of left radius, subsequent encounter for closed fracture with malunion Justo Cruz Fred, DO 07/16/2021 D46.9 Myelodysplastic syndrome, unspec ified Justo Nancy Fred, DO 06/25/2021 S52.592D Other fractures of l ower end of left radius, subsequent encounter for closed fracture with routine healing Fred Max, DO 06/18/2021 S52.592A Other fractures of l ower end of left radius, initial encounter for closed fracture Justo Fred Cruz, DO 06/18/2021 D46.9 Myelodysplastic syndrome, unspec ified Justo Nancy Fred, DO 06/09/2021 S52.592A Other fractures of l ower end of left radius, initial encounter for closed fracture Fred Max, Plan of Treatment No Information Available Functional Status Description No Information Available Mental Status Description No Information Available Referrals Description No Information Available"
--- OUTSIDE RECORDS SUMMARY | 2021-08-18 16:04 | CCD | Continuity of Care Document ---
Author Author Minoo MAX DO Organization Unknown Address [address] [place] [address], [facility] [place] [address] Phone [phone] Care Team Providers Care Mold Carrier Name Role Phone Nahid Moreno M.D. AUTM [phone] AUTM Unavailable Problems Description No Information Available Social History Type Date Description Comments Sex Unknown ETOH Use Denies alcohol use Recreational Drug Use Denies Drug Use Tobacco Use Start: Unknown Denies Smoking Smoking Status Reviewed: 06/25/21 Denies Smoking Allergies, Adverse Reactions, Alerts Active Allergies Criticality Reaction | Severity Comments [...] Available Vital Signs Date Vital Result Comment 06/25/2021 10:56am Body Temperature 98.8 F 06/18/2021 10:42am Body Temperature 98.6 F Results Description No Information Available Procedures Date Code Description Status 06/18/2021 96497 FX Distal Radius Closed Treatmen t W/Manipulation Completed 06/09/2021 62850 Office/Outpatient New Low MDM 30 -44 Minutes Completed 06/09/2021 46516 FX Distal Radius Closed Treatmen t W/O Manipulation Completed Medical Devices Description No Information Available Encounters Type Date Location Provider Dx Diagnosis Office Visit 06/25/2021 11:00a [facility] Norma Max DO S52.592D Oth fx of lower end left rad, subs for c los fx w routn heal Assessments Date Code Description Provider 06/25/2021 S52.592D Other fractures of l ower [...] fracture Fred Max DO Plan of Treatment Future Appointment(s):* 07/16/2021 11:00 am - Fred Max DO at [facility] 06/25/2021 - Fred Max DO* S52.592D Other fractures of lower end of left radius, subsequent encounter for closed fracture with routine healing* Comments:* 1. Follow-up in 3 weeks2. Cast off and repeat x-rays3. Patient to bring in wrist splint. Functional Status Description No Information Available Mental Status Description No Information Available Referrals Description No Information Available"
--- OUTSIDE RECORDS SUMMARY | 2021-08-18 16:04 | CCD | Continuity of Care Document ---
Author Author Minoo MAX DO Organization Unknown Address [address] [place] [address], [facility] [address] Phone [phone] Care Team Providers Care Shop Director Name Role Phone Nahid Moreno M.D. AUTM [phone] AUTM Unavailable Problems Description No Information Available [...] Available Procedures Date Code Description Status 06/18/2021 95558 FX Distal Radius Closed Treatmen t W/Manipulation Completed 06/09/2021 81624 Office/Outpatient New Low MDM 30 -44 Minutes Completed 06/09/2021 09173 FX Distal Radius Closed Treatmen t W/O Manipulation Completed Medical Devices Description No Information Available Encounters Type Date Location Provider Dx Diagnosis Office Visit 06/25/2021 11:00a [facility] Norma Max DO S52.592D Oth fx [...]
--- OUTSIDE RECORDS SUMMARY | 2021-08-18 16:04 | CCD ---
Author Author [facility] Organization [facility] Address Unknown Phone Unavailable Care Team Providers Care Brick Sorter Name Role Phone Hanna Perez MD Unavailable Unavailable Hanna Perez MD Unavailable Unavailable Hanna Perez MD Unavailable Unavailable Hanna Perez MD Unavailable Unavailable Hanna Perez MD Unavailable Unavailable Hanna Perez MD Unavailable Unavailable VANESSA STARR MD Unavailable Unavailable VANESSA STARR MD Unavailable Unavailable Poiesz, J Vick Unavailable Unavailable Poiesz, J Vick Unavailable Unavailable Poiesz, J Vick Unavailable Unavailable Poiesz, J Vick Unavailable Unavailable Poiesz, J Vick Unavailable Unavailable Poiesz, J Vick Unavailable Unavailable Poiesz, J Vick Unavailable Unavailable Poiesz, J Vick Unavailable Unavailable Poiesz, J Vick Unavailable Unavailable Poiesz, J Vick Unavailable Unavailable Poiesz, J Vick Unavailable Unavailable Poiesz, J Vick Unavailable Unavailable Poiesz, J Vick Unavailable Unavailable Poiesz, J Vick Unavailable Unavailable Poiesz, J Vick Unavailable Unavailable Poiesz, J Vick Unavailable Unavailable Poiesz, J Vick Unavailable Unavailable Poiesz, J Vick Unavailable Unavailable Poiesz, J Vick Unavailable Unavailable Poiesz, J Vick Unavailable Unavailable Poiesz, J Vick Unavailable Unavailable Poiesz, J Vick Unavailable Unavailable Poiesz, J Vick Unavailable Unavailable Poiesz, J Vick Unavailable Unavailable Poiesz, J Vick Unavailable Unavailable Poiesz, J Vick Unavailable Unavailable Poiesz, J Vick Unavailable Unavailable Poiesz, J Vick Unavailable Unavailable Poiesz, J Vick Unavailable Unavailable Poiesz, J Vick Unavailable Unavailable Poiesz, J Vick Unavailable Unavailable Poiesz, J Vick Unavailable Unavailable Poiesz, J Vick Unavailable Unavailable Poiesz, J Vick Unavailable Unavailable Poiesz, J Vick Unavailable Unavailable Poiesz, J Vick Unavailable Unavailable Poiesz, J Vick Unavailable Unavailable Poiesz, J Vick Unavailable Unavailable Poiesz, J Vick Unavailable Unavailable Poiesz, J Vick Unavailable Unavailable Poiesz, J Vick Unavailable Unavailable Poiesz, J Vick Unavailable Unavailable Poiesz, J Vick Unavailable Unavailable Poiesz, J Vick Unavailable Unavailable Poiesz, J Vick Unavailable Unavailable Poiesz, J Vick Unavailable Unavailable Poiesz, J Vick Unavailable Unavailable Poiesz, J Vick Unavailable Unavailable Poiesz, J Vick Unavailable Unavailable Poiesz, J Vick Unavailable Unavailable Re-disclosure Warning The records that you are about to access may contain information from federally-assisted alcohol or drug abuse programs. If such information is present, then the following federally mandated warning applies: This information has been disclosed to you from records protected by federal confidentiality rules (42 CFR part 2). The federal rules prohibit you from making any further disclosure of this information unless further disclosure is expressly permitted by the written consent of the person to whom it pertains or as otherwise permitted by 42 CFR part 2. A general authorization for the release of medical or other information is NOT sufficient for this purpose. The Federal rules restrict any use of the information to criminally investigate or prosecute any alcohol or drug abuse patient.The records that you are about to access may contain highly sensitive health information, the redisclosure of which is protected by Article 27-F of the [place] State Public Health law. If you continue you may have access to information: Regarding HIV / AIDS; Provided by facilities licensed or operated by the [facility] Office of Mental Health; or Provided by the [facility] Office for People With Developmental Disabilities. If such information is present, then the following [facility] mandated warning applies: This information has been disclosed to you from confidential records which are protected by state law. State law prohibits you from making any further disclosure of this information without the specific written consent of the person to whom it pertains, or as otherwise permitted by law. Any unauthorized further disclosure in violation of state law may result in a fine or senior living sentence or both. A general authorization for the release of medical or other information is NOT sufficient authorization for further disc losure. Family History Family Member Name Family Member Gender Family Member Status Date o f Status Description Data Source(s) Unknown Unknown Problem [facility] ([facility]) Encounters Encounter Providers Location Date Indications Data Source(s ) Office Visit Attender: VANESSA Pink/Nova/Filipe/ Kieran 07/16/2021 11:00:00 AM EDT [facility] ([facility]) Office Visit Attender: VANESSA Son/ Kieran 06/25/2021 11:00:00 AM EDT [facility] ([facility]) Outpatient Attender: VANESSA Chrsitianson/Filipe/ Reinkelley 06/09/2021 10:30:00 AM EDT [facility] ([facility]) Outpatient Admitter: Hanna Perez MDReferrer: Hanna Perez MD 05/08/2021 12:00:00 AM EDT Leukemia, unspecified not having achieved remission [facility] Leukemia, unspecified not having achieve d remission Outpatient Attender: Vick Fitch [id number] 12:00:00 AM EST - 08/16/2020 10:44:17 AM [facility] Outpatient Attender: Vick Fitch 08/01/2020 12:00:00 AM [facility] Outpatient Attender: Vick Fitch 07/24/2020 12:00:00 AM [facility] Immunizations Vaccine Date Status Description Data Source(s) COVID-19 VACCINE Contraqer 01/10/2021 12:00:00 AM EDT completed [facility] Vaccine Series Complete: NOThis Data was Submitted to [facility] Via quitchen. COVID-19 VACCINE Contraqer 12/20/2020 12:00:00 AM EST completed [facility] Vaccine Series Complete: NOThis Data was Submitted to [facility] Via quitchen. Medications Medication Brand Name Start Date Product Form Dose Route Admi nistrative Instructions Pharmacy Instructions Status Indications Reaction Description Data Source(s) 20 mg 06/24/2021 12:00:00 AM EDT tablet 10 TAKE ONE TABLET BY MOUTH TWICE A DAY FOR 5 DAYS TAKE ONE TABLET BY MOUTH TWICE A DAY FOR 5 DAYS SOLD: 2020 [facility] Acetaminophen 325 MG / Hydrocodone Bitartrate 5 MG Ora l Tablet 5-325 mg HYDROCODONE/ACETAMINOPHEN 06/24/2021 12:00:00 AM EDT tablet 40 TAKE ONE TABLET BY MOUTH EVERY 6 HOURS NEEDED * MAXIMUM DAILY DOSE = 4 TAKE ONE TABLET BY MOUTH EVERY 6 HOURS NEEDED * MAXIMUM DAILY DOSE = 4 SOLD: 06/25/2021 [facility] 20 mg 04/04/2021 12:00:00 AM EDT capsule,delayed release (DR/EC) 60 TAKE ONE CAPSULE BY MOUTH TWICE A DAY FOR REFLUX TAKE ONE CAPSULE BY MOUTH TWICE A DAY FOR REFLUX SOLD: 04/07/2021 [facility] 2.5-2.5 % 01/24/2021 12:00:00 AM EDT cream 30 APPLY DIME-SIZE TO PORT ARE[place] ONE HOUR BEFORE APPOINTMENT, DO NOT RUB IN, COVER WITH SARAN WRAP TO PROTECT CLOTHING APPLY DIME-SIZE TO [place] ONE HOUR BE FORE APPOINTMENT, DO NOT RUB IN, COVER WITH SARAN WRAP TO PROTECT CLOTHING SOLD: 01/26/2021 [facility] 10 mg 01/23/2021 12:00:00 AM EDT tablet 30 TAKE ONE TABLET BY MOUTH EVERY DAY TAKE ONE TABLET BY MOUTH EVERY DAY SOLD: 04/02/2021 [facility] 10 mg 01/23/2021 12:00:00 AM EDT tablet 30 TAKE ONE TABLET BY MOUTH EVERY DAY TAKE ONE TABLET BY MOUTH EVERY DAY SOLD: 06/05/2021 [facility] 10 mg 01/23/2021 12:00:00 AM EDT tablet 30 TAKE ONE TABLET BY MOUTH EVERY DAY TAKE ONE TABLET BY MOUTH EVERY DAY SOLD: 01/26/2021 [facility] 5-325 mg 09/16/2020 12:00:00 AM EST tablet 40 TAKE ONE TABLET BY MOUTH EVERY 6 HOURS NEEDED, MAXIMUM DAILY DOSE = 4 TABLETS TAKE ONE TABLET BY MOUTH EVERY 6 HOURS NEEDED, MAXIMUM DAILY DOSE = 4 TABLETS SOLD: 09/16/2020 [facility] 20 mg 09/16/2020 12:00:00 AM EST tablet 10 TAKE ONE TABLET BY MOUTH TWICE A DAY TAKE ONE TABLET BY MOUTH TWICE A DAY SOLD: 09/16/2020 [facility] 10 mg 06/07/2020 12:00:00 AM EDT tablet 30 TAKE ONE TABLET BY MOUTH EVERY DAY TAKE ONE TABLET BY MOUTH EVERY DAY SOLD: 11/25/2020 [facility] 10 mg 06/07/2020 12:00:00 AM EDT tablet 30 TAKE ONE TABLET BY MOUTH EVERY DAY TAKE ONE TABLET BY MOUTH EVERY DAY SOLD: 10/17/2020 [facility] 10 mg 06/07/2020 12:00:00 AM EDT tablet 30 TAKE ONE TABLET BY MOUTH EVERY DAY TAKE ONE TABLET BY MOUTH EVERY DAY SOLD: 12/28/2020 [facility] 10 mg 06/07/2020 12:00:00 AM EDT tablet 30 TAKE ONE TABLET BY MOUTH EVERY DAY TAKE ONE TABLET BY MOUTH EVERY DAY SOLD: 08/31/2020 [facility] 10 mg 06/07/2020 12:00:00 AM EDT tablet 30 TAKE ONE TABLET BY MOUTH EVERY DAY TAKE ONE TABLET BY MOUTH EVERY DAY SOLD: 07/21/2020 [facility] 20 mg 03/21/2020 12:00:00 AM EDT capsule,delayed release (DR/EC) 60 TAKE ONE CAPSULE BY MOUTH TWICE A DAY TAKE ONE CAPSULE BY MOUTH TWICE A DAY SOLD: 08/06/2020 [facility] 20 mg 03/21/2020 12:00:00 AM EDT capsule,delayed release (DR/EC) 60 TAKE ONE CAPSULE BY MOUTH TWICE A DAY TAKE ONE CAPSULE BY MOUTH TWICE A DAY SOLD: 01/26/2021 [facility] 20 mg 03/21/2020 12:00:00 AM EDT capsule,delayed release (DR/EC) 60 TAKE ONE CAPSULE BY MOUTH TWICE A DAY TAKE ONE CAPSULE BY MOUTH TWICE A DAY SOLD: 12/17/2020 [facility] 20 mg 03/21/2020 12:00:00 AM EDT capsule,delayed release (DR/EC) 60 TAKE ONE CAPSULE BY MOUTH TWICE A DAY TAKE ONE CAPSULE BY MOUTH TWICE A DAY SOLD: 10/17/2020 Nallely Bravo Insurance Providers Payer name Policy type / Coverage type Policy ID Covered democrat ID Covered democrat's relationship to baez Policy Baez Plan Information MEDICARE [id number] SP [id number] A MEDICARE [id number] SP [id number] A MEDICARE A [id number] Self [id number] A MEDICARE A [id number] Self [id number] MEDICARE [id number] SP [id number] TODAYS OPTIONS [id number] SP [id number] UNITED H [id number] Self [id number] UHC UNITED MEDICARE COMPLETE G [id number] Self [id number] MEDICARE COMPLETE [id number] SP [id number] MEDICARE COMPLETE [id number] SP [id number] SELF PAY ONLY [id number] SP [id number] AARP U [id number] Self [id number] [employer] OPTIONS [id number] SP [id number] AARP U [id number] Self [id number] [employer] OPTIONS [id number] SP [id number] [employer] OPTIONS [id number] SP [id number] [employer] OPTIONS [id number] SP [id number] MEDICARE COMPLETE [id number] SP [id number] [employer] OPTIONS [id number] SP [id number] MEDICARE [id number] SP [id number] A [employer] OPTIONS [id number] SP [id number] [employer] [id number] SP [id number] [facility] [id number] SP [id number] [employer] [facility] OPTIONS [id number] SP [id number] SELF PAY UNAVAILABLE SP UNAVAILA [employer] [place] [id number] MEDICARE [id number] SP [id number] A [employer] OPTIONS [id number] SP [id number] MEDICARE COMPLETE-UHC O [id number] S [id number] MEDICARE COMPLETE-UHC O [id number] S [id number] MEDICARE COMPLETE [id number] SP [id number] [facility]/Medicare Solu Commercial [id number] Self [facility] [id number] SP [id number] MEDICARE COMPLETE [id number] SP [id number] [facility] O [id number] S [id number] [facility] OPTIONS C [id number] S [id number] MEDICARE C [id number] S [id number] [facility] [id number] SP [id number] AARP O [id number] S [id number] MEDICARE C [id number] S [id number] MEDICARE COMPLETE-[facility] O [id number] S [id number] [place] [id number] [place] [id number] Problems, Conditions, and Diagnoses Code Display Name Description Problem Type Effective Dates Data Source(s) D46.9 Myelodysplastic syndrome, unspecified My elodysplastic syndrome, unspecified Diagnosis 05/08/2021 02:01:00 PM EDT [facility] C95.90 Leukemia, unspecified not having achieve d remission Leukemia, unspecified not having achieved remission Diagnosis 05/08/2021 02:01:00 PM EDT [facility] Surgeries/Procedures Procedure Description Date Indications Data Source(s) CLTX DSTL RDL FX/EPIPHYSL SEP W/MANJ WHEN PERF 021 12:00:00 AM EDT [facility] CLTX DSTL RADIAL FX/EPIPHYSL SEP W/O MANJ 06/09/2021 1 2:00:00 AM EDT [facility], [facility] OFFICE OUTPATIENT NEW 30 MINUTES 06/09/2021 12:00:00 A M EDT [facility], ) HEMATOPATHOLOGY <td>HEMATOPATHOLOGY</td><td> Routine</td><td>05/08/2021 12:00 AM EDT</td><td></td><td> </td> 05/08/2021 12:00:00 AM [facility] Results ID Date Data Source 05/09/2021 05:13:00 PM [facility] Hematopathology ReportName: Molly ACVEESMRN: [id number] Number: [id number] Date: 05/08/2021 00:00Received Date: 05/09/2021 14:05Physician(s): HANNA PEREZ MD HAGHIR, SHAHANDEH F,[facility] [facility]) ReceivedA: Blood, Flow Cytometry; RECEIVED 2 GREEN TOP PB (2 EXTRA EDTA PB SENT TOMOLECULAR)Clinical [id number] patient with thrombocytopenia, leukopenia, anemia, and historyof MDS, unclassifiable with fibrosis.TEST REQUESTED/PERFORMED: Flow cytometry analysis DiagnosisFlow cytometry of blood: Pancytopenia with rare circulating blasts. Bonemarrow biopsy is recommended to further evaluate for progression of thepreviously diagnosed myelodysplastic syndrome to acute leukemia. There isno evidence of non-Hodgkin lymphoma.Yvan Garcia M.D.;Resident PathologistElectronically Signed By Leyla Jeffries MD, PhD AttendingPathologist 05/09/2021 17:13:56The attending pathologist named above attests that he/she has personallyreviewed the relevant preparation(s) for the specimen(s) and rendered thefinal diagnosis. ProceduresFlow Cytometry Date Ordered:05/09/2021 Status: Signed Out05/09/2021 InterpretationPERIPHERAL BLOOD: CBC performed at [facility], [address] [place] [address] on 05/08/21:WBC *2.9 K/uLRBC *2.20 M/uLHgb *6.2 g/dLHct *18.7 %MCV 85.0 fLMCH 28.2 pgMCHC 33.2 g/dLRDW 14.5 %Platelets *14 K/ulDifferential Count (automated):76.2 % Neutrophils 0.3 % Vysmcyifn69.1 % Lymphocytes 4.5 % Immat ure Granulocytes 5.9 % Monocytes-------100.0 % A peripheral blood film is reviewed and shows pancytopenia withleukopenia, normocytic anemia, and thrombocytopenia. A rare blast is seenwith fine chromatin and high N/C ratio.Lymphoid Panel: Titi Hennessy [id number] following markers were assayed: CD45 (gate), CD2, CD3, CD4, CD5, CD7,CD8, CD10, CD19, CD20, CD33, CD34, CD38, CD56, CD57, CD64, CD117, CD123,HLA-DR, [place], and Lambda.# events: [id number]: 99%Flow Cytometry Differential (CD45/SSC)Lymphocyte [place]gal: 8%CD45 dim [place]gal: 1%Monocyte [place]: 6%Granulocyte [place]: 81%Nucleated/Erythroid [place]: 0%The lymphocyte gate showsB-cells (CD19): 4%T-cells (CD3): 75%NK-cells (CD3- /CD56+): 19%[place]/Lambda Ratio: 1.1CD4/CD8 Ratio: 2.1Results: (expressed as % of lymphocyte gate)T-cell Markers: CD2 = 95, CD3 = 75, CD3/CD4 = 48, CD3/CD8 = 23, CD5 = 71,CD7 = 90, CD3/57 = 15B-cell markers: [place] = 3, Lambda = 2, CD19 = 4, CD20 = 5, CD19/10 = 0,CD19/CD5 = 0, CD38/CD20 = 4Light chain as % of B-Cells: CD19/[place] = 46, CD19/Lambda = 40NK cell Markers: CD56 = 23, CD57 = 15Other Markers: CD10 = 1, CD38 = 76Results: (expressed as % of CD45 dim gate)T-cell Markers: CD2 = 12, CD3 = 2, CD3/CD4 = 0, CD3/CD8 = 1, CD5 = 17, CD7= 13, CD3/57 = 1B-cell markers: [place] = 2, Lambda = 1, CD19 = 1, CD20 = 1, CD19/10 = 5,CD19/CD5 = 0, CD38/CD20 = 1Light chain as % of B-Cells: CD19/[place] = 14, CD19/Lambda = 0,CD19/CD10/[place] = 57, CD19/CD10/Lambda = 71NK cell Markers: CD56 = 8, CD57 = 1Basophil Markers: CD123 (HLA-DR-) = 1Other Markers: CD10 = 31, CD38 = 78, CD33 = 70, CD34 = 61, CD64 = 24,CD117 = 62, CD123 = 40, HLA-DR = 63 Results-CommentsThe gated population of lymphocytes consists predominantly of T cells withnormal expression of byrne T-cell markers and normal CD4/CD8 ratio, normalproportions of NK and cytotoxic T cells, and polyclonal B cells.The gated population of CD45 dim cells (1% of all cells) is comprised ofpredominately myeloid precursors expressing CD34, CD117, HLA-DR, andpartial CD33.Procedure El ectronically Signed By:Leyla Jeffries MD, PhD05/09/2021 This report may include one or more immunohistochemical stain/fluorochromeconjugated monoclonal antibody results that use analyte specific reagents.All positive and negative controls have been reviewed by the attendingpathologist and are satisfactory. The tests were developed and theirperformance characteristics determined by [facility] Pathology department.They have not been cleared or approved by the US Food and DrugAdministration. The FDA has determined that such clearance or approval isnot necessary. Name Value Range Interpretation Code Description Data Lacie rce(s) Supporting Document(s) ID Date Data Source [id number] 09/17/2020 12:00:00 AM EST [facility] Imaging Nahid Moreno MD Patient Name: KENZIE ACEVES [facility] Date of : 1945[address] Date of Exam: 09/17/2020MARLYS Delong [id number]#: Fax: [id number] EXAM: TIBIA/FIBULA LEFT (2 VIEWS) X-RAYCLINICAL INFORMATION: Pain.Two views.There is no acute fracture, dislocation, or intrinsic bone disease.IMPRESSION:Negative exam left lower leg.NIGHAT Hutchinson/Ruma you for referring GEORGE ACEVES to our office. Electronically Signed - BEVERLY KIMBALL MD 09/18/20 17:14 Name Value Range Interpretation Code Description Data Lacie rce(s) Supporting Document(s) ID Date Data Source [id number] 08/19/2020 08:33:36 AM [facility] Name Value Range Interpretation Code Description Data Lacie rce(s) Supporting Document(s) Progress Note [facility] IUPQDl5hXaWHXsIb27/MRQbwZCJgd6EvHFsvTZt4QUtmFLBxS6UxBFI3jR8fBQS1DYrSYlIwXdUfURI6 lbm [file] NT7iuVByW+MxMrQKOLpezCfzi/DE LEÓN+67OSFNUnvOXog [file] De León/KGM043F5Uujm3Po/5I7Ex8lR8xPniqGGVqKKXe9FLzdAZOr7jj1thyJxIDhQ2x7PayjhwJmaoQXab [file] LOOM FIXER APPRENTICE+Sy6IZVApKUn3A4P5OWIeRMk5F7PXU2IAOTDpLLiyAUhfILHtCRr8W0S5VHCzO0HDZ4Owdqluon7+ LY0UY28BMVFiFPb5Y3U1hQEkZ0Q5dHhFaVR1FV9QDE 8TkDt8uKMvkX0+BX5EM0FXOeQbRJv6O2V3jIZpM8Z9eIsEbNN7TP3GKA9UeLBiVJYpjvZwWc7bI2UUCX nUSzZCQPV5YN4RkGYqVL7WjSDOA1TawEDlBa9uJFeugJLtjU5dGo0pEQrnVH3IIpHCQFaIIVY0ZD0PaP LcMT0WzWHZN0ZouJNcWb1aSYudtGWirg0+TR6UMZOz If4BIe6+OKuxadCvOqvWOzY6MMQyy0XtCYw5GH9ZKG7dkAxpNJW1Jt0DbKH0cFWeK6cXBR3WyVZsT38i tLVpDGTfCi9XOtY6fkMhrK0IMH74hJXbi2P9AXUsI8alDZoen03tCMidXObMOJ6iCZRSNIrfHZikFAD3 ApXweotiUSWjBq3LKtZuHJf9iW9wbAV1NVF3MnbztU YiPRzyMhHcCdJjBrC9qFjynlc6WZbfQZ6eYHlkxxdnJLFmCjj+XItqVLVeTKGhRduUXJLfnR3kewQ7zd NcDQvztCAmUu9nq7m3UhnwBf4vCc7xSJu3MnRzDlVtTRRsHh7skZ96XNzscqKdAh3KLfTmWRP6T8AaMg pSREY+QXjpGNpjnSq8kSLqPKXoIu5SKERrDMTiPLXo ICAgICAgICAgICAgICAgICAgICAgICAgICAgICAgICAgICAgICAgICAgICAgICAgICAgICAgICAgICAg BXYjWNSsJTHyYGLrRKCpQRKiHGLwYCDuTMNjXPJdXW1SNADhPUVyLZBuMSUyZQJgVVNsAVPwOVWmCFRu ICAgICAgICAgICAgICAgICAgICAgICAgICAgICAgIC JgPTIrIPCkBEDsPUBlZRCoSTHfKPRwXISoQBVhPECfRFQjVWOrKVSpJJ4FOYJsQTPxPNItEZHeAIZzOV AgICAgICAgICAgICAgICAgICAgICAgICAgICAgICAgICAgICAgICAgICAgICAgICAgICAgICAgICAgIC DqIOGhTZZyYLSbOWWeXQPhNSUfDZPsSS3XNFXyTIBq ICAgICAgICAgICAgICAgICAgICAgICAgICAgICAgICAgICAgICAgICAgICAgICAgICAgICAgICAgICAg PBTmDEDiLPBaAZAmMLTbIWYwMZUkWJXeXCBdRGEqBQLqLK7OISHgSTNeHIHhGODbVXUcYXUnCSPiRXHj ICAgICAgICAgICAgICAgICAgICAgICAgICAgICAgIC XeGJYsRDSzUGNrDOPmCLNaXMJlYOZwQQWkLWHlNXDoSGPwTNJoNZNhACDgNQ2ZLITcCEMpMCWcEUFgDG AgICAgICAgICAgICAgICAgICAgICAgICAgICAgICAgICAgICAgICAgICAgICAgICAgICAgICAgICAgIC UmTXIbMHJjGXVrQILrRYMtNFEoKYHoAJImZJ4ZQGBf ICAgICAgICAgICAgICAgICAgICAgICAgICAgICAgICAgICAgICAgICAgICAgICAgICAgICAgICAgICAg SVLvFKKcAYUlXMOcCZDzXDOgLMZyDJKjLSDdIPOfFPIwUMArWM0VRUKuLMLtSEKbTRNfGUHjKAZnJDKc ICAgICAgICAgICAgICAgICAgICAgICAgICAgICAgIC UeVSWwQXLzYKQjQRVzPDFdFOXkRUOhFOAiYMNdYWWsIHUwPZTpLEEmGKXbPWLbAQ2CNVEaCMGvULJaWI AgICAgICAgICAgICAgICAgICAgICAgICAgICAgICAgICAgICAgICAgICAgICAgICAgICAgICAgICAgIC OuMIJqFUIeHALkAJAmEYKqNXZbDGTyXGUtBBLoIC2Q ICAgICAgICAgICAgICAgICAgICAgICAgICAgICAgICAgICAgICAgICAgICAgICAgICAgICAgICAgICAg BERrLJHiJUStXCBdANXyRAYxBGWsOLXrGNAvDQUvXMZdRNJpCKPuVA1RZY03eERdo2P7GRZgPC1znry/ Tg0DPOtgqtNwnYXgFI9AIxNpRZ0fnc0NKmSbKF8lnc 2FKXfPRxPmI6Z4uYPxFJBsQCZSLcZyT78cDLqkWh02LOwtVSKcQgLrNBf7Rn7FDpIwR3kcBXLuNoS0HF AxGpF3TAZzLhF0QSUjUeBhMLxiCT4Xh8XjbZPkZJq+Al3MSZ5oe5YrRZvnHyAtXS0zot6IAAnKUiJvN9 UcmoM6NUD1UMZyCa7TSPUrRGTsbYWuHtYgCBULFhJb B2WajI50RWQSUk4+OGqydzLqLwrFCrH5JPHgs6SeJJn1RC1QZPSiRLh2pYFhUBMtR3Gws6FiMt35BETs UaebIeSxvrBpIWWNOXOntEYujbvmITWdGXUtEHWyNu9pOELtTPOhNkMiGHYCAE0KISPaRSRrtOAyUYMb PFLRXV3VJEusMOC9GQIyskNcxQTzEUeeJL0MNNAxmz QgMjYgMCBSDQo+Zp8JBJ5oj6PrOFsnLPPnQK6uar1VEDhJWbLpM7X8rSLpL3H9UJebDk5FHGFvIUHdEl YoAJSHGIeeHP8TTQ3hmrY8LS3AcQBiFTOdHJYjaGAyBNq9D98ujGKsJWbcKC8UWDM+Venkata+Rg1EWIIuKM JhIJXxKiQlQIITCxGhN9XiW3IXf3FdS3VeGW75zWlc dvHtPUrjMQ8LLS9sASPfDZYIPL5DgXIprW5dnmAbRoBeNKWNAiSbJ86pfZFpJHQoWSL2PSXkJe2LHYKp F8FbdcYrfNbixcRpGKShJRNGIP4ZNZmlfePdiDRgxOczMA37qRxvVJ5LDr1UGfOfPU0kog5BfLQyDe8V YRMfDX2RNKVuDFGvEYMzYFZ7SQMwYaYwTFtsZMHqHV FxKJF6ZKVsDOPtFA7WDyMcJDOhLjvbYEUiRPYlMTQuut4PSMOpQKEuKCabOSDaBVXpXVSuIJcuMYPyJN BqBTD2HCFhQVFqZW5HZxGvGUKiEAVuIYPfEIFeCFKbwl1FSBZqJRQmPICnLJUxGICnKHUrOQjkEMDrPE J8Avu7HZKtFGIkHQ5KTyLtOXIxBFbeHRMbXKDrKNNb xn5QRTClNTAvSURdFjMuMFEsJGOoGCleXROiMHMlEMXhKRJyNMOoTH0UQzIwOZFiYKS4XxTiRBNuBDCz oy6MBBAmFJIxVUc9GZMtLIUdGLKyZZfcIJSdBKTkLTCzMRPbGDRaJJ9EBzUdKDYvYAMbEYHwOASmYJYv ld3KVQOnHMHtPuFlWsNsWMNaIYFhDYfmLSWbZIArKW TzCMPvUHZlMY9PEfVwUBQgEaJ0RaDtWKMmBNIfhs2XHNXbUOAuPHU2VCJiNKUnARRlOCipASXbMHG8RA C1RXPpIDKcSA2ZLmYyOKIeBkT8SGRuWEOdRYDfxw4MIUVrYTYeFGj2CCTrIGCaEJUmHNolTIXqINW0YE MtIJHqGYRaWV9PAbEbYFHoCuK6SYSnEGUqYQQemr4N BVTdLFUvAoR4OiByYGKlRCXkCUzcEFKxVHG0ZBk1NKDvIJDxON4AJjHtHHRkRmdxKnxaRNMgTOIeue4X FISbAUEaVXCmKRBtRSVhDSOdFPtgKTFzFTR9IdAaIGTnADBtVA0PNuXkDYudCWDPZct1FFojL5t3WVTr DB7OA9Xcn7KaGshzYOCABQnwAQ2xioXgRAXrIu7VG1 bDTbelCCX9VQU3PhPyBuZ2RsVxOOxyMDUnBGZeSGagSRHbUE6sQHG2GgN8YFj9SMReRyQ0CEZmBQKvSG GcZUAjC5ZbHUD4LnBtIS2EXm4XEnJ7IAE8rPUiPr6MXyu2TWJXBuYwVH9XVIj= Procedure Social History Code Duration Value Status Description Data Source(s ) Alcohol intake 08/19/2020 12:00:00 AM EST Current non-d artem of alcohol (finding) completed Current non-drinker of alcohol (finding) [facility] Tobacco use and exposure 08/19/2020 12:00:00 AM EST Never used co mpleted Never used [facility] Smoking 08/19/2020 12:00:00 AM EST Never smoker completed Never s mdker [facility] Vital Signs ID Date Data Source UNK Name Value Range Interpretation Code Description Data Source(s) Body temperature 98.3 [degF] 98.3 [degF] [facility] ([facility], ) Body temperature 98.8 [degF] 98.8 [degF] [facility] ([facility], ) Body temperature 98.6 [degF] 98.6 [degF] [facility] ([facility], ) Body temperature 98.8 [degF] 98.8 [degF] [facility] ([facility], ) ID Date Data Source [id number] 08/19/2020 08:33:36 AM EST [facility] Name Value Range Interpretation Code Description Data Source(s) WEIGHT RECORDED 95.[address] [facility]
--- OUTSIDE RECORDS SUMMARY | 2021-08-18 16:04 | CCD | Continuity of Care Document ---
Author Author Minoo MAX DO Organization Unknown Address [address] [place] [address], [facility] [place] [address] Phone [phone] Care Team Providers Care Director Of Institutional Sales Name Role Phone Nahid Moreno M.D. AUTM [phone] AUTM Unavailable Problems Description No Information Available Social History Type Date Description Comments Sex Unknown ETOH Use Denies alcohol use Recreational Drug Use Denies Drug Use Tobacco Use Start: Unknown Denies Smoking Smoking Status Reviewed: 06/18/21 Denies Smoking Allergies, Adverse Reactions, Alerts Active [...] Available Vital Signs Date Vital Result Comment 06/18/2021 10:42am Body Temperature 98.6 F 06/09/2021 10:22am Body Temperature 98.8 F Results Description No Information Available Procedures Description No Information Available Medical Devices Description No Information Available Encounters Description No Information Available Assessments Date Code Description Provider 06/18/2021 S52.592D Other fractures of l ower end of left radius, subsequent encounter for closed fracture with routine healing Fred Max DO 06/09/2021 S52.591A Other fractures of l ower end of right radius, initial encounter for closed fracture Justo Pack, Fred, DO Plan of Treatment Future Appointment(s):* 06/25/2021 11:00 am - Fred Max DO at [facility] 06/18/2021 - Fred Max DO* S52.592D Other fractures of lower end of left radius, subsequent encounter for closed fracture with routine healing* New Xrays:* XR Wrist Complete Minimum 3 Views Left, Ordered: 06/18/21 * XR Wrist Complete Minimum 3 Views Left, Ordered: 06/18/21 * Comments:* Left distal radius fracture. Pathologic possible cystic middle of the distal radius. Patient known to have myelodysplasia. Repeat x-rays today show loss of reduction increased dorsal tilt.Repeat close reduction and casting performed today in the office.Given patient's comorbidities. Would like to try to avoid surgery. Discussed at length with patient and her son the malunion. Reviewed images showing cystic metal of the distal radius. We will try to continue with cast immobilization. Accept possible deformity, loss of range of motion, also business consult strength. Plan:Follow-up in 1 week for repeat x-rays left distal radius. Functional Status Description No Information Available Mental Status Description No Information Available Referrals Description No Information Available"
--- OUTSIDE RECORDS SUMMARY | 2021-08-18 16:04 | CCD | Continuity of Care Document ---
Author Author Minoo MAX DO Organization Unknown Address [address] [place] [address], [facility] [place] [address] Phone [phone] Care Team Providers Care Medical Instructor Name Role Phone Nahid Moreno M.D. AUTM [phone] AUTM Unavailable Problems Description No Information Available [...] Available Procedures Date Code Description Status 06/18/2021 32218 FX Distal Radius Closed Treatmen t W/Manipulation Completed 06/09/2021 92367 Office/Outpatient New Low MDM 30 -44 Minutes Completed 06/09/2021 27517 FX Distal Radius Closed Treatmen t W/O Manipulation Completed Medical Devices Description No Information Available Encounters Type Date Location Provider Dx Diagnosis Office Visit 07/16/2021 11:00a [facility] Justo Pack, Maur ice, DO S52.592P Oth fx of lower end left radius, subs fo r clos fx w malunion D46.9 Myelodysplastic syndrome, un specified Office Visit 06/25/2021 11:00a [facility] Justo NancyNorma, DO S52.592D Oth fx of lower end left rad, subs for c los fx w routn heal Office Visit 06/09/2021 10:30a [facility] Justo NancyNorma, DO S52.592A Oth fractures [...]
--- OUTSIDE RECORDS SUMMARY | 2021-08-18 16:04 | CCD | Continuity of Care Document ---
Author Author Minoo MAX DO Organization Unknown Address [address] [place] [address], [facility] [place] [address] Phone [phone] Care Team Providers Care Gear Straightener Name Role Phone Nahid Moreno M.D. AUTM [phone] AUTM Unavailable Problems Description No Information Available [...] Available Procedures Date Code Description Status 06/18/2021 26095 FX Distal Radius Closed Treatmen t W/Manipulation Completed 06/09/2021 89331 Office/Outpatient New Low MDM 30 -44 Minutes Completed 06/09/2021 91521 FX Distal Radius Closed Treatmen t W/O Manipulation Completed Medical Devices Description No Information Available Encounters Description No Information Available Assessments Date Code Description Provider 06/25/2021 S52.592A Other fractures of l ower end of left radius, initial encounter for closed fracture Fred Max DO 06/18/2021 S52.592A Other fractures of l ower end of left radius, initial encounter for closed fracture Fred Max DO 06/18/2021 D46.9 Myelodysplastic syndrome, unspec ified Fred Max DO 06/09/2021 S52.592A Other fractures of l ower end of left radius, initial encounter for closed fracture Fred Max DO Plan of Treatment Future Appointment(s):* 07/16/2021 11:00 am - Fred Max DO at [facility] 06/25/2021 - Fred Max DO* S52.592A Other fractures of lower end of left radius, initial encounter for closed fracture* Comments:* 1. Follow-up in 3 weeks2. Cast off and repeat x-rays3. Patient to bring in wrist splint. Functional Status Description No Information Available Mental Status Description No Information Available Referrals Description No Information Available"
--- OUTSIDE RECORDS SUMMARY | 2021-08-18 16:04 | CCD | Continuity of Care Document ---
Author Author Minoo MAX DO Organization Unknown Address [address] [place] [address], [place] [address] Phone [phone] Care Team Providers Care Fire Fighter [employer] Name Role Phone Nahid Moreno M.D. AUTM [phone] AUTM Unavailable Problems Description No Information Available [...] Available Procedures Date Code Description Status 06/18/2021 86380 FX Distal Radius Closed Treatmen t W/Manipulation Completed 06/09/2021 55179 Office/Outpatient New Low MDM 30 -44 Minutes Completed 06/09/2021 46857 FX Distal Radius Closed Treatmen t W/O Manipulation Completed Medical Devices Description No Information Available Encounters Type Date Location Provider Dx Diagnosis Office Visit 06/25/2021 11:00a [facility] Norma Max DO S52.592D Oth [...]
--- OUTSIDE RECORDS SUMMARY | 2021-08-18 16:04 | CCD | Continuity of Care Document ---
Author Author Minoo MAX DO Organization Unknown Address [address] [place] [address], [facility] [place] [address] Phone [phone] Care Team Providers Care Drying Room Operator Name Role Phone Nahid Moreno M.D. AUTM [phone] AUTM Unavailable Problems Description No Information Available [...] Available Procedures Date Code Description Status 06/18/2021 95620 FX Distal Radius Closed Treatmen t W/Manipulation Completed 06/09/2021 22378 Office/Outpatient New Low MDM 30 -44 Minutes Completed 06/09/2021 22078 FX Distal Radius Closed Treatmen t W/O Manipulation Completed Medical Devices Description No Information Available Encounters Type Date Location Provider Dx Diagnosis Office Visit 06/25/2021 11:00a [facility] Norma Max DO S52.592D Oth fx [...]
--- OUTSIDE RECORDS SUMMARY | 2021-08-18 16:04 | CCD | Continuity of Care Document ---
Author Author Minoo MAX DO Organization Unknown Address [address] [place] [address], [facility] [place] [address] Phone [phone] Care Team Providers Care Rubber Off Name Role Phone Nahid Moreno M.D. AUTM [phone] AUTM Unavailable Problems Description No Information Available [...] Available Procedures Date Code Description Status 06/18/2021 48102 FX Distal Radius Closed Treatmen t W/Manipulation Completed 06/09/2021 83909 Office/Outpatient New Low MDM 30 -44 Minutes Completed 06/09/2021 51538 FX Distal Radius Closed Treatmen t W/O Manipulation Completed Medical Devices Description No Information Available Encounters Description No Information Available Assessments Date Code Description Provider 06/25/2021 S52.592A Other fractures of l ower end of left radius, initial encounter for closed fracture Justo Fred Cruz, 06/18/2021 S52.592A Other fractures of l ower end of left radius, initial encounter for closed fracture Fred Max, 06/18/2021 D46.9 Myelodysplastic syndrome, unspec ified Fred Max, 06/09/2021 S52.592A Other fractures of l ower end of left radius, initial encounter for closed fracture Justo Cruz FredDO missy Plan of Treatment No Information Available Functional Status Description No Information Available Mental Status Description No Information Available Referrals Description No Information Available"
--- OUTSIDE RECORDS SUMMARY | 2021-08-18 16:04 | CCD | Continuity of Care Document ---
Author Author Minoo MAX DO Organization Unknown Address [address] [place] [address], [facility] [place] [place] [address] Phone [phone] Care Team Providers Care Office Worker Name Role Phone Nahid Moreno M.D. AUTM [phone] AUTM Unavailable Problems Description No Information Available [...] Available Procedures Date Code Description Status 06/18/2021 84888 FX Distal Radius Closed Treatmen t W/Manipulation Completed 06/09/2021 19708 Office/Outpatient New Low MDM 30 -44 Minutes Completed 06/09/2021 41475 FX Distal Radius Closed Treatmen t W/O Manipulation Completed Medical Devices Description No Information Available Encounters Type Date Location Provider Dx Diagnosis Office Visit 06/25/2021 11:00a [facility] Norma Max DO S52.592D Oth [...]
[2021-08-18] MEDS: predniSONE 10 MG TAB PO SCH (17:30)
--- NOTE | 2021-08-18 19:08 | CR.PDOC ---
General Date of Consultation: Aug 18, 2021 Referring Provider: Sandra Goode MD Attending Physician: Sandar Goode MD Consultation REASON FOR CONSULTATION: Significant thrombocytopenia. HISTORY OF PRESENT ILLNESS: 75-year-old with myelodysplastic syndrome. Currently admitted for thrombocyto penia prior to bone marrow biopsy. ALLERGIES: Please see below. HOME MEDICATIONS: Please see below. PAST MEDICAL HISTORY: Transfusion dependent myelodysplastic syndrome sinusitis head trauma thrombophlebitis arm diverticulosis hiatal hernia pancreatitis Myelodysplasia cataracts syncope emphysema kidney stone PAST SURGICAL HISTORY: cholecytectomy D&C ORIF of left wrist. FAMILY HISTORY: Maternal uncle had leukemia. Maternal first cousin had leukemia. SOCIAL HISTORY: She is Non-smoker Nondrinker REVIEW OF SYSTEMS: Reports fatigue, shortness of breath on exertion, night sweats particular in head, easy bruising. Rest of review of systems negative. PHYSICAL EXAMINATION: VITAL SIGNS: Please see below. GENERAL APPEARANCE: Alert, comfortable, lying comfortably in bed. Not in distress. HEENT: Slightly pale conjunctive, anicteric RESPIRATORY: Lungs clear. No rales rhonchi no wheeze. CARDIOVASCULAR: S1-S2. ABDOMEN: Soft, nontender, no guarding. EXTREMITIES: No calf swelling, no calf tenderness no pedal edema. No clubbing. NEUROLOGICAL: Alert, oriented X3. PSYCHIATRIC: Mood normal. LABORATORY DATA: Please see below. ASSESSMENT/PLAN: 75-year-old with significant anemia and thrombocytopenia, presumed secondary to MDS with a concern for transformation to leukemia. Dr. Huynh and Dr. Gomez wanted the patient to have a bone marrow aspiration and biopsy. Interventional radiologist requesting platelet transfusion prior to procedure. Agree with transfusion support for significant anemia and for thrombocytopenia prior to procedure. Thank you for informing us of Ms. Minoo Walls's admission. Vital Signs/I&O Vital Signs Date Time Temp Pulse Resp B/P (MAP) Pulse Ox O2 Delivery O2 Flow Rate FiO2 08/18/21 17:12 98.5 93 18 110/60 100 Room Air Laboratory Data Labs 24H Laboratory Tests 2 08/18/21 12:36: Immature Granulocyte % (Auto) , Neutrophils (%) (Auto) , Nucleated Red Blood Cells % (auto) 0.0, Neutrophils 78H, Band Neutrophils 6, Lymphocytes (Manual) 16, Platelet Estimate MARKED DECREASE, Immature Platelet Fraction 9.3 08/18/21 14:18: Anion Gap 4L, Glomerular Filtration Rate > 60.0, Calcium Level 8.7L, Total Bilirubin 0.7, Aspartate Amino Transf (AST/SGOT) 16, Alanine Aminotransferase (ALT/SGPT) 33, Alkaline Phosphatase 95, Total Protein 5.5L, Albumin 3.1L, Albumin/Globulin Ratio 1.3, Coronavirus (COVID-19)(PCR) NEGATIVE CBC/BMP Laboratory Tests 08/18/21 12:36 08/18/21 14:18 Allergies Coded Allergies: codeine (Verified Allergy, Intermediate, RASH, 01/04/19) Home Medications Scheduled Deferasirox (Jadenu Sprinkle) 360 Mg Gran.pack, 360 MG PO BID for iron overload for 30 Days, #60 sprinkle one packet on yogurt and consume twice daily Eltrombopag Olamine (Promacta) 50 Mg Tablet, 50 MG PO DAILY for 30 Days, #30 Lidocaine/Prilocaine (Lidocaine-Prilocaine Cream) 2.5%/2.5% Cream..g., 1 DOSE TOP ASDIRECTED, #30 Apply dime size to port area 1 hour before appointment. Do not rub in, cover with saran wrap to protect clothing. Prednisone (Prednisone) 10 Mg Tablet, 10 MG PO DAILY for 30 Days, #30 ZACH SNYDER MD FACP Aug 18, 2021 18:30
[2021-08-18] MEDS: DEFERASIROX PO SCH (21:04)
[2021-08-19] VITALS (16 sets, daily range): BP systolic 96–143; BP diastolic 52–73
[2021-08-19 03:59] LABS: HEMOGLOBIN 7.3 g/dl (12.0-15.5); MEAN CORPUSCULAR HEMOGLOBIN 29.8 pg (27.0-33.0); MEAN CORPUSCULAR HGB CONC 34.8 g/dl (32.0-36.5); MEAN CORPUSCULAR VOLUME 85.7 fl (80.0-96.0); RED BLOOD COUNT 2.45 10^6/uL (4.00-5.40); WHITE BLOOD COUNT 3.9 10^3/uL (4.0-10.0)
[2021-08-19 04:13] LABS: PLATELET COUNT, AUTOMATED 19 10^3/uL (150-450)
[2021-08-19 06:28] LABS: HEMOGLOBIN 7.3 g/dl (12.0-15.5); MEAN CORPUSCULAR HEMOGLOBIN 29.7 pg (27.0-33.0); MEAN CORPUSCULAR HGB CONC 34.8 g/dl (32.0-36.5); MEAN CORPUSCULAR VOLUME 85.4 fl (80.0-96.0); RED BLOOD COUNT 2.46 10^6/uL (4.00-5.40); WHITE BLOOD COUNT 3.2 10^3/uL (4.0-10.0)
[2021-08-19 06:30] LABS: PLATELET COUNT, AUTOMATED 18 10^3/uL (150-450)
[2021-08-19 06:44] LABS: BLOOD UREA NITROGEN 18 MG/DL (7-18); CALCIUM LEVEL 8.1 MG/DL (8.8-10.2); CARBON DIOXIDE LEVEL 26 MEQ/L (21-32); CHLORIDE LEVEL 111 MEQ/L (98-107); CREATININE FOR GFR 0.52 MG/DL (0.55-1.30); GLOMERULAR FILTRATION RATE > 60.0 (>39); GLUCOSE, FASTING 97 MG/DL (70-100); POTASSIUM SERUM 3.8 MEQ/L (3.5-5.1); SODIUM LEVEL 143 MEQ/L (136-145)
[2021-08-19] MEDS ORDERED: FLUBLOK(EGG FREE)(QUAD)INFLUENZA VACC 0.5ML SYRINGE 18YRS & OLDER IM ONE (09:00)
[2021-08-19] MEDS: predniSONE 10 MG TAB PO SCH (09:50)
[2021-08-19] MEDS: DEFERASIROX PO SCH ×2 (09:51→20:41)
[2021-08-19] MEDS ORDERED: HOME MED LIST COMPLETE! XX SCH (10:25)
--- NOTE | 2021-08-19 12:04 | IPNPDOC ---
Text Note Date of Service The patient was seen on 08/19/21. NOTE SUBJECTIVE: -No acute complaints OBJECTIVE: VS: Please see below CONSTITUTIONAL: No acute distress, resting comfortably, AAO x 3 EYES: PERRLA, EOM intact HENT, MOUTH: Normocephalic, atraumatic, moist mucous membranes, NECK: SUPPLE, no JVD, no lymphadenopathy, no carotid bruit CV: port in right upper chest, regular rate and rhythm, S1S2 normal, no murmurs/rubs/gallops RESPIRATORY: Clear to auscultation bilaterally, no rales/rhonchi/wheezes GI: thin abd, BS positive in 4 quadrants, soft, nontender, nondistended, no rebound or guarding, no organomegaly : Deferred MUSCULOSKELETAL: splint on left wrist hand with deformation of hand seen. No cyanosis, clubbing, swelling, joint deformity, extremity edema INTEGUMENTARY: thin extremities, Intact, no rashes, no lesions, no erythema NEUROLOGIC: Cranial Nerves II-XII are intact, no focal deficits PSYCHIATRIC: Mood and affect are normal LABORATORY DATA: Reviewed WBC 3.2 Hgb 7.3 platelets 18 Na 143 K 3.8 Cr 0.52 IMAGING: None ASSESSMENT: 75-year-old female with past medical history of advanced myelodysplastic syndrome (transfuse dependent) admitted under medicine service for pancytopenia, advanced MDS requiring blood and platelet transfusion. PLAN: MDS, transfusion dependent w/ c/f transformation to AML pending bone marrow biopsy -Hgb 7.3, pending bone marrow biopsy today with blood hanging, pending 2 units -PLTs 18, goal >10 -No s/s of bleeding -Discussed case with med/onc who suggests admission to get levels up to goal (Hgb > 8, PLTs > [address] Mcintosh) -Plan to transfuse 2 PRBC today -Thus far has had 2u pRBCs and 2 PLT Hx of iron overload from frequent transfusions -To continue home Jadenu per med/onc Thrombocytopenia: chronic 2/2 MDS -will discuss with heme if eltrombopag has to be held? DVT px: -SCD/teds DISPOSITION: Admitted as inpatient status. Med/onc consulted and discussed plan with Brigitte Ornelas NP. DNR/DNI. VS,Lili, I+O VSLili, I+O Laboratory Tests 08/18/21 12:36 08/18/21 14:18 08/19/21 03:52 08/19/21 06:02 Vital Signs Date Time Temp Pulse Resp B/P (MAP) Pulse Ox O2 Delivery O2 Flow Rate FiO2 08/19/21 06:00 98.2 77 18 107/57 (74) 98 Room Air I&O- Last 24 Hours up to 6 AM 08/19/21 06:00 Intake Total 1379 ml Output Total 610 ml Balance 769 ml JENNIFER ROSS MD Aug 19, 2021 09:53
[2021-08-19] MEDS ORDERED: LIDOCAINE 1% MDV 20ML VIAL As Ordered ONE (12:19)
[2021-08-19 12:26] LABS: BASO % 0.3 % (0.0-1.0); LYMPH # 0.4 10^3/uL (1.5-5.0); LYMPH % 11.8 % (24.0-44.0); MONO # 0.2 10^3/uL (0.0-0.8); MONO % 4.6 % (2.0-8.0); NEUTROPHILS # 2.5 10^3/uL (1.5-8.5); NEUTROPHILS % 78.3 % (36.0-66.0)
[2021-08-19 15:09] LABS: HEMATOCRIT 28.3 % (36.0-47.0)
[2021-08-19 15:12] LABS: HEMOGLOBIN 9.9 g/dl (12.0-15.5)
[2021-08-20 06:00] VITALS: BP 99/55
[2021-08-20 06:58] LABS: BLOOD UREA NITROGEN 16 MG/DL (7-18); CARBON DIOXIDE LEVEL 25 MEQ/L (21-32); CHLORIDE LEVEL 114 MEQ/L (98-107); CREATININE FOR GFR 0.56 MG/DL (0.55-1.30); GLOMERULAR FILTRATION RATE > 60.0 (>39); GLUCOSE, FASTING 84 MG/DL (70-100); POTASSIUM SERUM 3.8 MEQ/L (3.5-5.1); SODIUM LEVEL 143 MEQ/L (136-145)
[2021-08-20 07:01] LABS: HEMATOCRIT 30.2 % (36.0-47.0); HEMOGLOBIN 10.4 g/dl (12.0-15.5); MEAN CORPUSCULAR HEMOGLOBIN 30.4 pg (27.0-33.0); MEAN CORPUSCULAR HGB CONC 34.4 g/dl (32.0-36.5); MEAN CORPUSCULAR VOLUME 88.3 fl (80.0-96.0); PLATELET COUNT, AUTOMATED 19 10^3/uL (150-450); RED BLOOD COUNT 3.42 10^6/uL (4.00-5.40); WHITE BLOOD COUNT 2.7 10^3/uL (4.0-10.0)
[2021-08-20] MEDS: predniSONE 10 MG TAB PO SCH (08:18)
[2021-08-20 08:20] VITALS: BP 115/60
[2021-08-20] MEDS: DEFERASIROX PO SCH (08:20)
--- NOTE | 2021-08-20 08:22 | DS.PDOC ---
Discharge Summary General Date of Admission Aug 18, 2021 at 13:58 Date of Discharge 08/20/2021 Attending Physician: JENNIFER ROSS MD Discharge Summary PROCEDURES PERFORMED DURING STAY: Bone marrow biopsy on 08/19/2021 ADMITTING DIAGNOSES: Pancytopenia 2/2 MDS DISCHARGE DIAGNOSES: Pancytopenia 2/2 transfusion dependent MDS Chronic Iron overload COMPLICATIONS/CHIEF COMPLAINT: Myelodysplastic Syndrome. HISTORY OF PRESENT ILLNESS: 75-year-old W with past medical history of advanced myelodysplastic syndrome (transfuse dependent) who presented to interventional radiology for a bone marrow biopsy but labs done prior to her bone marrow biopsy showed platelets at 6 and hemoglobin of 6. Dr[address] Mcintosh, the radiologist, suggested a goal hemoglobin greater than 8 and platelets greater than 10 prior to doing bone marrow biopsy. Case was discussed with on-call medical oncology who suggested admission for transfusion and bone marrow biopsy in the hospital. HOSPITAL COURSE: On evaluation she had no acute complaints. She has baseline shortness of breath and occasional lightheadedness likely secondary to her anemia. She also reported chronic diarrhea which she said had not changed in frequency. She denied chest pain, nausea, vomiting, fevers, chills, abdominal pain, recent illnesses. The patient was admitted under medicine service for pancytopenia, advanced mellitus dysplastic syndrome requiring blood and platelet transfusion. She was ultimately transfused 4 units of pRBCs and 2 pools of platelets and had the bone marrow biopsy on 08/19/2021. She is now being discharged home to follow up with hematology and PCP within 1 week. DISCHARGE MEDICATIONS: Please see below. ALLERGIES: Please see below. PHYSICAL EXAMINATION ON DISCHARGE: VITAL SIGNS: Please see below. CONSTITUTIONAL: No acute distress, resting comfortably, AAO x 3 EYES: PERRLA, EOM intact HENT, MOUTH: Normocephalic, atraumatic, moist mucous membranes, NECK: SUPPLE, no JVD, no lymphadenopathy, no carotid bruit CV: port in right upper chest, regular rate and rhythm, S1S2 normal, no murmurs/rubs/gallops RESPIRATORY: Clear to auscultation bilaterally, no rales/rhonchi/wheezes GI: thin abd, BS positive in 4 quadrants, soft, nontender, nondistended, no rebound or guarding, no organomegaly NEUROLOGIC: Cranial Nerves II-XII are intact, no focal deficits PSYCHIATRIC: Mood and affect are normal LABORATORY DATA: Please see below. IMAGING: None PROGNOSIS: Good, however high risk for re-admission given transfusion dependency and c/f aggressive MDS potential transformation ACTIVITY: As tolerated DIET: Regular DISCHARGE PLAN: Home with prompt hematology and PCP follow up within 1 week DISPOSITION: Home DISCHARGE INSTRUCTIONS: Home with prompt hematology and PCP follow up within 1 week ITEMS TO FOLLOWUP ON ON OUTPATIENT: Pancytopenia MDS DISCHARGE CONDITION: Stable TIME SPENT ON DISCHARGE: 40 minutes. Vital Signs/I&Os Vital Signs Date Time Temp Pulse Resp B/P (MAP) Pulse Ox O2 Delivery O2 Flow Rate FiO2 08/20/21 06:00 98.9 78 20 99/55 (70) 98 Room Air I&O- Last 24 Hours up to 6 AM 08/20/21 06:00 Intake Total 1740 ml Output Total 1050 ml Balance 690 ml Laboratory Data Labs 24H Laboratory Tests 2 08/20/21 06:13: Nucleated Red Blood Cells % (auto) 0.0, Immature Platelet Fraction 1.8, Anion Gap 4L, Glomerular Filtration Rate > 60.0, Calcium Level 8.0L CBC/BMP Laboratory Tests 08/19/21 14:45 08/20/21 06:13 Discharge Medications Scheduled Deferasirox (Jadenu Sprinkle) 360 Mg Gran.pack, 360 MG PO BID for iron overload sprinkle one packet on yogurt and consume twice daily Eltrombopag Olamine (Promacta) 50 Mg Tablet, 50 MG PO DAILY Lidocaine/Prilocaine (Lidocaine-Prilocaine Cream) 2.5%/2.5% Cream..g., 1 DOSE TOP ASDIRECTED Apply dime size to port area 1 hour before appointment. Do not rub in, cover with saran wrap to protect clothing. Prednisone (Prednisone) 10 Mg Tablet, 10 MG PO DAILY Allergies Coded Allergies: codeine (Verified Allergy, Intermediate, RASH, 01/04/19) JENNIFER ROSS MD Aug 20, 2021 08:22
[2021-08-20] MEDS ORDERED: FLUBLOK(EGG FREE)(QUAD)INFLUENZA VACC 0.5ML SYRINGE 18YRS & OLDER IM ONE (09:00)
[2021-08-20] MEDS ORDERED: SODIUM CHLORIDE 0.9% INJ 10 ML SYR IV PRN (11:45)
--- NOTE | 2021-08-20 17:22 | REP ---
INDICATION: Bone marrow biopsy. COMPARISON: None. TECHNIQUE: The procedure is performed by KENDALL Hendricks, under the direct supervision of Dr. Mcintosh. The risks and benefits of the procedure were explained to the patient and informed consent was obtained both orally and written. Directly prior to the start of the procedure, a formal timeout was done in the exam room. The left iliac crest was localized using CT guidance. Skin was prepped and draped in the usual sterile fashion. Seven ml of 1% lidocaine was used as a local anesthetic. FINDINGS: Using CT guidance an 11 gauge bone biopsy system was inserted. Approximately 3 mL of marrow fluid was obtained, as well as 1 core of bone. Patient tolerated the procedure well and there were no immediate complications. The patient was discharged back to the floor for further monitoring. IMPRESSION: CT-guided bone marrow aspiration and core bone biopsy. <Electronically signed by Jewell Moody > 08/19/21 [id number] <Electronically signed by Lisandro Mcintosh > 08/20/21 [id number]
[2021-08-21] MEDS ORDERED: SODIUM CHLORIDE 0.9% INJ 10 ML SYR IV SCH (09:00)
== END 2021-08-20 12:30 | disposition home or self-care (01) | DRG 812 ==
LOC: M IRPRO 12:15 → M MSPAV 13:58
PROVIDERS: ADMIT Internal Medicine; ATTEND Internal Medicine
PROC: 30233R1 Transfusion of Nonautologous Platelets into Peripheral Vein, Percutaneous Approach (ICD-10-PCS; principal; 2021-08-19 12:30)
PROC: 07DR3ZX Extraction of Iliac Bone Marrow, Percutaneous Approach, Diagnostic (ICD-10-PCS; 2021-08-20)
DX: D46.9 Myelodysplastic syndrome, unspecified (principal); D61.818 Other pancytopenia; D69.6 Thrombocytopenia, unspecified; Z88.5 Allergy status to narcotic agent; Z79.899 Other long term (current) drug therapy; K57.30 Diverticulosis of large intestine without perforation or abscess without bleeding; K44.9 Diaphragmatic hernia without obstruction or gangrene; J43.9 Emphysema, unspecified; Z79.52 Long term (current) use of systemic steroids

== ENCOUNTER 2021-08-28 11:24 | Outpatient (CLI) | payer MEDICARE ==
[~2021-08-28] VITALS: Ht 160 cm; Wt 38.1 kg
[~2021-08-28 11:24] MED LIST changes: -LIDOCAINE 1% MDV 20ML VIAL As Ordered ONE; +OMEP-218
[2021-08-28 11:40] VITALS: BP 127/71
[2021-08-28 12:15] VITALS: BP 127/71
[2021-08-28] MEDS ORDERED: diphenhydrAMINE 25MG CAP PO ONE (12:25)
[2021-08-28] MEDS ORDERED: ACETAMINOPHEN TAB 650MG DOSE (2X325MG) PO ONE (12:25)
[2021-08-28] MEDS ORDERED: SODIUM CHLORIDE 0.9% INJ 10 ML SYR IV PRN (12:25)
[2021-08-28 12:30] VITALS: BP 131/71
[2021-08-28 13:46] VITALS: BP 106/52
[2021-08-29] MEDS ORDERED: SODIUM CHLORIDE 0.9% INJ 10 ML SYR IV SCH (09:00)
== END 2021-08-28 13:50 | disposition home or self-care (01) ==
LOC: M INFU 11:24
PROVIDERS: ATTEND Internal Medicine Hematology & Oncology
DX: D46.9 Myelodysplastic syndrome, unspecified (principal); Z88.6 Allergy status to analgesic agent
CPT/HCPCS: 36591; 85025; 85049; 85055; 96523; G0463; J1642; P9034

== ENCOUNTER 2021-09-02 10:48 | Outpatient (CLI) | payer MEDICARE ==
[~2021-09-02] VITALS: Ht 160 cm; Wt 38.1 kg
[2021-09-02] VITALS (8 sets, daily range): BP systolic 98–145; BP diastolic 51–67
[2021-09-02] MEDS ORDERED: PROM50TA28 PO (11:07)
[2021-09-02] MEDS ORDERED: LIDO1CRE42 TOP (11:07)
[2021-09-02] MEDS ORDERED: diphenhydrAMINE 25MG CAP PO ONE (11:10)
[2021-09-02] MEDS ORDERED: ACETAMINOPHEN TAB 650MG DOSE (2X325MG) PO ONE (11:10)
[2021-09-02] MEDS ORDERED: SODIUM CHLORIDE 0.9% INJ 10 ML SYR IV PRN (11:10)
[2021-09-03] MEDS ORDERED: SODIUM CHLORIDE 0.9% INJ 10 ML SYR IV SCH (09:00)
[2021-09-08] MEDS ORDERED: LIDO1CRE42 TOP (14:27)
== END 2021-09-02 15:40 | disposition home or self-care (01) ==
LOC: M INFU 10:48
PROVIDERS: ATTEND Internal Medicine Hematology & Oncology
DX: D46.9 Myelodysplastic syndrome, unspecified (principal); Z88.8 Allergy status to other drugs, medicaments and biological substances
CPT/HCPCS: 36430; 36591; 85025; 85049; 85055; 86850; 86900; 86901; 86920; 96523; G0463; J1642; P9016

== ENCOUNTER 2021-09-03 08:00 | Outpatient (CLI) | payer MEDICARE ==
[~2021-09-03] VITALS: Ht 160 cm; Wt 38.1 kg
[~2021-09-03 08:00] MED LIST changes: -CEFD1CAP8 PO; +CEFD300C41 PO; -LEVO500T3 PO; +LEVO500T4 PO; +OMEP-173; +OMEP-173 PO; -OMEP-218; -OMEP-218 PO
[2021-09-03 08:23] VITALS: BP 134/65
[2021-09-03 08:40] VITALS: BP 122/70
[2021-09-03] MEDS ORDERED: SODIUM CHLORIDE 0.9% INJ 10 ML SYR IV SCH (09:00)
[2021-09-03 09:40] VITALS: BP 130/74
[2021-09-03 10:25] VITALS: BP 131/58
[2021-09-03] MEDS ORDERED: ACETAMINOPHEN TAB 650MG DOSE (2X325MG) PO ONE (11:00)
[2021-09-03] MEDS ORDERED: diphenhydrAMINE 25MG CAP PO ONE (11:00)
[2021-09-08] MEDS ORDERED: LIDO1CRE42 TOP (14:27)
[2021-09-09] MEDS ORDERED: LIDO1CRE42 TOP (16:11)
[2021-09-11] MEDS ORDERED: PROM50TA28 PO (11:13)
[2021-10-13] MEDS ORDERED: PROM50TA28 PO (10:46)
[2021-10-13] MEDS ORDERED: LIDO1CRE42 TOP (10:46)
[2021-11-27] MEDS ORDERED: CIPR500T39 (10:50)
== END 2021-09-03 10:45 | disposition home or self-care (01) ==
LOC: M INFU 08:00
PROVIDERS: ATTEND Internal Medicine Hematology & Oncology
DX: D46.9 Myelodysplastic syndrome, unspecified (principal); Z88.6 Allergy status to analgesic agent
CPT/HCPCS: 36430; J1642; P9034

== ENCOUNTER 2021-09-11 11:36 | Outpatient (CLI) | payer MEDICARE ==
[~2021-09-11] VITALS: Ht 160 cm; Wt 38.1 kg
[~2021-09-11 11:36] MED LIST changes: +CEFD1CAP8 PO; -CEFD300C41 PO; +LEVO500T3 PO; -LEVO500T4 PO; -OMEP-173; -OMEP-173 PO; +OMEP-218; +OMEP-218 PO; +SODIUM CHLORIDE 0.9% INJ 10 ML SYR IV SCH
[2021-09-11] MEDS ORDERED: SODIUM CHLORIDE 0.9% INJ 10 ML SYR IV PRN (12:10)
[2021-09-11 12:11] VITALS: BP 134/63
[2021-09-11 12:57] VITALS: BP 134/63
[2021-09-11 13:15] VITALS: BP 121/57
[2021-09-11 14:13] VITALS: BP 108/54
[2021-09-11 14:45] VITALS: BP 116/56
[2021-09-11 15:00] VITALS: BP 116/56
== END 2021-09-11 15:00 | disposition home or self-care (01) ==
LOC: M INFU 11:36
PROVIDERS: ATTEND Internal Medicine Hematology & Oncology
DX: D46.9 Myelodysplastic syndrome, unspecified (principal); Z88.6 Allergy status to analgesic agent
CPT/HCPCS: 36430; 36591; 80053; 82728; 83550; 85025; 85049; 85055; 86850; 86900; 86901; 86920; 96523; G0463; J1642; P9016

== ENCOUNTER 2021-09-18 11:04 | Outpatient (CLI) | payer MEDICARE ==
[~2021-09-18] VITALS: Ht 160 cm; Wt 38.1 kg
[~2021-09-18 11:04] MED LIST changes: -CEFD1CAP8 PO; +CEFD300C41 PO; -LEVO500T3 PO; +LEVO500T4 PO; +OMEP-173; +OMEP-173 PO; -OMEP-218; -OMEP-218 PO; -SODIUM CHLORIDE 0.9% INJ 10 ML SYR IV SCH
[2021-09-18 11:30] VITALS: BP 151/65
[2021-09-18 12:16] VITALS: BP 151/65
[2021-09-18 12:35] VITALS: BP 104/54
[2021-09-18 13:56] VITALS: BP 106/52
[2021-09-18 15:00] VITALS: BP 99/56
[2021-09-18] MEDS ORDERED: ACETAMINOPHEN TAB 650MG DOSE (2X325MG) PO ONE (15:40)
[2021-09-18] MEDS ORDERED: diphenhydrAMINE 25MG CAP PO ONE (15:40)
[2021-09-18] MEDS ORDERED: SODIUM CHLORIDE 0.9% INJ 10 ML SYR IV PRN (15:40)
[2021-09-18 15:45] VITALS: BP 110/61
[2021-10-13] MEDS ORDERED: LIDO1CRE42 TOP (10:46)
[2021-10-13] MEDS ORDERED: PROM50TA28 PO (10:46)
[2021-11-27] MEDS ORDERED: CIPR500T39 (10:50)
== END 2021-09-18 16:10 | disposition home or self-care (01) ==
LOC: M INFU 11:04
PROVIDERS: ATTEND Internal Medicine Hematology & Oncology
DX: D46.9 Myelodysplastic syndrome, unspecified (principal)
CPT/HCPCS: 36430; 36591; 85025; 85049; 85055; 86850; 86900; 86901; 86920; 96523; J1642; P9016

== ENCOUNTER 2021-09-25 11:24 | Outpatient (CLI) | payer MEDICARE ==
[~2021-09-25] VITALS: Ht 160 cm; Wt 38.1 kg
[~2021-09-25 11:24] MED LIST changes: +SODIUM CHLORIDE 0.9% INJ 10 ML SYR IV PRN; +SODIUM CHLORIDE 0.9% INJ 10 ML SYR IV SCH
[2021-09-25 11:55] VITALS: BP 114/58
[2021-09-25 13:11] VITALS: BP 114/58
[2021-09-25 14:43] VITALS: BP 107/59
[2021-09-25 14:45] VITALS: BP 107/59
[2021-09-25 15:00] VITALS: BP 111/56
[2021-09-25 16:10] VITALS: BP 114/55
[2021-10-13] MEDS ORDERED: LIDO1CRE42 TOP (10:46)
[2021-10-13] MEDS ORDERED: PROM50TA28 PO (10:46)
[2021-11-27] MEDS ORDERED: CIPR500T39 (10:50)
== END 2021-09-25 16:35 | disposition home or self-care (01) ==
LOC: M INFU 11:24
PROVIDERS: ATTEND Internal Medicine Hematology & Oncology
DX: D46.9 Myelodysplastic syndrome, unspecified (principal); Z88.6 Allergy status to analgesic agent
CPT/HCPCS: 36430; 36591; 85025; 85049; 85055; 86850; 86900; 86901; 86920; 96523; J1642; P9016

== ENCOUNTER 2021-10-16 10:32 | Outpatient (CLI) | payer MEDICARE ==
[~2021-10-16] VITALS: Ht 160 cm; Wt 36.8 kg
[~2021-10-16 10:32] MED LIST changes: -OMEP-173; -OMEP-173 PO; +OMEP-218; +OMEP-218 PO
[2021-10-16 11:03] VITALS: BP 123/59
[2021-10-16 12:03] VITALS: BP 123/59
[2021-10-16 12:17] VITALS: BP 101/55
[2021-10-16 13:24] VITALS: BP 113/55
[2021-10-16 13:45] VITALS: BP 102/51
[2021-10-16 14:45] VITALS: BP 110/57
== END 2021-10-16 15:15 | disposition home or self-care (01) ==
LOC: M INFU 10:32
PROVIDERS: ATTEND Internal Medicine Hematology & Oncology
DX: D46.9 Myelodysplastic syndrome, unspecified (principal)
CPT/HCPCS: 36430; 36591; 85025; 85049; 85055; 86850; 86900; 86901; 86920; 96523; J1642; P9016

== ENCOUNTER 2021-10-30 10:50 | Outpatient (CLI) | payer MEDICARE ==
[~2021-10-30] VITALS: Ht 160 cm; Wt 37.6 kg
[~2021-10-30 10:50] MED LIST changes: +OMEP-173; +OMEP-173 PO; -OMEP-218; -OMEP-218 PO; -SODIUM CHLORIDE 0.9% INJ 10 ML SYR IV PRN
[2021-10-30 11:02] VITALS: BP 137/62
[2021-10-30] MEDS ORDERED: diphenhydrAMINE 25MG CAP PO ONE (11:30)
[2021-10-30] MEDS ORDERED: ACETAMINOPHEN TAB 650MG DOSE (2X325MG) PO ONE (11:30)
[2021-10-30] MEDS ORDERED: SODIUM CHLORIDE 0.9% INJ 10 ML SYR IV PRN (11:35)
[2021-10-30 12:18] VITALS: BP 137/62
[2021-10-30 12:40] VITALS: BP 105/49
[2021-10-30 13:56] VITALS: BP 117/56
[2021-10-30 14:09] VITALS: BP 117/56
== END 2021-10-30 14:10 | disposition home or self-care (01) ==
LOC: M INFU 10:50
PROVIDERS: ATTEND Internal Medicine Hematology & Oncology
DX: D46.9 Myelodysplastic syndrome, unspecified (principal); Z88.5 Allergy status to narcotic agent
CPT/HCPCS: 36430; 36591; 85025; 85049; 85055; 86850; 86900; 86901; 86920; 96523; J1642; P9016

== ENCOUNTER 2021-11-06 11:49 | Outpatient (CLI) | payer MEDICARE ==
[~2021-11-06] VITALS: Ht 160 cm; Wt 37.6 kg
[2021-11-06 12:17] VITALS: BP 124/56
[2021-11-06] MEDS ORDERED: SODIUM CHLORIDE 0.9% INJ 10 ML SYR IV PRN (12:30)
[2021-11-06] MEDS ORDERED: diphenhydrAMINE 25MG CAP PO ONE (12:30)
[2021-11-06] MEDS ORDERED: ACETAMINOPHEN TAB 650MG DOSE (2X325MG) PO ONE (12:35)
[2021-11-06] MEDS ORDERED: FUROSEMIDE 20MG/2ML VIAL (J1940) IV ONE (12:35)
[2021-11-06 13:01] VITALS: BP 124/56
[2021-11-06 13:20] VITALS: BP 116/55
[2021-11-06 14:20] VITALS: BP 115/53
[2021-11-06 15:00] VITALS: BP 98/52
[2021-11-06 16:13] VITALS: BP 125/57
== END 2021-11-06 16:20 | disposition home or self-care (01) ==
LOC: M INFU 11:49
PROVIDERS: ATTEND Internal Medicine Hematology & Oncology
DX: D46.9 Myelodysplastic syndrome, unspecified (principal)
CPT/HCPCS: 36430; 36591; 85025; 85049; 85055; 86850; 86900; 86901; 86920; G0463; J1642; P9016

== ENCOUNTER 2021-11-13 11:17 | Outpatient (CLI) | payer MEDICARE ==
[~2021-11-13] VITALS: Ht 160 cm; Wt 37.6 kg
[~2021-11-13 11:17] MED LIST changes: -SODIUM CHLORIDE 0.9% INJ 10 ML SYR IV SCH
[2021-11-13 12:26] VITALS: BP 129/60
[2021-11-13 12:55] VITALS: BP 129/60
[2021-11-13 13:15] VITALS: BP 123/58
[2021-11-13 14:15] VITALS: BP 114/62
[2021-11-13 14:40] VITALS: BP 109/51
[2021-11-13] MEDS ORDERED: SODIUM CHLORIDE 0.9% INJ 10 ML SYR IV PRN (15:10)
[2021-11-14] MEDS ORDERED: SODIUM CHLORIDE 0.9% INJ 10 ML SYR IV SCH (09:00)
== END 2021-11-13 14:55 | disposition home or self-care (01) ==
LOC: M INFU 11:17
PROVIDERS: ATTEND Internal Medicine Hematology & Oncology
DX: D46.9 Myelodysplastic syndrome, unspecified (principal); Z88.5 Allergy status to narcotic agent
CPT/HCPCS: 36430; 36591; 85025; 85049; 85055; 96523; P9034

== ENCOUNTER 2021-11-20 11:48 | Outpatient (CLI) | payer MEDICARE ==
[2021-11-20] VITALS (7 sets, daily range): BP systolic 97–129; BP diastolic 50–59
[~2021-11-20] VITALS: Ht 160 cm; Wt 37.6 kg
[2021-11-20] MEDS ORDERED: ACETAMINOPHEN TAB 650MG DOSE (2X325MG) PO ONE (12:40)
[2021-11-20] MEDS ORDERED: diphenhydrAMINE 25MG CAP PO ONE (12:40)
[2021-11-20] MEDS ORDERED: SODIUM CHLORIDE 0.9% INJ 10 ML SYR IV PRN (15:40)
[2021-11-21] MEDS ORDERED: SODIUM CHLORIDE 0.9% INJ 10 ML SYR IV SCH (09:00)
== END 2021-11-20 16:00 | disposition home or self-care (01) ==
LOC: M INFU 11:48
PROVIDERS: ATTEND Internal Medicine Hematology & Oncology
DX: D46.9 Myelodysplastic syndrome, unspecified (principal); Z88.5 Allergy status to narcotic agent
CPT/HCPCS: 36430; 85025; 85049; 85055; 86850; 86920; 96523; G0463; J1642; P9016; P9034

== ENCOUNTER 2021-12-11 12:02 | Outpatient (CLI) | payer MEDICARE ==
[~2021-12-11 12:02] MED LIST changes: +ACETAMINOPHEN TAB 650MG DOSE (2X325MG) PO SCH; +CIPR500T39; +diphenhydrAMINE 25MG CAP PO SCH
[2021-12-11] MEDS ORDERED: SODIUM CHLORIDE 0.9% INJ 10 ML SYR IV PRN (12:25)
[2021-12-11 13:43] VITALS: BP 117/52
[2021-12-11 13:58] VITALS: BP 103/51
[2021-12-11 14:45] VITALS: BP 112/70
[2021-12-11 15:30] VITALS: BP 115/56
[2021-12-12] MEDS ORDERED: SODIUM CHLORIDE 0.9% INJ 10 ML SYR IV SCH (09:00)
== END 2021-12-11 15:55 | disposition home or self-care (01) ==
LOC: M INFU 12:02
PROVIDERS: ATTEND Internal Medicine Hematology & Oncology
DX: D46.9 Myelodysplastic syndrome, unspecified (principal); Z88.6 Allergy status to analgesic agent
CPT/HCPCS: 36430; 36591; 85025; 85049; 85055; 86850; 86900; 86901; 86920; 96523; J1642; P9016

== ENCOUNTER 2021-12-25 12:06 | Outpatient (CLI) | payer MEDICARE ==
[~2021-12-25] VITALS: Ht 160 cm; Wt 37.6 kg
[2021-12-25] VITALS (8 sets, daily range): BP systolic 108–116; BP diastolic 48–68
[~2021-12-25 12:06] MED LIST changes: +SODIUM CHLORIDE 0.9% INJ 10 ML SYR IV PRN; +SODIUM CHLORIDE 0.9% INJ 10 ML SYR IV SCH
== END 2021-12-25 16:10 | disposition home or self-care (01) ==
LOC: M INFU 12:06
PROVIDERS: ATTEND Internal Medicine Hematology & Oncology
DX: D46.9 Myelodysplastic syndrome, unspecified (principal); Z88.6 Allergy status to analgesic agent
CPT/HCPCS: 36430; 96523; J1642; P9016

== ENCOUNTER 2021-12-29 12:14 | Outpatient (CLI) | payer MEDICARE ==
[~2021-12-29] VITALS: Ht 160 cm; Wt 37.6 kg
[~2021-12-29 12:14] MED LIST changes: -ACETAMINOPHEN TAB 650MG DOSE (2X325MG) PO SCH; -SODIUM CHLORIDE 0.9% INJ 10 ML SYR IV PRN; -SODIUM CHLORIDE 0.9% INJ 10 ML SYR IV SCH; -diphenhydrAMINE 25MG CAP PO SCH
[2021-12-29 12:20] VITALS: BP 128/60
[2021-12-29] MEDS ORDERED: SODIUM CHLORIDE 0.9% INJ 10 ML SYR IV PRN (12:45)
[2021-12-29] MEDS ORDERED: diphenhydrAMINE 25MG CAP PO ONE (12:45)
[2021-12-29] MEDS ORDERED: ACETAMINOPHEN TAB 650MG DOSE (2X325MG) PO ONE (12:45)
[2021-12-29 13:24] VITALS: BP 114/58
[2021-12-29 14:15] VITALS: BP 104/58
[2021-12-29 15:30] VITALS: BP 108/56
[2021-12-29 16:20] VITALS: BP 136/70
[2021-12-30] MEDS ORDERED: SODIUM CHLORIDE 0.9% INJ 10 ML SYR IV SCH (09:00)
== END 2021-12-29 16:45 | disposition home or self-care (01) ==
LOC: M INFU 12:14
PROVIDERS: ATTEND Internal Medicine Hematology & Oncology
DX: D46.9 Myelodysplastic syndrome, unspecified (principal); Z88.5 Allergy status to narcotic agent
CPT/HCPCS: 36430; 36591; 85025; 85049; 85055; 86850; 86900; 86901; 86920; J1642; P9016

== ENCOUNTER 2022-01-12 11:19 | Outpatient (CLI) | payer MEDICARE ==
[~2022-01-12] VITALS: Ht 160 cm; Wt 36.8 kg
[~2022-01-12 11:19] MED LIST changes: +SODIUM CHLORIDE 0.9% INJ 10 ML SYR IV SCH
[2022-01-12 11:30] VITALS: BP 126/64
[2022-01-12] MEDS ORDERED: ACETAMINOPHEN TAB 650MG DOSE (2X325MG) PO ONE (12:15)
[2022-01-12] MEDS ORDERED: diphenhydrAMINE 25MG CAP PO ONE (12:15)
[2022-01-12] MEDS ORDERED: SODIUM CHLORIDE 0.9% INJ 10 ML SYR IV PRN (12:20)
[2022-01-12 12:45] VITALS: BP 119/55
[2022-01-12 13:45] VITALS: BP 107/51
[2022-01-12 14:25] VITALS: BP 109/54
== END 2022-01-12 14:45 | disposition home or self-care (01) ==
LOC: M INFU 11:19
PROVIDERS: ATTEND Specialist
DX: D46.9 Myelodysplastic syndrome, unspecified (principal); Z88.6 Allergy status to analgesic agent
CPT/HCPCS: 36430; 36591; 85025; 85049; 85055; 86850; 86920; 96523; J1642; P9016

== ENCOUNTER 2022-01-29 11:04 | Outpatient (CLI) | payer MEDICARE ==
[2022-01-29] VITALS (8 sets, daily range): BP systolic 103–150; BP diastolic 51–70
[~2022-01-29] VITALS: Ht 160 cm; Wt 36.8 kg
[~2022-01-29 11:04] MED LIST changes: +ACETAMINOPHEN TAB 650MG DOSE (2X325MG) PO SCH; -SODIUM CHLORIDE 0.9% INJ 10 ML SYR IV SCH; +diphenhydrAMINE 25MG CAP PO SCH
[2022-01-29] MEDS ORDERED: SODIUM CHLORIDE 0.9% INJ 10 ML SYR IV PRN (11:20)
[2022-01-29] MEDS: SODIUM CHLORIDE 0.9% INJ 10 ML SYR IV SCH ×2 (14:29→16:01)
== END 2022-01-29 16:10 | disposition home or self-care (01) ==
LOC: M INFU 11:04
PROVIDERS: ATTEND Internal Medicine Hematology & Oncology
DX: D46.9 Myelodysplastic syndrome, unspecified (principal); Z88.6 Allergy status to analgesic agent
CPT/HCPCS: 36430; 36591; 85025; 85049; 85055; 86850; 86900; 86901; 86920; 96523; J1642; P9016; P9034

== ENCOUNTER → 2022-02-05 | Outpatient (CLI) | payer MEDICARE ==
[2022-02-05] VITALS (9 sets, daily range): BP systolic 100–146; BP diastolic 48–65
[~2022-02-05] VITALS: Ht 160 cm; Wt 36.8 kg
[~2022-02-05] MED LIST changes: +ACETAMINOPHEN TAB 650MG DOSE (2X325MG) PO ONE; -ACETAMINOPHEN TAB 650MG DOSE (2X325MG) PO SCH; +PRED5TA PO; +SODIUM CHLORIDE 0.9% INJ 10 ML SYR IV PRN; +SODIUM CHLORIDE 0.9% INJ 10 ML SYR IV SCH; +diphenhydrAMINE 25MG CAP PO ONE; -diphenhydrAMINE 25MG CAP PO SCH
== END ==
LOC: M INFU 12:06
PROVIDERS: ATTEND Internal Medicine Hematology & Oncology
DX: D46.9 Myelodysplastic syndrome, unspecified (principal); Z88.6 Allergy status to analgesic agent
CPT/HCPCS: 36430; 36591; 85025; 85049; 85055; 86850; 86900; 86901; 86920; 96523; J1642; P9016; P9034

== ENCOUNTER 2022-02-12 11:49 | Outpatient (CLI) | payer MEDICARE ==
[~2022-02-12 11:49] MED LIST changes: -ACETAMINOPHEN TAB 650MG DOSE (2X325MG) PO ONE; +ACETAMINOPHEN TAB 650MG DOSE (2X325MG) PO SCH; -SODIUM CHLORIDE 0.9% INJ 10 ML SYR IV SCH; -diphenhydrAMINE 25MG CAP PO ONE; +diphenhydrAMINE 25MG CAP PO SCH
[2022-02-12 12:17] VITALS: BP 129/56
[2022-02-12] MEDS ORDERED: SODIUM CHLORIDE 0.9% INJ 10 ML SYR IV PRN (12:50)
[2022-02-12 12:57] VITALS: BP 129/56
[2022-02-12 13:15] VITALS: BP 111/61
[2022-02-12 14:35] VITALS: BP 101/50
[2022-02-12 15:05] VITALS: BP 102/54
[2022-02-12] MEDS ORDERED: POTA1TAB14 PO (16:38)
== END 2022-02-12 16:30 | disposition home or self-care (01) ==
LOC: M INFU 11:49
PROVIDERS: ATTEND Internal Medicine Hematology & Oncology
DX: D46.9 Myelodysplastic syndrome, unspecified (principal); Z88.6 Allergy status to analgesic agent
CPT/HCPCS: 36430; 36591; 80053; 85025; 85049; 85055; 86850; 86900; 86901; 86920; 96523; G0463; J1642; P9016; P9034

== ENCOUNTER 2022-02-13 10:15 | Outpatient (CLI) | payer MEDICARE ==
[~2022-02-13 10:15] MED LIST changes: -ACETAMINOPHEN TAB 650MG DOSE (2X325MG) PO SCH; +POTA1TAB14 PO; -SODIUM CHLORIDE 0.9% INJ 10 ML SYR IV PRN; -diphenhydrAMINE 25MG CAP PO SCH
[2022-02-13 10:25] VITALS: BP 125/60
[2022-02-13] MEDS ORDERED: diphenhydrAMINE 25MG CAP PO ONE (11:05)
[2022-02-13] MEDS ORDERED: ACETAMINOPHEN TAB 650MG DOSE (2X325MG) PO ONE (11:05)
[2022-02-13] MEDS ORDERED: SODIUM CHLORIDE 0.9% INJ 10 ML SYR IV PRN (11:05)
[2022-02-13 12:24] VITALS: BP 105/54
[2022-02-14] MEDS ORDERED: SODIUM CHLORIDE 0.9% INJ 10 ML SYR IV SCH (09:00)
== END 2022-02-13 12:35 | disposition home or self-care (01) ==
LOC: M INFU 10:15
PROVIDERS: ATTEND Nurse Practitioner
DX: D46.9 Myelodysplastic syndrome, unspecified (principal); Z88.6 Allergy status to analgesic agent
CPT/HCPCS: 36430; 96523; J1642; P9016

== ENCOUNTER 2022-02-19 11:36 | Outpatient (CLI) | payer MEDICARE ==
[2022-02-19] VITALS (7 sets, daily range): BP systolic 92–141; BP diastolic 49–60
[~2022-02-19] VITALS: Ht 160 cm; Wt 40.4 kg
[~2022-02-19 11:36] MED LIST changes: +ACETAMINOPHEN TAB 650MG DOSE (2X325MG) PO SCH; +SODIUM CHLORIDE 0.9% INJ 10 ML SYR IV PRN; +diphenhydrAMINE 25MG CAP PO SCH
[2022-02-20] MEDS ORDERED: TRAN650T PO (12:18)
== END 2022-02-19 16:00 | disposition home or self-care (01) ==
LOC: M INFU 11:36
PROVIDERS: ATTEND Internal Medicine Hematology & Oncology
DX: D46.9 Myelodysplastic syndrome, unspecified (principal); Z88.6 Allergy status to analgesic agent
CPT/HCPCS: 36430; 96523; G0463; J1642; P9016

== ENCOUNTER 2022-02-26 11:40 | Outpatient (CLI) | payer MEDICARE ==
[~2022-02-26] VITALS: Ht 160 cm; Wt 37.9 kg
[~2022-02-26 11:40] MED LIST changes: +TRAN650T PO
[2022-02-26 12:41] VITALS: BP 98/49
[2022-02-26 12:55] VITALS: BP 101/56
[2022-02-26 14:00] VITALS: BP 98/54
[2022-02-27] MEDS ORDERED: SODIUM CHLORIDE 0.9% INJ 10 ML SYR IV SCH (09:00)
== END 2022-02-26 14:15 | disposition home or self-care (01) ==
LOC: M INFU 11:40
PROVIDERS: ATTEND Internal Medicine Hematology & Oncology
DX: D46.9 Myelodysplastic syndrome, unspecified (principal); Z88.6 Allergy status to analgesic agent
CPT/HCPCS: 36430; 36591; 85025; 85049; 85055; 96523; G0463; J1642; P9034

== ENCOUNTER 2022-03-05 11:14 | Outpatient (CLI) | payer MEDICARE ==
[~2022-03-05] VITALS: Ht 160 cm; Wt 40.0 kg
[~2022-03-05 11:14] MED LIST changes: -ACETAMINOPHEN TAB 650MG DOSE (2X325MG) PO SCH; -SODIUM CHLORIDE 0.9% INJ 10 ML SYR IV PRN; -diphenhydrAMINE 25MG CAP PO SCH
[2022-03-05 11:41] VITALS: BP 112/56
[2022-03-05 11:55] VITALS: BP 112/56
[2022-03-05 13:30] VITALS: BP 95/48
[2022-03-05] MEDS ORDERED: SODIUM CHLORIDE 0.9% INJ 10 ML SYR IV PRN (14:15)
[2022-03-05] MEDS ORDERED: ACETAMINOPHEN TAB 650MG DOSE (2X325MG) PO ONE (14:15)
[2022-03-05] MEDS ORDERED: diphenhydrAMINE 25MG CAP PO ONE (14:15)
[2022-03-05 14:30] VITALS: BP 108/61
[2022-03-05 15:08] VITALS: BP 112/55
[2022-03-05 15:17] VITALS: BP 112/55
== END 2022-03-05 15:20 | disposition home or self-care (01) ==
LOC: M INFU 11:14
PROVIDERS: ATTEND Internal Medicine Hematology & Oncology
DX: D46.9 Myelodysplastic syndrome, unspecified (principal); Z88.6 Allergy status to analgesic agent
CPT/HCPCS: 36430; 36591; 85025; 85049; 85055; 86850; 86900; 86901; 86920; 96523; J1642; P9016; P9034

== ENCOUNTER 2022-03-06 12:17 | Outpatient (CLI) | payer MEDICARE ==
[~2022-03-06] VITALS: Ht 160 cm; Wt 36.8 kg
[2022-03-06] MEDS ORDERED: diphenhydrAMINE 25MG CAP PO ONE (12:30)
[2022-03-06] MEDS ORDERED: SODIUM CHLORIDE 0.9% INJ 10 ML SYR IV PRN (12:30)
[2022-03-06] MEDS ORDERED: ACETAMINOPHEN TAB 650MG DOSE (2X325MG) PO ONE (12:30)
[2022-03-06 13:14] VITALS: BP 138/53
[2022-03-06 13:30] VITALS: BP 104/53
[2022-03-06 14:30] VITALS: BP 111/51
[2022-03-06 15:15] VITALS: BP 107/53
[2022-03-06 15:33] VITALS: BP 107/53
== END 2022-03-06 15:30 | disposition home or self-care (01) ==
LOC: M INFU 12:17
PROVIDERS: ATTEND Internal Medicine Hematology & Oncology
DX: D46.9 Myelodysplastic syndrome, unspecified (principal); Z88.6 Allergy status to analgesic agent
CPT/HCPCS: 36430; 96523; J1642; P9016

== ENCOUNTER 2022-03-12 11:27 | Outpatient (CLI) | payer MEDICARE ==
[2022-03-12 11:36] VITALS: BP 132/63
[2022-03-12 12:40] VITALS: BP 108/53
[2022-03-12] MEDS ORDERED: SODIUM CHLORIDE 0.9% INJ 10 ML SYR IV PRN (13:20)
[2022-03-12] MEDS ORDERED: diphenhydrAMINE 25MG CAP PO ONE (13:20)
[2022-03-12] MEDS ORDERED: ACETAMINOPHEN TAB 650MG DOSE (2X325MG) PO ONE (13:20)
[2022-03-12 13:53] VITALS: BP 96/48
[2022-03-12 14:00] VITALS: BP 96/48
== END 2022-03-12 14:10 | disposition home or self-care (01) ==
LOC: M INFU 11:27
PROVIDERS: ATTEND Internal Medicine Hematology & Oncology
DX: D46.9 Myelodysplastic syndrome, unspecified (principal); Z88.6 Allergy status to analgesic agent
CPT/HCPCS: 36430; 36591; 85025; 85049; 85055; 96523; J1642; P9034

== ENCOUNTER 2022-03-19 11:10 | Outpatient (CLI) | payer MEDICARE ==
[~2022-03-19 11:10] MED LIST changes: +SODIUM CHLORIDE 0.9% INJ 10 ML SYR IV SCH
[2022-03-19] MEDS ORDERED: SODIUM CHLORIDE 0.9% INJ 10 ML SYR IV PRN (11:35)
[2022-03-19 12:16] VITALS: BP 109/53
[2022-03-19 12:30] VITALS: BP 98/47
[2022-03-19 13:46] VITALS: BP 102/51
[2022-03-19 14:30] VITALS: BP 109/65
[2022-03-19 15:30] VITALS: BP 110/57
== END 2022-03-19 15:45 | disposition home or self-care (01) ==
LOC: M INFU 11:10
PROVIDERS: ATTEND Internal Medicine Hematology & Oncology
DX: D46.9 Myelodysplastic syndrome, unspecified (principal); Z88.6 Allergy status to analgesic agent
CPT/HCPCS: 36430; 36591; 85025; 85049; 85055; 86850; 86900; 86901; 86920; J1642; P9016

== ENCOUNTER → 2022-03-20 | Outpatient (CLI) | payer MEDICARE ==
[~2022-03-20] VITALS: Ht 160 cm; Wt 37.9 kg
[~2022-03-20] MED LIST changes: +SODIUM CHLORIDE 0.9% INJ 10 ML SYR IV PRN
[2022-03-20 13:10] VITALS: BP 122/60
== END ==
LOC: M INFU 13:00
PROVIDERS: ATTEND Internal Medicine Hematology & Oncology
DX: D46.9 Myelodysplastic syndrome, unspecified (principal); Z88.5 Allergy status to narcotic agent
CPT/HCPCS: 36430; 96523; J1642; P9034

== ENCOUNTER 2022-03-23 12:46 | Outpatient (CLI) | payer MEDICARE ==
[~2022-03-23] VITALS: Ht 160 cm; Wt 37.9 kg
[~2022-03-23 12:46] MED LIST changes: -SODIUM CHLORIDE 0.9% INJ 10 ML SYR IV PRN; -SODIUM CHLORIDE 0.9% INJ 10 ML SYR IV SCH
[2022-03-23 13:05] VITALS: BP 149/64
[2022-03-23 14:45] VITALS: BP 103/51
[2022-03-23 14:50] VITALS: BP 103/51
[2022-03-23 15:05] VITALS: BP 97/50
[2022-03-23] MEDS ORDERED: diphenhydrAMINE 25MG CAP PO ONE (15:55)
[2022-03-23] MEDS ORDERED: SODIUM CHLORIDE 0.9% INJ 10 ML SYR IV PRN (15:55)
[2022-03-23] MEDS ORDERED: ACETAMINOPHEN TAB 650MG DOSE (2X325MG) PO ONE (15:55)
[2022-03-23 16:25] VITALS: BP 98/52
[2022-03-24] MEDS ORDERED: SODIUM CHLORIDE 0.9% INJ 10 ML SYR IV SCH (09:00)
== END 2022-03-23 16:24 | disposition home or self-care (01) ==
LOC: M INFU 12:46
PROVIDERS: ATTEND Internal Medicine Hematology & Oncology
DX: D46.9 Myelodysplastic syndrome, unspecified (principal); Z88.6 Allergy status to analgesic agent
CPT/HCPCS: 36430; 86920; 96523; J1642; P9016; P9034

== ENCOUNTER 2022-03-26 11:47 | Outpatient (CLI) | payer MEDICARE ==
[2022-03-26] VITALS (8 sets, daily range): BP systolic 104–125; BP diastolic 51–67
[~2022-03-26] VITALS: Ht 160 cm; Wt 37.9 kg
[~2022-03-26 11:47] MED LIST changes: +ACETAMINOPHEN TAB 650MG DOSE (2X325MG) PO SCH; +SODIUM CHLORIDE 0.9% INJ 10 ML SYR IV PRN; +SODIUM CHLORIDE 0.9% INJ 10 ML SYR IV SCH; +diphenhydrAMINE 25MG CAP PO SCH
== END 2022-03-26 15:45 | disposition home or self-care (01) ==
LOC: M INFU 11:47
PROVIDERS: ATTEND Internal Medicine Hematology & Oncology
DX: D46.9 Myelodysplastic syndrome, unspecified (principal); Z88.5 Allergy status to narcotic agent
CPT/HCPCS: 36430; 86850; 86900; 86901; 86920; 96523; J1642; P9016; P9034

== ENCOUNTER 2022-04-02 11:42 | Outpatient (CLI) | payer MEDICARE ==
[~2022-04-02] VITALS: Ht 160 cm; Wt 39.7 kg
[~2022-04-02 11:42] MED LIST changes: -ACETAMINOPHEN TAB 650MG DOSE (2X325MG) PO SCH; -SODIUM CHLORIDE 0.9% INJ 10 ML SYR IV PRN; -SODIUM CHLORIDE 0.9% INJ 10 ML SYR IV SCH; -diphenhydrAMINE 25MG CAP PO SCH
[2022-04-02 11:51] VITALS: BP 118/55
[2022-04-02 12:12] VITALS: BP 118/55
[2022-04-02] MEDS ORDERED: SODIUM CHLORIDE 0.9% INJ 10 ML SYR IV PRN (12:20)
[2022-04-02] MEDS ORDERED: ACETAMINOPHEN TAB 650MG DOSE (2X325MG) PO ONE (12:20)
[2022-04-02] MEDS ORDERED: diphenhydrAMINE 25MG CAP PO ONE (12:20)
[2022-04-02 12:30] VITALS: BP 101/54
[2022-04-02 14:00] VITALS: BP 96/58
[2022-04-02 14:40] VITALS: BP 99/51
[2022-04-03] MEDS ORDERED: SODIUM CHLORIDE 0.9% INJ 10 ML SYR IV SCH (09:00)
== END 2022-04-02 16:00 | disposition home or self-care (01) ==
LOC: M INFU 11:42
PROVIDERS: ATTEND Internal Medicine Hematology & Oncology
DX: D46.9 Myelodysplastic syndrome, unspecified (principal); Z88.5 Allergy status to narcotic agent
CPT/HCPCS: 36430; 36591; 85025; 85049; 85055; 86850; 86900; 86901; 86920; 96523; J1642; P9016; P9034

== ENCOUNTER 2022-04-09 11:16 | Outpatient (CLI) | payer MEDICARE ==
[~2022-04-09] VITALS: Ht 160 cm; Wt 37.9 kg
[~2022-04-09 11:16] MED LIST changes: +SODIUM CHLORIDE 0.9% INJ 10 ML SYR IV PRN; +SODIUM CHLORIDE 0.9% INJ 10 ML SYR IV SCH
[2022-04-09] MEDS ORDERED: ACETAMINOPHEN TAB 650MG DOSE (2X325MG) PO ONE (12:15)
[2022-04-09] MEDS ORDERED: diphenhydrAMINE 25MG CAP PO ONE (12:15)
[2022-04-09 12:35] VITALS: BP 107/52
[2022-04-09 13:35] VITALS: BP 100/49
[2022-04-09 14:30] VITALS: BP 101/49
[2022-04-09 16:30] VITALS: BP 110/66
== END 2022-04-09 16:30 | disposition home or self-care (01) ==
LOC: M INFU 11:16
PROVIDERS: ATTEND Internal Medicine Hematology & Oncology
DX: D46.9 Myelodysplastic syndrome, unspecified (principal); Z88.5 Allergy status to narcotic agent
CPT/HCPCS: 36430; 36591; 85025; 85049; 85055; 86850; 86900; 86901; 86920; 96523; J1642; P9016; P9034

== ENCOUNTER 2022-04-16 11:51 | Outpatient (CLI) | payer MEDICARE ==
[2022-04-16] VITALS (7 sets, daily range): BP systolic 101–132; BP diastolic 51–62
[~2022-04-16 11:51] MED LIST changes: -SODIUM CHLORIDE 0.9% INJ 10 ML SYR IV PRN; -SODIUM CHLORIDE 0.9% INJ 10 ML SYR IV SCH
[2022-04-16] MEDS ORDERED: SODIUM CHLORIDE 0.9% INJ 10 ML SYR IV PRN (13:00)
[2022-04-17] MEDS ORDERED: SODIUM CHLORIDE 0.9% INJ 10 ML SYR IV SCH (09:00)
== END 2022-04-16 15:50 | disposition home or self-care (01) ==
LOC: M INFU 11:51
PROVIDERS: ATTEND Internal Medicine Hematology & Oncology
DX: D46.9 Myelodysplastic syndrome, unspecified (principal); Z88.5 Allergy status to narcotic agent
CPT/HCPCS: 36430; 36591; 85025; 85049; 85055; 86850; 86900; 86901; 86920; 96523; J1642; P9016; P9034

== ENCOUNTER 2022-04-30 11:40 | Outpatient (CLI) | payer MEDICARE ==
[~2022-04-30] VITALS: Ht 160 cm; Wt 37.9 kg
[2022-04-30 11:25] VITALS: BP 135/60
[~2022-04-30 11:40] MED LIST changes: +SODIUM CHLORIDE 0.9% INJ 10 ML SYR IV PRN
[2022-04-30 13:00] VITALS: BP 135/60
[2022-04-30 13:15] VITALS: BP 98/57
[2022-04-30 14:15] VITALS: BP 96/46
[2022-04-30 14:50] VITALS: BP 112/51
[2022-04-30 15:50] VITALS: BP 109/53
[2022-05-01] MEDS ORDERED: SODIUM CHLORIDE 0.9% INJ 10 ML SYR IV SCH (09:00)
== END 2022-04-30 16:10 | disposition home or self-care (01) ==
LOC: M INFU 11:40
PROVIDERS: ATTEND Internal Medicine Hematology & Oncology
DX: D46.9 Myelodysplastic syndrome, unspecified (principal); Z88.5 Allergy status to narcotic agent
CPT/HCPCS: 36430; 36591; 80053; 85025; 85049; 85055; 86850; 86900; 86901; 86920; 96523; G0463; J1642; P9016; P9034

== ENCOUNTER 2022-05-01 12:28 | Outpatient (CLI) | payer MEDICARE ==
[~2022-05-01] VITALS: Ht 160 cm; Wt 37.9 kg
[~2022-05-01 12:28] MED LIST changes: +ACETAMINOPHEN TAB 650MG DOSE (2X325MG) PO ONE; +diphenhydrAMINE 25MG CAP PO ONE
[2022-05-01 12:35] VITALS: BP 117/56
[2022-05-01 13:00] VITALS: BP 104/50
[2022-05-01 14:00] VITALS: BP 103/53
[2022-05-01 14:45] VITALS: BP 103/55
[2022-05-01 15:45] VITALS: BP 110/88
[2022-05-02] MEDS ORDERED: SODIUM CHLORIDE 0.9% INJ 10 ML SYR IV SCH (09:00)
== END 2022-05-01 16:15 ==
LOC: M INFU 12:28
PROVIDERS: ATTEND Internal Medicine Hematology & Oncology
DX: D46.9 Myelodysplastic syndrome, unspecified (principal); Z88.5 Allergy status to narcotic agent
CPT/HCPCS: 36430; 96523; J1642; P9016; P9034

== ENCOUNTER → 2022-05-07 | Outpatient (CLI) | payer MEDICARE ==
[~2022-05-07] MED LIST changes: +SODIUM CHLORIDE 0.9% INJ 10 ML SYR IV SCH
[2022-05-07 11:20] VITALS: BP 112/53
[2022-05-07 12:55] VITALS: BP 103/57
[2022-05-07 14:00] VITALS: BP 106/51
[2022-05-07 14:20] VITALS: BP 99/53
[2022-05-07 15:30] VITALS: BP 108/53
[2022-05-07 15:46] VITALS: BP 111/85
== END ==
LOC: M INFU 11:11
PROVIDERS: ATTEND Internal Medicine Hematology & Oncology
DX: D46.9 Myelodysplastic syndrome, unspecified (principal); Z88.6 Allergy status to analgesic agent
CPT/HCPCS: 36430; 96523; J1642; P9016; P9034

== ENCOUNTER 2022-05-08 11:47 | Outpatient (CLI) | payer MEDICARE ==
[~2022-05-08] VITALS: Ht 160 cm; Wt 35.9 kg
[~2022-05-08 11:47] MED LIST changes: -ACETAMINOPHEN TAB 650MG DOSE (2X325MG) PO ONE; -SODIUM CHLORIDE 0.9% INJ 10 ML SYR IV PRN; -diphenhydrAMINE 25MG CAP PO ONE
[2022-05-08 12:05] VITALS: BP 113/53
[2022-05-08 12:30] VITALS: BP 117/56
[2022-05-08] MEDS ORDERED: ACETAMINOPHEN TAB 650MG DOSE (2X325MG) PO ONE (13:00)
[2022-05-08] MEDS ORDERED: diphenhydrAMINE 25MG CAP PO ONE (13:00)
[2022-05-08] MEDS ORDERED: SODIUM CHLORIDE 0.9% INJ 10 ML SYR IV PRN (13:00)
[2022-05-08 13:30] VITALS: BP 105/55
[2022-05-08 14:10] VITALS: BP 108/57
== END 2022-05-08 14:10 ==
LOC: M INFU 11:47
PROVIDERS: ATTEND Internal Medicine Hematology & Oncology
DX: D46.9 Myelodysplastic syndrome, unspecified (principal); Z88.5 Allergy status to narcotic agent
CPT/HCPCS: 36430; 96523; J1642; P9016

== ENCOUNTER 2022-05-14 12:05 | Outpatient (CLI) | payer MEDICARE ==
[~2022-05-14 12:05] MED LIST changes: +LEVO1TAB39 PO; -LEVO500T4 PO; +SODIUM CHLORIDE 0.9% INJ 10 ML SYR IV PRN
[2022-05-14 12:10] VITALS: BP 101/55
[2022-05-14 13:15] VITALS: BP 107/52
[2022-05-14 14:15] VITALS: BP 108/49
[2022-05-14 14:40] VITALS: BP 118/56
[2022-05-14 15:00] VITALS: BP 110/54
[2022-05-14 16:15] VITALS: BP 108/52
== END 2022-05-14 16:20 ==
LOC: M INFU 12:05
PROVIDERS: ATTEND Internal Medicine Hematology & Oncology
DX: D46.9 Myelodysplastic syndrome, unspecified (principal); Z88.5 Allergy status to narcotic agent
CPT/HCPCS: 36430; 96523; J1642; P9016; P9034

== ENCOUNTER 2022-05-22 12:20 | Outpatient (CLI) | payer MEDICARE ==
[~2022-05-22] VITALS: Ht 160 cm; Wt 35.9 kg
[2022-05-22 12:20] VITALS: BP 147/63
[~2022-05-22 12:20] MED LIST changes: +ACETAMINOPHEN TAB 650MG DOSE (2X325MG) PO SCH; -SODIUM CHLORIDE 0.9% INJ 10 ML SYR IV PRN; +diphenhydrAMINE 25MG CAP PO SCH
[2022-05-22] MEDS ORDERED: FUROSEMIDE 20MG/2ML VIAL (J1940) IV ONE (12:30)
[2022-05-22 12:39] VITALS: BP 147/63
[2022-05-22 12:58] VITALS: BP 130/87
[2022-05-22] MEDS ORDERED: SODIUM CHLORIDE 0.9% INJ 10 ML SYR IV PRN (13:15)
[2022-05-22 14:30] VITALS: BP 115/54
== END 2022-05-22 14:00 | disposition home or self-care (01) ==
LOC: M INFU 12:20
PROVIDERS: ATTEND Internal Medicine Hematology & Oncology
DX: D46.9 Myelodysplastic syndrome, unspecified (principal); Z88.5 Allergy status to narcotic agent
CPT/HCPCS: 36430; 96523; J1642; P9016

== ENCOUNTER 2022-05-28 12:27 | Outpatient (CLI) | payer MEDICARE ==
[~2022-05-28] VITALS: Ht 160 cm; Wt 36.0 kg
[2022-05-28] VITALS (7 sets, daily range): BP systolic 95–140; BP diastolic 47–71
[~2022-05-28 12:27] MED LIST changes: +AMOX875T2; +POLY2.5S OP; +SODIUM CHLORIDE 0.9% INJ 10 ML SYR IV PRN
[2022-06-01] MEDS ORDERED: DIFI200T PO (12:41)
== END 2022-05-28 16:30 | disposition home or self-care (01) ==
LOC: M INFU 12:27
PROVIDERS: ATTEND Internal Medicine Hematology & Oncology
DX: D46.9 Myelodysplastic syndrome, unspecified (principal); Z88.5 Allergy status to narcotic agent
CPT/HCPCS: 36430; 36591; 80053; 82728; 83550; 85025; 85049; 85055; 86850; 86900; 86901; 86920; G0463; J1642; P9016; P9034

== ENCOUNTER 2022-05-29 11:00 | Outpatient (CLI) | payer MEDICARE ==
[2022-05-29 11:00] VITALS: BP 123/58
[~2022-05-29 11:00] MED LIST changes: +ACETAMINOPHEN TAB 650MG DOSE (2X325MG) PO ONE; -ACETAMINOPHEN TAB 650MG DOSE (2X325MG) PO SCH; +diphenhydrAMINE 25MG CAP PO ONE; -diphenhydrAMINE 25MG CAP PO SCH
[2022-05-29 11:26] VITALS: BP 110/54
[2022-05-29 11:48] VITALS: BP 114/56
[2022-05-29 13:09] VITALS: BP 99/55
[2022-05-29 13:25] VITALS: BP 102/57
[2022-05-29 14:45] VITALS: BP 128/64
[2022-06-01] MEDS ORDERED: DIFI200T PO (12:41)
== END 2022-05-29 14:55 ==
LOC: M INFU 11:00
PROVIDERS: ATTEND Internal Medicine Hematology & Oncology
DX: D46.9 Myelodysplastic syndrome, unspecified (principal); Z88.5 Allergy status to narcotic agent
CPT/HCPCS: 36430; 87507; 96523; J1642; P9016; P9034

== ENCOUNTER 2022-06-04 12:03 | Outpatient (CLI) | payer MEDICARE ==
[~2022-06-04] VITALS: Ht 160 cm; Wt 36.0 kg
[~2022-06-04 12:03] MED LIST changes: -ACETAMINOPHEN TAB 650MG DOSE (2X325MG) PO ONE; +ACETAMINOPHEN TAB 650MG DOSE (2X325MG) PO SCH; +DIFI200T PO; -SODIUM CHLORIDE 0.9% INJ 10 ML SYR IV PRN; -SODIUM CHLORIDE 0.9% INJ 10 ML SYR IV SCH; -diphenhydrAMINE 25MG CAP PO ONE; +diphenhydrAMINE 25MG CAP PO SCH
[2022-06-04 12:16] VITALS: BP 148/65
[2022-06-04 13:57] VITALS: BP 148/65
[2022-06-04 14:10] VITALS: BP 105/54
[2022-06-04] MEDS ORDERED: SODIUM CHLORIDE 0.9% INJ 10 ML SYR IV PRN (15:35)
[2022-06-04 15:50] VITALS: BP 115/56
[2022-06-05] MEDS ORDERED: SODIUM CHLORIDE 0.9% INJ 10 ML SYR IV SCH (09:00)
== END 2022-06-04 17:20 ==
LOC: M INFU 12:03
PROVIDERS: ATTEND Internal Medicine Hematology & Oncology
DX: D46.9 Myelodysplastic syndrome, unspecified (principal); Z88.5 Allergy status to narcotic agent
CPT/HCPCS: 36430; 36591; 85025; 85049; 85055; 86850; 86900; 86901; 86920; 96523; G0463; J1642; P9016; P9034

== ENCOUNTER 2022-06-05 12:00 | Outpatient (CLI) | payer MEDICARE ==
[2022-06-05 12:20] VITALS: BP 117/56
[2022-06-05] MEDS ORDERED: SODIUM CHLORIDE 0.9% INJ 10 ML SYR IV PRN (12:30)
[2022-06-05 12:40] VITALS: BP 100/52
[2022-06-05 14:03] VITALS: BP 100/49
[2022-06-05 14:30] VITALS: BP 116/58
[2022-06-05 15:45] VITALS: BP 114/88
[2022-06-06] MEDS ORDERED: SODIUM CHLORIDE 0.9% INJ 10 ML SYR IV SCH (09:00)
== END 2022-06-05 16:00 | disposition home or self-care (01) ==
LOC: M INFU 12:00
PROVIDERS: ATTEND Internal Medicine Hematology & Oncology
DX: D46.9 Myelodysplastic syndrome, unspecified (principal); Z88.5 Allergy status to narcotic agent
CPT/HCPCS: 36430; 96523; J1642; P9016; P9034

== ENCOUNTER 2022-06-11 12:15 | Outpatient (CLI) | payer MEDICARE ==
[~2022-06-11] VITALS: Ht 160 cm; Wt 36.0 kg
[~2022-06-11 12:15] MED LIST changes: -ACETAMINOPHEN TAB 650MG DOSE (2X325MG) PO SCH; -diphenhydrAMINE 25MG CAP PO SCH
[2022-06-11 12:25] VITALS: BP 153/70
[2022-06-11] MEDS ORDERED: SODIUM CHLORIDE 0.9% INJ 10 ML SYR IV PRN (12:55)
[2022-06-11] MEDS ORDERED: diphenhydrAMINE 25MG CAP PO ONE (13:00)
[2022-06-11 14:07] VITALS: BP 153/70
[2022-06-11 15:36] VITALS: BP 99/51
[2022-06-11 17:10] VITALS: BP 115/54
[2022-06-11 17:16] VITALS: BP 115/54
[2022-06-12] MEDS ORDERED: SODIUM CHLORIDE 0.9% INJ 10 ML SYR IV SCH (09:00)
== END 2022-06-11 17:15 ==
LOC: M INFU 12:15
PROVIDERS: ATTEND Internal Medicine Hematology & Oncology
DX: D46.9 Myelodysplastic syndrome, unspecified (principal)
CPT/HCPCS: 36430; 96523; J1642; P9016; P9034

== ENCOUNTER 2022-06-12 11:59 | Outpatient (CLI) | payer MEDICARE ==
[~2022-06-12] VITALS: Ht 160 cm; Wt 37.3 kg
[~2022-06-12 11:59] MED LIST changes: +SODIUM CHLORIDE 0.9% INJ 10 ML SYR IV SCH
[2022-06-12 12:09] VITALS: BP 116/64
[2022-06-12 12:30] VITALS: BP 116/64
[2022-06-12] MEDS ORDERED: diphenhydrAMINE 25MG CAP PO ONE (12:40)
[2022-06-12] MEDS ORDERED: SODIUM CHLORIDE 0.9% INJ 10 ML SYR IV PRN (12:40)
[2022-06-12 12:45] VITALS: BP 96/51
[2022-06-12 14:10] VITALS: BP 100/53
== END 2022-06-12 14:35 ==
LOC: M INFU 11:59
PROVIDERS: ATTEND Internal Medicine Medical Oncology
DX: D46.9 Myelodysplastic syndrome, unspecified (principal); Z88.5 Allergy status to narcotic agent
CPT/HCPCS: 36430; 96523; J1642; P9034

== ENCOUNTER 2022-06-18 11:02 | Outpatient (CLI) | payer MEDICARE ==
[~2022-06-18] VITALS: Ht 160 cm; Wt 37.3 kg
[2022-06-18 11:12] VITALS: BP 116/54
[2022-06-18] MEDS ORDERED: SODIUM CHLORIDE 0.9% INJ 10 ML SYR IV PRN (11:35)
[2022-06-18] MEDS ORDERED: ACETAMINOPHEN TAB 650MG DOSE (2X325MG) PO ONE (11:35)
[2022-06-18] MEDS ORDERED: diphenhydrAMINE 25MG CAP PO ONE (11:35)
[2022-06-18 12:20] VITALS: BP 105/51
[2022-06-18 13:35] VITALS: BP 98/52
[2022-06-18 14:15] VITALS: BP 106/57
[2022-06-18 15:25] VITALS: BP 109/52
== END 2022-06-18 15:40 | disposition home or self-care (01) ==
LOC: M INFU 11:02
PROVIDERS: ATTEND Internal Medicine Hematology & Oncology
DX: D46.9 Myelodysplastic syndrome, unspecified (principal); Z88.5 Allergy status to narcotic agent
CPT/HCPCS: 36430; 36591; 85025; 85049; 85055; 86850; 86900; 86901; 86920; 96523; J1642; P9016; P9034

== ENCOUNTER 2022-06-19 12:30 | Outpatient (CLI) | payer MEDICARE ==
[~2022-06-19] VITALS: Ht 160 cm; Wt 37.3 kg
[~2022-06-19 12:30] MED LIST changes: +ACETAMINOPHEN TAB 650MG DOSE (2X325MG) PO ONE; +SODIUM CHLORIDE 0.9% INJ 10 ML SYR IV PRN; +diphenhydrAMINE 25MG CAP PO ONE
[2022-06-19 13:02] VITALS: BP 108/54
[2022-06-19 13:22] VITALS: BP 110/53
[2022-06-19 15:00] VITALS: BP 103/53
[2022-06-19 15:20] VITALS: BP 106/55
[2022-06-19 16:20] VITALS: BP 110/57
[2022-06-19 17:00] VITALS: BP 108/53
== END 2022-06-19 17:00 | disposition home or self-care (01) ==
LOC: M INFU 12:30
PROVIDERS: ATTEND Internal Medicine Hematology & Oncology
DX: D46.9 Myelodysplastic syndrome, unspecified (principal); Z88.5 Allergy status to narcotic agent
CPT/HCPCS: 36430; 96523; J1642; P9016; P9034

== ENCOUNTER 2022-06-25 11:58 | Outpatient (CLI) | payer MEDICARE ==
[~2022-06-25] VITALS: Ht 160 cm; Wt 37.3 kg
[~2022-06-25 11:58] MED LIST changes: -ACETAMINOPHEN TAB 650MG DOSE (2X325MG) PO ONE; +ACETAMINOPHEN TAB 650MG DOSE (2X325MG) PO SCH; -diphenhydrAMINE 25MG CAP PO ONE; +diphenhydrAMINE 25MG CAP PO SCH
[2022-06-25 12:12] VITALS: BP 122/57
[2022-06-25 12:36] VITALS: BP 122/57
[2022-06-25 12:43] VITALS: BP 122/57
[2022-06-25 14:22] VITALS: BP 114/57
[2022-06-25 14:40] VITALS: BP 104/56
[2022-06-25 16:00] VITALS: BP 111/68
== END 2022-06-25 16:10 | disposition home or self-care (01) ==
LOC: M INFU 11:58
PROVIDERS: ATTEND Internal Medicine Hematology & Oncology
DX: D46.9 Myelodysplastic syndrome, unspecified (principal); Z88.5 Allergy status to narcotic agent
CPT/HCPCS: 36430; 36591; 85025; 85049; 85055; 86850; 86900; 86901; 86920; 96523; J1642; P9016; P9034

== ENCOUNTER 2022-06-26 11:40 | Outpatient (CLI) | payer MEDICARE ==
[~2022-06-26] VITALS: Ht 160 cm; Wt 37.3 kg
[~2022-06-26 11:40] MED LIST changes: +ACETAMINOPHEN TAB 650MG DOSE (2X325MG) PO ONE; -ACETAMINOPHEN TAB 650MG DOSE (2X325MG) PO SCH; +diphenhydrAMINE 25MG CAP PO ONE; -diphenhydrAMINE 25MG CAP PO SCH
[2022-06-26 11:51] VITALS: BP 122/57
[2022-06-26 11:59] VITALS: BP 122/57
[2022-06-26 13:25] VITALS: BP 98/48
[2022-06-26 14:30] VITALS: BP 116/55
[2022-06-26 15:00] VITALS: BP 111/68
== END 2022-06-26 15:10 ==
LOC: M INFU 11:40
PROVIDERS: ATTEND Internal Medicine Hematology & Oncology
DX: D46.9 Myelodysplastic syndrome, unspecified (principal); Z88.5 Allergy status to narcotic agent
CPT/HCPCS: 36430; 96523; J1642; P9016; P9034

== ENCOUNTER 2022-07-02 10:39 | Outpatient (CLI) | payer MEDICARE ==
[~2022-07-02] VITALS: Ht 160 cm; Wt 37.3 kg
[~2022-07-02 10:39] MED LIST changes: -ACETAMINOPHEN TAB 650MG DOSE (2X325MG) PO ONE; -SODIUM CHLORIDE 0.9% INJ 10 ML SYR IV PRN; -diphenhydrAMINE 25MG CAP PO ONE
[2022-07-02] MEDS ORDERED: SODIUM CHLORIDE 0.9% INJ 10 ML SYR IV PRN (11:00)
[2022-07-02] MEDS ORDERED: ACETAMINOPHEN TAB 650MG DOSE (2X325MG) PO ONE (11:00)
[2022-07-02] MEDS ORDERED: diphenhydrAMINE 25MG CAP PO ONE (11:00)
[2022-07-02 11:40] VITALS: BP 110/55
[2022-07-02 11:49] VITALS: BP 110/55
[2022-07-02 12:50] VITALS: BP 108/61
[2022-07-02 13:26] VITALS: BP 123/54
[2022-07-02 15:00] VITALS: BP 114/53
[2022-07-02 15:16] VITALS: BP 114/53
== END 2022-07-02 15:15 | disposition home or self-care (01) ==
LOC: M INFU 10:39
PROVIDERS: ATTEND Internal Medicine Hematology & Oncology
DX: D46.9 Myelodysplastic syndrome, unspecified (principal); Z88.5 Allergy status to narcotic agent
CPT/HCPCS: 36430; 36591; 85025; 85049; 85055; 86850; 86900; 86901; 86920; 96523; J1642; P9016

== ENCOUNTER 2022-07-03 12:10 | Outpatient (CLI) | payer MEDICARE ==
[~2022-07-03] VITALS: Ht 160 cm; Wt 37.3 kg
[2022-07-03 12:10] VITALS: BP 134/62
[~2022-07-03 12:10] MED LIST changes: +ACETAMINOPHEN TAB 650MG DOSE (2X325MG) PO ONE; +SODIUM CHLORIDE 0.9% INJ 10 ML SYR IV PRN; +diphenhydrAMINE 25MG CAP PO ONE
[2022-07-03 13:12] VITALS: BP 110/54
[2022-07-03 15:30] VITALS: BP 115/52
[2022-07-03 17:00] VITALS: BP 110/56
== END 2022-07-03 17:00 | disposition home or self-care (01) ==
LOC: M INFU 12:10
PROVIDERS: ATTEND Internal Medicine Medical Oncology
DX: D46.9 Myelodysplastic syndrome, unspecified (principal); Z88.5 Allergy status to narcotic agent
CPT/HCPCS: 36430; 96523; J1642; P9034

== ENCOUNTER 2022-07-09 10:45 | Outpatient (CLI) | payer MEDICARE ==
[2022-07-09] VITALS (7 sets, daily range): BP systolic 98–111; BP diastolic 8–62
[~2022-07-09] VITALS: Ht 160 cm; Wt 37.3 kg
[~2022-07-09 10:45] MED LIST changes: -ACETAMINOPHEN TAB 650MG DOSE (2X325MG) PO ONE; +ACETAMINOPHEN TAB 650MG DOSE (2X325MG) PO SCH; -SODIUM CHLORIDE 0.9% INJ 10 ML SYR IV PRN; -diphenhydrAMINE 25MG CAP PO ONE; +diphenhydrAMINE 25MG CAP PO SCH
[2022-07-09] MEDS ORDERED: SODIUM CHLORIDE 0.9% INJ 10 ML SYR IV PRN (11:50)
== END 2022-07-09 16:20 ==
LOC: M INFU 10:45
PROVIDERS: ATTEND Internal Medicine Hematology & Oncology
DX: D46.9 Myelodysplastic syndrome, unspecified (principal); Z88.5 Allergy status to narcotic agent
CPT/HCPCS: 36430; 36591; 85025; 85049; 85055; 86850; 86900; 86901; 86920; 96523; J1642; P9016; P9034

== ENCOUNTER 2022-07-10 11:40 | Outpatient (CLI) | payer MEDICARE ==
[~2022-07-10] VITALS: Ht 160 cm; Wt 37.3 kg
[~2022-07-10 11:40] MED LIST changes: +SODIUM CHLORIDE 0.9% INJ 10 ML SYR IV PRN
[2022-07-10 12:00] VITALS: BP 123/59
[2022-07-10 12:06] VITALS: BP 123/59
[2022-07-10 13:22] VITALS: BP 98/52
[2022-07-10 14:49] VITALS: BP 107/55
== END 2022-07-10 15:00 | disposition home or self-care (01) ==
LOC: M INFU 11:40
PROVIDERS: ATTEND Internal Medicine Medical Oncology
DX: D46.9 Myelodysplastic syndrome, unspecified (principal); Z88.5 Allergy status to narcotic agent
CPT/HCPCS: 36430; 96523; J1642; P9016; P9034

== ENCOUNTER 2022-07-14 17:20 | Emergency (ER) | payer MEDICARE ==
[~2022-07-14] VITALS: Ht 160 cm; Wt 36.4 kg
[~2022-07-14 17:20] MED LIST changes: -ACETAMINOPHEN TAB 650MG DOSE (2X325MG) PO SCH; -OMEP-173; -SODIUM CHLORIDE 0.9% INJ 10 ML SYR IV PRN; -SODIUM CHLORIDE 0.9% INJ 10 ML SYR IV SCH; -diphenhydrAMINE 25MG CAP PO SCH
[2022-07-14] MEDS ORDERED: NS 500 ML IV ONE (19:25)
[2022-07-14 20:43] LABS: LYMPH # 0.3 10^3/uL (1.5-5.0); LYMPH % 14.5 % (24.0-44.0); MEAN CORPUSCULAR HEMOGLOBIN 29.3 pg (27.0-33.0); MEAN CORPUSCULAR HGB CONC 34.2 g/dl (32.0-36.5); MEAN CORPUSCULAR VOLUME 85.7 fl (80.0-96.0); MONO # 0.1 10^3/uL (0.0-0.8); MONO % 4.1 % (2.0-8.0); NEUTROPHILS # 1.7 10^3/uL (1.5-8.5); NEUTROPHILS % 77.3 % (36.0-66.0); RED BLOOD COUNT 1.33 10^6/uL (4.00-5.40); WHITE BLOOD COUNT 2.2 10^3/uL (4.0-10.0)
[2022-07-14 20:44] LABS: HEMOGLOBIN 3.9 g/dl (12.0-15.5); PLATELET COUNT, AUTOMATED 3 10^3/uL (150-450)
[2022-07-14 20:45] LABS: HEMATOCRIT 11.4 % (36.0-47.0)
[2022-07-14 20:57] LABS: INR 1.21; PROTHROMBIN TIME 15.7 SECONDS (12.7-14.5)
[2022-07-14 20:58] LABS: PARTIAL THROMBOPLASTIN TIME 62.6 SECONDS (25.9-37.0)
[2022-07-14 21:16] LABS: CK-MB VALUE MASS < 1.0 NG/ML (<3.6); CPK CREATINE PHOSPHOKINASE 21 U/L (26-192); MB/CK RELATIVE INDEX 4.76 (< OR =4)
[2022-07-14 21:36] LABS: ALBUMIN 2.7 GM/DL (3.2-5.2); ALT/SGPT 46 U/L (12-78); BILIRUBIN,DIRECT 0.4 MG/DL (0.0-0.2); BLOOD UREA NITROGEN 19 MG/DL (7-18); CARBON DIOXIDE LEVEL 26 MEQ/L (21-32); CHLORIDE LEVEL 103 MEQ/L (98-107); CREATININE FOR GFR 0.66 MG/DL (0.55-1.30); GLOMERULAR FILTRATION RATE > 60.0 (>39); GLUCOSE, FASTING 110 MG/DL (70-100); LIPASE 113 U/L (73-393); POTASSIUM SERUM 2.8 MEQ/L (3.5-5.1); SODIUM LEVEL 136 MEQ/L (136-145); TOTAL PROTEIN 5.6 GM/DL (6.4-8.2)
[2022-07-14] MEDS: GASTROGRAFIN SOLUTION 30ML PO SCH ×2 (21:45→22:17)
[2022-07-14] MEDS ORDERED: POTASSIUM CHLORIDE 10MEQ SR TABLET PO ONE (22:00)
[2022-07-14 22:27] LABS: RSV AMPLIFICATION NEGATIVE (NEGATIVE)
[2022-07-14] MEDS ORDERED: ISOVUE-370 76% 100ML VIAL As Ordered ONE (23:23)
[2022-07-14] MEDS ORDERED: ONDANSETRON 4MG 2ML VIAL IV ONE (23:25)
[2022-07-14 23:29] LABS: CK-MB VALUE MASS < 1.0 NG/ML (<3.6); CPK CREATINE PHOSPHOKINASE 16 U/L (26-192); MB/CK RELATIVE INDEX 6.25 (< OR =4)
[2022-07-15 02:00] VITALS: BP 89/50
[2022-07-15] MEDS ORDERED: DIFI200T PO (02:37)
[2022-07-15] MEDS ORDERED: FIDAXOMICIN 200 MG TAB (DIFICID) PO ONE (02:40)
[2022-07-20] MEDS ORDERED: PROBCAP14 PO (09:01)
== END 2022-07-15 03:21 | disposition home or self-care (01) ==
LOC: M ED 17:20
DX: A04.71 Enterocolitis due to Clostridium difficile, recurrent (principal); E87.6 Hypokalemia; R00.0 Tachycardia, unspecified; D61.818 Other pancytopenia; K21.9 Gastro-esophageal reflux disease without esophagitis; R91.8 Other nonspecific abnormal finding of lung field; R16.2 Hepatomegaly with splenomegaly, not elsewhere classified; Z79.899 Other long term (current) drug therapy; Z88.5 Allergy status to narcotic agent
CPT/HCPCS: 74177; 80048; 80076; 82550; 82553; 83605; 83690; 84484; 85025; 85049; 85055; 85610; 85730; 87040; 87076; 87507; 87631; 93005; 93041; 96361; 96374; 99285; J2405; Q9963; Q9967

== ENCOUNTER 2022-07-16 11:20 | Outpatient (CLI) | payer MEDICARE ==
[~2022-07-16 11:20] MED LIST changes: +ACETAMINOPHEN TAB 650MG DOSE (2X325MG) PO SCH; +SODIUM CHLORIDE 0.9% INJ 10 ML SYR IV SCH; +diphenhydrAMINE 25MG CAP PO SCH
[2022-07-16 12:00] VITALS: BP 105/54
[2022-07-16] MEDS ORDERED: SODIUM CHLORIDE 0.9% INJ 10 ML SYR IV PRN ×2 (13:00→13:10)
[2022-07-16] MEDS ORDERED: FIDAXOMICIN 200 MG TAB (DIFICID) PO ONE (13:10)
[2022-07-16 13:50] VITALS: BP 106/51
[2022-07-16 15:20] VITALS: BP 94/45
[2022-07-16 15:40] VITALS: BP 104/61
[2022-07-16 16:57] VITALS: BP 111/51
[2022-07-17] MEDS ORDERED: SODIUM CHLORIDE 0.9% INJ 10 ML SYR IV SCH (09:00)
[2022-07-20] MEDS ORDERED: PROBCAP14 PO (09:01)
== END 2022-07-16 17:00 | disposition home or self-care (01) ==
LOC: M INFU 11:20
PROVIDERS: ATTEND Internal Medicine Medical Oncology
DX: D46.9 Myelodysplastic syndrome, unspecified (principal); Z88.5 Allergy status to narcotic agent
CPT/HCPCS: 36430; 36591; 80053; 85025; 85049; 85055; 86850; 86900; 86901; 86920; 96523; G0463; J1642; P9016; P9034

== ENCOUNTER 2022-07-17 12:05 | Outpatient (CLI) | payer MEDICARE ==
[~2022-07-17 12:05] MED LIST changes: +SODIUM CHLORIDE 0.9% INJ 10 ML SYR IV PRN
[2022-07-17] MEDS ORDERED: ONDANSETRON 4MG TAB PO PRN (12:10)
[2022-07-17] MEDS ORDERED: MULTIVITAMIN -ADULT INJECTION 10 ML, FOLIC ACID 1 MG, THIAMINE INJection 100 MG in NS 1... IV ONE (13:00)
[2022-07-20] MEDS ORDERED: PROBCAP14 PO (09:01)
== END 2022-07-17 15:55 | disposition home or self-care (01) ==
LOC: M INFU 12:05
PROVIDERS: ATTEND Internal Medicine Medical Oncology
DX: D46.9 Myelodysplastic syndrome, unspecified (principal); Z88.5 Allergy status to narcotic agent
CPT/HCPCS: 36430; 96523; J3411; P9016

== ENCOUNTER 2022-07-20 10:35 | Outpatient (CLI) | payer MEDICARE ==
[~2022-07-20 10:35] MED LIST changes: -ACETAMINOPHEN TAB 650MG DOSE (2X325MG) PO SCH; +PROBCAP14 PO; -SODIUM CHLORIDE 0.9% INJ 10 ML SYR IV PRN; -SODIUM CHLORIDE 0.9% INJ 10 ML SYR IV SCH; -diphenhydrAMINE 25MG CAP PO SCH
[2022-07-20 10:54] VITALS: BP 120/56
[2022-07-20] MEDS ORDERED: MULTIVITAMIN -ADULT INJECTION 10 ML, FOLIC ACID 1 MG, THIAMINE INJection 100 MG in NS 1... IV ONE (12:30)
[2022-07-20 14:05] VITALS: BP 120/55
[2022-07-20] MEDS ORDERED: DIFI200T PO (15:31)
[2022-07-20] MEDS ORDERED: BACI1CAP PO (15:31)
[2022-07-20] MEDS ORDERED: PRED5TA PO (15:31)
[2022-07-20] MEDS ORDERED: PROM50TA28 PO (15:31)
[2022-07-20] MEDS ORDERED: FIDAXOMICIN 200 MG TAB (DIFICID) PO SCH (21:00)
== END 2022-07-20 14:05 | disposition home or self-care (01) ==
LOC: M INFU 10:35
PROVIDERS: ATTEND Internal Medicine Medical Oncology
DX: D46.9 Myelodysplastic syndrome, unspecified (principal); Z88.5 Allergy status to narcotic agent
CPT/HCPCS: 36591; 80053; 85025; 85049; 85055; 86850; 86900; 86901; 86920; 96365; 96366; G0463; J3411

== ENCOUNTER 2022-07-20 11:40 | Observation (INO) | payer MEDICARE ==
[2022-07-20] VITALS (9 sets, daily range): BP systolic 104–158; BP diastolic 53–80
[2022-07-20] MEDS ORDERED: BACI1CAP PO (15:31)
[2022-07-20] MEDS ORDERED: PRED5TA PO (15:31)
[2022-07-20] MEDS ORDERED: PROM50TA28 PO (15:31)
[2022-07-20] MEDS ORDERED: DIFI200T PO (15:31)
[2022-07-20] MEDS ORDERED: HOME MED LIST COMPLETE! XX SCH (15:35)
[2022-07-20] MEDS ORDERED: POTASSIUM CHLORIDE 10MEQ SR TABLET PO SCH (16:00)
[2022-07-20] MEDS: SODIUM CHLORIDE 0.9% INJ 10 ML SYR IV SCH (17:15)
[2022-07-20] MEDS: LACTOBACILLUS ACIDOPHILUS CAP (BACID) PO SCH (17:39)
[2022-07-20] MEDS: ONDANSETRON 4MG ORAL DISINTEGRATING TAB SL PRN (17:51)
[2022-07-20] MEDS: SODIUM CHLORIDE 0.9% INJ 10 ML SYR IV PRN (17:56)
[2022-07-20] MEDS ORDERED: FILGRASTIM 300 MCG/0.5 ML SYRINGE **SC ADMINISTRATION ONLY SC SCH (18:00)
[2022-07-20] MEDS: KCL 10MEQ/100ML SWI (KRUN) 10 MEQ in IV 1 EA IV SCH ×3 (18:39→23:21)
[2022-07-20] MEDS: FIDAXOMICIN 200 MG TAB (DIFICID) PO SCH (23:00)
[2022-07-20] MEDS: DEFERASIROX 360 MG PO SCH (23:01)
[2022-07-21 00:27] VITALS: BP 110/61
[2022-07-21] MEDS: KCL 10MEQ/100ML SWI (KRUN) 10 MEQ in IV 1 EA IV SCH ×2 (00:46→02:22)
[2022-07-21 01:52] VITALS: BP 112/61
[2022-07-21 03:30] VITALS: BP 97/47
[2022-07-21 05:10] VITALS: BP 109/63
[2022-07-21 06:09] LABS: HEMATOCRIT 21.4 % (36.0-47.0); MEAN CORPUSCULAR HEMOGLOBIN 28.9 pg (27.0-33.0); MEAN CORPUSCULAR HGB CONC 33.6 g/dl (32.0-36.5); MEAN CORPUSCULAR VOLUME 85.9 fl (80.0-96.0); RED BLOOD COUNT 2.49 10^6/uL (4.00-5.40)
[2022-07-21 06:17] LABS: PLATELET COUNT, AUTOMATED 22 10^3/uL (150-450)
[2022-07-21 06:18] LABS: HEMOGLOBIN 7.2 g/dl (12.0-15.5)
[2022-07-21 06:20] LABS: INR 1.1; PROTHROMBIN TIME 14.4 SECONDS (12.5-14.5)
[2022-07-21 06:21] LABS: PARTIAL THROMBOPLASTIN TIME 47.7 SECONDS (24.8-34.2)
[2022-07-21 06:52] LABS: ALBUMIN 2.4 GM/DL (3.2-5.2); ALT/SGPT 27 U/L (12-78); BLOOD UREA NITROGEN 9 MG/DL (7-18); CALCIUM LEVEL 7.9 MG/DL (8.8-10.2); CARBON DIOXIDE LEVEL 27 MEQ/L (21-32); CHLORIDE LEVEL 107 MEQ/L (98-107); CREATININE FOR GFR 0.47 MG/DL (0.55-1.30); GLOMERULAR FILTRATION RATE > 60.0 (>39); GLUCOSE, FASTING 90 MG/DL (70-100); POTASSIUM SERUM 3.5 MEQ/L (3.5-5.1); SODIUM LEVEL 139 MEQ/L (136-145); TOTAL PROTEIN 5.1 GM/DL (6.4-8.2)
[2022-07-21 06:53] LABS: BILIRUBIN,TOTAL 1.7 MG/DL (0.2-1.0)
[2022-07-21] MEDS ORDERED: OMEPRAZOLE 20MG CAP PO SCH (09:00)
[2022-07-21] MEDS ORDERED: predniSONE 5 MG TAB PO SCH (09:00)
[2022-07-21] MEDS: LACTOBACILLUS ACIDOPHILUS CAP (BACID) PO SCH (09:51)
[2022-07-21] MEDS: DEFERASIROX 360 MG PO SCH (09:51)
[2022-07-21] MEDS: FIDAXOMICIN 200 MG TAB (DIFICID) PO SCH (09:51)
[2022-07-21] MEDS: SODIUM CHLORIDE 0.9% INJ 10 ML SYR IV SCH (09:52)
[2022-07-21] MEDS: ONDANSETRON 4MG ORAL DISINTEGRATING TAB SL PRN (10:57)
[2022-07-21 11:02] LABS: HEMATOCRIT 22.4 % (36.0-47.0); HEMOGLOBIN 7.8 g/dl (12.0-15.5)
[2022-07-21] MEDS ORDERED: FLUBLOK(EGG FREE)(QUAD)INFLUENZA VACC 0.5ML SYRINGE 18YRS & OLDER IM.IMMUN ONE (12:00)
[2022-07-21] MEDS: SODIUM CHLORIDE 0.9% INJ 10 ML SYR IV PRN (12:37)
== END 2022-07-21 14:13 | disposition home or self-care (01) ==
LOC: INTOOBSV 14:04 → M MSPAV 14:04
PROVIDERS: ADMIT Internal Medicine Nephrology; ATTEND Family Medicine
DX: D61.818 Other pancytopenia (principal); D46.9 Myelodysplastic syndrome, unspecified; E46 Unspecified protein-calorie malnutrition; E87.6 Hypokalemia; K44.9 Diaphragmatic hernia without obstruction or gangrene; J44.9 Chronic obstructive pulmonary disease, unspecified; K21.9 Gastro-esophageal reflux disease without esophagitis; Z79.52 Long term (current) use of systemic steroids; Z79.899 Other long term (current) drug therapy; Z88.5 Allergy status to narcotic agent
CPT/HCPCS: 36415; 36591; 80053; 85014; 85018; 85025; 85027; 85049; 85055; 85610; 85730; 86850; 86900; 86901; 86920; 87635; 96365; 96366; 96372; 97116; 97162; 97165; 97530; G0008; G0378; G0463; J1442; J1642; J3411; J7512; P9016; P9034

== ENCOUNTER 2022-07-23 11:47 | Outpatient (CLI) | payer MEDICARE ==
[~2022-07-23 11:47] MED LIST changes: +ACETAMINOPHEN TAB 650MG DOSE (2X325MG) PO SCH; +BACI1CAP PO; +SODIUM CHLORIDE 0.9% INJ 10 ML SYR IV SCH; +diphenhydrAMINE 25MG CAP PO SCH
[2022-07-23] MEDS ORDERED: SODIUM CHLORIDE 0.9% INJ 10 ML SYR IV PRN (12:00)
[2022-07-23 12:01] VITALS: BP 121/58
[2022-07-23 13:10] VITALS: BP 117/55
[2022-07-23 14:30] VITALS: BP 126/61
[2022-07-23 14:45] VITALS: BP 126/66
[2022-07-23 15:43] VITALS: BP 118/72
[2022-07-23 16:20] VITALS: BP 118/72
== END 2022-07-23 16:20 | disposition home or self-care (01) ==
LOC: M INFU 11:47
PROVIDERS: ATTEND Internal Medicine Medical Oncology
DX: D46.9 Myelodysplastic syndrome, unspecified (principal); Z88.5 Allergy status to narcotic agent
CPT/HCPCS: 36430; 36591; 80053; 83735; 85025; 85049; 85055; 86850; 86900; 86901; 86920; 87507; 96523; G0463; J1642; P9016; P9034

== ENCOUNTER 2022-07-30 11:23 | Outpatient (CLI) | payer MEDICARE ==
[~2022-07-30] VITALS: Ht 162.6 cm; Wt 34.0 kg
[~2022-07-30 11:23] MED LIST changes: -ACETAMINOPHEN TAB 650MG DOSE (2X325MG) PO SCH; -SODIUM CHLORIDE 0.9% INJ 10 ML SYR IV SCH; -diphenhydrAMINE 25MG CAP PO SCH
[2022-07-30 11:37] VITALS: BP 120/50
[2022-07-30] MEDS ORDERED: SODIUM CHLORIDE 0.9% INJ 10 ML SYR IV PRN (12:10)
[2022-07-30 12:38] VITALS: BP 120/56
[2022-07-30] MEDS ORDERED: ACETAMINOPHEN TAB 650MG DOSE (2X325MG) PO ONE (12:45)
[2022-07-30] MEDS ORDERED: diphenhydrAMINE 25MG CAP PO ONE (12:45)
[2022-07-30 12:55] VITALS: BP 114/53
[2022-07-30 13:55] VITALS: BP 119/53
[2022-07-31] MEDS ORDERED: SODIUM CHLORIDE 0.9% INJ 10 ML SYR IV SCH (09:00)
== END 2022-07-30 13:45 | disposition home or self-care (01) ==
LOC: M INFU 11:23
PROVIDERS: ATTEND Internal Medicine Medical Oncology
DX: D46.9 Myelodysplastic syndrome, unspecified (principal); Z88.5 Allergy status to narcotic agent
CPT/HCPCS: 36430; 36591; 85025; 85049; 85055; 86850; 86900; 86901; 86920; 96523; J1642; P9016; P9034

== ENCOUNTER 2022-07-31 11:45 | Outpatient (CLI) | payer MEDICARE ==
[~2022-07-31] VITALS: Ht 162.6 cm; Wt 35.0 kg
[~2022-07-31 11:45] MED LIST changes: +ACETAMINOPHEN TAB 650MG DOSE (2X325MG) PO ONE; +SODIUM CHLORIDE 0.9% INJ 10 ML SYR IV PRN; +diphenhydrAMINE 25MG CAP PO ONE
[2022-07-31 12:30] VITALS: BP 109/55
[2022-07-31] MEDS: SODIUM CHLORIDE 0.9% INJ 10 ML SYR IV SCH ×2 (12:46→15:34)
[2022-07-31 13:36] VITALS: BP 127/88
[2022-07-31 13:40] VITALS: BP 127/88
[2022-07-31 13:55] VITALS: BP 120/58
[2022-07-31 15:29] VITALS: BP 119/55
[2022-07-31 15:43] VITALS: BP 119/55
== END 2022-07-31 15:45 | disposition home or self-care (01) ==
LOC: M INFU 11:45
PROVIDERS: ATTEND Internal Medicine Medical Oncology
DX: D46.9 Myelodysplastic syndrome, unspecified (principal); Z88.5 Allergy status to narcotic agent
CPT/HCPCS: 36430; 96523; J1642; P9016; P9034

== ENCOUNTER 2022-08-06 11:42 | Outpatient (CLI) | payer MEDICARE ==
[~2022-08-06 11:42] MED LIST changes: -ACETAMINOPHEN TAB 650MG DOSE (2X325MG) PO ONE; +ACETAMINOPHEN TAB 650MG DOSE (2X325MG) PO SCH; -diphenhydrAMINE 25MG CAP PO ONE; +diphenhydrAMINE 25MG CAP PO SCH
[2022-08-06 12:00] VITALS: BP 136/60
[2022-08-06 13:00] VITALS: BP 110/55
[2022-08-06 14:17] VITALS: BP 114/52
[2022-08-06 14:40] VITALS: BP 116/56
[2022-08-06 15:49] VITALS: BP 114/54
[2022-08-07] MEDS ORDERED: SODIUM CHLORIDE 0.9% INJ 10 ML SYR IV SCH (09:00)
== END 2022-08-06 15:55 ==
LOC: M INFU 11:42
PROVIDERS: ATTEND Internal Medicine Medical Oncology
DX: D46.9 Myelodysplastic syndrome, unspecified (principal); Z88.5 Allergy status to narcotic agent
CPT/HCPCS: 36430; 36591; 85025; 85049; 85055; 86850; 86900; 86901; 86920; 96523; J1642; P9016; P9034

== ENCOUNTER 2022-08-07 11:37 | Outpatient (CLI) | payer MEDICARE ==
[~2022-08-07] VITALS: Ht 160 cm; Wt 37.9 kg
[~2022-08-07 11:37] MED LIST changes: -SODIUM CHLORIDE 0.9% INJ 10 ML SYR IV PRN
[2022-08-07 11:45] VITALS: BP 119/57
[2022-08-07 12:45] VITALS: BP 107/52
[2022-08-07 14:05] VITALS: BP 115/56
[2022-08-07 14:45] VITALS: BP 106/54
[2022-08-07 15:45] VITALS: BP 111/57
[2022-08-07] MEDS ORDERED: SODIUM CHLORIDE 0.9% INJ 10 ML SYR IV PRN (16:10)
[2022-08-07 16:34] VITALS: BP 115/52
[2022-08-08] MEDS ORDERED: SODIUM CHLORIDE 0.9% INJ 10 ML SYR IV SCH (09:00)
== END 2022-08-07 16:35 | disposition home or self-care (01) ==
LOC: M INFU 11:37
PROVIDERS: ATTEND Internal Medicine Medical Oncology
DX: D46.9 Myelodysplastic syndrome, unspecified (principal); Z88.5 Allergy status to narcotic agent
CPT/HCPCS: 36430; 96523; J1642; P9016; P9034

== ENCOUNTER 2022-08-13 11:24 | Outpatient (CLI) | payer MEDICARE ==
[~2022-08-13] VITALS: Ht 162.6 cm; Wt 35.0 kg
[2022-08-13 11:44] VITALS: BP 116/55
[2022-08-13 12:27] VITALS: BP 116/55
[2022-08-13 12:45] VITALS: BP 106/47
[2022-08-13] MEDS ORDERED: SODIUM CHLORIDE 0.9% INJ 10 ML SYR IV PRN (12:50)
[2022-08-13 14:04] VITALS: BP 121/58
[2022-08-13 15:35] VITALS: BP 111/55
[2022-08-14] MEDS ORDERED: SODIUM CHLORIDE 0.9% INJ 10 ML SYR IV SCH (09:00)
== END 2022-08-13 15:45 | disposition home or self-care (01) ==
LOC: M INFU 11:24
PROVIDERS: ATTEND Internal Medicine Medical Oncology
DX: D46.9 Myelodysplastic syndrome, unspecified (principal); Z88.5 Allergy status to narcotic agent
CPT/HCPCS: 36430; 36591; 85025; 85049; 85055; 86850; 86900; 86901; 86920; 96523; J1642; P9016; P9034

== ENCOUNTER 2022-08-14 11:55 | Outpatient (CLI) | payer MEDICARE ==
[~2022-08-14 11:55] MED LIST changes: +SODIUM CHLORIDE 0.9% INJ 10 ML SYR IV SCH
[2022-08-14 12:18] VITALS: BP 121/56
[2022-08-14 12:40] VITALS: BP 118/55
[2022-08-14 14:04] VITALS: BP 127/58
[2022-08-14 14:22] VITALS: BP 112/69
[2022-08-14 15:45] VITALS: BP 131/81
== END 2022-08-14 15:45 | disposition home or self-care (01) ==
LOC: M INFU 11:55
PROVIDERS: ATTEND Internal Medicine Medical Oncology
DX: D46.9 Myelodysplastic syndrome, unspecified (principal); Z88.5 Allergy status to narcotic agent
CPT/HCPCS: 36430; 96523; J1642; P9016; P9034

== ENCOUNTER 2022-08-19 20:31 | Observation (INO) | payer MEDICARE ==
[~2022-08-19] VITALS: Ht 160 cm; Wt 36.4 kg
[~2022-08-19 20:31] MED LIST changes: -ACETAMINOPHEN TAB 650MG DOSE (2X325MG) PO SCH; -SODIUM CHLORIDE 0.9% INJ 10 ML SYR IV SCH; -diphenhydrAMINE 25MG CAP PO SCH
[2022-08-19 22:34] LABS: MEAN CORPUSCULAR HEMOGLOBIN 28.8 pg (27.0-33.0); MEAN CORPUSCULAR HGB CONC 34.4 g/dl (32.0-36.5); MEAN CORPUSCULAR VOLUME 83.6 fl (80.0-96.0); RED BLOOD COUNT 0.73 10^6/uL (4.00-5.40)
[2022-08-19 22:36] LABS: HEMATOCRIT 6.1 % (36.0-47.0)
[2022-08-19 22:37] LABS: WHITE BLOOD COUNT 0.6 10^3/uL (4.0-10.0)
[2022-08-19 22:38] LABS: HEMOGLOBIN 2.1 g/dl (12.0-15.5); PLATELET COUNT, AUTOMATED 3 10^3/uL (150-450)
[2022-08-19 22:50] LABS: INR 1.25
[2022-08-19 22:52] LABS: RSV AMPLIFICATION NEGATIVE (NEGATIVE)
[2022-08-19] MEDS ORDERED: PROBCAP14 PO (22:53)
[2022-08-19] MEDS ORDERED: OMEP40CA5 PO (22:53)
[2022-08-19] MEDS ORDERED: HOME MED LIST COMPLETE! XX SCH (22:55)
[2022-08-19 23:05] LABS: ALBUMIN 2.7 GM/DL (3.2-5.2); ALT/SGPT 43 U/L (12-78); BILIRUBIN,DIRECT 0.3 MG/DL (0.0-0.2); BILIRUBIN,TOTAL 0.9 MG/DL (0.2-1.0); BLOOD UREA NITROGEN 17 MG/DL (7-18); CALCIUM LEVEL 8.1 MG/DL (8.8-10.2); CARBON DIOXIDE LEVEL 26 MEQ/L (21-32); CHLORIDE LEVEL 103 MEQ/L (98-107); GLOMERULAR FILTRATION RATE > 60.0 (>39); GLUCOSE, FASTING 120 MG/DL (70-100); POTASSIUM SERUM 3.8 MEQ/L (3.5-5.1); SODIUM LEVEL 133 MEQ/L (136-145); TOTAL PROTEIN 5.5 GM/DL (6.4-8.2)
[2022-08-19 23:07] LABS: LYMPH % 33.3 % (24.0-44.0); MONO % 5.3 % (2.0-8.0); NEUTROPHILS % 50.9 % (36.0-66.0)
[2022-08-19 23:08] LABS: LYMPH # 0.2 10^3/uL (1.5-5.0); NEUTROPHILS # 0.3 10^3/uL (1.5-8.5)
[2022-08-19] MEDS ORDERED: ACETAMINOPHEN TAB 650MG DOSE (2X325MG) PO PRN (23:25)
[2022-08-20] VITALS (16 sets, daily range): BP systolic 86–116; BP diastolic 51–60
[2022-08-20] MEDS ORDERED: ONDANSETRON 4MG 2ML VIAL IV PRN (02:45)
[2022-08-20] MEDS ORDERED: OMEPRAZOLE 20MG CAP PO SCH (09:00)
[2022-08-20 09:35] LABS: LYMPH # 0.2 10^3/uL (1.5-5.0); LYMPH % 25.3 % (24.0-44.0); MEAN CORPUSCULAR HEMOGLOBIN 30.5 pg (27.0-33.0); MEAN CORPUSCULAR HGB CONC 34.5 g/dl (32.0-36.5); MEAN CORPUSCULAR VOLUME 88.4 fl (80.0-96.0); MONO % 3.6 % (2.0-8.0); NEUTROPHILS % 66.3 % (36.0-66.0); RED BLOOD COUNT 1.64 10^6/uL (4.00-5.40)
[2022-08-20 09:40] LABS: HEMATOCRIT 14.5 % (36.0-47.0); NEUTROPHILS # 0.6 10^3/uL (1.5-8.5)
[2022-08-20 09:44] LABS: WHITE BLOOD COUNT 0.8 10^3/uL (4.0-10.0)
[2022-08-20 09:45] LABS: PLATELET COUNT, AUTOMATED 9 10^3/uL (150-450)
[2022-08-20 10:57] LABS: FERRITIN 6033 NG/ML (8-252); FOLATE 2.5 NG/ML; IRON (FE) 259 UG/DL (50-170); PERCENT SATURATION 82.2 % (13.2-45.0); TOTAL IRON BINDING CAPACITY 315 UG/DL (250-450); VITAMIN B12 LEVEL 466 PG/ML
[2022-08-20] MEDS ORDERED: ALBU8.5H INH (14:32)
[2022-08-20] MEDS ORDERED: LACTOBACILLUS ACIDOPHILUS CAP (BACID) PO SCH (16:00)
== END 2022-08-20 15:32 | disposition home or self-care (01) ==
LOC: M ED 20:31 → M ED INP 23:23 → ENRESERV 08-20 12:41
PROVIDERS: ADMIT Family Medicine; ATTEND Family Medicine
DX: D61.818 Other pancytopenia (principal); D46.9 Myelodysplastic syndrome, unspecified; R53.1 Weakness; K21.9 Gastro-esophageal reflux disease without esophagitis; Z88.5 Allergy status to narcotic agent; Z79.899 Other long term (current) drug therapy
CPT/HCPCS: 36415; 36430; 71045; 80048; 80076; 82607; 82728; 82746; 83550; 84443; 85025; 85049; 85055; 85610; 86850; 86900; 86901; 86920; 87040; 87631; 93005; 93041; 94760; 96374; 97162; 99285; G0378; J2405; P9016; P9034

== ENCOUNTER 2022-08-25 13:43 | Inpatient (IN) | payer MEDICARE ==
[~2022-08-25 13:43] MED LIST changes: +ALBU8.5H INH; +OMEP40CA5 PO
[2022-08-25 14:19] LABS: VENOUS BASE EXCESS 0.1 (-2.0-2.0); VENOUS HCO3 25.4 MEQ/L (23.0-27.0); VENOUS O2 SATURATION 95.5 % (60.0-80.0); VENOUS PARTIAL PRESSURE CO2 45.5 mmHg (38.0-50.0); VENOUS PARTIAL PRESSURE O2 85.3 mmHg (30.0-50.0); VENOUS PH 7.364 UNITS (7.330-7.430); VENOUS STANDARD HCO3 24.6 MEQ/L; VENOUS TOTAL CO2 26.8 MEQ/L (24.0-28.0)
[2022-08-25 14:22] LABS: LYMPH # 0.2 10^3/uL (1.5-5.0); LYMPH % 26.7 % (24.0-44.0); MEAN CORPUSCULAR HEMOGLOBIN 29.6 pg (27.0-33.0); MEAN CORPUSCULAR HGB CONC 34.6 g/dl (32.0-36.5); MEAN CORPUSCULAR VOLUME 85.6 fl (80.0-96.0); NEUTROPHILS % 66.6 % (36.0-66.0); RED BLOOD COUNT 1.25 10^6/uL (4.00-5.40)
[2022-08-25 14:32] LABS: HEMATOCRIT 10.7 % (36.0-47.0); WHITE BLOOD COUNT 0.8 10^3/uL (4.0-10.0)
[2022-08-25 14:33] LABS: HEMOGLOBIN 3.7 g/dl (12.0-15.5); NEUTROPHILS # 0.5 10^3/uL (1.5-8.5); PLATELET COUNT, AUTOMATED 2 10^3/uL (150-450)
[2022-08-25] MEDS ORDERED: MIDAZOLAM INJ 2MG/2ML VIAL (J2250 PER 1MG) As Ordered ONE (14:40)
[2022-08-25 14:45] VITALS: BP 120/59
[2022-08-25] MEDS ORDERED: MIDAZOLAM INJ 2MG/2ML VIAL (J2250 PER 1MG) IV ONE (14:45)
[2022-08-25] MEDS ORDERED: MIDAZOLAM INJ 2MG/2ML VIAL (J2250 PER 1MG) IV PRN (14:55)
[2022-08-25 14:57] LABS: ALBUMIN 2.9 G/DL (3.2-5.2); ALT/SGPT 42 U/L (7.0-40); BILIRUBIN,DIRECT 0.6 MG/DL (<0.4); BILIRUBIN,TOTAL 1.3 MG/DL (0.3-1.2); BLOOD UREA NITROGEN 19 MG/DL (9-23); CARBON DIOXIDE LEVEL 26 MMOL/L (20-31); CHLORIDE LEVEL 102 MMOL/L (98-107); GLOMERULAR FILTRATION RATE > 60.0 (>39); GLUCOSE, FASTING 129 MG/DL (74-106); POTASSIUM SERUM 4.1 MMOL/L (3.5-5.1); SODIUM LEVEL 136 MMOL/L (136-145); THYROID STIMULATING HORMONE 5.557 uIU/ML (0.55-4.78); TOTAL PROTEIN 5.2 G/DL
[2022-08-25 15:05] LABS: RSV AMPLIFICATION NEGATIVE (NEGATIVE)
[2022-08-25] MEDS: MORPHINE 4 MG/ML 1ML VIAL/SYRINGE IV PRN ×2 (15:15→15:41)
[2022-08-25 16:57] LABS: CK-MB VALUE MASS < 1.0 NG/ML (<3.6); CPK CREATINE PHOSPHOKINASE 22 U/L (34-145); MB/CK RELATIVE INDEX 4.54 (< OR =4)
[2022-08-25] MEDS ORDERED: LORazepam 2 MG/ML VIAL IV PRN (17:45)
[2022-08-25] MEDS ORDERED: ATROPINE SULFATE 1% OP SOLN 2 ML BTL SL PRN (17:45)
[2022-08-25] MEDS ORDERED: MORPHINE 10MG/0.5ML ORAL CONCENTRATE SOLUTION U/D SL PRN (17:45)
[2022-08-25] MEDS ORDERED: SCOPOLAMINE 1MG TRANSDERMAL PATCH TOP PRN (17:45)
[2022-08-25] MEDS: MORPHINE 2 MG/ML 1ML VIAL IV PRN (22:59)
[2022-08-26] MEDS: MORPHINE 2 MG/ML 1ML VIAL IV PRN (05:21)
== END 2022-08-26 13:20 | disposition expired | DRG 951 ==
LOC: EDBD 13:43 → M ED 13:43 → M ED INP 17:49 → M MS5PR 20:05
PROVIDERS: ADMIT Internal Medicine; ATTEND Internal Medicine
DX: Z51.5 Encounter for palliative care (principal); G93.5 Compression of brain; I62.03 Nontraumatic chronic subdural hemorrhage; R40.20 Unspecified coma; D61.818 Other pancytopenia; D46.9 Myelodysplastic syndrome, unspecified; K21.9 Gastro-esophageal reflux disease without esophagitis; Z88.5 Allergy status to narcotic agent; Z79.899 Other long term (current) drug therapy